=== PATIENT | female | born 1955 | race Caucasian/White ===

== ENCOUNTER 2018-01-07 18:16 | Emergency (ER) | payer MEDICARE, MEDICAID, SELFPAY ==
[2018-01-07 18:34] VITALS: BP 121/79; PULSE 85; RESP 18; TEMP 36.3; O2SAT 96; BMI 34.7
--- NOTE | 2018-01-07 19:21 | DI.CT.S_ITS ---
PROCEDURE: CT ABDOMEN PELVIS W CON INDICATIONS: 62 year-old female with left lower quadrant abdominal pain. TECHNIQUE: After the administration of intravenous contrast, 5 mm thick sections acquired from the diaphragm to the symphysis. 5 mm coronal and sagittal reformats were acquired. For radiation dose reduction, the following was used: automated exposure control, adjustment of mA and/or kV according to patient size. COMPARISON: None. FINDINGS: Image quality: Excellent. ABDOMEN: Lung bases: Lung bases are clear, except for a 5 mm posterior left lung base calcified granuloma on image 19. Heart size is normal. There is small retrocardiac hiatal hernia. Solid organs: Liver is normal in size and enhancement. Gallbladder is surgically absent. Biliary system is non dilated. Pancreas enhances normally. Spleen is normal in size and enhancement. No adrenal nodules. Kidneys demonstrate normal size and enhancement, without hydronephrosis. Peritoneum and bowel: Bowel loops demonstrate normal wall thickness and caliber. There is mild sigmoid colon diverticulosis. No free fluid or air. Nodes and vessels: No retroperitoneal or mesenteric adenopathy by size criteria. Aorta and inferior vena cava are normal in size, with minimal aortic atherosclerosis. Miscellaneous: No ventral hernias. PELVIS: Genitourinary: The bladder is near empty at the time of scan. Uterus is surgically absent. The ovaries are not seen, and may be surgically absent as well. Miscellaneous: No inguinal hernias or adenopathy. Bones: No suspicious bony lesions. No acute vertebral body compression fractures. There is non-acute T11 anterior wedge compression fracture, with 42% height loss. There is lower lumbar spine disc degeneration. IMPRESSION: 1. Mild sigmoid colon diverticulosis, without acute diverticulitis. 2. Small retrocardiac hiatal hernia. 3. Nonacute T11 anterior wedge compression fracture. Dictated by: Catrachito Ireland M.D. on 01/07/2018 at 21:17 Approved by: Catrachito Ireland M.D. on 01/07/2018 at 21:24
--- NOTE | 2018-01-07 19:24 | ED_ITS ---
HPI - Abdominal Pain General Chief Complaint: Abdominal Pain Stated Complaint: ABD PAIN, RECTAL BLEEDING Time Seen by Provider: 01/07/18 18:59 Source: patient Mode of arrival: ambulatory Limitations: no limitations History of Present Illness HPI narrative: Patient is a 62-year-old female who presents with rectal bleeding and abdominal pain. She said yesterday she did notice small amount of bright red blood on the toilet paper and a small amount in the toilet. Today she started having worsening abdominal pain and cramping she felt sweaty and nauseous. She had 2 more episodes much bigger up of bright red blood. He felt a little dizzy and lightheaded when she stood up as well. Related Data Home Medications Medication Instructions Recorded Confirmed sulfadiazine 1,000 mg PO BID #0 09/04/16 12/22/17 celecoxib [Celebrex] 200 mg PO BIDCC #0 01/01/17 12/22/17 Spacer: Inhaler Spacer Device #0 08/22/17 12/22/17 Previous Rx's Medication Instructions Recorded ondansetron [Zofran ODT] 4 mg SUBLINGUAL Q6HP PRN #20 odt 08/24/16 pantoprazole [Protonix] 40 mg PO QDAY #90 tab 04/08/17 ranitidine HCl 300 mg PO HS #90 tab 04/08/17 fluticasone 0 INTRANASAL QDAY #16 gm 05/22/17 propranolol 0 PO SEE INSTRUCTIONS #180 tab 05/22/17 topiramate [Topamax] 50 mg OR BID #90 tab 05/22/17 venlafaxine [Effexor XR] 150 mg PO QDAY #90 cap 05/22/17 naratriptan 2.5 mg PO PRN PRN #30 tab 06/05/17 albuterol sulfate [Ventolin HFA] 2 puff INH Q4HP PRN #1 ea 08/22/17 Allergies Allergy/AdvReac Type Severity Reaction Status Date / Time codeine [CODEINE] Allergy Mild THROAT Verified 12/22/17 09:06 SWELLING naproxen [From ANAPROX] Allergy Mild HIVES Verified 12/22/17 09:06 flurbiprofen [FLURBIPROFEN] AdvReac Mild GI UPSET Verified 01/07/18 19:24 PFSH Medical History GERD (gastroesophageal reflux disease) (Acute) Migraine (Acute) Psoriatic arthritis (Acute) Social History Smoking Status: Current every day smoker Exam Initial Vital Signs Initial Vital Signs: Vital Signs Temperature 97.3 F L 01/07/18 18:34 Pulse Rate 85 01/07/18 18:34 Respiratory Rate 18 01/07/18 18:34 Blood Pressure 121/79 H 01/07/18 18:34 Pulse Oximetry 96 01/07/18 18:34 Const General: cooperative and well developed Nutritional Appearance: well nourished Orientation: alert, awake, oriented x3 and not confused Eyes Eyelids: eyelids normal Pupils: PERRL EOM: EOM intact bilaterally Neck Neck: full ROM Resp Effort & Inspection: normal respiratory effort, able to speak in complete sentences, no respiratory distress and no use of accessory muscles Auscultation: clear to auscultation bilaterally, no rales, no rhonchi and no wheezes Cardio Rate: regular rate Rhythm: regular rhythm Heart Sounds: no click, no gallops, no murmurs and no rubs Pulses: normal peripheral pulses GI Palpation: tender (Mild tenderness to left lower quadrant) Rectal Exam: visual inspection normal, No fecal impaction, heme negative stool ( NO STOOL IN RECTUM), hemorrhoids (INTERNAL) and tenderness Skin General: no rashes or lesions noted, No jaundice and No petechiae Neuro General: alert, oriented x3, gait normal and no focal motor deficits Speech: speech normal Extrem General: normal to inspection, full ROM and capillary refill normal Course Orders Ordered: ED Orders 01/07/18 19:05 Complete Blood Count AUTO DIFF Stat Comprehensive Metabolic Panel Stat Partial Thromboplastin Time Stat Prothrombin Time INR Stat Type and Screen Stat 01/07/18 19:21 CT abdomen pelvis w con Stat Discontinued Medications Ondansetron HCl (Zofran) 4 mg IV NOW ONE Stop: 01/07/18 19:23 Last Admin: 01/07/18 19:30 Dose: 4 mg Pantoprazole Sodium (Protonix) 40 mg IV NOW ONE Stop: 01/07/18 19:20 Last Admin: 01/07/18 19:30 Dose: 40 mg Vital Signs - 8 hr 01/07/18 18:34 01/07/18 19:43 01/07/18 20:30 Temperature 97.3 F L Pulse Rate 85 77 70 Respiratory Rate 18 14 18 Blood Pressure 121/79 H Blood Pressure [Left Arm] 103/60 92/57 L Pulse Oximetry 96 97 95 01/07/18 21:35 01/07/18 21:57 Temperature Pulse Rate 70 80 Respiratory Rate 14 14 Blood Pressure 120/70 Blood Pressure [Left Arm] 120/72 Pulse Oximetry 97 97 MDM - Abdominal Pain Medical Records Attestation: I reviewed the patient's medical records. Lab Data Attestation: I reviewed the patient's lab results. Result diagrams: 01/07/18 19:05 01/07/18 19:05 Lab Results 01/07/18 01/07/18 01/07/18 Range/Units 19:05 19:05 19:05 WBC 12.8 H (4.5-11.0) X10^3/uL RBC 4.63 (4.0-5.2) X10^6/uL Hgb 13.9 (12.0-16.0) g/dL Hct 41.7 (36-46) % MCV 90.1 (80-100) fL MCH 30.0 (26-34) PG MCHC 33.3 (30-36) % RDW 12.9 (11.6-14.8) % Plt Count 438 H (150-400) X10^3/uL Neut % (Auto) 77.8 H (50-75) % Lymph % (Auto) 16.0 L (25-40) % [place] % (Auto) 5.3 (3-14) % Eos % (Auto) 0.3 L (2-4) % Baso % (Auto) 0.6 (0-2) % Neut # (Auto) 9900 H (4794-7471) /uL PT 11.3 (10.1-12.7) SECONDS INR 1.0 (0.9-1.3) APTT 29 (26.4-36.2) SECONDS Sodium 142 (137-145) mmol/L Potassium 4.4 (3.4-5.1) mmol/L Chloride 106 (98-107) mmol/L Carbon Dioxide 21 L (22-32) mmol/L BUN 26 H (7-17) mg/dL Creatinine 0.80 (0.52-1.04) mg/dL Estimated GFR > 60.0 (>60) mL/min BUN/Creatinine Ratio 32.5 H (6-22) Glucose 110 (80-110) mg/dL Calcium 9.7 (8.4-10.2) mg/dL Total Bilirubin 0.3 (0.2-1.3) mg/dL AST 22 (14-36) IU/L ALT 20 (9-52) IU/L Alkaline Phosphatase 104 (38-126) U/L Total Protein 8.7 H (6.3-8.2) g/dL Albumin 4.3 (3.5-5.0) g/dL Globulin 4.4 H (1.7-4.1) g/dL Albumin/Globulin Ratio 1.0 (1.0-2.8) Blood Type Antibody Screen 01/07/18 01/07/18 Range/Units 19:05 19:05 WBC (4.5-11.0) X10^3/uL RBC (4.0-5.2) X10^6/uL Hgb (12.0-16.0) g/dL Hct (36-46) % MCV (80-100) fL MCH (26-34) PG MCHC (30-36) % RDW (11.6-14.8) % Plt Count (150-400) X10^3/uL Neut % (Auto) (50-75) % Lymph % (Auto) (25-40) % [place] % (Auto) (3-14) % Eos % (Auto) (2-4) % Baso % (Auto) (0-2) % Neut # (Auto) (3212-4067) /uL PT Cancelled (10.1-12.7) SECONDS INR Cancelled (0.9-1.3) APTT (26.4-36.2) SECONDS Sodium (137-145) mmol/L Potassium (3.4-5.1) mmol/L Chloride (98-107) mmol/L Carbon Dioxide (22-32) mmol/L BUN (7-17) mg/dL Creatinine (0.52-1.04) mg/dL Estimated GFR (>60) mL/min BUN/Creatinine Ratio (6-22) Glucose (80-110) mg/dL Calcium (8.4-10.2) mg/dL Total Bilirubin (0.2-1.3) mg/dL AST (14-36) IU/L ALT (9-52) IU/L Alkaline Phosphatase (38-126) U/L Total Protein (6.3-8.2) g/dL Albumin (3.5-5.0) g/dL Globulin (1.7-4.1) g/dL Albumin/Globulin Ratio (1.0-2.8) Blood Type O Negative Antibody Screen Negative Imaging Data CT scan - abdomen: Radiologist's impression: PROCEDURE: CT ABDOMEN PELVIS W CON INDICATIONS: 62 year-old female with left lower quadrant abdominal pain. TECHNIQUE: After the administration of intravenous contrast, 5 mm thick sections acquired from the diaphragm to the symphysis. 5 mm coronal and sagittal reformats were acquired. For radiation dose reduction, the following was used: automated exposure control, adjustment of mA and/or kV according to patient size. COMPARISON: None. FINDINGS: Image quality: Excellent. ABDOMEN: Lung bases: Lung bases are clear, except for a 5 mm posterior left lung base calcified granuloma on image 19. Heart size is normal. There is small retrocardiac hiatal hernia. Solid organs: Liver is normal in size and enhancement. Gallbladder is surgically absent. Biliary system is non dilated. Pancreas enhances normally. Spleen is normal in size and enhancement. No adrenal nodules. Kidneys demonstrate normal size and enhancement, without hydronephrosis. Peritoneum and bowel: Bowel loops demonstrate normal wall thickness and caliber. There is mild sigmoid colon diverticulosis. No free fluid or air. Nodes and vessels: No retroperitoneal or mesenteric adenopathy by size criteria. Aorta and inferior vena cava are normal in size, with minimal aortic atherosclerosis. Miscellaneous: No ventral hernias. PELVIS: Genitourinary: The bladder is near empty at the time of scan. Uterus is surgically absent. The ovaries are not seen, and may be surgically absent as well. Miscellaneous: No inguinal hernias or adenopathy. Bones: No suspicious bony lesions. No acute vertebral body compression fractures. There is non-acute T11 anterior wedge compression fracture, with 42% height loss. There is lower lumbar spine disc degeneration. IMPRESSION: 1. Mild sigmoid colon diverticulosis, without acute diverticulitis. 2. Small retrocardiac hiatal hernia. 3. Nonacute T11 anterior wedge compression fracture. Dictated by: Catrachito Ireland M.D. on 01/07/2018 at 21:17 MDM Narrative Medical decision making narrative: PATIENT HAS HAD NO FURTHER EPISODES OF BRIGHT RED BLOOD. HEMOGLOBIN HEMATOCRIT ARE STABLE SHE IS HEMODYNAMICALLY STABLE. NO GROSS BLOOD ON RECTAL. SHE LIKELY HAS AN INTERNAL HEMORRHOID NO EXTERIOR HEMORRHOIDS ARE APPRECIATED. CT DOES NOT SHOW DIVERTICULITIS. NO ANTIBIOTICS NEEDED AT THIS TIME. Discharge Plan Departure Patient Disposition: Home, Self-Care Clinical Impression: Bright red rectal bleeding Discharge Date/Time: 01/07/18 21:58 Interventions: ED Discharge Assessment Last Done: 01/07/18 21:57 Activity Restrictions/Additional Instructions: *You have been diagnosed with Rectal bleeding *What to do: Expect to have some bleeding but should start to slow down, you will need a colonoscopy for further evaluation bleeding is likely from hemorrhoids *Continue to take medications as directed *Follow up with your primary care provider in 2-3 days *Return to ER if you should have persistent bleeding, increasing abdominal any new, worsening or concerning symptoms Prescriptions: No Action ondansetron [Zofran ODT] 4 MG tablet,disintegrating 4 mg Sublingual Q6HP PRNQty: 20 RF: 0 sulfadiazine 500 MG tablet 1,000 mg PO BID Qty: 0 RF: 0 celecoxib [Celebrex] 200 MG capsule 200 mg PO BIDCC Qty: 0 RF: 0 ranitidine HCl 300 MG tablet 300 mg PO HS Qty: 90 RF: 3 pantoprazole [Protonix] 40 MG tablet,delayed release (DR/EC) 40 mg PO QDAY Qty: 90 RF: 3 venlafaxine [Effexor XR] 150 MG capsule,extended release 24hr 150 mg PO QDAY Qty: 90 RF: 3 propranolol 10 MG tablet PO SEE INSTRUCTIONS Qty: 180 RF: 3 fluticasone 16 GM spray,suspension Intranasal QDAY Qty: 16 RF: 12 topiramate [Topamax] 50 MG tablet 50 mg OR BID Qty: 90 RF: 3 naratriptan 2.5 MG tablet 2.5 mg PO PRN PRNQty: 30 RF: 3 Spacer: Inhaler Spacer Device Qty: 0 RF: 0 albuterol sulfate [Ventolin HFA] 90 MCG/PUFF HFA aerosol inhaler 2 puff INH Q4HP PRNQty: 1 RF: 0 Referrals: Dulce Palencia MD [Primary Care Provider] -
[2018-01-07] MEDS: PANTOPRAZOLE 40 MG VIAL IV (19:30)
[2018-01-07] MEDS: ONDANSETRON 4 MG/2 ML INJ IV (19:30)
[2018-01-07 19:43] VITALS: BP 103/60; PULSE 77; RESP 14; O2SAT 97
[2018-01-07 20:30] VITALS: BP 92/57; PULSE 70; RESP 18; O2SAT 95
[2018-01-07 20:30] LABS: Add Manual Diff / Slide Review NO; Basophils Percent Auto 0.6 % (0-2); Eosinophils Percent Auto 0.3 % (2-4); Hematocrit 41.7 % (36-46); Hemoglobin 13.9 g/dL (12.0-16.0); Mean Corpuscular HGB Conc 33.3 % (30-36); Mean Corpuscular Volume 90.1 fL (80-100); Monocytes Percent Auto 5.3 % (3-14); Neutrophils Absolute Auto 9900 /uL (3000-5900); Neutrophils Percent Auto 77.8 % (50-75); Platelet Count 438 X10^3/uL (150-400); Red Blood Cell Count 4.63 X10^6/uL (4.0-5.2); Red Cell Distribution Width 12.9 % (11.6-14.8); White Blood Cell Count 12.8 X10^3/uL (4.5-11.0)
[2018-01-07 20:35] LABS: Prothrombin Time 11.3 SECONDS (10.1-12.7)
[2018-01-07 20:37] LABS: PTT Partial Thromboplastin Tim 29 SECONDS (26.4-36.2)
[2018-01-07 20:39] LABS: Alanine Aminotransferase 20 IU/L (9-52); Albumin 4.3 g/dL (3.5-5.0); Alkaline Phosphatase 104 U/L (38-126); Aspartate Aminotransferase 22 IU/L (14-36); BUN Creatinine Ratio 32.5 (6-22); Bilirubin Total 0.3 mg/dL (0.2-1.3); Blood Urea Nitrogen 26 mg/dL (7-17); Calcium 9.7 mg/dL (8.4-10.2); Carbon Dioxide 21 mmol/L (22-32); Chloride 106 mmol/L (98-107); Estimated Glomerular Filt Rate > 60.0 mL/min (>60); Globulin 4.4 g/dL (1.7-4.1); Glucose 110 mg/dL (80-110); HEMOLYSIS < 15 (0-50); Potassium 4.4 mmol/L (3.4-5.1); Sodium 142 mmol/L (137-145); Total Protein 8.7 g/dL (6.3-8.2)
[2018-01-07 21:35] VITALS: BP 120/72; PULSE 70; RESP 14; O2SAT 97
[2018-01-07 21:57] VITALS: BP 120/70; PULSE 80; RESP 14; O2SAT 97
== END 2018-01-07 21:58 | disposition home or self-care (01) ==
PROVIDERS: Emergency Provider Emergency Medicine; Family Provider Family Medicine; PCP Family Medicine
DX: K62.5 Hemorrhage of anus and rectum (principal)
CPT/HCPCS: 36591; 74177; 80053; 81003; 85025; 85610; 85730; 86850; 86900; 86901; 96374; 96375; 99283; 99285; C9113; J2405; Q9967

== ENCOUNTER 2018-02-13 19:58 | Observation (INO) | payer MEDICARE, MEDICAID, SELFPAY ==
[2018-02-13 20:18] VITALS: BP 129/81; PULSE 81; RESP 17; TEMP 36.5; O2SAT 98; BMI 34.7
--- NOTE | 2018-02-13 20:20 | DI.RAD.S_ITS ---
PROCEDURE: XR CHEST 1V INDICATIONS: Chest pain TECHNIQUE: One view of the chest was acquired. COMPARISON: [facility], CHEST 2 VIEW, 08/22/2017, 11:53. [facility], CHEST 2 VIEW, 10/13/2017, 14:50. FINDINGS: Surgical changes and devices: None. Lungs and pleura: No pleural effusions or pneumothorax. Lungs are clear. Mediastinum: Mediastinal contours appear normal. Heart size is normal. Bones and chest wall: No suspicious bony lesions. Overlying soft tissues appear unremarkable. IMPRESSION: No acute cardiopulmonary disease. Dictated by: Thuan Bowles M.D. on 02/13/2018 at 20:50 Approved by: Thuan Bowles M.D. on 02/13/2018 at 20:50
--- NOTE | 2018-02-13 20:23 | ED.CHESTPAIN ---
HPI - Chest Pain General Chief Complaint: Chest Pain Stated Complaint: SEVERE CHEST PAIN Time Seen by Provider: 02/13/18 20:00 Source: patient and family Mode of arrival: ambulatory Limitations: no limitations History of Present Illness HPI narrative: 62-year-old female presents with a chief complaint of sudden onset central chest pressure with radiation to her back that started while at rest. She denies provocation or palliation. She has associated shortness of breath and diaphoresis with nausea. She denies any history of the same. She denies recent travel, history of blood clots, or recent injury or surgery. At its most intense pain is 4/10, on arrival to out of 10 MD complaint: chest pain Duration: constant Onset: during rest Pain location: substernal Severity: moderate Quality: tightness, aching and heaviness Pain radiation: back Relieving factors: nothing Exacerbating factors: nothing Related Data Home Medications Medication Instructions Recorded Confirmed sulfadiazine 500 mg PO BID #0 09/04/16 02/14/18 celecoxib [Celebrex] 200 mg PO BID #0 01/01/17 02/14/18 Spacer: Inhaler Spacer Device #0 08/22/17 12/22/17 Previous Rx's Medication Instructions Recorded ondansetron [Zofran ODT] 4 mg SUBLINGUAL Q6HP PRN #20 odt 08/24/16 pantoprazole [Protonix] 40 mg PO QDAY #90 tab 04/08/17 ranitidine HCl 300 mg PO HS #90 tab 04/08/17 fluticasone 0 INTRANASAL QDAY #16 gm 05/22/17 propranolol 0 PO SEE INSTRUCTIONS #180 tab 05/22/17 topiramate [Topamax] 50 mg OR BID #90 tab 05/22/17 venlafaxine [Effexor XR] 150 mg PO QDAY #90 cap 05/22/17 naratriptan 2.5 mg PO PRN PRN #30 tab 06/05/17 albuterol sulfate [Ventolin HFA] 2 puff INH Q4HP PRN #1 ea 08/22/17 Allergies Allergy/AdvReac Type Severity Reaction Status Date / Time codeine [CODEINE] Allergy Mild THROAT Verified 02/13/18 20:18 SWELLING naproxen [From ANAPROX] Allergy Mild HIVES Verified 02/13/18 20:18 flurbiprofen [FLURBIPROFEN] AdvReac Mild GI UPSET Verified 02/13/18 20:18 Review of Systems Review of Systems All systems reviewed & are unremarkable except as noted in HPI and below Constitutional Denies chills, Denies fever(s), Denies lethargy and Denies weakness Eyes Denies change in vision, Denies eye discharge, Denies irritation and Denies loss of vision ENT Ears, Nose, Mouth, and Throat: Denies change in voice, Denies neck pain and Denies sore throat Cardiovascular Reports chest pain, Denies irregular heart rhythm, Denies lightheadedness, Denies palpitations, Denies dyspnea, Denies dyspnea on exertion and Denies orthopnea Respiratory Denies cough, Denies dyspnea, Denies dyspnea on exertion and Denies wheezing Gastrointestinal Gastrointestinal: Denies abdominal pain, Denies change in bowel habits, Denies diarrhea, Denies nausea and Denies vomiting Genitourinary Denies hematuria, Denies flank pain, Denies urinary incontinence and Denies urinary urgency Musculoskeletal Denies neck pain Integumentary/Breasts Denies pruritus, Denies erythema, Denies rash and Denies wounds Neurologic Denies confusion, Denies loss of vision and Denies weakness Psychiatric Denies anxiety, Denies confusion, Denies depression, Denies homicidal ideation and Denies suicidal ideation Endocrine Denies palpitations Hematologic/Lymphatic Denies easy bruising Allergic/Immunologic Denies wheezing PFSH Medical History GERD (gastroesophageal reflux disease) (Acute) Migraine (Acute) Psoriatic arthritis (Acute) Social History household members: other Smoking Status: Never smoker Exam Initial Vital Signs Initial Vital Signs: Vital Signs Temperature 97.7 F 02/13/18 20:18 Pulse Rate 81 02/13/18 20:18 Respiratory Rate 17 02/13/18 20:18 Blood Pressure 129/81 H 02/13/18 20:18 Pulse Oximetry 98 02/13/18 20:18 Const General: cooperative and well developed Nutritional Appearance: well nourished Orientation: alert, awake, oriented x3 and not confused HENMD Head: normocephalic and atraumatic Ears: external ears normal and TM's normal bilaterally Nose: external nose normal and No nasal discharge Face and sinus: sinuses nontender, face symmetric, no sinus tenderness and No dry mucous membranes Mouth: oral mucosae normal and moist mucous membranes Teeth and gingiva: dentition normal Throat: tonsils normal and uvula midline Eyes General: appearance normal, both eyes and all related structures Eyelids: eyelids normal Conjunctivae: conjunctivae normal Sclera: sclerae normal Pupils: PERRL EOM: EOM intact bilaterally Neck Neck: normal visual inspection, trachea midline, No lymphadenopathy, No midline deformity and No JVD Lymphatic: No lymphedema Chest Chest: normal inspection of the chest Resp Effort & Inspection: normal respiratory effort, able to speak in complete sentences, no respiratory distress and no use of accessory muscles Auscultation: clear to auscultation bilaterally, no rales, no rhonchi and no wheezes Cardio Rate: regular rate Rhythm: regular rhythm Heart Sounds: no click, no gallops, no murmurs and no rubs Pulses: normal peripheral pulses GI Inspection: non-distended Palpation: soft, no hepatosplenomegaly, No guarding, No pulsatile mass and No tender Auscultation: normal bowel sounds Back/Spine/Pelvis Back: No CVA tenderness Cervical Spine: cervical ROM normal and No pain with cervical ROM Thoracic/Lumbar Spine: thoracic and lumbar spine normal to inspection Skin General: no rashes or lesions noted, No jaundice and No petechiae Neuro General: alert, oriented x3, gait normal and no focal motor deficits Speech: speech normal Extrem General: full ROM, no clubbing, cyanosis or edema, no pedal edema and no calf tenderness Psych Appearance: well kempt Mental Status: mental status grossly normal Attitude: cooperative Thought Content: normal and suicidality Judgment: judgment good Course Orders Ordered: ED Orders 02/13/18 20:15 Complete Blood Count AUTO DIFF Stat Comprehensive Metabolic Panel Stat Lipase Stat Partial Thromboplastin Time Stat Prothrombin Time INR Stat Troponin & CK Cardiac Panel Stat 02/13/18 20:20 XR chest 1V Stat 02/13/18 20:39 EKG-12 Lead Stat 02/13/18 21:14 CT angio chest PE protocol Stat 02/14/18 01:49 Troponin I Stat 02/14/18 08:00 Troponin I Routine Acetaminophen (Tylenol) 650 mg PO Q4HR PRN PRN Reason: As Needed for Fever/Mild Pain Sodium Chloride (Normal Saline 0.9%) 1,000 mls @ 80 mls/hr IV CONT NICO Last Admin: 02/14/18 00:44 Dose: 80 mls/hr Nitroglycerin (Nitrostat) 0.4 mg SL [id number] PRN PRN Reason: Chest Pain Last Admin: 02/14/18 02:45 Dose: 0.4 mg Admin: 02/13/18 20:50 Dose: 0.4 mg Discontinued Medications Aspirin (Aspirin Chew) 324 mg PO NOW ONE Stop: 02/13/18 20:38 Last Admin: 02/13/18 20:50 Dose: 324 mg Metoprolol Tartrate (Lopressor) 50 mg PO NOW ONE Stop: 02/13/18 20:38 Last Admin: 02/13/18 20:50 Dose: 50 mg Reevaluation(s) Reevaluation #1: After nitro pain improves to almost gone Time: 21:28 Consultations Consultation #1: Dr. Aviles happy to accept on her service Vital Signs - 8 hr 02/13/18 20:18 02/13/18 20:50 02/13/18 21:05 Temperature 97.7 F Pulse Rate 81 72 69 Respiratory Rate 17 Blood Pressure 129/81 H 126/75 H 115/69 Blood Pressure [Right Arm] Pulse Oximetry 98 02/13/18 21:20 02/13/18 22:35 02/13/18 23:30 Temperature 97.3 F L 97.9 F Pulse Rate 77 71 62 Respiratory Rate 15 18 16 Blood Pressure 133/78 H 121/67 H Blood Pressure [Right Arm] 109/66 Pulse Oximetry 96 98 97 02/14/18 02:45 Temperature Pulse Rate 80 Respiratory Rate Blood Pressure 121/69 H Blood Pressure [Right Arm] Pulse Oximetry MDM - Chest Pain Differential Diagnosis Likely pneumothorax, stable angina, unstable angina pectoris, atypical chest pain, st elevation myocardial infarction, costochondritis, chest pain and biliary colic Medical Records Data Attestation: I reviewed the patient's medical records. Lab Data Attestation: I reviewed the patient's lab results. Result diagrams: 02/13/18 20:15 02/13/18 20:15 Lab Results 02/13/18 02/13/18 02/13/18 Range/Units 20:15 20:15 20:15 WBC 12.6 H (4.5-11.0) X10^3/uL RBC 4.49 (4.0-5.2) X10^6/uL Hgb 13.4 (12.0-16.0) g/dL Hct 40.2 (36-46) % MCV 89.5 (80-100) fL MCH 29.8 (26-34) PG MCHC 33.4 (30-36) % RDW 13.1 (11.6-14.8) % Plt Count 361 (150-400) X10^3/uL Neut % (Auto) 54.7 (50-75) % Lymph % (Auto) 33.2 (25-40) % [place] % (Auto) 8.3 (3-14) % Eos % (Auto) 2.9 (2-4) % Baso % (Auto) 0.9 (0-2) % Neut # (Auto) 6900 H (4966-8484) /uL PT 11.7 (10.1-12.7) SECONDS INR 1.1 (0.9-1.3) APTT 30 (26.4-36.2) SECONDS Sodium 138 (137-145) mmol/L Potassium 4.3 (3.4-5.1) mmol/L Chloride 102 (98-107) mmol/L Carbon Dioxide 26 (22-32) mmol/L BUN 19 H (7-17) mg/dL Creatinine 0.80 (0.52-1.04) mg/dL Estimated GFR > 60.0 (>60) mL/min BUN/Creatinine Ratio 23.8 H (6-22) Glucose 101 (80-110) mg/dL Calcium 9.5 (8.4-10.2) mg/dL Total Bilirubin 0.4 (0.2-1.3) mg/dL AST 22 (14-36) IU/L ALT 23 (9-52) IU/L Alkaline Phosphatase 108 (38-126) U/L Total Creatine Kinase 44 (30-135) U/L Troponin I < 0.012 (0.01-0.034) ng/mL Total Protein 8.1 (6.3-8.2) g/dL Albumin 4.3 (3.5-5.0) g/dL Globulin 3.8 (1.7-4.1) g/dL Albumin/Globulin Ratio 1.1 (1.0-2.8) Lipase 73 (23-300) U/L 07/14/18 Range/Units 01:49 WBC (4.5-11.0) X10^3/uL RBC (4.0-5.2) X10^6/uL Hgb (12.0-16.0) g/dL Hct (36-46) % MCV (80-100) fL MCH (26-34) PG MCHC (30-36) % RDW (11.6-14.8) % Plt Count (150-400) X10^3/uL Neut % (Auto) (50-75) % Lymph % (Auto) (25-40) % [place] % (Auto) (3-14) % Eos % (Auto) (2-4) % Baso % (Auto) (0-2) % Neut # (Auto) (9286-0122) /uL PT (10.1-12.7) SECONDS INR (0.9-1.3) APTT (26.4-36.2) SECONDS Sodium (137-145) mmol/L Potassium (3.4-5.1) mmol/L Chloride (98-107) mmol/L Carbon Dioxide (22-32) mmol/L BUN (7-17) mg/dL Creatinine (0.52-1.04) mg/dL Estimated GFR (>60) mL/min BUN/Creatinine Ratio (6-22) Glucose (80-110) mg/dL Calcium (8.4-10.2) mg/dL Total Bilirubin (0.2-1.3) mg/dL AST (14-36) IU/L ALT (9-52) IU/L Alkaline Phosphatase (38-126) U/L Total Creatine Kinase (30-135) U/L Troponin I < 0.012 (0.01-0.034) ng/mL Total Protein (6.3-8.2) g/dL Albumin (3.5-5.0) g/dL Globulin (1.7-4.1) g/dL Albumin/Globulin Ratio (1.0-2.8) Lipase (23-300) U/L Imaging Data CT scan - abdomen: Radiologist's impression: PROCEDURE: CT ANGIO CHEST PE PROTOCOL INDICATIONS: Chest Pain, Shortness of breath. TECHNIQUE: After the administration of intravenous contrast, 2 mm thick sections acquired from the pulmonary apices to the posterior costophrenic angles. 3-dimensional maximum intensity projection (MIP) coronal and sagittal reformats were then acquired through the thorax. For radiation dose reduction, the following was used: automated exposure control, adjustment of mA and/or kV according to patient size. COMPARISON: [facility], CT, CT ABDOMEN PELVIS W CON, 01/07/2018, 20:48. [facility], CR, XR CHEST 1V, 02/13/2018, 20:26. FINDINGS: Image quality: Excellent. Pulmonary arteries: Pulmonary arteries are normal in size, and demonstrate no intraluminal filling defects to suggest central pulmonary embolism. Lungs and pleura: There is a 4 mm groundglass nodule in the right middle lobe (series 6 image 29). No pleural effusions or pneumothorax. Central and peripheral airways are patent. Mediastinum: Heart size is normal, without pericardial effusion. Calcified lymph nodes in mediastinum and karen bilaterally are consistent with old granulomas. Thoracic aorta is normal in caliber and enhancement. Esophagus is normal in caliber. There is a small hiatal hernia. Bones and chest wall: No suspicious bony lesions. Mild non-acute compression fracture of T11. Thyroid gland is normal. No axillary or supraclavicular adenopathy. Abdomen: Visualized upper abdominal solid organs appear normal in the early arterial phase of enhancement. Cholecystectomy. IMPRESSION: 1. No evidence for central pulmonary embolism. 2. A 4 mm groundglass nodule in the right middle lobe. Please see enclosed followup recommendation. 3. Old granulomas in the mediastinum and karen bilaterally. 4. Small hiatal hernia. 5. Mild non-acute T11 compressoin fracture. Fleischner Society criteria for SUB-SOLID lung nodule followup. Solitary pure ground-glass nodules5 mm or lessNo followup needed. >5 mm3 mo follow-up CT to confirm persistence. Then annual CT for 3 years. Part-solid nodules3 mo follow-up CT to confirm persistence. If persistent with solid component <5 mm, annual CT for at least 3 years. If solid component is 5 mm or more, biopsy or surgical resection. Consider PET-CT for lesions > 10 mm. Multiple sub-solid nodulesPure ground glass nodules [address] at 2 and 4 years. Pure ground glass nodules >5 mm without dominant lesion. [address] to confirm persistence, then annual followup CT for at least 3 years. Dominant nodule(s) with part-solid or solid component. [address] to confirm persistence. If persistent, consider biopsy or surgical resection, magdalena if lesions have >5 mm solid component. Dictated by: Thuan Bowles M.D. on 02/13/2018 at 21:45 Discharge Plan Departure Patient Disposition: Admitted As Inpatient Discharge Date/Time: 02/13/18 22:36 Interventions: ED Discharge Assessment Last Done: 02/13/18 22:35 Admit Date/Time: 02/13/18 22:33 Admit Provider: Eda Aviles
[2018-02-13 20:27] LABS: Add Manual Diff / Slide Review NO; Basophils Percent Auto 0.9 % (0-2); Eosinophils Percent Auto 2.9 % (2-4); Hematocrit 40.2 % (36-46); Hemoglobin 13.4 g/dL (12.0-16.0); Lymphocytes Percent Auto 33.2 % (25-40); Mean Corpuscular HGB Conc 33.4 % (30-36); Mean Corpuscular Hemoglobin 29.8 PG (26-34); Mean Corpuscular Volume 89.5 fL (80-100); Monocytes Percent Auto 8.3 % (3-14); Neutrophils Absolute Auto 6900 /uL (3000-5900); Neutrophils Percent Auto 54.7 % (50-75); Platelet Count 361 X10^3/uL (150-400); Red Blood Cell Count 4.49 X10^6/uL (4.0-5.2); Red Cell Distribution Width 13.1 % (11.6-14.8); White Blood Cell Count 12.6 X10^3/uL (4.5-11.0)
[2018-02-13 20:34] LABS: Alanine Aminotransferase 23 IU/L (9-52); Albumin 4.3 g/dL (3.5-5.0); Albumin Globulin Ratio 1.1 (1.0-2.8); Alkaline Phosphatase 108 U/L (38-126); Aspartate Aminotransferase 22 IU/L (14-36); BUN Creatinine Ratio 23.8 (6-22); Bilirubin Total 0.4 mg/dL (0.2-1.3); Blood Urea Nitrogen 19 mg/dL (7-17); Calcium 9.5 mg/dL (8.4-10.2); Carbon Dioxide 26 mmol/L (22-32); Chloride 102 mmol/L (98-107); Creatine Kinase 44 U/L (30-135); Estimated Glomerular Filt Rate > 60.0 mL/min (>60); Globulin 3.8 g/dL (1.7-4.1); Glucose 101 mg/dL (80-110); HEMOLYSIS 16 (0-50); INR 1.1 (0.9-1.3); Lipase 73 U/L (23-300); Potassium 4.3 mmol/L (3.4-5.1); Prothrombin Time 11.7 SECONDS (10.1-12.7); Sodium 138 mmol/L (137-145); Total Protein 8.1 g/dL (6.3-8.2)
[2018-02-13 20:36] LABS: PTT Partial Thromboplastin Tim 30 SECONDS (26.4-36.2)
[2018-02-13 20:50] VITALS: BP 126/75; PULSE 72
[2018-02-13] MEDS: METOPROLOL 50 MG TABLET PO (20:50)
[2018-02-13] MEDS: ASPIRIN 81 MG TAB 324 MG PO (20:50)
[2018-02-13] MEDS: NITROGLYCERIN 0.4 MG SL TAB SL (20:50)
[2018-02-13 20:51] LABS: Troponin I < 0.012 ng/mL (0.01-0.034)
[2018-02-13 21:05] VITALS: BP 115/69; PULSE 69
--- NOTE | 2018-02-13 21:14 | DI.CT.S_ITS ---
PROCEDURE: CT ANGIO CHEST PE PROTOCOL INDICATIONS: Chest Pain, Shortness of breath. TECHNIQUE: After the administration of intravenous contrast, 2 mm thick sections acquired from the pulmonary apices to the posterior costophrenic angles. 3-dimensional maximum intensity projection (MIP) coronal and sagittal reformats were then acquired through the thorax. For radiation dose reduction, the following was used: automated exposure control, adjustment of mA and/or kV according to patient size. COMPARISON: [facility], CT, CT ABDOMEN PELVIS W CON, 01/07/2018, 20:48. [facility], CR, XR CHEST 1V, 02/13/2018, 20:26. FINDINGS: Image quality: Excellent. Pulmonary arteries: Pulmonary arteries are normal in size, and demonstrate no intraluminal filling defects to suggest central pulmonary embolism. Lungs and pleura: There is a 4 mm groundglass nodule in the right middle lobe (series 6 image 29). No pleural effusions or pneumothorax. Central and peripheral airways are patent. Mediastinum: Heart size is normal, without pericardial effusion. Calcified lymph nodes in mediastinum and karen bilaterally are consistent with old granulomas. Thoracic aorta is normal in caliber and enhancement. Esophagus is normal in caliber. There is a small hiatal hernia. Bones and chest wall: No suspicious bony lesions. Mild non-acute compression fracture of T11. Thyroid gland is normal. No axillary or supraclavicular adenopathy. Abdomen: Visualized upper abdominal solid organs appear normal in the early arterial phase of enhancement. Cholecystectomy. IMPRESSION: 1. No evidence for central pulmonary embolism. 2. A 4 mm groundglass nodule in the right middle lobe. Please see enclosed followup recommendation. 3. Old granulomas in the mediastinum and karen bilaterally. 4. Small hiatal hernia. 5. Mild non-acute T11 compressoin fracture. Fleischner Society criteria for SUB-SOLID lung nodule followup. Solitary pure ground-glass nodules5 mm or lessNo followup needed. >5 mm3 mo follow-up CT to confirm persistence. Then annual CT for 3 years. Part-solid nodules3 mo follow-up CT to confirm persistence. If persistent with solid component <5 mm, annual CT for at least 3 years. If solid component is 5 mm or more, biopsy or surgical resection. Consider PET-CT for lesions > 10 mm. Multiple sub-solid nodulesPure ground glass nodules [address] at 2 and 4 years. Pure ground glass nodules >5 mm without dominant lesion. [address] to confirm persistence, then annual followup CT for at least 3 years. Dominant nodule(s) with part-solid or solid component. [address] to confirm persistence. If persistent, consider biopsy or surgical resection, magdalena if lesions have >5 mm solid component. Dictated by: Thuan Bowles M.D. on 02/13/2018 at 21:45 Approved by: Thuan Bowles M.D. on 02/13/2018 at 21:55
[2018-02-13 21:20] VITALS: BP 109/66; PULSE 77; RESP 15; O2SAT 96
[2018-02-13 22:35] VITALS: BP 133/78; PULSE 71; RESP 18; TEMP 36.3; O2SAT 98
[2018-02-13 22:40] VITALS: BMI 34.7
[2018-02-13 23:30] VITALS: BP 121/67; PULSE 62; RESP 16; TEMP 36.6; O2SAT 97
[2018-02-14] MEDS: SODIUM CHLORIDE 0.9% 1,000 ML 80 ML IV (00:44)
[2018-02-14 02:30] LABS: Troponin I < 0.012 ng/mL (0.01-0.034)
[2018-02-14 02:45] VITALS: BP 121/69; PULSE 80
[2018-02-14] MEDS: NITROGLYCERIN 0.4 MG SL TAB SL (02:45)
--- NOTE | 2018-02-14 05:03 | PC.NURSE ---
Pt was admitted just prior to start of a shift. Pt has no complaints of chest pain/ discomfort at start of shift. VS stable 121/67. RA 99. IVF running per orders. Pt oriented to room. At 0245 pt complained of chest pressure, like someone is sitting on me. Provided 1 tab nitro, relieved pressure. Notified MD. Pt has been quietly resting in bed since. Call light in reach
[2018-02-14] MEDS: ACETAMINOPHEN 325 MG TABLET 650 MG PO (05:33)
[2018-02-14 06:14] VITALS: BP 110/59; PULSE 62; RESP 16; TEMP 36.6; O2SAT 95
[2018-02-14 07:15] VITALS: BP 100/75; PULSE 68; RESP 14; TEMP 36.2; O2SAT 96
[2018-02-14 08:46] LABS: Troponin I < 0.012 ng/mL (0.01-0.034)
--- NOTE | 2018-02-14 11:18 | P.HP_ITS ---
History of Present Illness Date Patient Seen: 02/14/18 Chief complaint: SEVERE CHEST PAIN Narrative: Patient is a 62-year-old woman with a history of psoriatic arthritis as well as reflux who presents to the emergency room last evening with chest pain of approximately 1 hr duration. She reports that it started in the epigastric region radiated up to her left upper chest. And upon presentation her EKG was negative, and cardiac enzymes were negative however, her pain was improved with nitroglycerin. Overnight, patient also had some chest heaviness with negative cardiac enzymes as well. Patient does have psoriatic arthritis and reports that the newest medication she has been taking is Cosyntex, injectable biological. Patient denies any angina symptoms, and has been walking up and down stairs and moving her apartment over the last few weeks with no chest pain at that point. This a.m., patient continues to have epigastric pain. Patient did have an EGD back in 2015 which did demonstrate gastritis. Since that time she has been on a PPI as well as ranitidine. Patient History Medical History GERD (gastroesophageal reflux disease) (Acute) Migraine (Acute) Psoriatic arthritis (Acute) Family & Social History Family History: Reviewed 02/14/18 by Eda Aviles MD Social History: household members other Prior Living Arrangements Apartment/Condo Safety & Behavioral: Feels Safe in Current Yes Environment Been Physically Hurt or No Threatened By a Person Suicidal Ideation Description None Suicide Plan Description No Plan Tobacco & Substance use: Smoking Status Never smoker alcohol intake frequency holiday/special occasion Substance Use Type does not use Meds Home Medications Medication Instructions Recorded Confirmed Type sulfadiazine 500 mg PO BID #0 09/04/16 02/14/18 History celecoxib [Celebrex] 200 mg PO BID #0 01/01/17 02/14/18 History pantoprazole [Protonix] 40 mg PO QDAY #90 tab 04/08/17 02/14/18 Rx ranitidine HCl 300 mg PO HS #90 tab 04/08/17 02/14/18 Rx topiramate [Topamax] 50 mg OR BID #90 tab 05/22/17 02/14/18 Rx venlafaxine [Effexor XR] 150 mg PO QDAY #90 cap 05/22/17 02/14/18 Rx naratriptan 2.5 mg PO PRN PRN #30 tab 06/05/17 02/14/18 Rx albuterol sulfate [Ventolin HFA] 2 puff INH Q4HP PRN #1 ea 08/22/17 02/14/18 Rx cholecalciferol (vitamin D3) 1,000 unit PO DAILY 02/14/18 02/14/18 History [Vitamin D3] fluticasone 1 spray INTRANASAL BID 02/14/18 02/14/18 History magnesium 500 mg PO DAILY 02/14/18 02/14/18 History propranolol 20 mg PO TID 02/14/18 02/14/18 History secukinumab [Cosentyx Pen] 150 mg SUB-Q QWEEK 02/14/18 02/14/18 History Allergies Allergy/AdvReac Type Severity Reaction Status Date / Time codeine [CODEINE] Allergy Mild THROAT Verified 02/13/18 20:18 SWELLING naproxen [From ANAPROX] Allergy Mild HIVES Verified 02/13/18 20:18 flurbiprofen [FLURBIPROFEN] AdvReac Mild GI UPSET Verified 02/13/18 20:18 Review of Systems Review of Systems All systems reviewed & are unremarkable except as noted in HPI and below Exam Vital Signs (past 8 hours): GENERAL: Well-developed well-nourished woman lying in hospital bed. HEENT: Normocephalic, atraumatic, pupils equal and reactive to light and accommodation. Extraocular movements are intact. Neck supple, no lymphadenopathy. LUNG: Clear to auscultation bilaterally. No wheeze or crackles or rhonchi. No increased work in breathing. CV: Regular rate and rhythm. No murmurs rubs or gallops. No lower extremity edema. ABDOMEN: Tender epigastric region. No pain with palpation of the chest wall. AFFECT: Alert and oriented X3. Conversational and appropriate. - 02/14/18 06:14 02/14/18 07:15 Temperature 97.9 F 97.2 F L Pulse Rate 62 68 Respiratory Rate 16 14 Blood Pressure 110/59 L 100/75 Pulse Oximetry 95 96 Oxygen Delivery Method Room Air Objective Labs Result Diagrams: 02/13/18 20:15 02/13/18 20:15 Labs: Laboratory Results - last 24 hr 02/13/18 02/13/18 02/13/18 20:15 20:15 20:15 WBC 12.6 H RBC 4.49 Hgb 13.4 Hct 40.2 MCV 89.5 MCH 29.8 MCHC 33.4 RDW 13.1 Plt Count 361 Neut % (Auto) 54.7 Lymph % (Auto) 33.2 [place] % (Auto) 8.3 Eos % (Auto) 2.9 Baso % (Auto) 0.9 Neut # (Auto) 6900 H PT 11.7 INR 1.1 APTT 30 Sodium 138 Potassium 4.3 Chloride 102 Carbon Dioxide 26 BUN 19 H Creatinine 0.80 Estimated GFR > 60.0 BUN/Creatinine Ratio 23.8 H Glucose 101 Calcium 9.5 Total Bilirubin 0.4 AST 22 ALT 23 Alkaline Phosphatase 108 Total Creatine Kinase 44 Troponin I < 0.012 Total Protein 8.1 Albumin 4.3 Globulin 3.8 Albumin/Globulin Ratio 1.1 Lipase 73 02/14/18 02/14/18 01:49 08:13 WBC RBC Hgb Hct MCV MCH MCHC RDW Plt Count Neut % (Auto) Lymph % (Auto) [place] % (Auto) Eos % (Auto) Baso % (Auto) Neut # (Auto) PT INR APTT Sodium Potassium Chloride Carbon Dioxide BUN Creatinine Estimated GFR BUN/Creatinine Ratio Glucose Calcium Total Bilirubin AST ALT Alkaline Phosphatase Total Creatine Kinase Troponin I < 0.012 < 0.012 Total Protein Albumin Globulin Albumin/Globulin Ratio Lipase Assessment & Plan (1) Gastroesophageal reflux disease: Current visit: No Status: Chronic (2) Chest pain at rest: Current visit: Yes Status: Acute Plan: Assessment/Plan Narrative: 1. Chest pain at rest. Negative cardiac enzymes x3. Low suspicion of cardiac etiology however, based on patient's age and obesity/risk factors I do think a stress test would be appropriate. As it is a Friday morning here to [facility], it will be difficult if not impossible to obtain a stress test at this time, and will discharge the patient to home. I suspect that her chest pain is related more to gastritis due to stress of moving, and would recommend that she increase her proton pump inhibitor to twice daily. Would advise that she limit her activities as able until this stress test is completed. Please see discharge summary. Quality VTE Deep Vein Thrombosis/Pulmonary Embolism Present on Admission: No
--- NOTE | 2018-02-14 11:21 | P.DS_ITS ---
History of Present Illness Chief complaint: SEVERE CHEST PAIN Narrative: Patient is a 62-year-old woman with a history of psoriatic arthritis as well as reflux who presents to the emergency room last evening with chest pain of approximately 1 hr duration. She reports that it started in the epigastric region radiated up to her left upper chest. And upon presentation her EKG was negative, and cardiac enzymes were negative however, her pain was improved with nitroglycerin. Overnight, patient also had some chest heaviness with negative cardiac enzymes as well. Patient does have psoriatic arthritis and reports that the newest medication she has been taking is Cosyntex, injectable biological. Patient denies any angina symptoms, and has been walking up and down stairs and moving her apartment over the last few weeks with no chest pain at that point. This a.m., patient continues to have epigastric pain. Patient did have an EGD back in 2015 which did demonstrate gastritis. Since that time she has been on a PPI as well as ranitidine. Discharge Providers Date of admission: 02/13/18 22:33 Primary care physician: Dulce Palencia MD Discharge provider: Eda Aviles MD Summary Discharge Diagnosis: Chest pain Psoriatic arthritis Gastritis Migraine headaches Hospital Course: Patient was referred for observation. Check cardiac enzymes negative x3 as well as a normal EKG. Suspicion of cardiac event is quite low given that the pain persisted for nearly 1 hr and her enzymes remain negative. However, I do think it prudent that she obtain a outpatient stress test. The patient is agreeable to this plan. Will discharge to home with double her Protonix dose for suspected gastritis. Status at Discharge Functional status at discharge: independent ambulation Overall status at discharge: patient is back to baseline Time Spent with Patient Less than 30 minutes Exam Vital Signs (past 8 hours): See H&P- 02/14/18 06:14 02/14/18 07:15 Temperature 97.9 F 97.2 F L Pulse Rate 62 68 Respiratory Rate 16 14 Blood Pressure 110/59 L 100/75 Pulse Oximetry 95 96 Oxygen Delivery Method Room Air Objective Labs Result Diagrams: 02/13/18 20:15 02/13/18 20:15 Labs: Laboratory Results - last 24 hr 02/13/18 02/13/18 02/13/18 20:15 20:15 20:15 WBC 12.6 H RBC 4.49 Hgb 13.4 Hct 40.2 MCV 89.5 MCH 29.8 MCHC 33.4 RDW 13.1 Plt Count 361 Neut % (Auto) 54.7 Lymph % (Auto) 33.2 [place] % (Auto) 8.3 Eos % (Auto) 2.9 Baso % (Auto) 0.9 Neut # (Auto) 6900 H PT 11.7 INR 1.1 APTT 30 Sodium 138 Potassium 4.3 Chloride 102 Carbon Dioxide 26 BUN 19 H Creatinine 0.80 Estimated GFR > 60.0 BUN/Creatinine Ratio 23.8 H Glucose 101 Calcium 9.5 Total Bilirubin 0.4 AST 22 ALT 23 Alkaline Phosphatase 108 Total Creatine Kinase 44 Troponin I < 0.012 Total Protein 8.1 Albumin 4.3 Globulin 3.8 Albumin/Globulin Ratio 1.1 Lipase 73 02/14/18 02/14/18 01:49 08:13 WBC RBC Hgb Hct MCV MCH MCHC RDW Plt Count Neut % (Auto) Lymph % (Auto) [place] % (Auto) Eos % (Auto) Baso % (Auto) Neut # (Auto) PT INR APTT Sodium Potassium Chloride Carbon Dioxide BUN Creatinine Estimated GFR BUN/Creatinine Ratio Glucose Calcium Total Bilirubin AST ALT Alkaline Phosphatase Total Creatine Kinase Troponin I < 0.012 < 0.012 Total Protein Albumin Globulin Albumin/Globulin Ratio Lipase Discharge Plan Discharge Plan Patient Disposition: Home, Self-Care Discharge comment: Patient needs to follow up with primary care for an outpatient stress test Provider Discharge Instructions Diet: Diet as Tolerated Activity: as tolerated Wound Care Other wound treatment: Please increase protonix to 40 mg twice daily. Make apt with PCP for stress test with cardiology Discharge Data Primary Care Provider: Dulce Palencia Attending Provider: Eda Aviles Admit Date/Time: 02/13/18 22:33 Discharge Interventions Interventions: Discharge assessment Last Done: 02/14/18 10:32 Quality VTE Deep Vein Thrombosis/Pulmonary Embolism Present on Admission: No
--- NOTE | 2018-02-14 11:43 | PC.NURSE ---
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 She ambulated. All paperwork signed and questions answered. She also has all personal belongings.
--- NOTE | 2018-02-14 12:00 | CM.DANOTE ---
DCP: Case received, EMR reviewed ad met with patient. Introduced self and role. DCP template completed with info currently available. Patient is a 62 year old female who admitted yesterday pm under observation to care of hospitalist team. PCP: Dr. Palencia Payer confirmed: Medicare/Medicaid Patient was admitted for chest pain symptoms, and has been under observation. Patient has been living at home, and is independent. Does have daughter who is local P: Patient is to be discharged today, and family will brick picker. Will return home, but will pursue stress test. Josey Olmstead RN/[employer]
== END 2018-02-14 11:44 | disposition home or self-care (01) ==
LOC: ED 20:17 → AC 22:33
PROVIDERS: Admitting Provider Family Medicine; Emergency Provider Emergency Medicine; Family Provider Family Medicine; PCP Family Medicine; Visit Provider Family Medicine
DX: R07.9 Chest pain, unspecified (principal); L40.50 Arthropathic psoriasis, unspecified; G43.909 Migraine, unspecified, not intractable, without status migrainosus; Z87.19 Personal history of other diseases of the digestive system
CPT/HCPCS: 36415; 36591; 71045; 71275; 80053; 82550; 82553; 83690; 84484; 85025; 85610; 85730; 93005; 93041; 99283; 99285; G0378

== ENCOUNTER → 2018-04-03 17:16 | Outpatient (CLI) | payer MEDICARE, MEDICAID, SELFPAY ==
--- NOTE | 2018-04-03 17:20 | DI.MRI.S_ITS ---
PROCEDURE: MR SHOULDER LT WO CON INDICATIONS: left shoulder pain with decreased range of motion TECHNIQUE: Noncontrast oblique coronal T2 fast spin echo with fat saturation, oblique sagittal T1 spin echo and T2 fast spin echo with fat saturation, axial T1 spin echo and T2 fast spin echo with fat saturation through the shoulder. COMPARISON: None. FINDINGS: Image quality: Excellent. Rotator cuff: There is moderate partial thickness bursal sided hearing of the supraspinatus involving the anterior fibers. This includes tearing distally at its insertion as well as tearing approximately 2.2 cm more proximally. More posteriorly there is also a small mild partial thickness bursal sided tear involving the conjoined supraspinatus and infraspinatus tendon approximately 2 cm from its insertion. No discrete full-thickness tear identified. The subscapularis demonstrates tendinopathy and mild partial tearing distally at its insertion. The teres minor is intact. Sagittal images demonstrate no fatty muscle atrophy. Bones and bursae: No bone marrow contusions or fractures. There is aduf-xb-nygnoudm acromioclavicular joint degeneration. The acromion demonstrates conventional anatomy, without an os acromiale. A small amount of subacromial-subdeltoid or subcoracoid bursal fluid is present. Capsule and soft tissues: In the absence of intra-articular contrast, the glenohumeral ligaments appear grossly intact. There is undersurface degenerative tearing of the superior and posterosuperior labrum. There is also irregular tearing of the anterior and anterosuperior labrum. The long head of the biceps tendon demonstrates normal location and morphology. The rotator interval appears normal, without fibrosis. The coracohumeral ligament is normal in thickness. IMPRESSION: 1. Multifocal tearing of the superior cuff as described including moderate partial thickness bursal sided tearing of the supraspinatus anteriorly. No discrete full-thickness tear or tendon retraction. 2. Cwju-sy-oxaxraid acromioclavicular joint degeneration with a small amount of subacromial/subdeltoid bursal fluid. 3. Tearing of the labrum as described. Dictated by: Elder Rutledge M.D. on 04/07/2018 at 9:01 Approved by: Elder Rutledge M.D. on 04/07/2018 at 9:23
== END ==
PROVIDERS: Family Provider Family Medicine; PCP Family Medicine; Visit Provider Family Medicine
DX: M75.112 Incomplete rotator cuff tear or rupture of left shoulder, not specified as traumatic (principal); M19.012 Primary osteoarthritis, left shoulder; M25.512 Pain in left shoulder; S43.492A Other sprain of left shoulder joint, initial encounter
CPT/HCPCS: 73221

== ENCOUNTER → 2018-04-08 15:19 | Outpatient (CLI) | payer MEDICARE, MEDICAID, SELFPAY ==
--- NOTE | 2018-04-08 | DI.MG.S_ITS ---
BILATERAL DIGITAL SCREENING MAMMOGRAM 3D/2D WITH CAD: 04/08/2018 CLINICAL: Routine screening. Family history of breast cancer. Comparison is made to exams dated: 03/27/2016 mammogram, 10/04/2014 mammogram, and 08/10/2013 mammogram - [facility]. There are scattered fibroglandular elements in both breasts. Current study was also evaluated with a Computer Aided Detection (CAD) system. No significant masses, calcifications, or other findings are seen in either breast. There has been no significant interval change. IMPRESSION: NEGATIVE There is no mammographic evidence of malignancy. A 1 year screening mammogram is recommended. This exam was interpreted at Station ID: [id number]. NOTE: For mammograms, a report in lay terms will be sent to the patient. Approximately 15% of breast malignancies will not be visualized mammographically. In the management of a palpable breast mass, a negative mammogram must not discourage biopsy of a clinically suspicious lesion. Electronically Signed By: Sarabjit huizar/juan c:04/09/2018 00:38:19 letter sent: Normal Exam ACR BI-RADS Category 1: Negative [id number]
== END ==
PROVIDERS: Family Provider Family Medicine; PCP Family Medicine; Visit Provider Family Medicine
DX: Z12.31 Encounter for screening mammogram for malignant neoplasm of breast (principal); Z80.3 Family history of malignant neoplasm of breast
CPT/HCPCS: 77063; 77067

== ENCOUNTER 2018-05-02 13:36 | Emergency (ER) | payer MEDICARE, MEDICAID, SELFPAY ==
[2018-05-02 13:45] VITALS: BP 133/71; PULSE 102; RESP 18; TEMP 36.4; O2SAT 97; BMI 33.9
--- NOTE | 2018-05-02 13:45 | DI.CT.S_ITS ---
PROCEDURE: CT HEAD/BRAIN WO CON INDICATIONS: fall forward headache TECHNIQUE: Noncontrast 4.5 mm thick angled axial sections acquired from the foramen magnum to the vertex, with coronal and sagittal reformats. For radiation dose reduction, the following was used: automated exposure control, adjustment of mA and/or kV according to patient size. COMPARISON: None. FINDINGS: Image quality: Excellent. CSF spaces: Basal cisterns are patent. No extra-axial fluid collections. The ventricles are symmetric in size and shape. Brain: No intracranial bleeds or masses. There is cerebral volume loss for age, with resultant ventricular and sulcal prominence. There are periventricular and deep white matter chronic small vessel ischemic changes. There is intracranial internal carotid artery atherosclerosis. Skull and face: Calvarium and visualized facial bones appear intact, without suspicious lesions. Sinuses: Bilateral maxillary sinus disease, status post surgery IMPRESSION: No acute intracranial process. Dictated by: Marv Torres M.D. on 05/02/2018 at 14:39 Approved by: Marv Torres M.D. on 05/02/2018 at 14:40
--- NOTE | 2018-05-02 13:45 | DI.RAD.S_ITS ---
PROCEDURE: XR RIBS RT MIN 3V W CXR 1V INDICATIONS: fall foraward and onto ribs TECHNIQUE: 2 views of the right ribs were acquired, along with a single view chest. COMPARISON: None. FINDINGS: Surgical changes and devices: Cholecystectomy clips Bones and chest wall: No fractures or dislocations. No suspicious bony lesions. Overlying soft tissues appear unremarkable. Lungs and pleura: No pleural effusions or pneumothorax. Lungs appear clear. Mediastinum: Mediastinal contours appear normal. Heart size is normal. IMPRESSION: No fracture identified. No acute cardiopulmonary process. Dictated by: Marv Torres M.D. on 05/02/2018 at 14:56 Approved by: Marv Torres M.D. on 05/02/2018 at 14:58
--- NOTE | 2018-05-02 13:45 | DI.CT.S_ITS ---
PROCEDURE: CT FACIAL BONES WO CON INDICATIONS: fall forward hit nose TECHNIQUE: Noncontrast 2.5 mm thick axial images acquired from the mandible through the frontal sinuses, with coronal and sagittal reformatting. For radiation dose reduction, the following was used: automated exposure control, adjustment of mA and/or kV according to patient size. COMPARISON: None. FINDINGS: Image quality: Excellent. Bones and teeth: Bilateral nasal bone fractures Sinuses: Status post sinus bilateral paranasal sinus. There is residual bilateral maxillary sinus disease. Soft tissues: No edema, masses, or fluid collections. No enlarged lymph nodes. No soft tissue lacerations or debris. Vascular: Visualized vascular structures appear normal in the absence of contrast. Bony vascular foramina and canals are intact. IMPRESSION: Bilateral nasal bone fractures, technically age-indeterminate. Please correlate clinically for acuity. Bilateral maxillary sinus disease. Dictated by: Marv Torres M.D. on 05/02/2018 at 15:01 Approved by: Marv Torres M.D. on 05/02/2018 at 15:03
--- NOTE | 2018-05-02 13:45 | DI.CT.S_ITS ---
PROCEDURE: CT CERVICAL SPINE WO CON INDICATIONS: fall forward neck pain TECHNIQUE: Noncontrast 3 mm thick sections acquired from the skull base to the T4 level. Sagittal and coronal reformats were then constructed. For radiation dose reduction, the following was used: automated exposure control, adjustment of mA and/or kV according to patient size. COMPARISON: None. FINDINGS: Image quality: Excellent. Bones: No fractures or dislocations. Diffuse osteopenia. Chronic osseous fusion of C5 and C6 vertebral bodies and posterior elements. Visualized superior ribs are intact. Multilevel mid to lower cervical disc degeneration and diffuse facet arthropathy Soft tissues: Prevertebral soft tissues are normal in thickness. No paravertebral hematomas. No apical pneumothoraces. IMPRESSION: No acute fracture. Dictated by: Marv Torres M.D. on 05/02/2018 at 14:59 Approved by: Marv Torres M.D. on 05/02/2018 at 15:00
--- NOTE | 2018-05-02 13:53 | ED_ITS ---
HPI - Fall General Chief Complaint: Fall Stated Complaint: GLF Time Seen by Provider: 05/02/18 13:43 Source: patient and EMS Mode of arrival: EMS Limitations: no limitations History of Present Illness HPI Narrative: Patient is a 63-year-old female who presents with ground level fall. [place] she said the ground was uneven she fell forward striking her nose and losing her 2 front teeth. No loss of consciousness she does have a mild headache in may be some neck pain now but no numbness or tingling. She is not on any anticoagulation. MD complaint: fall Related Data Home Medications Medication Instructions Recorded Confirmed sulfadiazine 500 mg PO BID #0 09/04/16 04/10/18 celecoxib [Celebrex] 200 mg PO BID #0 01/01/17 04/10/18 cholecalciferol (vitamin D3) 1,000 unit PO DAILY 02/14/18 04/10/18 [Vitamin D3] fluticasone 1 spray INTRANASAL BID 02/14/18 04/10/18 magnesium 500 mg PO DAILY 02/14/18 04/10/18 secukinumab 150 mg/mL subcutaneous 150 mg [id number] ml 04/10/18 04/10/18 pen injector Previous Rx's Medication Instructions Recorded ranitidine HCl 300 mg PO HS #90 tab 04/08/17 venlafaxine [Effexor XR] 150 mg PO QDAY #90 cap 05/22/17 naratriptan 2.5 mg PO PRN PRN #30 tab 06/05/17 albuterol sulfate [Ventolin HFA] 2 puff INH Q4HP PRN #1 ea 08/22/17 pantoprazole [Protonix] 40 mg PO QDAY #90 tab 03/18/18 propranolol 20 mg tablet 20 mg PO TID #180 tab 03/18/18 topiramate [Topamax] 50 mg OR BID #90 tab 03/18/18 tizanidine 2 mg tablet 2 mg PO Q6-8H PRN #30 tab 04/24/18 tramadol 50 mg PO Q6H PRN #10 tab 05/02/18 Allergies Allergy/AdvReac Type Severity Reaction Status Date / Time codeine [CODEINE] Allergy Mild THROAT Verified 04/10/18 09:40 SWELLING naproxen [From ANAPROX] Allergy Mild HIVES Verified 04/10/18 09:40 flurbiprofen [FLURBIPROFEN] AdvReac Mild GI UPSET Verified 04/10/18 09:40 Review of Systems Review of Systems All systems reviewed & are unremarkable except as noted in HPI and below Constitutional Denies chills, Denies fever(s), Denies lethargy and Denies weakness Eyes Denies blurry vision, Denies change in vision and Denies diplopia Cardiovascular Denies chest pain, Denies irregular heart rhythm, Denies lightheadedness, Denies palpitations, Denies dyspnea, Denies dyspnea on exertion and Denies orthopnea Respiratory Denies cough, Denies dyspnea, Denies dyspnea on exertion and Denies wheezing Gastrointestinal Gastrointestinal: Denies abdominal pain, Denies change in bowel habits, Denies diarrhea, Denies nausea and Denies vomiting Musculoskeletal Reports as per HPI Neurologic Denies confusion and Denies weakness Psychiatric Denies confusion Endocrine Denies palpitations Allergic/Immunologic Denies wheezing Exam Initial Vital Signs Initial Vital Signs: Vital Signs Temperature 97.5 F L 05/02/18 13:45 Pulse Rate 102 H 05/02/18 13:45 Respiratory Rate 18 05/02/18 13:45 Blood Pressure 133/71 05/02/18 13:45 Pulse Oximetry 97 05/02/18 13:45 Const General: cooperative and healthy appearing Neck Neck: normal visual inspection, supple and tender (Mild midline tenderness no step-off) Chest Chest: normal inspection of the chest, No crepitus and tenderness Resp Effort & Inspection: normal respiratory effort and able to speak in complete sentences Auscultation: clear to auscultation bilaterally Cardio Rate: regular rate Rhythm: regular rhythm Heart Sounds: no click, no gallops, no murmurs and no rubs Pulses: normal peripheral pulses GI Inspection: non-distended Palpation: soft, no hepatosplenomegaly, No guarding, No pulsatile mass and No tender Auscultation: normal bowel sounds Skin Trauma: laceration (1 cm laceration across nose) Neuro General: alert, awake and oriented x3 Cognition: normal cognition Speech: speech normal Extrem General: normal to inspection Right upper extremity: normal to inspection Left upper extremity: normal to inspection Right lower extremity: normal to inspection Left lower extremity: normal to inspection [facility] Medical History Arthritis (Chronic) Compression fracture of thoracic vertebra (Chronic) GERD (gastroesophageal reflux disease) (Chronic) History of ulcer disease (Chronic) Migraine (Chronic) Psoriatic arthritis (Chronic) Anxiety (Resolved) BCC (basal cell carcinoma), shoulder (Resolved) Depression (Resolved) Fracture of rib of right side (Resolved 2014) Hemorrhoids (Resolved) Measles (Resolved) Surgical History History of cholecystectomy (Resolved) History of total hysterectomy (Resolved) History of tubal ligation (Resolved) Social History household members: other Smoking Status: Never smoker Procedures Laceration Repair Laceration 1: Site: face Size (cm): 1 Description: linear Depth: simple, single layer Local Anesthetic: lidocaine 1% Amount of anesthesia used (mL): 1 Pre-repair: wound explored Skin layer closed with: nylon Size (cm): 5-0 Number of sutures: 2 Technique: simple, interrupted Course Orders Ordered: ED Orders 05/02/18 13:45 CT cervical spine wo con Stat CT facial bones wo con Stat CT head/brain wo con Stat XR ribs RT min 3V w CXR1V Stat Discontinued Medications Acetaminophen (Tylenol) 650 mg PO NOW ONE Stop: 05/02/18 13:46 Last Admin: 05/02/18 14:39 Dose: 650 mg Diphtheria/Tetanus/Acell Pertussis (Adacel) 0.5 ml IM .ONCE ONE Stop: 05/02/18 13:46 Last Admin: 05/02/18 14:39 Dose: 0.5 ml Ketorolac Tromethamine (Toradol) 30 mg IM NOW ONE Stop: 05/02/18 15:24 Last Admin: 05/02/18 15:39 Dose: 30 mg Vital Signs - 8 hr 05/02/18 13:45 05/02/18 15:22 05/02/18 15:43 Temperature 97.5 F L Pulse Rate 102 H 94 H 90 Respiratory Rate 18 14 Blood Pressure 133/71 Blood Pressure [Left Arm] 142/74 H 111/75 Pulse Oximetry 97 97 98 MDM - Fall Imaging Data CT scan - head: Radiologist's impression: PROCEDURE: CT HEAD/BRAIN WO CON INDICATIONS: fall forward headache TECHNIQUE: Noncontrast 4.5 mm thick angled axial sections acquired from the foramen magnum to the vertex, with coronal and sagittal reformats. For radiation dose reduction, the following was used: automated exposure control, adjustment of mA and/or kV according to patient size. COMPARISON: None. FINDINGS: Image quality: Excellent. CSF spaces: Basal cisterns are patent. No extra-axial fluid collections. The ventricles are symmetric in size and shape. Brain: No intracranial bleeds or masses. There is cerebral volume loss for age , with resultant ventricular and sulcal prominence. There are periventricular and deep white matter chronic small vessel ischemic changes. There is intracranial internal carotid artery atherosclerosis. Skull and face: Calvarium and visualized facial bones appear intact, without suspicious lesions. Sinuses: Bilateral maxillary sinus disease, status post surgery IMPRESSION: No acute intracranial process. Dictated by: Marv Torres M.D. on 05/02/2018 at 14:39 CT- C spine: Radiologist's impression: PROCEDURE: CT CERVICAL SPINE WO CON INDICATIONS: fall forward neck pain TECHNIQUE: Noncontrast 3 mm thick sections acquired from the skull base to the T4 level. Sagittal and coronal reformats were then constructed. For radiation dose reduction, the following was used: automated exposure control, adjustment of mA and/or kV according to patient size. COMPARISON: None. FINDINGS: Image quality: Excellent. Bones: No fractures or dislocations. Diffuse osteopenia. Chronic osseous fusion of C5 and C6 vertebral bodies and posterior elements. Visualized superior ribs are intact. Multilevel mid to lower cervical disc degeneration and diffuse facet arthropathy Soft tissues: Prevertebral soft tissues are normal in thickness. No paravertebral hematomas. No apical pneumothoraces. IMPRESSION: No acute fracture. Dictated by: Marv Torres M.D. on 05/02/2018 at 14:59 CT Facial: Radiologist's impression: PROCEDURE: CT FACIAL BONES WO CON INDICATIONS: fall forward hit nose TECHNIQUE: Noncontrast 2.5 mm thick axial images acquired from the mandible through the frontal sinuses, with coronal and sagittal reformatting. For radiation dose reduction, the following was used: automated exposure control, adjustment of mA and/or kV according to patient size. COMPARISON: None. FINDINGS: Image quality: Excellent. Bones and teeth: Bilateral nasal bone fractures Sinuses: Status post sinus bilateral paranasal sinus. There is residual bilateral maxillary sinus disease. Soft tissues: No edema, masses, or fluid collections. No enlarged lymph nodes. No soft tissue lacerations or debris. Vascular: Visualized vascular structures appear normal in the absence of contrast. Bony vascular foramina and canals are intact. IMPRESSION: Bilateral nasal bone fractures, technically age-indeterminate. Please correlate clinically for acuity. Bilateral maxillary sinus disease. Dictated by: Marv Torres M.D. on 05/02/2018 at 15:01 Rib XR: Radiologist's impression: PROCEDURE: XR RIBS RT MIN 3V W CXR 1V INDICATIONS: fall foraward and onto ribs TECHNIQUE: 2 views of the right ribs were acquired, along with a single view chest. COMPARISON: None. FINDINGS: Surgical changes and devices: Cholecystectomy clips Bones and chest wall: No fractures or dislocations. No suspicious bony lesions. Overlying soft tissues appear unremarkable. Lungs and pleura: No pleural effusions or pneumothorax. Lungs appear clear. Mediastinum: Mediastinal contours appear normal. Heart size is normal. IMPRESSION: No fracture identified. No acute cardiopulmonary process. Dictated by: Marv Torres M.D. on 05/02/2018 at 14:56 MDM Narrative Medical decision making narrative: Patient's pain has actually improved after Toradol. The son called after patient is discharged wanting something stronger than ibuprofen for pain for the mom. 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 New discharge instructions are given. Discharge Plan Departure Patient Disposition: Home Clinical Impression: Laceration of nose, Closed fracture nasal bone Discharge Date/Time: 05/02/18 16:11 Interventions: ED Discharge Assessment Last Done: 05/02/18 16:12 Instructions: Nose Fracture, DI for Laceration Repair Activity Restrictions/Additional Instructions: *You have been diagnosed with nasal fracture and laceration *What to do: Have sutures removed in 5-7 days keep clean and dry with soap and water no soaking in water but pacing is encouraged. Apply antibiotic ointment twice daily to help with infection DO NOT BLOW NOSE-DAB ONLY *Continue to take medications as directed Tramadol 1 tablet every 6 hr for severe pain you may break this in half if needed Motrin 600 mg every 6-8 hours if needed for [id number] pain this helps with anti inflammation *Follow up with your primary care provider in 2-3 days, follow up with all ENT specialist next week call Friday to schedule appointment *Return to ER if you should have redness, pus, swelling or any new, worsening or concerning symptoms CONTROLLED SUBSTANCE DISCHARGE (Narcotoic/benzodiazepine/Flexeril/Phenergan) 1. You have been prescribed narcotic medications, it does have acetaminophen/ Tylenol/paracetamol in it so do not take extra Tylenol or Tylenol containing products 2. Please understand that we cannot provide further refills of narcotics, benzodiazepines or controlled substances through the ED and her pain management will need to be through your provider. 3. While on these medications you cannot drive or operate heavy machinery. 4. You cannot sign legal documents or perform any duties such as this. 5. As long as you're taking opiate pain medications he should also be taking a stool softener such as Colace, Dulcolax, MiraLAX or prune juice, to help avoid constipation. Prescriptions: New tramadol 50 mg tablet 50 mg PO Q6H PRN (Reason: pain) Qty: 10 RF: 0 No Action sulfadiazine 500 MG tablet 500 mg PO BID Qty: 0 RF: 0 celecoxib [Celebrex] 200 MG capsule 200 mg PO BID Qty: 0 RF: 0 ranitidine HCl 300 MG tablet 300 mg PO HS Qty: 90 RF: 3 venlafaxine [Effexor XR] 150 MG capsule,extended release 24hr 150 mg PO QDAY Qty: 90 RF: 3 naratriptan 2.5 MG tablet 2.5 mg PO PRN PRNQty: 30 RF: 3 albuterol sulfate [Ventolin HFA] 90 MCG/PUFF HFA aerosol inhaler 2 puff INH Q4HP PRNQty: 1 RF: 0 propranolol 20 mg tablet 20 mg PO TID Qty: 180 RF: 1 topiramate [Topamax] 50 mg tablet 50 mg OR BID Qty: 90 RF: 3 pantoprazole [Protonix] 40 mg tablet,delayed release (DR/EC) 40 mg PO QDAY Qty: 90 RF: 3 tizanidine 2 mg tablet 2 mg PO Q6-8H PRN (Reason: muscle spasticity) Qty: 30 RF: 1 cholecalciferol (vitamin D3) [Vitamin D3] 1,000 unit Tablet 1,000 unit PO DAILY RF: 0 magnesium 250 mg Tablet 500 mg PO DAILY RF: 0 fluticasone 50 mcg/actuation [place],Suspension 1 spray INTRANASAL BID RF: 0 secukinumab [Cosentyx Pen] 150 mg/mL pen injector 150 mg [id number] RF: 0 Referrals: Toni Lima MD [Physician] - Dulce Palencia MD [Primary Care Provider] -
[2018-05-02] MEDS: TET,DIPH,PERTUSS(ACELL),VAC/PF 0.5 ML SYRINGE IM (14:39)
[2018-05-02] MEDS: ACETAMINOPHEN 325 MG TABLET 650 MG PO (14:39)
[2018-05-02 15:22] VITALS: BP 142/74; PULSE 94; RESP 14; O2SAT 97
[2018-05-02] MEDS: KETOROLAC 60 MG/2 ML VIAL 30 MG IM (15:39)
[2018-05-02 15:43] VITALS: BP 111/75; PULSE 90; O2SAT 98
--- NOTE | 2018-05-02 18:12 | PC.NURSE ---
Pt's son came back to ED to collect updated discharge instructions and tramadol prescription. Instructions / prescription reviewed. Denies questions. Encouraged to f/u as needed and indicated and return for any difficulty or concerns.
== END 2018-05-02 16:11 | disposition home or self-care (01) ==
PROVIDERS: Emergency Provider Emergency Medicine; Family Provider Family Medicine; PCP Family Medicine
DX: S01.21XA Laceration without foreign body of nose, initial encounter (principal); S02.2XXA Fracture of nasal bones, initial encounter for closed fracture; W19.XXXA Unspecified fall, initial encounter
CPT/HCPCS: 12011; 70450; 70486; 71101; 72125; 90471; 96372; 99284; 90715; J1885

== ENCOUNTER → 2018-05-11 18:35 | Outpatient (REF) | payer MEDICARE, MEDICAID, SELFPAY | LOC: LAB 18:35 | PROVIDERS: Family Provider Family Medicine; PCP Family Medicine; Visit Provider Otolaryngology | DX: R09.82 Postnasal drip (principal) | CPT/HCPCS: 87070; 87077; 87147; 87186 ==

== ENCOUNTER 2018-07-27 04:40 | Emergency (ER) | payer MEDICARE, MEDICAID, SELFPAY ==
[2018-07-27 04:47] VITALS: BP 139/74; PULSE 131; RESP 17; TEMP 36.5; O2SAT 98; BMI 35.5
--- NOTE | 2018-07-27 04:50 | DI.RAD.S_ITS ---
PROCEDURE: XR CHEST 1V INDICATIONS: chest pain TECHNIQUE: One view of the chest was acquired. COMPARISON: [facility], , CHEST 2 VIEW, 08/22/2017, 11:53. [facility], [place], XR CHEST 1V, 02/13/2018, 20:26. FINDINGS: Surgical changes and devices: None. Lungs and pleura: No pleural effusions or pneumothorax. Lungs are clear. Mediastinum: Mediastinal contours appear normal. Heart size is normal. Bones and chest wall: No suspicious bony lesions. Overlying soft tissues appear unremarkable. IMPRESSION: No acute cardiopulmonary disease. Dictated by: Thuan Bowles M.D. on 07/27/2018 at 9:22 Approved by: Thuan Bowles M.D. on 07/27/2018 at 9:22
[2018-07-27] MEDS: SODIUM CHLORIDE 0.9% 1,000 ML 1000 ML IV (04:56)
[2018-07-27] MEDS: ASPIRIN 81 MG TAB 324 MG PO (04:57)
[2018-07-27 04:58] VITALS: BP 117/71; PULSE 114
[2018-07-27] MEDS: NITROGLYCERIN 0.4 MG SL TAB SL ×2 (04:58→05:05)
[2018-07-27 05:05] VITALS: BP 107/61; PULSE 121
[2018-07-27 05:08] LABS: Add Manual Diff / Slide Review NO; Basophils Percent Auto 0.8 % (0-2); Eosinophils Percent Auto 1.6 % (2-4); Hematocrit 43.5 % (36-46); Hemoglobin 14.2 g/dL (12.0-16.0); Mean Corpuscular HGB Conc 32.5 % (30-36); Mean Corpuscular Hemoglobin 29.2 PG (26-34); Mean Corpuscular Volume 89.8 fL (80-100); Monocytes Percent Auto 7.4 % (3-14); Neutrophils Absolute Auto 9500 /uL (1500-7000); Neutrophils Percent Auto 62.2 % (50-75); Platelet Count 470 X10^3/uL (150-400); Red Blood Cell Count 4.85 X10^6/uL (4.0-5.2); Red Cell Distribution Width 12.9 % (11.6-14.8); White Blood Cell Count 15.2 X10^3/uL (4.5-11.0)
--- NOTE | 2018-07-27 05:10 | ED_ITS ---
HPI - Chest Pain General Chief Complaint: Chest Pain Stated Complaint: pain in chest/cant eat/drink water has GERD Time Seen by Provider: 07/27/18 04:45 Source: patient and old records reviewed Mode of arrival: ambulatory Limitations: no limitations History of Present Illness HPI narrative: This is a 63-year-old female comes to the emergency department with complaint of chest pain. Patient states that it started 2 days ago. Patient states that she has a history of GERD, she states that she was just recently started on Carafate. She states this feels different in that it just hurts in her anterior chest. She has goes down the chest around from her throat to her diaphragm. I does not change location, it has been constant. She states that she has not had any syncope. She has felt sort of clammy, she denies any shortness of breath. She denies any nausea, she states that 1 point it did hurt so bad it made her throw up once. Patient denies any diarrhea and/ or constipation. No urinary symptoms. Patient denies any swelling or lower extremity pain. Patient has not had any long distance flights, she is not on estrogen. Patient has a history of GERD she has a history of psoriatic arthritis and states that she got a shot of her co syntax which is usual for her a week ago. She denies any diabetes, hypertension or dyslipidemia. Patient states she has had a history of a complete hysterectomy, appendectomy and cholecystectomy. She denies any tobacco, rare alcohol, no illicit. She denies any family history of cardiac, pulmonary or clotting disorders/PE DVT. Related Data Home Medications Medication Instructions Recorded Confirmed sulfadiazine 500 mg PO BID #0 09/04/16 05/11/18 celecoxib [Celebrex] 200 mg PO BID #0 01/01/17 05/11/18 cholecalciferol (vitamin D3) 1,000 unit PO DAILY 02/14/18 05/11/18 [Vitamin D3] fluticasone 1 spray INTRANASAL BID 02/14/18 05/11/18 magnesium 500 mg PO DAILY 02/14/18 05/11/18 secukinumab 150 mg/mL subcutaneous 150 mg SUB-Q Q4W ml 05/11/18 05/11/18 pen injector Previous Rx's Medication Instructions Recorded naratriptan 2.5 mg PO PRN PRN #30 tab 06/05/17 pantoprazole [Protonix] 40 mg PO QDAY #90 tab 03/18/18 propranolol 20 mg tablet 20 mg PO TID #180 tab 03/18/18 topiramate [Topamax] 50 mg OR BID #90 tab 03/18/18 tizanidine 2 mg tablet 2 mg PO Q6-8H PRN #30 tab 04/24/18 albuterol sulfate HFA 90 2 puff INHALATION Q4HP PRN #1 ea 05/11/18 mcg/actuation aerosol inhaler tramadol 50 mg tablet 50 mg PO Q6H PRN #15 tab 05/11/18 ranitidine 300 mg tablet 300 mg PO HS #90 tab 06/08/18 hydroxyzine HCl 50 mg tablet 50 mg PO QID PRN #60 tab 07/06/18 sucralfate 1 gram tablet 1 gram PO QACHS #120 tab 07/06/18 venlafaxine ER 150 mg 150 mg PO QDAY #90 cap 07/06/18 capsule,extended release 24 hr Allergies Allergy/AdvReac Type Severity Reaction Status Date / Time codeine [CODEINE] Allergy Mild THROAT Verified 05/11/18 12:12 SWELLING naproxen [From ANAPROX] Allergy Mild HIVES Verified 05/11/18 12:12 flurbiprofen [FLURBIPROFEN] AdvReac Mild GI UPSET Verified 05/11/18 12:12 Review of Systems Review of Systems All systems reviewed & are unremarkable except as noted in HPI and below Constitutional Denies chills, Denies fever(s), Denies lethargy, Denies weakness and Reports other ([place] clammy) Cardiovascular Reports chest pain, Denies chest pain at rest, Reports diaphoresis, Denies syncope, Denies pedal edema, Denies irregular heart rhythm, Denies leg edema, Denies lightheadedness, Denies radiating jaw, neck or arm pain, Denies palpitations, Denies dyspnea and Denies orthopnea Respiratory Denies change in phlegm color, Denies chest congestion, Denies cough, Denies excessive phlegm production and Denies dyspnea Gastrointestinal Gastrointestinal: Denies abdominal pain, Denies change in bowel habits, Denies constipation, Reports heartburn, Denies diarrhea, Denies nausea and Reports vomiting (X1) Genitourinary Denies hematuria, Denies dysuria, Denies flank pain and Denies urinary urgency Musculoskeletal Denies muscle cramps and Denies other (Leg pain, leg swelling) Neurologic Denies syncope and Denies weakness Endocrine Denies palpitations [facility] Medical History Arthritis (Chronic) Compression fracture of thoracic vertebra (Chronic) GERD (gastroesophageal reflux disease) (Chronic) History of ulcer disease (Chronic) Migraine (Chronic) Psoriatic arthritis (Chronic) Anxiety (Resolved) BCC (basal cell carcinoma), shoulder (Resolved) Depression (Resolved) Fracture of rib of right side (Resolved 2014) Hemorrhoids (Resolved) Measles (Resolved) Surgical History History of cholecystectomy (Resolved) History of total hysterectomy (Resolved) History of tubal ligation (Resolved) Social History household members: other Smoking Status: Never smoker Exam Narrative Exam Narrative: GENERAL: Alert and oriented x three, well-nourished, well- appearing female in mild distress. HEENT: Head normocephalic, atraumatic, EOMI, pupils reactive, face symmetric, moist mucous membranes NECK: Supple, full range of motion CARDIOVASCULAR: Regular rate and rhythm without murmurs, rubs or gallops. RESPIRATORY: Breath sounds equal bilaterally, no wheezes rales or rhonchi. ABDOMEN: Soft, nontender. Normoactive bowel sounds all 4 quadrants. No guarding or rebound, rigidity, no mass : No CVA tenderness EXTREMITIES: Normal range of motion, no clubbing or edema. Neurovascularly intact NEUROLOGICAL: Cranial nerves II through XII grossly intact. Moving all extremities SKIN: Warm, dry, no petechiae, no rashes or lesions. Initial Vital Signs Initial Vital Signs: Vital Signs Temperature 97.7 F 07/27/18 04:47 Pulse Rate 131 H 07/27/18 04:47 Respiratory Rate 17 07/27/18 04:47 Blood Pressure 139/74 07/27/18 04:47 Pulse Oximetry 98 07/27/18 04:47 Scores HEART Score Heart Score history: Moderately Suspicious Heart Score EKG: Non-Specific repolarization disturbance Heart Score Age: 45-64 years old Heart Score risk factors: No known risk factors Heart Score troponin: < or = to normal limit Heart Score Total: 3 Course Orders Ordered: ED Orders 07/27/18 04:50 XR chest 1V Stat EKG-12 Lead Stat 07/27/18 04:53 Complete Blood Count AUTO DIFF Stat Comprehensive Metabolic Panel Stat Lipase Stat Partial Thromboplastin Time Stat Troponin & CK Cardiac Panel Stat Discontinued Medications Aspirin (Aspirin Chew) 324 mg PO NOW ONE Stop: 07/27/18 04:51 Last Admin: 07/27/18 04:57 Dose: 324 mg Al Hydrox/Mg Hydrox/Simethicone 20 ml/ Lidocaine HCl 15 ml 0 ml PO NOW ONE Stop: 07/27/18 05:04 Last Admin: 07/27/18 05:13 Dose: 20 ml Sodium Chloride (Normal Saline 0.9%) 1,000 mls @ 1,000 mls/hr IV BOLUS ONE Stop: 07/27/18 05:49 Last Infusion: 07/27/18 06:01 Dose: 0 mls/hr Admin: 07/27/18 04:56 Dose: 1,000 mls/hr Nitroglycerin (Nitrostat) 0.4 mg SL [id number] PRN PRN Reason: Chest Pain Last Admin: 07/27/18 05:05 Dose: 0.4 mg Admin: 07/27/18 04:58 Dose: 0.4 mg Vital Signs - 8 hr 07/27/18 04:47 07/27/18 04:58 07/27/18 05:05 Temperature 97.7 F Pulse Rate 131 H 114 H 121 H Respiratory Rate 17 Blood Pressure 139/74 117/71 107/61 Blood Pressure [Left Arm] Pulse Oximetry 98 07/27/18 05:20 07/27/18 05:33 07/27/18 06:00 Temperature Pulse Rate 98 H 94 H 84 Respiratory Rate 14 11 L 12 Blood Pressure Blood Pressure [Left Arm] 99/71 117/66 121/68 Pulse Oximetry 97 97 96 MDM - Chest Pain Lab Data Attestation: I reviewed the patient's lab results. Result diagrams: 07/27/18 04:53 07/27/18 04:53 Lab Results 07/27/18 07/27/18 07/27/18 Range/Units 04:53 04:53 04:53 WBC 15.2 H (4.5-11.0) X10^3/uL RBC 4.85 (4.0-5.2) X10^6/uL Hgb 14.2 (12.0-16.0) g/dL Hct 43.5 (36-46) % MCV 89.8 (80-100) fL MCH 29.2 (26-34) PG MCHC 32.5 (30-36) % RDW 12.9 (11.6-14.8) % Plt Count 470 H (150-400) X10^3/uL Neut % (Auto) 62.2 (50-75) % Lymph % (Auto) 28.0 (25-40) % [place] % (Auto) 7.4 (3-14) % Eos % (Auto) 1.6 L (2-4) % Baso % (Auto) 0.8 (0-2) % Neut # (Auto) 9500 H (2198-5590) /uL APTT 29 (26.4-36.2) SECONDS Sodium 142 (137-145) mmol/L Potassium 3.8 (3.4-5.1) mmol/L Chloride 105 (98-107) mmol/L Carbon Dioxide 22 (22-32) mmol/L BUN 15 (7-17) mg/dL Creatinine 1.00 (0.52-1.04) mg/dL Estimated GFR 56.0 L (>60) mL/min BUN/Creatinine Ratio 15.0 (6-22) Glucose 172 H (80-110) mg/dL Calcium 9.9 (8.4-10.2) mg/dL Total Bilirubin 0.5 (0.2-1.3) mg/dL AST 26 (14-36) IU/L ALT 21 (9-52) IU/L Alkaline Phosphatase 119 (38-126) U/L Total Creatine Kinase 33 (30-135) U/L CK-MB (CK-2) TNP CK-MB (CK-2) Rel Index TNP Troponin I 0.020 (0.01-0.034) ng/mL Total Protein 8.9 H (6.3-8.2) g/dL Albumin 4.4 (3.5-5.0) g/dL Globulin 4.5 H (1.7-4.1) g/dL Albumin/Globulin Ratio 1.0 (1.0-2.8) Lipase 79 (23-300) U/L ECG Data Attestation: I personally reviewed and interpreted this ECG as follows: Prior ECG tracings: available for review Interpretation: EKG shows a sinus rhythm with rate of 107, P are interval of 179 , QRS interval 86 and QTC of 387. Patient appears to have some ST depression in the lateral leads V4 through V5 [address] elevation appreciated. Patient is a prior EKG from 02/13/2018 which appears depressed from V4 through V6. MDM Narrative Medical decision making narrative: Chest pain improved with 1 nitrol SL, minimall with 2nd nitro SL. Given GI coctail and patient chest pain totally resolved. Patient has elevated wbc, normal cmp, troponin is negative. EKG shows nonspecific change. Chest shows no acute process. Patient was observed for chest pain obs with negative trops x 24 hours, patient did not have her stress test but is scheduled for Aug 11 for a chemical stress. Patient and I discussed observation although patient has had symptoms for 2 days so I would suspect cardiac cause is less likely but patient does have some questionable ST depression in the lateral lead. We discussed both of these at length. Patient does not wish to be observed. She does not wish to have any call her primary care to try to move up her stress test date. She states she has actually been stretching out for as far as she can because she has other doctors appointments she wants to go 2. We did discuss that I would recommend placing aspirin 324 mg. She is taking pantoprazole, Carafate and ranitidine for her stomach. I discussed that she can try Tums at home and or mallox. Discharge Plan Departure Patient Disposition: Home Clinical Impression: Atypical chest pain Discharge Date/Time: 07/27/18 06:14 Interventions: ED Discharge Assessment Last Done: 07/27/18 06:09 Instructions: DI for Atypical Chest Pain Activity Restrictions/Additional Instructions: Follow up with your primary care physician in the next 2-3 days for recheck. Follow up at your appointment for stress testing in August. I recommend talking with your physician about moving your stress test to a sooner date. Continue home medications as prescribed. I recommend an asa 324mg daily. Return to ER for new chest pain, shortness of breath, persistent vomiting, back pain, passing out or other new or concerning symptoms. Prescriptions: No Action sulfadiazine 500 MG tablet 500 mg PO BID Qty: 0 RF: 0 celecoxib [Celebrex] 200 MG capsule 200 mg PO BID Qty: 0 RF: 0 naratriptan 2.5 MG tablet 2.5 mg PO PRN PRNQty: 30 RF: 3 propranolol 20 mg tablet 20 mg PO TID Qty: 180 RF: 1 topiramate [Topamax] 50 mg tablet 50 mg OR BID Qty: 90 RF: 3 pantoprazole [Protonix] 40 mg tablet,delayed release (DR/EC) 40 mg PO QDAY Qty: 90 RF: 3 tizanidine 2 mg tablet 2 mg PO Q6-8H PRN (Reason: muscle spasticity) Qty: 30 RF: 1 ranitidine HCl 300 mg tablet 300 mg PO HS Qty: 90 RF: 0 venlafaxine [Effexor XR] 150 mg capsule,extended release 24hr 150 mg PO QDAY Qty: 90 RF: 3 sucralfate 1 gram tablet 1 gram PO QACHS Qty: 120 RF: 3 hydroxyzine HCl 50 mg tablet 50 mg PO QID PRN (Reason: anxiety) Qty: 60 RF: 2 tramadol 50 mg tablet 50 mg PO Q6H PRN (Reason: pain) Qty: 15 RF: 0 albuterol sulfate [Ventolin HFA] 90 mcg/actuation HFA aerosol inhaler 2 puff INHALATION Q4HP PRN (Reason: shortness of breath or wheezing) Qty: 1 RF: 0 cholecalciferol (vitamin D3) [Vitamin D3] 1,000 unit Tablet 1,000 unit PO DAILY RF: 0 magnesium 250 mg Tablet 500 mg PO DAILY RF: 0 fluticasone 50 mcg/actuation [place],Suspension 1 spray INTRANASAL BID RF: 0 secukinumab [Cosentyx Pen] 150 mg/mL pen injector 150 mg SUB-Q Q4W RF: 0 Referrals: Dulce Palencia MD [Primary Care Provider] -
[2018-07-27] MEDS: MAG HYDROX/ALUMINUM/SIMETH SUS 20 ML, LIDOCAINE VISCOUS 2% 15 ML PO (05:13)
[2018-07-27 05:17] LABS: PTT Partial Thromboplastin Tim 29 SECONDS (26.4-36.2)
[2018-07-27 05:18] LABS: Alanine Aminotransferase 21 IU/L (9-52); Albumin 4.4 g/dL (3.5-5.0); Alkaline Phosphatase 119 U/L (38-126); Aspartate Aminotransferase 26 IU/L (14-36); Bilirubin Total 0.5 mg/dL (0.2-1.3); Blood Urea Nitrogen 15 mg/dL (7-17); Calcium 9.9 mg/dL (8.4-10.2); Carbon Dioxide 22 mmol/L (22-32); Chloride 105 mmol/L (98-107); Creatine Kinase 33 U/L (30-135); Globulin 4.5 g/dL (1.7-4.1); Glucose 172 mg/dL (80-110); HEMOLYSIS < 15 (0-50); Lipase 79 U/L (23-300); Potassium 3.8 mmol/L (3.4-5.1); Sodium 142 mmol/L (137-145); Total Protein 8.9 g/dL (6.3-8.2)
--- NOTE | 2018-07-27 05:18 | PC.NURSE ---
After 2nd dose of nitro, pt rated chest pain unchanged at 5/10. GI cocktail given, pain now 1/10
[2018-07-27 05:20] VITALS: BP 99/71; PULSE 98; RESP 14; O2SAT 97
[2018-07-27 05:33] VITALS: BP 117/66; PULSE 94; RESP 11; O2SAT 97
[2018-07-27 06:00] VITALS: BP 121/68; PULSE 84; RESP 12; O2SAT 96
== END 2018-07-27 06:14 | disposition home or self-care (01) ==
PROVIDERS: Emergency Provider Emergency Medicine; Family Provider Family Medicine; PCP Family Medicine
DX: R07.89 Other chest pain (principal)
CPT/HCPCS: 36591; 71045; 80053; 82550; 83690; 84484; 85025; 85730; 93005; 99283; 99285; 99291

== ENCOUNTER → 2018-08-11 13:24 | Outpatient (CLI) | payer MEDICARE, MEDICAID, SELFPAY | PROVIDERS: Family Provider Family Medicine; PCP Family Medicine; Visit Provider Family Medicine | DX: R07.9 Chest pain, unspecified (principal); Z53.9 Procedure and treatment not carried out, unspecified reason ==

== ENCOUNTER → 2018-08-21 11:00 | Outpatient (CLI) | payer MEDICARE, MEDICAID, SELFPAY ==
--- NOTE | 2018-08-21 12:40 | P.PCN_ITS ---
Cardiac Stress Test Report Referral & Results Date Patient Seen: 08/21/18 Requesting provider: Dulce Palencia Indication: Chest pain Rest ECG: Unremarkable Procedure Note: This was performed as a walking Lexiscan as patient was unable to tolerate being off of her beta-roma After both written and verbal informed consent the patient had an IV started by the diagnostic imaging RN and then was hooked up to the treadmill monitoring system. The patient was placed on the treadmill at 1 mile an hour with no elevation and was then injected with the [place]a scan material. The Cardiolite was then immediately administered. The patient spent an additional 2-3 minutes on the treadmill before being returned to the [facility] in the supine position. The patient had a normal response to all infused materials. Impression: Normal response to infuse materials Please see perfusion imaging report for details regarding possible ischemia Please note: Actual ECG tracings can be found in the PACS system.
--- NOTE | 2018-08-24 14:59 | DI.NM.S_ITS ---
DATE OF SERVICE: 08/21/2018 PROCEDURE: Pharmacological perfusion study. RADIOPHARMACEUTICAL: 27.8 mCi technetium-99m Myoview IV was injected at stress and 24.9 mCi technetium-99m Myoview IV was injected at rest. CARDIAC STRESS: Patient underwent Lexiscan perfusion study under the supervision of an attending staff using standard IV Lexiscan as per protocol. Baseline rhythm was sinus. Stress EKG did not reveal any significant inducible ischemic changes. No significant arrhythmias. No significant symptoms reported. Patient remained hemodynamically stable. RAW DATA: There was significant breast shadow seen. Arm was hanging low at the time of image acquisition. GATED STUDY: Resting stress LV ejection fraction 71%. Stress LV ejection fraction 85%. No significant wall motion abnormalities. No transient ischemic dilatation. TID ratio is 0.79, which is within normal limits. Resting LV end- diastolic volume is 78 mL. Lung/heart ratio is 0.29, which is within normal limits. MYOCARDIAL PERFUSION SCAN: Resting supine images revealed moderate sized mild-to- moderately decreased perfusion of anterior wall which got resolved during prone images. Stress supine and stress prone images revealed normal myocardial perfusion. CONCLUSION: I'll call this study a normal myocardial perfusion study with evidence of breast tissue attenuation artifact which got resolved during prone. In fact, stress supine also revealed normal myocardial perfusion. Overall, this is a low-risk myocardial perfusion study. Karyna Katheryn - [employer]/fn/ab doc#: [id number]/job#: [id number] dd: 08/24/2018 12:47:00 dt: 08/24/2018 14:46:00 DICTATING MD/COPIES TO: Colt Whitaker MD COPIES MNE: LATHA
== END ==
PROVIDERS: Family Provider Family Medicine; PCP Family Medicine; Visit Provider Family Medicine
DX: R07.9 Chest pain, unspecified (principal)
CPT/HCPCS: 78452; 93016; 93017; 93018; A9502; J2785

== ENCOUNTER 2018-12-14 14:30 | Outpatient (RCR) | payer MEDICARE, MEDICAID, SELFPAY ==
--- NOTE | 2018-11-09 14:56 | PT.OIE ---
Current Diagnoses Pain in left shoulder (11/09/18) Stiffness of left shoulder, not elsewhere classified (11/09/18) Bursitis of left shoulder (11/09/18) Other specified postprocedural states (11/09/18) Past Medical History (Last Reviewed 07/27/18 @ 05:08 by Farheen De Oliveira DO) Arthritis (Chronic) Compression fracture of thoracic vertebra (Chronic) GERD (gastroesophageal reflux disease) (Chronic) History of ulcer disease (Chronic) Migraine (Chronic) Psoriatic arthritis (Chronic) Anxiety (Resolved) BCC (basal cell carcinoma), shoulder (Resolved) Depression (Resolved) Fracture of rib of right side (Resolved 2014) Hemorrhoids (Resolved) Measles (Resolved) Past Surgical History (Last Reviewed 07/27/18 @ 05:08 by Farheen De Oliveira DO) History of cholecystectomy (Resolved) History of total hysterectomy (Resolved) History of tubal ligation (Resolved) Provider Visit Care Team Role Provider Type Dulce Palencia MD Primary Care Provider Physician Specialty: Family Practice Address: [address] [place] [address], [id number] Email: [email or web address] MD Attending Provider Physician Specialty: Orthopedic Surgery Address: [address] [place] [address], [address] Email: [email or web address] Physical Therapy Initial Evaluation PT-OP-A Visit Information Start: 11/09/18 14:25 Freq: Status: Active Protocol: Document 11/09/18 13:45 DCW (Rec: 11/09/18 14:56 DCW [id number]) Out-Patient Physical Therapy Visit Information Visit Information Visit Type Initial Evaluation Visit Start Time 13:45 Visit Stop Time 14:25 Total Visit Minutes 40 Visit Number 1 Number of FORMULATION SCIENTIST Visits 0 Evaluation Information Evaluation Date 11/09/18 PT-OP-B Current Condition Start: 11/09/18 14:25 Freq: Status: Active Protocol: Document 11/09/18 13:45 DCW (Rec: 11/09/18 14:56 DCW [id number]) Current Condition History of Current Condition Onset Date 09/29/18 Current Complaints Shoulder stiffness, pain following left subacromial decompression History of Current Condition Pt is a 63 year old female presenting six weeks s/p left subacromial decompression, although pt admits that she has been having problems for a year, and over that time has been really babying her shoulder. Pt reports she has noticed improvement over the last six weeks, and her pain is currently olny a 3-4/10, but notes that it can increase with certain movements, and she is unable to reach behind her back, and has difficulty lifting her arm to wash or style her hair, as well as putting her coat on. Prior Treatments and Tests left subacromial decompression 09/29/18 Treatment Goals Patient/Caregiver Goals I want to get normal use of my arm back. Prior Functional Status Baseline Function- ADL's Independent Baseline Function- Mobility Independent Current Functional Impairments (Reported) Functional Limitations- ADL's Unable to use left arm to style or wash hair, unable to reach back to don/doff bra, pain putting coat on. PT-OP-C Subjective Start: 11/09/18 14:25 Freq: Status: Active Protocol: Document 11/09/18 13:45 DCW (Rec: 11/09/18 14:56 [facility] [id number]) Patient Questionnaires Quick Dash- Upper Extremity Quick Dash UE Score 18.18% Quick Dash UE Impairment 1 to 19% Impaired (Score 1-19) OP-PT Pain Assessment Pain Assessment Grid Paper Pain Assessment Grid Completed Yes Location Left Shoulder Intensity 4 Scale Used Numeric (1 - 10) Frequency Occasional PT-OP-E Functional Tests Start: 11/09/18 14:25 Freq: Status: Active Protocol: Document 11/09/18 13:45 DCW (Rec: 11/09/18 14:56 [facility] [id number]) Functional Tests Adelaey's Scratch Test Action 1: The subject is instructed to touch the opposite shoulder with his/her hand. This motion checks Glenohumeral adduction, internal rotation , horizontal adduction and scapular protraction Action 2: The subject is instructed to place his/her arm overhead and reach behind the neck to touch his/her upper back. This motion checks Glenohumeral abduction, external rotation and scapular upward rotation and elevation. Action 3: The subject puts his/her hand on the lower back and reaches upward as far as possible. This motion checks glenohumeral adduction, internal rotation and scapular retraction with downward rotation Action 1- Left Pt reaches lateral aspect of opposite shoulder Action 1- Right Pt reaches posterior aspect of opposite shoulder Action 2- Left Pt reaches to T1 Action 2- Right Pt reaches to T4 Action 3- Left Pt reaches to posterior left buttock Action 3- Right Pt reaches to T10 PT-OP-K Range of Motion Start: 11/09/18 14:25 Freq: Status: Active Protocol: Document 11/09/18 13:45 DCW (Rec: 11/09/18 14:56 DCW [id number]) Shoulder Goniometric Range of Motion Shoulder Measured in Degrees Right Shoulder ROM WFL Yes Left Passive Shoulder ROM WFL No Testing Position Supine Flexion 144 Abduction 113 External Rotation at 0 degrees Abduction 60 Left Active Shoulder ROM WFL No Testing Position Sitting Flexion 105 Abduction 95 External Rotation at 0 degrees Abduction 56 Shoulder ROM Limitations Shoulder ROM Limitations Soft Tissue Tightness Bony Restriction Pain PT-OP-L Special Tests Start: 11/09/18 14:25 Freq: Status: Active Protocol: Document 11/09/18 13:45 DCW (Rec: 11/09/18 14:56 DCW [id number]) Special Tests Shoulder Special Tests Marmolejo John Impingement Test Results Negative Drop Arm Rotator Cuff Test Results Negative Belly Press Test Results Negative PT-OP-M Strength Start: 11/09/18 14:25 Freq: Status: Active Protocol: Document 11/09/18 13:45 DCW (Rec: 11/09/18 14:56 DCW [id number]) Shoulder Strength Shoulder Manual Muscle Testing Left Flexion 3 Fair Extension 4- Good- Abduction (C5) 3- Fair- External Rotation 4- Good- Internal Rotation 4- Good- PT-OP-Q Treatments Start: 11/09/18 14:25 Freq: Status: Active Protocol: Document 11/09/18 13:45 DCW (Rec: 11/09/18 14:56 DCW [id number]) Therapeutic Exercises Sitting Exercises Pulleys Sitting Exercise Name Flexion, Abduction Side bilateral Equipment Used Pulleys Table Stretch Sitting Exercise Name Table Stretch Side left Comments Flexion and Abduction Standing Exercises Shoulder IR Standing Exercise Name Internal Rotation Side left Resistance Lv 1 Equipment Used T-band Shoulder ER Standing Exercise Name External Rotation Side left Resistance Lv 1 Equipment Used T-band Pulleys Standing Exercise Name Internal Rotation Side bilateral Equipment Used Pulleys Pendulums Standing Exercise Name Pendulums Side left Comments Fwd/Bkwd, Lateral, Circles PT-OP-T Assessment and Plan Start: 11/09/18 14:25 Freq: Status: Active Protocol: Document 11/09/18 13:45 DCW (Rec: 11/09/18 14:56 DCW [id number]) Physical Therapy Assessment Rehab Potential Rehabilitation Potential Excellent Evaluation Complexity Number of Personal Factors/Comorbidities 1-2 Number of Body Systems Impaired 1-2 Clinical Presentation at Evaluation Stable Impairments Impairments Activity Tolerance Functional Activities Pain ROM Strength Goals Five Impairment Left shoulder weakness Snf Goal (LTG) L UE MMT to grossly 4/5 LTG Duration 01/09/19 Four Impairment Left limited during Apley Scratch Test Vault Attendant Goal (LTG) Left = Right performing Apley Scratch Test LTG Duration 01/09/19 Three Impairment Limited ROM Short Term Goal (STG) Left PROM flexion to 160? Left PROM abduction to 160? STG Duration 12/09/18 Vault Attendant Goal (LTG) Left AROM flexion to 140? Left AROM abduction to 140? LTG Duration 01/09/19 Two Impairment Pt unable to use left arm for most ADLs Short Term Goal (STG) Pt to wash hair using left hand with no increased pain STG Duration 12/09/18 Snf Goal (LTG) Pt to don/doff bra with left hand with no increased pain LTG Duration 01/09/19 One Impairment Pt does not have an appropriate home exercise program Short Term Goal (STG) Pt to be independent and complaint with an appropriate HEP STG Duration 12/09/18 Assessment Summary Assessment Pt presents as expected six weeks s/p left subacromial decompression. Pt displays weakness, decreased ROM, limitations with ADLs, and pain. Pt should benefit from skilled therapy focusing on increasing movement and ROM to limit risk of adhesive capsulitis, TherEx to improve strength, and manual therapy and modalities to decrease pain and improve motion. Physical Therapy Plan Frequency and Duration Frequency of Treatment 2x/Week Duration of Treatment 2 months Plan of Care Start Date 11/09/18 Plan of Care End Date 01/09/19 Therapeutic Interventions Therapeutic Interventions Aquatic Therapy Home Exercise Program Joint Mobilizations Manual Therapy Patient/Caregiver Education Self-Care/Home Management Soft Tissue Mobilization Therapeutic Activities Therapeutic Exercises Modalities Cold Pack/Ice Massage Electric Stimulation Hot Packs Ultrasound Next Visit Focus/Plan Next Note Type Treatment Note Next Visit Plan ROM, Strengthening, pain- control
--- NOTE | 2018-11-09 14:57 | PT.OPPOC ---
Current Diagnoses Pain in left shoulder (11/09/18) Stiffness of left shoulder, not elsewhere classified (11/09/18) Bursitis of left shoulder (11/09/18) Other specified postprocedural states (11/09/18) Provider Visit Care Team Role Provider Type Dulce Palencia MD Primary Care Provider Physician Specialty: Family Practice Address: [address] [place] [address], [id number] Email: [email or web address] MD Attending Provider Physician Specialty: Orthopedic Surgery Address: [address] [place] [address], [id number] Email: [email or web address] Plan Of Care PT-OP-T Assessment and Plan Start: 11/09/18 14:25 Freq: Status: Active Protocol: Document 11/09/18 13:45 DCW (Rec: 11/09/18 14:56 DCW [id number]) Physical Therapy Assessment Rehab Potential Rehabilitation Potential Excellent Evaluation Complexity Number of Personal Factors/Comorbidities 1-2 Number of Body Systems Impaired 1-2 Clinical Presentation at Evaluation Stable Impairments Impairments Activity Tolerance Functional Activities Pain ROM Strength Goals Five Impairment Left shoulder weakness Desktop Operator Goal (LTG) L UE MMT to grossly 4/5 LTG Duration 01/09/19 Four Impairment Left limited during Apley Scratch Test Desktop Operator Goal (LTG) Left = Right performing Apley Scratch Test LTG Duration 01/09/19 Three Impairment Limited ROM Short Term Goal (STG) Left PROM flexion to 160? Left PROM abduction to 160? STG Duration 12/09/18 Penitentiary Goal (LTG) Left AROM flexion to 140? Left AROM abduction to 140? LTG Duration 01/09/19 Two Impairment Pt unable to use left arm for most ADLs Short Term Goal (STG) Pt to wash hair using left hand with no increased pain STG Duration 12/09/18 Desktop Operator Goal (LTG) Pt to don/doff bra with left hand with no increased pain LTG Duration 01/09/19 One Impairment Pt does not have an appropriate home exercise program Short Term Goal (STG) Pt to be independent and complaint with an appropriate HEP STG Duration 12/09/18 Assessment Summary Assessment Pt presents as expected six weeks s/p left subacromial decompression. Pt displays weakness, decreased ROM, limitations with ADLs, and pain. Pt should benefit from skilled therapy focusing on increasing movement and ROM to limit risk of adhesive capsulitis, TherEx to improve strength, and manual therapy and modalities to decrease pain and improve motion. Physical Therapy Plan Frequency and Duration Frequency of Treatment 2x/Week Duration of Treatment 2 months Plan of Care Start Date 11/09/18 Plan of Care End Date 01/09/19 Therapeutic Interventions Therapeutic Interventions Aquatic Therapy Home Exercise Program Joint Mobilizations Manual Therapy Patient/Caregiver Education Self-Care/Home Management Soft Tissue Mobilization Therapeutic Activities Therapeutic Exercises Modalities Cold Pack/Ice Massage Electric Stimulation Hot Packs Ultrasound Next Visit Focus/Plan Next Note Type Treatment Note Next Visit Plan ROM, Strengthening, pain- control Plan of Care Dates Plan of Care Start Date 11/09/18 Plan of Care End Date 01/09/19 Please Sign and Return: I have reviewed this Plan of Care and certify that the skilled therapy services above are required to meet the patient?s needs. Physician Signature Date Printed Name and Credentials Clinical Instructor Signature Printed Name and Credentials
--- NOTE | 2018-11-16 15:43 | PT.OTN ---
Current Diagnoses Pain in left shoulder (11/16/18) Bursitis of left shoulder (11/16/18) Physical Therapy Treatment Note PT-OP-A Visit Information Start: 11/09/18 14:25 Freq: Status: Active Protocol: Document 11/16/18 15:10 EA (Rec: 11/16/18 15:43 EA [id number]) Out-Patient Physical Therapy Visit Information Visit Information Visit Type Treatment Note Visit Start Time 14:30 Visit Stop Time 15:20 Total Visit Minutes 53 Visit Number 2 PT-OP-B Current Condition Start: 11/09/18 14:25 Freq: Status: Active Protocol: Document 11/09/18 13:45 DCW (Rec: 11/09/18 14:56 DCW [id number]) Current Condition History of Current Condition Onset Date 09/29/18 Current Complaints Shoulder stiffness, pain following left subacromial decompression History of Current Condition Pt is a 63 year old female presenting six weeks s/p left subacromial decompression, although pt admits that she has been having problems for a year, and over that time has been really babying her shoulder. Pt reports she has noticed improvement over the last six weeks, and her pain is currently olny a 3-4/10, but notes that it can increase with certain movements, and she is unable to reach behind her back, and has difficulty lifting her arm to wash or style her hair, as well as putting her coat on. Prior Treatments and Tests left subacromial decompression 09/29/18 Treatment Goals Patient/Caregiver Goals I want to get normal use of my arm back. Prior Functional Status Baseline Function- ADL's Independent Baseline Function- Mobility Independent Current Functional Impairments (Reported) Functional Limitations- ADL's Unable to use left arm to style or wash hair, unable to reach back to don/doff bra, pain putting coat on. 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 PT-OP-E Functional Tests Start: 11/09/18 14:25 Freq: Status: Active Protocol: Document 11/09/18 13:45 DCW (Rec: 11/09/18 14:56 DCW [id number]) Functional Tests Apley's Scratch Test Action 1: The subject is instructed to touch the opposite shoulder with his/her hand. This motion checks Glenohumeral adduction, internal rotation , horizontal adduction and scapular protraction Action 2: The subject is instructed to place his/her arm overhead and reach behind the neck to touch his/her upper back. This motion checks Glenohumeral abduction, external rotation and scapular upward rotation and elevation. Action 3: The subject puts his/her hand on the lower back and reaches upward as far as possible. This motion checks glenohumeral adduction, internal rotation and scapular retraction with downward rotation Action 1- Left Pt reaches lateral aspect of opposite shoulder Action 1- Right Pt reaches posterior aspect of opposite shoulder Action 2- Left Pt reaches to T1 Action 2- Right Pt reaches to T4 Action 3- Left Pt reaches to posterior left buttock Action 3- Right Pt reaches to T10 PT-OP-K Range of Motion Start: 11/09/18 14:25 Freq: Status: Active Protocol: Document 11/09/18 13:45 DCW (Rec: 11/09/18 14:56 DCW [id number]) Shoulder Goniometric Range of Motion Shoulder Measured in Degrees Right Shoulder ROM WFL Yes Left Passive Shoulder ROM WFL No Testing Position Supine Flexion 144 Abduction 113 External Rotation at 0 degrees Abduction 60 Left Active Shoulder ROM WFL No Testing Position Sitting Flexion 105 Abduction 95 External Rotation at 0 degrees Abduction 56 Shoulder ROM Limitations Shoulder ROM Limitations Soft Tissue Tightness Bony Restriction Pain PT-OP-L Special Tests Start: 11/09/18 14:25 Freq: Status: Active Protocol: Document 11/09/18 13:45 DCW (Rec: 11/09/18 14:56 DCW [id number]) Special Tests Shoulder Special Tests Marmolejo John Impingement Test Results Negative Drop Arm Rotator Cuff Test Results Negative Belly Press Test Results Negative PT-OP-M Strength Start: 11/09/18 14:25 Freq: Status: Active Protocol: Document 11/09/18 13:45 DCW (Rec: 11/09/18 14:56 DCW [id number]) Shoulder Strength Shoulder Manual Muscle Testing Left Flexion 3 Fair Extension 4- Good- Abduction (C5) 3- Fair- External Rotation 4- Good- Internal Rotation 4- Good- PT-OP-Q Treatments Start: 11/09/18 14:25 Freq: Status: Active Protocol: Document 11/16/18 15:10 EA (Rec: 11/16/18 15:43 EA [id number]) Therapeutic Exercises Sidelying Exercises 2 Sidelying Exercise Name ABD Reps/Minutes x 15 reps x 2 1 Sidelying Exercise Name Shoulder horix ABD Reps/Minutes x 15 reps Sitting Exercises Pulleys Sitting Exercise Name Flexion, Abduction Side bilateral Equipment Used Pulleys Table Stretch Sitting Exercise Name Table Stretch Side left Comments Flexion and Abduction Standing Exercises 1 Standing Exercise Name Shoulder ext: T: bar Reps/Minutes x 15 reps x 2 Shoulder IR Standing Exercise Name Internal Rotation Side left Resistance Lv 1 Equipment Used T-band Shoulder ER Standing Exercise Name External Rotation Side left Resistance Lv 1 Equipment Used T-band Pulleys Standing Exercise Name Internal Rotation Side bilateral Equipment Used Pulleys Pendulums Standing Exercise Name Pendulums Side left Comments Fwd/Bkwd, Lateral, Circles Manual Therapy Treatment Soft Tissue Mobilization 1 Body Location Left anterio shoulder, traps Mobilization Type Myofascial Release Rolling Intensity/Depth Moderate Joint Mobilizations 1 Joint GH Direction post/inf Grade II PT-OP-R Modalities Start: 11/09/18 14:25 Freq: Status: Active Protocol: Document 11/16/18 15:10 EA (Rec: 11/16/18 15:43 EA [id number]) Electric Stimulation Electric Stimulation Interferential Current (IFC) Body Location Left shoulder Intensity 12 Patient Position Supine Combined With Heat/Cold Cold Pack PT-OP-T Assessment and Plan Start: 11/09/18 14:25 Freq: Status: Active Protocol: Document 11/16/18 15:10 EA (Rec: 11/16/18 15:43 EA [id number]) Physical Therapy Assessment Assessment Summary Assessment Pt tolerated treatment with discomfort noted during active ABD/flexion. Requires cues to inhibit traps during shoulder overhead mobility. New HEP given and explained. Physical Therapy Plan Next Visit Focus/Plan Next Note Type Treatment Note Next Visit Plan ROM, Strengthening, pain- control
--- NOTE | 2018-11-18 16:01 | PT.OTN ---
Current Diagnoses Pain in left shoulder (11/18/18) Bursitis of left shoulder (11/18/18) Physical Therapy Treatment Note PT-OP-A Visit Information Start: 11/09/18 14:25 Freq: Status: Active Protocol: Document 11/18/18 15:15 EA (Rec: 11/18/18 16:01 EA [id number]) Out-Patient Physical Therapy Visit Information Visit Information Visit Type Treatment Note Visit Start Time 14:30 Visit Stop Time 15:20 Total Visit Minutes 53 Visit Number 2 PT-OP-B Current Condition Start: 11/09/18 14:25 Freq: Status: Active Protocol: Document 11/09/18 13:45 DCW (Rec: 11/09/18 14:56 DCW [id number]) Current Condition History of Current Condition Onset Date 09/29/18 Current Complaints Shoulder stiffness, pain following left subacromial decompression History of Current Condition Pt is a 63 year old female presenting six weeks s/p left subacromial decompression, although pt admits that she has been having problems for a year, and over that time has been really babying her shoulder. Pt reports she has noticed improvement over the last six weeks, and her pain is currently olny a 3-4/10, but notes that it can increase with certain movements, and she is unable to reach behind her back, and has difficulty lifting her arm to wash or style her hair, as well as putting her coat on. Prior Treatments and Tests left subacromial decompression 09/29/18 Treatment Goals Patient/Caregiver Goals I want to get normal use of my arm back. Prior Functional Status Baseline Function- ADL's Independent Baseline Function- Mobility Independent Current Functional Impairments (Reported) Functional Limitations- ADL's Unable to use left arm to style or wash hair, unable to reach back to don/doff bra, pain putting coat on. PT-OP-C Subjective Start: 11/09/18 14:25 Freq: Status: Active Protocol: Document 11/18/18 15:15 EA (Rec: 11/18/18 16:01 EA [id number]) OP-PT Subjective Patient Comments Patient Comments Pt reports compliant with HEP. PT-OP-E Functional Tests Start: 11/09/18 14:25 Freq: Status: Active Protocol: Document 11/09/18 13:45 DCW (Rec: 11/09/18 14:56 DCW [id number]) Functional Tests Apley's Scratch Test Action 1: The subject is instructed to touch the opposite shoulder with his/her hand. This motion checks Glenohumeral adduction, internal rotation , horizontal adduction and scapular protraction Action 2: The subject is instructed to place his/her arm overhead and reach behind the neck to touch his/her upper back. This motion checks Glenohumeral abduction, external rotation and scapular upward rotation and elevation. Action 3: The subject puts his/her hand on the lower back and reaches upward as far as possible. This motion checks glenohumeral adduction, internal rotation and scapular retraction with downward rotation Action 1- Left Pt reaches lateral aspect of opposite shoulder Action 1- Right Pt reaches posterior aspect of opposite shoulder Action 2- Left Pt reaches to T1 Action 2- Right Pt reaches to T4 Action 3- Left Pt reaches to posterior left buttock Action 3- Right Pt reaches to T10 PT-OP-K Range of Motion Start: 11/09/18 14:25 Freq: Status: Active Protocol: Document 11/09/18 13:45 DCW (Rec: 11/09/18 14:56 [facility] [id number]) Shoulder Goniometric Range of Motion Shoulder Measured in Degrees Right Shoulder ROM WFL Yes Left Passive Shoulder ROM WFL No Testing Position Supine Flexion 144 Abduction 113 External Rotation at 0 degrees Abduction 60 Left Active Shoulder ROM WFL No Testing Position Sitting Flexion 105 Abduction 95 External Rotation at 0 degrees Abduction 56 Shoulder ROM Limitations Shoulder ROM Limitations Soft Tissue Tightness Bony Restriction Pain PT-OP-L Special Tests Start: 11/09/18 14:25 Freq: Status: Active Protocol: Document 11/09/18 13:45 DCW (Rec: 11/09/18 14:56 [facility] [id number]) Special Tests Shoulder Special Tests Marmolejo John Impingement Test Results Negative Drop Arm Rotator Cuff Test Results Negative Belly Press Test Results Negative PT-OP-M Strength Start: 11/09/18 14:25 Freq: Status: Active Protocol: Document 11/09/18 13:45 DCW (Rec: 11/09/18 14:56 [facility] [id number]) Shoulder Strength Shoulder Manual Muscle Testing Left Flexion 3 Fair Extension 4- Good- Abduction (C5) 3- Fair- External Rotation 4- Good- Internal Rotation 4- Good- PT-OP-Q Treatments Start: 11/09/18 14:25 Freq: Status: Active Protocol: Document 11/18/18 15:15 EA (Rec: 11/18/18 16:01 EA [id number]) Cardio Equipment Upper Body Ergometer (UBE) Duration (Minutes) 5 Height 4 Therapeutic Exercises Supine Exercises 1 Supine Exercise Name T-bar flexion Resistance 2 lbs wrist weights Reps/Minutes x 15 reps Sidelying Exercises 2 Sidelying Exercise Name ABD Resistance 2# Reps/Minutes x 15 reps x 2 1 Sidelying Exercise Name Shoulder horix ABD Reps/Minutes x 15 reps Sitting Exercises Pulleys Sitting Exercise Name Flexion, Abduction Side left Equipment Used Pulleys Table Stretch Sitting Exercise Name Table Stretch Side left Comments Flexion and Abduction Standing Exercises 1 Standing Exercise Name Shoulder ext: T: bar Reps/Minutes x 15 reps x 2 Shoulder IR Standing Exercise Name Internal Rotation Side left Resistance Lv 1 Equipment Used T-band Shoulder ER Standing Exercise Name External Rotation Side left Resistance Lv 1 Equipment Used T-band Pulleys Standing Exercise Name Internal Rotation Side bilateral Equipment Used Pulleys Manual Therapy Treatment Soft Tissue Mobilization 1 Body Location Left anterio shoulder, traps Mobilization Type Myofascial Release Rolling Intensity/Depth Moderate PT-OP-R Modalities Start: 11/09/18 14:25 Freq: Status: Active Protocol: Document 11/18/18 15:15 EA (Rec: 11/18/18 16:01 EA [id number]) Electric Stimulation Electric Stimulation Interferential Current (IFC) Body Location Left shoulder Intensity 12 Patient Position Supine Combined With Heat/Cold Cold Pack PT-OP-T Assessment and Plan Start: 11/09/18 14:25 Freq: Status: Active Protocol: Document 11/18/18 15:15 EA (Rec: 11/18/18 16:01 EA [id number]) Physical Therapy Assessment Assessment Summary Assessment Improved exercises tolerance and ROM a this time. Cont with current plan. Physical Therapy Plan Next Visit Focus/Plan Next Note Type Treatment Note Next Visit Plan ROM, Strengthening, pain- control
--- NOTE | 2018-11-23 16:09 | PT.OTN ---
Current Diagnoses Pain in left shoulder (11/23/18) Bursitis of left shoulder (11/23/18) Physical Therapy Treatment Note PT-OP-A Visit Information Start: 11/09/18 14:25 Freq: Status: Active Protocol: Document 11/23/18 15:59 EA (Rec: 11/23/18 16:08 EA [id number]) Out-Patient Physical Therapy Visit Information Visit Information Visit Type Treatment Note Visit Start Time 14:30 Visit Stop Time 15:20 Total Visit Minutes 48 Visit Number 4 PT-OP-B Current Condition Start: 11/09/18 14:25 Freq: Status: Active Protocol: Document 11/09/18 13:45 DCW (Rec: 11/09/18 14:56 DCW [id number]) Current Condition History of Current Condition Onset Date 09/29/18 Current Complaints Shoulder stiffness, pain following left subacromial decompression History of Current Condition Pt is a 63 year old female presenting six weeks s/p left subacromial decompression, although pt admits that she has been having problems for a year, and over that time has been really babying her shoulder. Pt reports she has noticed improvement over the last six weeks, and her pain is currently olny a 3-4/10, but notes that it can increase with certain movements, and she is unable to reach behind her back, and has difficulty lifting her arm to wash or style her hair, as well as putting her coat on. Prior Treatments and Tests left subacromial decompression 09/29/18 Treatment Goals Patient/Caregiver Goals I want to get normal use of my arm back. Prior Functional Status Baseline Function- ADL's Independent Baseline Function- Mobility Independent Current Functional Impairments (Reported) Functional Limitations- ADL's Unable to use left arm to style or wash hair, unable to reach back to don/doff bra, pain putting coat on. PT-OP-C Subjective Start: 11/09/18 14:25 Freq: Status: Active Protocol: Document 11/23/18 15:59 EA (Rec: 11/23/18 16:08 EA [id number]) OP-PT Subjective Patient Comments Patient Comments Pt reports left shoulder is quite sore next day after last session; states it is much better at this time. She also mentioned that she just bought a new bicycle and would use it once shoulder is stronger. Patient Reported Progress Improving PT-OP-E Functional Tests Start: 11/09/18 14:25 Freq: Status: Active Protocol: Document 11/09/18 13:45 DCW (Rec: 11/09/18 14:56 DCW [id number]) Functional Tests Apley's Scratch Test Action 1: The subject is instructed to touch the opposite shoulder with his/her hand. This motion checks Glenohumeral adduction, internal rotation , horizontal adduction and scapular protraction Action 2: The subject is instructed to place his/her arm overhead and reach behind the neck to touch his/her upper back. This motion checks Glenohumeral abduction, external rotation and scapular upward rotation and elevation. Action 3: The subject puts his/her hand on the lower back and reaches upward as far as possible. This motion checks glenohumeral adduction, internal rotation and scapular retraction with downward rotation Action 1- Left Pt reaches lateral aspect of opposite shoulder Action 1- Right Pt reaches posterior aspect of opposite shoulder Action 2- Left Pt reaches to T1 Action 2- Right Pt reaches to T4 Action 3- Left Pt reaches to posterior left buttock Action 3- Right Pt reaches to T10 PT-OP-K Range of Motion Start: 11/09/18 14:25 Freq: Status: Active Protocol: Document 11/09/18 13:45 DCW (Rec: 11/09/18 14:56 DCW [id number]) Shoulder Goniometric Range of Motion Shoulder Measured in Degrees Right Shoulder ROM WFL Yes Left Passive Shoulder ROM WFL No Testing Position Supine Flexion 144 Abduction 113 External Rotation at 0 degrees Abduction 60 Left Active Shoulder ROM WFL No Testing Position Sitting Flexion 105 Abduction 95 External Rotation at 0 degrees Abduction 56 Shoulder ROM Limitations Shoulder ROM Limitations Soft Tissue Tightness Bony Restriction Pain PT-OP-L Special Tests Start: 11/09/18 14:25 Freq: Status: Active Protocol: Document 11/09/18 13:45 DCW (Rec: 11/09/18 14:56 DCW [id number]) Special Tests Shoulder Special Tests Marmolejo John Impingement Test Results Negative Drop Arm Rotator Cuff Test Results Negative Belly Press Test Results Negative PT-OP-M Strength Start: 11/09/18 14:25 Freq: Status: Active Protocol: Document 11/09/18 13:45 DCW (Rec: 11/09/18 14:56 DCW [id number]) Shoulder Strength Shoulder Manual Muscle Testing Left Flexion 3 Fair Extension 4- Good- Abduction (C5) 3- Fair- External Rotation 4- Good- Internal Rotation 4- Good- PT-OP-Q Treatments Start: 11/09/18 14:25 Freq: Status: Active Protocol: Document 11/23/18 15:59 EA (Rec: 11/23/18 16:08 EA [id number]) Cardio Equipment Upper Body Ergometer (UBE) Duration (Minutes) 6 Height 4 Gym Equipment Cable Column (Body Solid) Rows Resistance 20# Reps/Time x 15 reps x 2 Therapeutic Exercises Standing Exercises 3 Standing Exercise Name Shoulder ABD/Flexion Resistance 1# AW Reps/Minutes x 12 reps x 2 Comments 0-90 deg 2 Standing Exercise Name T-bar shoulder press Resistance 1# Reps/Minutes x 15 reps 1 Standing Exercise Name Shoulder ext: T: bar Resistance #2 Reps/Minutes x 15 reps x 2 Shoulder IR Standing Exercise Name Internal Rotation Side left Resistance Lv 1 Equipment Used T-band Shoulder ER Standing Exercise Name External Rotation Side left Resistance Lv 1 Equipment Used T-band Manual Therapy Treatment Soft Tissue Mobilization 1 Body Location Left anterio shoulder, traps Mobilization Type Myofascial Release Rolling Intensity/Depth Moderate Joint Mobilizations 1 Joint GH Direction post/inf Grade II PT-OP-R Modalities Start: 11/09/18 14:25 Freq: Status: Active Protocol: Document 11/23/18 15:59 EA (Rec: 11/23/18 16:08 EA [id number]) Hot Pack/Cold Pack Treatment Cold Pack Location left shoulder Patient Position Supine Treatment Duration (minutes) 15 Patient Tolerance Good PT-OP-T Assessment and Plan Start: 11/09/18 14:25 Freq: Status: Active Protocol: Document 11/23/18 15:59 EA (Rec: 11/23/18 16:08 EA [id number]) Physical Therapy Assessment Assessment Summary Assessment Tolerated treatment well; mild discomfort with fwd flexion and abduction beyond 90 deg. verbal and tactile cues helps to prevent scap early elev. Physical Therapy Plan Next Visit Focus/Plan Next Note Type Treatment Note Next Visit Plan ROM, Strengthening, pain- control
--- NOTE | 2018-11-25 15:16 | PT.OTN ---
Current Diagnoses Pain in left shoulder (11/25/18) Bursitis of left shoulder (11/25/18) Physical Therapy Treatment Note PT-OP-A Visit Information Start: 11/09/18 14:25 Freq: Status: Active Protocol: Document 11/25/18 15:11 EA (Rec: 11/25/18 15:16 EA [id number]) Out-Patient Physical Therapy Visit Information Visit Information Visit Type Treatment Note Visit Start Time 14:30 Visit Stop Time 15:20 Total Visit Minutes 47 Visit Number 5 PT-OP-B Current Condition Start: 11/09/18 14:25 Freq: Status: Active Protocol: Document 11/09/18 13:45 DCW (Rec: 11/09/18 14:56 DCW [id number]) Current Condition History of Current Condition Onset Date 09/29/18 Current Complaints Shoulder stiffness, pain following left subacromial decompression History of Current Condition Pt is a 63 year old female presenting six weeks s/p left subacromial decompression, although pt admits that she has been having problems for a year, and over that time has been really babying her shoulder. Pt reports she has noticed improvement over the last six weeks, and her pain is currently olny a 3-4/10, but notes that it can increase with certain movements, and she is unable to reach behind her back, and has difficulty lifting her arm to wash or style her hair, as well as putting her coat on. Prior Treatments and Tests left subacromial decompression 09/29/18 Treatment Goals Patient/Caregiver Goals I want to get normal use of my arm back. Prior Functional Status Baseline Function- ADL's Independent Baseline Function- Mobility Independent Current Functional Impairments (Reported) Functional Limitations- ADL's Unable to use left arm to style or wash hair, unable to reach back to don/doff bra, pain putting coat on. PT-OP-C Subjective Start: 11/09/18 14:25 Freq: Status: Active Protocol: Document 11/25/18 15:11 EA (Rec: 11/25/18 15:16 EA [id number]) OP-PT Subjective Patient Comments Patient Comments Pt reports she has been busy volunteering and she is using her left shoulder a lot of time; states pain is minimal PT-OP-E Functional Tests Start: 11/09/18 14:25 Freq: Status: Active Protocol: Document 11/09/18 13:45 DCW (Rec: 11/09/18 14:56 DCW [id number]) Functional Tests Apley's Scratch Test Action 1: The subject is instructed to touch the opposite shoulder with his/her hand. This motion checks Glenohumeral adduction, internal rotation , horizontal adduction and scapular protraction Action 2: The subject is instructed to place his/her arm overhead and reach behind the neck to touch his/her upper back. This motion checks Glenohumeral abduction, external rotation and scapular upward rotation and elevation. Action 3: The subject puts his/her hand on the lower back and reaches upward as far as possible. This motion checks glenohumeral adduction, internal rotation and scapular retraction with downward rotation Action 1- Left Pt reaches lateral aspect of opposite shoulder Action 1- Right Pt reaches posterior aspect of opposite shoulder Action 2- Left Pt reaches to T1 Action 2- Right Pt reaches to T4 Action 3- Left Pt reaches to posterior left buttock Action 3- Right Pt reaches to T10 PT-OP-K Range of Motion Start: 11/09/18 14:25 Freq: Status: Active Protocol: Document 11/09/18 13:45 DCW (Rec: 11/09/18 14:56 DCW [id number]) Shoulder Goniometric Range of Motion Shoulder Measured in Degrees Right Shoulder ROM WFL Yes Left Passive Shoulder ROM WFL No Testing Position Supine Flexion 144 Abduction 113 External Rotation at 0 degrees Abduction 60 Left Active Shoulder ROM WFL No Testing Position Sitting Flexion 105 Abduction 95 External Rotation at 0 degrees Abduction 56 Shoulder ROM Limitations Shoulder ROM Limitations Soft Tissue Tightness Bony Restriction Pain PT-OP-L Special Tests Start: 11/09/18 14:25 Freq: Status: Active Protocol: Document 11/09/18 13:45 DCW (Rec: 11/09/18 14:56 DCW [id number]) Special Tests Shoulder Special Tests Marmolejo John Impingement Test Results Negative Drop Arm Rotator Cuff Test Results Negative Belly Press Test Results Negative PT-OP-M Strength Start: 11/09/18 14:25 Freq: Status: Active Protocol: Document 11/09/18 13:45 DCW (Rec: 11/09/18 14:56 DCW [id number]) Shoulder Strength Shoulder Manual Muscle Testing Left Flexion 3 Fair Extension 4- Good- Abduction (C5) 3- Fair- External Rotation 4- Good- Internal Rotation 4- Good- PT-OP-Q Treatments Start: 11/09/18 14:25 Freq: Status: Active Protocol: Document 11/25/18 15:11 EA (Rec: 11/25/18 15:16 EA [id number]) Cardio Equipment Upper Body Ergometer (UBE) Duration (Minutes) 6 Height 4 Gym Equipment Cable Column (Body Solid) Rows Resistance 20-30# Reps/Time x 15 reps x 2 Therapeutic Exercises Supine Exercises 2 Supine Exercise Name D1 -D2 F/E Resistance 1# Reps/Minutes x 10 reps Sidelying Exercises 2 Sidelying Exercise Name ABD Resistance 2# Reps/Minutes x 15 reps x 2 1 Sidelying Exercise Name Shoulder horix ABD Resistance 1# Reps/Minutes x 15 reps Standing Exercises 3 Standing Exercise Name Shoulder ABD/Flexion Resistance 2# AW Reps/Minutes x 12 reps x 2 Comments 0-90 deg 2 Standing Exercise Name T-bar shoulder press Resistance 1# Reps/Minutes x 15 reps 1 Standing Exercise Name Shoulder ext: T: bar Resistance #2 Reps/Minutes x 15 reps x 2 Shoulder IR Standing Exercise Name Internal Rotation Side left Resistance Lv 1 Equipment Used T-band Shoulder ER Standing Exercise Name External Rotation Side left Resistance Lv 1 Equipment Used T-band Pulleys Standing Exercise Name Internal Rotation Side bilateral Equipment Used Pulleys Manual Therapy Treatment Soft Tissue Mobilization 1 Body Location Left anterio shoulder, traps Mobilization Type Myofascial Release Rolling Intensity/Depth Moderate Joint Mobilizations 1 Joint GH Direction post/inf Grade II PT-OP-R Modalities Start: 11/09/18 14:25 Freq: Status: Active Protocol: Document 11/25/18 15:11 EA (Rec: 11/25/18 15:16 EA [id number]) Hot Pack/Cold Pack Treatment Cold Pack Location left shoulder Patient Position Supine Treatment Duration (minutes) 15 Patient Tolerance Good PT-OP-T Assessment and Plan Start: 11/09/18 14:25 Freq: Status: Active Protocol: Document 11/25/18 15:11 EA (Rec: 11/25/18 15:16 EA [id number]) Physical Therapy Assessment Assessment Summary Assessment Improved strength and ROM. Patient is progressing well. Physical Therapy Plan Next Visit Focus/Plan Next Note Type Treatment Note Next Visit Plan ROM, Strengthening, pain- control
--- NOTE | 2018-11-30 16:45 | PT.OTN ---
Current Diagnoses Pain in left shoulder (11/30/18) Bursitis of left shoulder (11/30/18) Physical Therapy Treatment Note PT-OP-A Visit Information Start: 11/09/18 14:25 Freq: Status: Active Protocol: Document 11/30/18 14:35 EA (Rec: 11/30/18 14:45 EA [id number]) Out-Patient Physical Therapy Visit Information Visit Information Visit Type Treatment Note Visit Start Time 14:30 Visit Stop Time 15:20 Total Visit Minutes 48 Visit Number 6 PT-OP-B Current Condition Start: 11/09/18 14:25 Freq: Status: Active Protocol: Document 11/09/18 13:45 DCW (Rec: 11/09/18 14:56 DCW [id number]) Current Condition History of Current Condition Onset Date 09/29/18 Current Complaints Shoulder stiffness, pain following left subacromial decompression History of Current Condition Pt is a 63 year old female presenting six weeks s/p left subacromial decompression, although pt admits that she has been having problems for a year, and over that time has been really babying her shoulder. Pt reports she has noticed improvement over the last six weeks, and her pain is currently olny a 3-4/10, but notes that it can increase with certain movements, and she is unable to reach behind her back, and has difficulty lifting her arm to wash or style her hair, as well as putting her coat on. Prior Treatments and Tests left subacromial decompression 09/29/18 Treatment Goals Patient/Caregiver Goals I want to get normal use of my arm back. Prior Functional Status Baseline Function- ADL's Independent Baseline Function- Mobility Independent Current Functional Impairments (Reported) Functional Limitations- ADL's Unable to use left arm to style or wash hair, unable to reach back to don/doff bra, pain putting coat on. PT-OP-C Subjective Start: 11/09/18 14:25 Freq: Status: Active Protocol: Document 11/30/18 14:35 EA (Rec: 11/30/18 14:45 EA [id number]) OP-PT Subjective Patient Comments Patient Comments It feels good until I off my jacket which it catches sometimes. Denies pain at night. Patient Reported Progress Improving PT-OP-E Functional Tests Start: 11/09/18 14:25 Freq: Status: Active Protocol: Document 11/09/18 13:45 DCW (Rec: 11/09/18 14:56 DCW [id number]) Functional Tests Apley's Scratch Test Action 1: The subject is instructed to touch the opposite shoulder with his/her hand. This motion checks Glenohumeral adduction, internal rotation , horizontal adduction and scapular protraction Action 2: The subject is instructed to place his/her arm overhead and reach behind the neck to touch his/her upper back. This motion checks Glenohumeral abduction, external rotation and scapular upward rotation and elevation. Action 3: The subject puts his/her hand on the lower back and reaches upward as far as possible. This motion checks glenohumeral adduction, internal rotation and scapular retraction with downward rotation Action 1- Left Pt reaches lateral aspect of opposite shoulder Action 1- Right Pt reaches posterior aspect of opposite shoulder Action 2- Left Pt reaches to T1 Action 2- Right Pt reaches to T4 Action 3- Left Pt reaches to posterior left buttock Action 3- Right Pt reaches to T10 PT-OP-K Range of Motion Start: 11/09/18 14:25 Freq: Status: Active Protocol: Document 11/09/18 13:45 DCW (Rec: 11/09/18 14:56 DCW [id number]) Shoulder Goniometric Range of Motion Shoulder Measured in Degrees Right Shoulder ROM WFL Yes Left Passive Shoulder ROM WFL No Testing Position Supine Flexion 144 Abduction 113 External Rotation at 0 degrees Abduction 60 Left Active Shoulder ROM WFL No Testing Position Sitting Flexion 105 Abduction 95 External Rotation at 0 degrees Abduction 56 Shoulder ROM Limitations Shoulder ROM Limitations Soft Tissue Tightness Bony Restriction Pain PT-OP-L Special Tests Start: 11/09/18 14:25 Freq: Status: Active Protocol: Document 11/09/18 13:45 DCW (Rec: 11/09/18 14:56 DCW [id number]) Special Tests Shoulder Special Tests Marmolejo John Impingement Test Results Negative Drop Arm Rotator Cuff Test Results Negative Belly Press Test Results Negative PT-OP-M Strength Start: 11/09/18 14:25 Freq: Status: Active Protocol: Document 11/09/18 13:45 DCW (Rec: 11/09/18 14:56 DCW [id number]) Shoulder Strength Shoulder Manual Muscle Testing Left Flexion 3 Fair Extension 4- Good- Abduction (C5) 3- Fair- External Rotation 4- Good- Internal Rotation 4- Good- PT-OP-Q Treatments Start: 11/09/18 14:25 Freq: Status: Active Protocol: Document 11/30/18 14:35 EA (Rec: 11/30/18 14:45 EA [id number]) Cardio Equipment Upper Body Ergometer (UBE) Duration (Minutes) 6 Height 4 Gym Equipment Cable Column (Body Solid) Rows Details mid and high row Resistance 20-30# Therapeutic Exercises Supine Exercises 3 Supine Exercise Name Abduction and flexion stretch Side left Reps/Minutes x 5 reps x 10SH each 2 Supine Exercise Name D1 -D2 F/E Resistance 1# Reps/Minutes x 10 reps Comments e 1 Supine Exercise Name T-bar flexion Resistance 2 lbs wrist weights Reps/Minutes x 15 reps Sidelying Exercises 2 Sidelying Exercise Name ABD Resistance 2# Reps/Minutes x 15 reps x 2 1 Sidelying Exercise Name Shoulder horix ABD Resistance 1# Reps/Minutes x 15 reps Standing Exercises 3 Standing Exercise Name Shoulder ABD/Flexion Resistance 2# AW Reps/Minutes x 12 reps x 2 Comments 0-90 deg 2 Standing Exercise Name T-bar shoulder press Resistance 2# Reps/Minutes x 15 reps 1 Standing Exercise Name Shoulder ext: T: bar Resistance #2 Reps/Minutes x 15 reps x 2 Shoulder IR Standing Exercise Name Internal Rotation Side left Resistance Lv 1-2 Equipment Used T-band Reps/Minutes x 10 x 2sets Shoulder ER Standing Exercise Name External Rotation Side left Resistance Lv 1-2 Equipment Used T-band Reps/Minutes x10 reps x 2 Manual Therapy Treatment Soft Tissue Mobilization 1 Body Location Left anterio shoulder, traps Mobilization Type Myofascial Release Rolling Intensity/Depth Moderate Joint Mobilizations 1 Joint GH Direction post/inf Grade II PT-OP-R Modalities Start: 11/09/18 14:25 Freq: Status: Active Protocol: Document 11/30/18 15:14 EA (Rec: 11/30/18 15:16 EA [id number]) Hot Pack/Cold Pack Treatment Cold Pack Location left shoulder Patient Position Supine Treatment Duration (minutes) 12 Patient Tolerance Good PT-OP-T Assessment and Plan Start: 11/09/18 14:25 Freq: Status: Active Protocol: Document 11/30/18 15:14 EA (Rec: 11/30/18 15:16 EA [id number]) Physical Therapy Assessment Assessment Summary Assessment Improved shoulder range and strength noted with slight discomfort. Patient is progressing well. Physical Therapy Plan Next Visit Focus/Plan Next Note Type Treatment Note Next Visit Plan Progress as tolerated.
--- NOTE | 2018-12-07 15:37 | PT.OTN ---
Current Diagnoses Pain in left shoulder (12/07/18) Bursitis of left shoulder (12/07/18) Physical Therapy Treatment Note PT-OP-A Visit Information Start: 11/09/18 14:25 Freq: Status: Active Protocol: Document 12/07/18 15:26 EA (Rec: 12/07/18 15:36 EA [id number]) Out-Patient Physical Therapy Visit Information Visit Information Visit Type Treatment Note Visit Start Time 14:30 Visit Stop Time 15:20 Total Visit Minutes 48 Visit Number 7 PT-OP-B Current Condition Start: 11/09/18 14:25 Freq: Status: Active Protocol: Document 11/09/18 13:45 DCW (Rec: 11/09/18 14:56 DCW [id number]) Current Condition History of Current Condition Onset Date 09/29/18 Current Complaints Shoulder stiffness, pain following left subacromial decompression History of Current Condition Pt is a 63 year old female presenting six weeks s/p left subacromial decompression, although pt admits that she has been having problems for a year, and over that time has been really babying her shoulder. Pt reports she has noticed improvement over the last six weeks, and her pain is currently olny a 3-4/10, but notes that it can increase with certain movements, and she is unable to reach behind her back, and has difficulty lifting her arm to wash or style her hair, as well as putting her coat on. Prior Treatments and Tests left subacromial decompression 09/29/18 Treatment Goals Patient/Caregiver Goals I want to get normal use of my arm back. Prior Functional Status Baseline Function- ADL's Independent Baseline Function- Mobility Independent Current Functional Impairments (Reported) Functional Limitations- ADL's Unable to use left arm to style or wash hair, unable to reach back to don/doff bra, pain putting coat on. PT-OP-C Subjective Start: 11/09/18 14:25 Freq: Status: Active Protocol: Document 12/07/18 15:26 EA (Rec: 12/07/18 15:36 EA [id number]) OP-PT Subjective Patient Comments Patient Comments Pt reports shoulder is sore after trying 15lbs of kettle ramirez yesterday. Patient Reported Progress Improving PT-OP-E Functional Tests Start: 11/09/18 14:25 Freq: Status: Active Protocol: Document 11/09/18 13:45 DCW (Rec: 11/09/18 14:56 DCW [id number]) Functional Tests Apley's Scratch Test Action 1: The subject is instructed to touch the opposite shoulder with his/her hand. This motion checks Glenohumeral adduction, internal rotation , horizontal adduction and scapular protraction Action 2: The subject is instructed to place his/her arm overhead and reach behind the neck to touch his/her upper back. This motion checks Glenohumeral abduction, external rotation and scapular upward rotation and elevation. Action 3: The subject puts his/her hand on the lower back and reaches upward as far as possible. This motion checks glenohumeral adduction, internal rotation and scapular retraction with downward rotation Action 1- Left Pt reaches lateral aspect of opposite shoulder Action 1- Right Pt reaches posterior aspect of opposite shoulder Action 2- Left Pt reaches to T1 Action 2- Right Pt reaches to T4 Action 3- Left Pt reaches to posterior left buttock Action 3- Right Pt reaches to T10 PT-OP-K Range of Motion Start: 11/09/18 14:25 Freq: Status: Active Protocol: Document 11/09/18 13:45 DCW (Rec: 11/09/18 14:56 DCW [id number]) Shoulder Goniometric Range of Motion Shoulder Measured in Degrees Right Shoulder ROM WFL Yes Left Passive Shoulder ROM WFL No Testing Position Supine Flexion 144 Abduction 113 External Rotation at 0 degrees Abduction 60 Left Active Shoulder ROM WFL No Testing Position Sitting Flexion 105 Abduction 95 External Rotation at 0 degrees Abduction 56 Shoulder ROM Limitations Shoulder ROM Limitations Soft Tissue Tightness Bony Restriction Pain PT-OP-L Special Tests Start: 11/09/18 14:25 Freq: Status: Active Protocol: Document 11/09/18 13:45 DCW (Rec: 11/09/18 14:56 DCW [id number]) Special Tests Shoulder Special Tests Marmolejo John Impingement Test Results Negative Drop Arm Rotator Cuff Test Results Negative Belly Press Test Results Negative PT-OP-M Strength Start: 11/09/18 14:25 Freq: Status: Active Protocol: Document 11/09/18 13:45 DCW (Rec: 11/09/18 14:56 DCW [id number]) Shoulder Strength Shoulder Manual Muscle Testing Left Flexion 3 Fair Extension 4- Good- Abduction (C5) 3- Fair- External Rotation 4- Good- Internal Rotation 4- Good- PT-OP-Q Treatments Start: 11/09/18 14:25 Freq: Status: Active Protocol: Document 12/07/18 15:26 EA (Rec: 12/07/18 15:36 EA [id number]) Gym Equipment Cable Column (Body Solid) Lat Pull Down Details close thermodynamicist Resistance 30# Reps/Time 12 x 2 Rows Details mid and high row Resistance 20-30# Therapeutic Exercises Supine Exercises 3 Supine Exercise Name Abduction and flexion stretch Side left Reps/Minutes x 5 reps x 10SH each 2 Supine Exercise Name D1 -D2 F/E Resistance 1-2# Reps/Minutes x 10 reps 1 Supine Exercise Name T-bar flexion Resistance 2 lbs wrist weights Reps/Minutes x 15 reps Sidelying Exercises 2 Sidelying Exercise Name ABD Resistance 2# Reps/Minutes x 15 reps x 2 1 Sidelying Exercise Name Shoulder horix ABD Resistance 1-2# Reps/Minutes x 12-15 reps Standing Exercises 3 Standing Exercise Name Shoulder ABD/Flexion Resistance 2# AW Reps/Minutes x 12 reps x 2 Comments 0-90 deg 2 Standing Exercise Name T-bar shoulder press Resistance 2# Reps/Minutes x 15 reps 1 Standing Exercise Name Shoulder ext: T: bar Resistance #2-4 Reps/Minutes x 15 reps x 2 Shoulder IR Standing Exercise Name Internal Rotation Side left Resistance Lv 1-2 Equipment Used T-band Reps/Minutes x 10 x 2sets Shoulder ER Standing Exercise Name External Rotation Side left Resistance Lv 1-2 Equipment Used T-band Reps/Minutes x10 reps x 2 Manual Therapy Treatment Soft Tissue Mobilization 1 Body Location Left anterior shoulder, traps Mobilization Type Cross-Friction Myofascial Release Rolling Intensity/Depth Moderate Joint Mobilizations 1 Joint GH Direction post/inf Grade II PT-OP-R Modalities Start: 11/09/18 14:25 Freq: Status: Active Protocol: Document 12/07/18 15:26 EA (Rec: 12/07/18 15:36 EA [id number]) Hot Pack/Cold Pack Treatment Cold Pack Location left shoulder Patient Position Supine Treatment Duration (minutes) 12 Patient Tolerance Good PT-OP-T Assessment and Plan Start: 11/09/18 14:25 Freq: Status: Active Protocol: Document 12/07/18 15:26 EA (Rec: 12/07/18 15:36 EA [id number]) Physical Therapy Assessment Assessment Summary Assessment Strength and shoulder mobility shows improvement. Very slight traps substitution noted with pure shoulder abduction pst 90 deg. Physical Therapy Plan Next Visit Focus/Plan Next Note Type Treatment Note Next Visit Plan Progress as tolerated.
--- NOTE | 2018-12-09 16:02 | PT.OTN ---
Current Diagnoses Pain in left shoulder (12/09/18) Bursitis of left shoulder (12/09/18) Physical Therapy Treatment Note PT-OP-A Visit Information Start: 11/09/18 14:25 Freq: Status: Active Protocol: Document 12/09/18 15:04 EA (Rec: 12/09/18 15:10 EA [id number]) Out-Patient Physical Therapy Visit Information Visit Information Visit Type Treatment Note Visit Start Time 14:30 Visit Stop Time 15:20 Total Visit Minutes 48 Visit Number 8 PT-OP-B Current Condition Start: 11/09/18 14:25 Freq: Status: Active Protocol: Document 11/09/18 13:45 DCW (Rec: 11/09/18 14:56 DCW [id number]) Current Condition History of Current Condition Onset Date 09/29/18 Current Complaints Shoulder stiffness, pain following left subacromial decompression History of Current Condition Pt is a 63 year old female presenting six weeks s/p left subacromial decompression, although pt admits that she has been having problems for a year, and over that time has been really babying her shoulder. Pt reports she has noticed improvement over the last six weeks, and her pain is currently olny a 3-4/10, but notes that it can increase with certain movements, and she is unable to reach behind her back, and has difficulty lifting her arm to wash or style her hair, as well as putting her coat on. Prior Treatments and Tests left subacromial decompression 09/29/18 Treatment Goals Patient/Caregiver Goals I want to get normal use of my arm back. Prior Functional Status Baseline Function- ADL's Independent Baseline Function- Mobility Independent Current Functional Impairments (Reported) Functional Limitations- ADL's Unable to use left arm to style or wash hair, unable to reach back to don/doff bra, pain putting coat on. PT-OP-C Subjective Start: 11/09/18 14:25 Freq: Status: Active Protocol: Document 12/09/18 15:04 EA (Rec: 12/09/18 15:10 EA [id number]) OP-PT Subjective Patient Comments Patient Comments Pt reports doing house chores pretty much all and able to sleep at night without bothering from her shoulder; states 80% recovered from surgery at this time. Patient Reported Progress Improving PT-OP-E Functional Tests Start: 11/09/18 14:25 Freq: Status: Active Protocol: Document 11/09/18 13:45 DCW (Rec: 11/09/18 14:56 DCW [id number]) Functional Tests Apley's Scratch Test Action 1: The subject is instructed to touch the opposite shoulder with his/her hand. This motion checks Glenohumeral adduction, internal rotation , horizontal adduction and scapular protraction Action 2: The subject is instructed to place his/her arm overhead and reach behind the neck to touch his/her upper back. This motion checks Glenohumeral abduction, external rotation and scapular upward rotation and elevation. Action 3: The subject puts his/her hand on the lower back and reaches upward as far as possible. This motion checks glenohumeral adduction, internal rotation and scapular retraction with downward rotation Action 1- Left Pt reaches lateral aspect of opposite shoulder Action 1- Right Pt reaches posterior aspect of opposite shoulder Action 2- Left Pt reaches to T1 Action 2- Right Pt reaches to T4 Action 3- Left Pt reaches to posterior left buttock Action 3- Right Pt reaches to T10 PT-OP-K Range of Motion Start: 11/09/18 14:25 Freq: Status: Active Protocol: Document 11/09/18 13:45 DCW (Rec: 11/09/18 14:56 DCW [id number]) Shoulder Goniometric Range of Motion Shoulder Measured in Degrees Right Shoulder ROM WFL Yes Left Passive Shoulder ROM WFL No Testing Position Supine Flexion 144 Abduction 113 External Rotation at 0 degrees Abduction 60 Left Active Shoulder ROM WFL No Testing Position Sitting Flexion 105 Abduction 95 External Rotation at 0 degrees Abduction 56 Shoulder ROM Limitations Shoulder ROM Limitations Soft Tissue Tightness Bony Restriction Pain PT-OP-L Special Tests Start: 11/09/18 14:25 Freq: Status: Active Protocol: Document 11/09/18 13:45 DCW (Rec: 11/09/18 14:56 DCW [id number]) Special Tests Shoulder Special Tests Marmolejo John Impingement Test Results Negative Drop Arm Rotator Cuff Test Results Negative Belly Press Test Results Negative PT-OP-M Strength Start: 11/09/18 14:25 Freq: Status: Active Protocol: Document 11/09/18 13:45 DCW (Rec: 11/09/18 14:56 DCW [id number]) Shoulder Strength Shoulder Manual Muscle Testing Left Flexion 3 Fair Extension 4- Good- Abduction (C5) 3- Fair- External Rotation 4- Good- Internal Rotation 4- Good- PT-OP-Q Treatments Start: 11/09/18 14:25 Freq: Status: Active Protocol: Document 12/09/18 15:04 EA (Rec: 12/09/18 15:10 EA [id number]) Cardio Equipment Upper Body Ergometer (UBE) Duration (Minutes) 6 Height 4 Gym Equipment Cable Column (Body Solid) Lat Pull Down Details close stake setter and wide Resistance 30# Reps/Time 12 x 2 Rows Details mid and high row Resistance 20-30# Therapeutic Exercises Supine Exercises 3 Supine Exercise Name Abduction and flexion stretch Side left Resistance 3# Reps/Minutes x 5 reps x 10SH each 2 Supine Exercise Name D1 -D2 F/E Resistance 3# Reps/Minutes x 10 reps 1 Supine Exercise Name T-bar flexion Resistance 4 lbs wrist weights Reps/Minutes x 15 reps Prone Exercises 1 Prone Exercise Name T-ball T-and Y Resistance 1# Reps/Minutes x 12 reps x 2 Sidelying Exercises 2 Sidelying Exercise Name ABD Resistance 2-3# Reps/Minutes x 15 reps x 2 1 Sidelying Exercise Name Shoulder horix ABD Resistance 2# Reps/Minutes x 12-15 reps Standing Exercises 3 Standing Exercise Name Shoulder ABD/Flexion Resistance 2# AW Reps/Minutes x 12 reps x 2 Comments 0-90 deg 2 Standing Exercise Name T-bar shoulder press Resistance 2-3# Reps/Minutes x 15 reps 1 Standing Exercise Name Shoulder ext: T: bar Resistance #2-4 Reps/Minutes x 15 reps x 2 Shoulder IR Standing Exercise Name Internal Rotation Side left Resistance Lv 1-2 Equipment Used T-band Reps/Minutes x 10 x 2sets Shoulder ER Standing Exercise Name External Rotation Side left Resistance Lv 1-2 Equipment Used T-band Reps/Minutes x10 reps x 2 Manual Therapy Treatment Soft Tissue Mobilization 1 Body Location Left anterior shoulder, traps Mobilization Type Cross-Friction Myofascial Release Rolling Intensity/Depth Moderate Joint Mobilizations 1 Joint GH Direction post/inf Grade II PT-OP-R Modalities Start: 11/09/18 14:25 Freq: Status: Active Protocol: Document 12/07/18 15:26 YESICA (Rec: 12/07/18 15:36 EA [id number]) Hot Pack/Cold Pack Treatment Cold Pack Location left shoulder Patient Position Supine Treatment Duration (minutes) 12 Patient Tolerance Good PT-OP-T Assessment and Plan Start: 11/09/18 14:25 Freq: Status: Active Protocol: Document 12/09/18 15:04 YESICA (Rec: 12/09/18 15:10 EA [id number]) Physical Therapy Assessment Assessment Summary Assessment Pt tolerated treatment well with good form, execution and no signs of discomfort and substitution. Physical Therapy Plan Next Visit Focus/Plan Next Note Type Treatment Note Next Visit Plan Progress as tolerated.
--- NOTE | 2018-12-14 17:11 | PT.OTN ---
Current Diagnoses Pain in left shoulder (12/14/18) Bursitis of left shoulder (12/14/18) Physical Therapy Treatment Note PT-OP-A Visit Information Start: 11/09/18 14:25 Freq: Status: Active Protocol: Document 12/14/18 14:34 EA (Rec: 12/14/18 14:37 EA [id number]) Out-Patient Physical Therapy Visit Information Visit Information Visit Type Treatment Note Visit Start Time 14:30 Visit Stop Time 15:20 Total Visit Minutes 48 Visit Number 9 PT-OP-B Current Condition Start: 11/09/18 14:25 Freq: Status: Active Protocol: Document 11/09/18 13:45 DCW (Rec: 11/09/18 14:56 DCW [id number]) Current Condition History of Current Condition Onset Date 09/29/18 Current Complaints Shoulder stiffness, pain following left subacromial decompression History of Current Condition Pt is a 63 year old female presenting six weeks s/p left subacromial decompression, although pt admits that she has been having problems for a year, and over that time has been really babying her shoulder. Pt reports she has noticed improvement over the last six weeks, and her pain is currently olny a 3-4/10, but notes that it can increase with certain movements, and she is unable to reach behind her back, and has difficulty lifting her arm to wash or style her hair, as well as putting her coat on. Prior Treatments and Tests left subacromial decompression 09/29/18 Treatment Goals Patient/Caregiver Goals I want to get normal use of my arm back. Prior Functional Status Baseline Function- ADL's Independent Baseline Function- Mobility Independent Current Functional Impairments (Reported) Functional Limitations- ADL's Unable to use left arm to style or wash hair, unable to reach back to don/doff bra, pain putting coat on. PT-OP-C Subjective Start: 11/09/18 14:25 Freq: Status: Active Protocol: Document 12/14/18 14:34 EA (Rec: 12/14/18 14:37 EA [id number]) OP-PT Subjective Patient Comments Patient Comments Ican reach my back now and it does not hurt; states wants to make it more stronger . PT-OP-E Functional Tests Start: 11/09/18 14:25 Freq: Status: Active Protocol: Document 11/09/18 13:45 DCW (Rec: 11/09/18 14:56 DCW [id number]) Functional Tests Apley's Scratch Test Action 1: The subject is instructed to touch the opposite shoulder with his/her hand. This motion checks Glenohumeral adduction, internal rotation , horizontal adduction and scapular protraction Action 2: The subject is instructed to place his/her arm overhead and reach behind the neck to touch his/her upper back. This motion checks Glenohumeral abduction, external rotation and scapular upward rotation and elevation. Action 3: The subject puts his/her hand on the lower back and reaches upward as far as possible. This motion checks glenohumeral adduction, internal rotation and scapular retraction with downward rotation Action 1- Left Pt reaches lateral aspect of opposite shoulder Action 1- Right Pt reaches posterior aspect of opposite shoulder Action 2- Left Pt reaches to T1 Action 2- Right Pt reaches to T4 Action 3- Left Pt reaches to posterior left buttock Action 3- Right Pt reaches to T10 PT-OP-K Range of Motion Start: 11/09/18 14:25 Freq: Status: Active Protocol: Document 11/09/18 13:45 DCW (Rec: 11/09/18 14:56 DCW [id number]) Shoulder Goniometric Range of Motion Shoulder Measured in Degrees Right Shoulder ROM WFL Yes Left Passive Shoulder ROM WFL No Testing Position Supine Flexion 144 Abduction 113 External Rotation at 0 degrees Abduction 60 Left Active Shoulder ROM WFL No Testing Position Sitting Flexion 105 Abduction 95 External Rotation at 0 degrees Abduction 56 Shoulder ROM Limitations Shoulder ROM Limitations Soft Tissue Tightness Bony Restriction Pain PT-OP-L Special Tests Start: 11/09/18 14:25 Freq: Status: Active Protocol: Document 11/09/18 13:45 DCW (Rec: 11/09/18 14:56 DCW [id number]) Special Tests Shoulder Special Tests Marmolejo John Impingement Test Results Negative Drop Arm Rotator Cuff Test Results Negative Belly Press Test Results Negative PT-OP-M Strength Start: 11/09/18 14:25 Freq: Status: Active Protocol: Document 11/09/18 13:45 DCW (Rec: 11/09/18 14:56 DCW [id number]) Shoulder Strength Shoulder Manual Muscle Testing Left Flexion 3 Fair Extension 4- Good- Abduction (C5) 3- Fair- External Rotation 4- Good- Internal Rotation 4- Good- PT-OP-Q Treatments Start: 11/09/18 14:25 Freq: Status: Active Protocol: Document 12/14/18 14:34 EA (Rec: 12/14/18 14:37 EA [id number]) Cardio Equipment Upper Body Ergometer (UBE) Duration (Minutes) 6 Height 6 Gym Equipment Cable Column (Body Solid) Lat Pull Down Details close clinical business analyst and wide Resistance 30# Reps/Time 12 x 2 Rows Details mid and high row Resistance 20-30# Therapeutic Exercises Supine Exercises 2 Supine Exercise Name D1 -D2 F/E Resistance 3# Reps/Minutes x 10 reps Prone Exercises 1 Prone Exercise Name T-ball T-and Y Resistance 1# Reps/Minutes x 12 reps x 2 Sidelying Exercises 2 Sidelying Exercise Name ABD Resistance 2-3# Reps/Minutes x 15 reps x 2 1 Sidelying Exercise Name Shoulder horix ABD Resistance 2# Reps/Minutes x 12-15 reps Standing Exercises 3 Standing Exercise Name Shoulder ABD/Flexion Resistance 2# AW Reps/Minutes x 12 reps x 2 Comments 0-90 deg 2 Standing Exercise Name T-bar shoulder press Resistance 2-3# Reps/Minutes x 15 reps 1 Standing Exercise Name Shoulder ext: T: bar Resistance #2-4 Reps/Minutes x 15 reps x 2 Shoulder IR Standing Exercise Name Internal Rotation Side left Resistance Lv 1-2 Equipment Used T-band Reps/Minutes x 12 x 2sets Shoulder ER Standing Exercise Name External Rotation Side left Resistance Lv 1-2 Equipment Used T-band Reps/Minutes x12 reps x 2 Other Exercises 2 Other Exercise Name sitted balloon toss: backhand and césar Side right Resistance 1# wrist weight. Reps/Minutes x 30 secs x 3 sets 1 Other Exercise Name Body blade: multiple angle Side left PT-OP-R Modalities Start: 11/09/18 14:25 Freq: Status: Active Protocol: Document 12/14/18 14:34 EA (Rec: 12/14/18 14:37 EA [id number]) Hot Pack/Cold Pack Treatment Cold Pack Location left shoulder Patient Position Supine Treatment Duration (minutes) 10 Patient Tolerance Good PT-OP-T Assessment and Plan Start: 11/09/18 14:25 Freq: Status: Active Protocol: Document 12/14/18 15:09 YESICA (Rec: 12/14/18 15:10 EA [id number]) Physical Therapy Assessment Assessment Summary Assessment Pt tolerated treatment with no discomfort noted during therex; patient continued to progress . advance as tolerated. Physical Therapy Plan Next Visit Focus/Plan Next Note Type Treatment Note Next Visit Plan advance as tolerated
--- NOTE | 2018-12-16 14:36 | PT.OPDS ---
Current Diagnoses Pain in left shoulder (12/14/18) Bursitis of left shoulder (12/14/18) Provider Visit Care Team Role Provider Type Dulce Palencia MD Primary Care Provider Physician Specialty: Family Practice Address: [address] [place] [address], [id number] Email: [email or web address] Bella MD Attending Provider Physician Specialty: Orthopedic Surgery Address: [address] [place] [address], [id number] Email: [email or web address] Visit Number Visit Number 9 Discharge Summary PT-OP-B Current Condition Start: 11/09/18 14:25 Freq: Status: Active Protocol: Document 11/09/18 13:45 DCW (Rec: 11/09/18 14:56 DCW [id number]) Current Condition History of Current Condition Onset Date 09/29/18 Current Complaints Shoulder stiffness, pain following left subacromial decompression History of Current Condition Pt is a 63 year old female presenting six weeks s/p left subacromial decompression, although pt admits that she has been having problems for a year, and over that time has been really babying her shoulder. Pt reports she has noticed improvement over the last six weeks, and her pain is currently olny a 3-4/10, but notes that it can increase with certain movements, and she is unable to reach behind her back, and has difficulty lifting her arm to wash or style her hair, as well as putting her coat on. Prior Treatments and Tests left subacromial decompression 09/29/18 Treatment Goals Patient/Caregiver Goals I want to get normal use of my arm back. Prior Functional Status Baseline Function- ADL's Independent Baseline Function- Mobility Independent Current Functional Impairments (Reported) Functional Limitations- ADL's Unable to use left arm to style or wash hair, unable to reach back to don/doff bra, pain putting coat on. PT-OP-C Subjective Start: 11/09/18 14:25 Freq: Status: Active Protocol: Document 12/16/18 14:34 EA (Rec: 12/16/18 14:36 EA [id number]) OP-PT Subjective Patient Comments Patient Comments as per PT front desk attendant, patient requested to discharge from PT due to almost full recovery. PT-OP-E Functional Tests Start: 11/09/18 14:25 Freq: Status: Active Protocol: Document 11/09/18 13:45 DCW (Rec: 11/09/18 14:56 DCW [id number]) Functional Tests Apley's Scratch Test Action 1: The subject is instructed to touch the opposite shoulder with his/her hand. This motion checks Glenohumeral adduction, internal rotation , horizontal adduction and scapular protraction Action 2: The subject is instructed to place his/her arm overhead and reach behind the neck to touch his/her upper back. This motion checks Glenohumeral abduction, external rotation and scapular upward rotation and elevation. Action 3: The subject puts his/her hand on the lower back and reaches upward as far as possible. This motion checks glenohumeral adduction, internal rotation and scapular retraction with downward rotation Action 1- Left Pt reaches lateral aspect of opposite shoulder Action 1- Right Pt reaches posterior aspect of opposite shoulder Action 2- Left Pt reaches to T1 Action 2- Right Pt reaches to T4 Action 3- Left Pt reaches to posterior left buttock Action 3- Right Pt reaches to T10 PT-OP-K Range of Motion Start: 11/09/18 14:25 Freq: Status: Active Protocol: Document 11/09/18 13:45 DCW (Rec: 11/09/18 14:56 DCW [id number]) Shoulder Goniometric Range of Motion Shoulder Measured in Degrees Right Shoulder ROM WFL Yes Left Passive Shoulder ROM WFL No Testing Position Supine Flexion 144 Abduction 113 External Rotation at 0 degrees Abduction 60 Left Active Shoulder ROM WFL No Testing Position Sitting Flexion 105 Abduction 95 External Rotation at 0 degrees Abduction 56 Shoulder ROM Limitations Shoulder ROM Limitations Soft Tissue Tightness Bony Restriction Pain PT-OP-L Special Tests Start: 11/09/18 14:25 Freq: Status: Active Protocol: Document 11/09/18 13:45 DCW (Rec: 11/09/18 14:56 DCW [id number]) Special Tests Shoulder Special Tests Marmolejo John Impingement Test Results Negative Drop Arm Rotator Cuff Test Results Negative Belly Press Test Results Negative PT-OP-M Strength Start: 11/09/18 14:25 Freq: Status: Active Protocol: Document 11/09/18 13:45 DCW (Rec: 11/09/18 14:56 DCW [id number]) Shoulder Strength Shoulder Manual Muscle Testing Left Flexion 3 Fair Extension 4- Good- Abduction (C5) 3- Fair- External Rotation 4- Good- Internal Rotation 4- Good- PT-OP-T Assessment and Plan Start: 11/09/18 14:25 Freq: Status: Active Protocol: Document 12/16/18 14:34 EA (Rec: 12/16/18 14:36 EA [id number]) Physical Therapy Assessment Assessment Summary Assessment Discharge to PT upon patient request; near full recovery noted after last session. Physical Therapy Plan Discharge Physical Therapy Discharge Reasons Patient Request
== END 2018-12-14 16:53 | disposition home or self-care (01) ==
LOC: PHYS 14:30
PROVIDERS: PCP Family Medicine; Visit Provider Orthopaedic Surgery
DX: M75.52 Bursitis of left shoulder (principal); M25.512 Pain in left shoulder
CPT/HCPCS: 97014; 97110; 97140; 97161; G0283

== ENCOUNTER → 2019-02-08 12:37 | Outpatient (CLI) | payer MEDICARE, MEDICAID, SELFPAY ==
[2019-02-08 13:16] LABS: BUN Creatinine Ratio 21.1 (6-22); Blood Urea Nitrogen 19 mg/dL (7-17); Calcium 9.7 mg/dL (8.4-10.2); Carbon Dioxide 24 mmol/L (22-32); Chloride 107 mmol/L (98-107); Estimated Glomerular Filt Rate > 60.0 mL/min (>60); Glucose 108 mg/dL (80-110); HEMOLYSIS < 15 (0-50); Potassium 4.9 mmol/L (3.4-5.1); Sodium 141 mmol/L (137-145)
== END ==
PROVIDERS: PCP Family Medicine; Visit Provider Podiatrist
DX: Z01.818 Encounter for other preprocedural examination (principal)
CPT/HCPCS: 36415; 80048

== ENCOUNTER → 2019-02-17 13:39 | Outpatient (CLI) | payer MEDICARE, MEDICAID, SELFPAY ==
[2019-02-17 14:24] LABS: Add Manual Diff / Slide Review NO; Basophils Absolute Auto 100 /uL (0-100); Basophils Percent Auto 1.1 % (0-2); Eosinophils Absolute Auto 500 /uL (0-450); Eosinophils Percent Auto 4.3 % (2-4); Hematocrit 39.8 % (36-46); Hemoglobin 13.2 g/dL (12.0-16.0); Lymphocytes Absolute Auto 3600 /uL (1100-4500); Lymphocytes Percent Auto 33.8 % (25-40); Mean Corpuscular HGB Conc 33.2 % (30-36); Mean Corpuscular Hemoglobin 29.8 PG (26-34); Mean Corpuscular Volume 89.6 fL (80-100); Monocytes Absolute Auto 800 /uL (0-900); Monocytes Percent Auto 7.4 % (3-14); Neutrophils Absolute Auto 5800 /uL (1500-7000); Neutrophils Percent Auto 53.4 % (50-75); Platelet Count 379 X10^3/uL (150-400); Red Blood Cell Count 4.44 X10^6/uL (4.0-5.2); Red Cell Distribution Width 12.9 % (11.6-14.8); White Blood Cell Count 10.8 X10^3/uL (4.5-11.0)
== END ==
PROVIDERS: Family Provider Family Medicine; PCP Family Medicine; Visit Provider Podiatrist
DX: Z01.812 Encounter for preprocedural laboratory examination (principal)
CPT/HCPCS: 36415; 85025

== ENCOUNTER 2019-03-06 15:38 | Emergency (ER) | payer MEDICARE, MEDICAID, SELFPAY ==
[2019-03-06 16:15] VITALS: BP 144/84; PULSE 101; RESP 20; TEMP 36.4; O2SAT 97; BMI 34.9
--- NOTE | 2019-03-06 16:57 | PC.NURSE ---
pink, well approximated surgical incisions with sutures present on dorsal aspect of left 4th and 5th toes, no redness, no swelling, no warmth, no drainage noted, cap refill brisk, +CSM
--- NOTE | 2019-03-06 17:12 | ED.EXTPRO ---
HPI - Extremity Problem General Chief complaint: Extremity Problem,Nontraumatic Stated complaint: left foot is swelling Time Seen by Provider: 03/06/19 16:55 Source: patient Mode of arrival: ambulatory Limitations: no limitations History of Present Illness HPI Narrative: Patient is 64-year-old female who presents with left foot pain. She had surgery on her 3rd and 4th toe 2 weeks ago with Podiatry. It has been in addressing ever since. She has been trying to keep it elevated but she has not been moving as much as she used to. Today she started having some numbness and tingling from her toes into her calf. She had quite some bad calf pain as well. She has not had any fever. MD Complaint: extremity pain Related Data Home Medications Medication Instructions Recorded Confirmed sulfadiazine 500 mg PO BID #0 09/04/16 12/09/18 celecoxib [Celebrex] 200 mg PO BID #0 01/01/17 12/09/18 cholecalciferol (vitamin D3) 1,000 unit PO DAILY 02/14/18 12/09/18 [Vitamin D3] magnesium 500 mg PO DAILY 02/14/18 12/09/18 secukinumab 150 mg/mL subcutaneous 150 mg SUB-Q Q4W ml 05/11/18 12/09/18 pen injector propranolol 20 mg tablet 20 mg PO BID tab 12/09/18 12/09/18 Previous Rx's Medication Instructions Recorded pantoprazole [Protonix] 40 mg PO QDAY #90 tab 03/18/18 albuterol sulfate HFA 90 2 puff INHALATION Q4HP PRN #1 ea 05/11/18 mcg/actuation aerosol inhaler sucralfate 1 gram tablet 1 gram PO QACHS #120 tab 07/06/18 venlafaxine ER 150 mg 150 mg PO QDAY #90 cap 07/06/18 capsule,extended release 24 hr topiramate 50 mg tablet 50 mg PO BID #90 tab 08/31/18 fluticasone propionate 50 1 spray INTRANASAL BID #9.9 gram 10/12/18 mcg/actuation nasal spray,suspension ranitidine 300 mg tablet 300 mg PO HS #90 tab 10/12/18 naratriptan 2.5 mg tablet 2.5 mg PO Q4H PRN #30 tab MDD 5 mg 10/13/18 Allergies Allergy/AdvReac Type Severity Reaction Status Date / Time codeine [CODEINE] Allergy Mild THROAT Verified 03/06/19 16:15 SWELLING naproxen [From ANAPROX] Allergy Mild HIVES Verified 03/06/19 16:15 flurbiprofen [FLURBIPROFEN] AdvReac Mild GI UPSET Verified 03/06/19 16:15 Review of Systems Review of Systems GENERAL: Denies chills,fever HEENT: Denies throat pain RESPIRATORY: Denies dyspnea, cough, wheezing CARDIOVASCULAR: Denies chest pain, palpitations GASTROINTESTINAL: Denies nausea, vomiting MUSCULOSKELETAL: Denies extremity pain, injury SKIN: No rash, no laceration, no pruritus NEUROLOGIC: Numbness tingling in left foot 8 point review of systems is negative except for those stated above and HPI [facility] Medical History Arthritis (Chronic) Compression fracture of thoracic vertebra (Chronic) GERD (gastroesophageal reflux disease) (Chronic) History of ulcer disease (Chronic) Migraine (Chronic) Psoriatic arthritis (Chronic) Anxiety (Resolved) BCC (basal cell carcinoma), shoulder (Resolved) Depression (Resolved) Fracture of rib of right side (Resolved 2014) Hemorrhoids (Resolved) Measles (Resolved) Surgical History History of cholecystectomy (Resolved) History of total hysterectomy (Resolved) History of tubal ligation (Resolved) Family History Father Alcoholism Mother Arthritis Cancer Brother Suicide Sister Alcoholism Arthritis Hepatitis C Son Seasonal allergies Daughter Hyperlipidemia Ulcer Daughter Genetic disease Social History household members: other Smoking Status: Never smoker Family History Father Alcoholism Mother Arthritis Cancer Brother Suicide Sister Alcoholism Arthritis Hepatitis C Son Seasonal allergies Daughter Hyperlipidemia Ulcer Daughter Genetic disease Social History household members: other Smoking Status: Never smoker Exam Initial Vital Signs Initial Vital Signs: Vital Signs Temperature 97.6 F 03/06/19 16:15 Pulse Rate 101 H 03/06/19 16:15 Respiratory Rate 20 03/06/19 16:15 Blood Pressure 144/84 H 03/06/19 16:15 Pulse Oximetry 97 03/06/19 16:15 GENERAL: Well-appearing, well-nourished and in no acute distress. CARDIOVASCULAR: peripheral pulses in tact, cap refill <2 sec RESPIRATORY: No respiratory distress, speaks in full sentences without difficulty EXTREMITIES: Normal range of motion, no clubbing or edema. Neurovascularly intact Pain in left calf no significant swelling no redness NEUROLOGICAL: Cranial nerves II through XII grossly intact. Normal gait and speech. SKIN: Left foot incisions actually appear well clean and dry no erythema. No swelling of the toes. Course Orders Ordered: ED Orders 03/06/19 17:18 US venous insufficiency ltd Stat Vital Signs - 8 hr 03/06/19 16:15 Temperature 97.6 F Pulse Rate 101 H Respiratory Rate 20 Blood Pressure 144/84 H Pulse Oximetry 97 MDM - Extremity (Nontraumatic) Imaging Data Venous US: Radiologist's impression: PROCEDURE: US PERIPH VENOUS LOW EXTREM LT INDICATIONS: PAIN; RECENT SURGERY TECHNIQUE: Real-time imaging, as well as color and pulse Doppler interrogation, were performed of the lower extremity deep veins from the inguinal ligament to the popliteal fossa. COMPARISON: None. FINDINGS: The common femoral, femoral and popliteal veins are normally compressible, and free of intraluminal thrombus. Color and pulse Doppler demonstrate normal phasic intraluminal flow. There is normal augmentation response to distal compression maneuver. IMPRESSION: No deep vein thrombosis of the left lower extremity. Dictated by: Cinthya Tolentino M.D. on 03/06/2019 at 19:26 Discharge Plan Departure Patient Disposition: Home Clinical Impression: Post-operative pain Discharge Date/Time: 03/06/19 18:33 Interventions: ED Discharge Assessment Last Done: 03/06/19 18:33 Instructions: DI for Postoperative Pain Activity Restrictions/Additional Instructions: *You have been diagnosed with postoperative pain *What to do: At this time no evidence of DVT. Recommend keeping foot elevated ambulating as tolerated ice 20-30 minutes at a time *Continue to take medications as directed *Follow up with your primary care provider in 2-3 days *Return to ER if you should have increasing pain swelling redness fevers or any new, worsening or concerning symptoms Prescriptions: No Action propranolol 20 mg tablet 20 mg PO BID RF: 0 sulfadiazine 500 MG tablet 500 mg PO BID Qty: 0 RF: 0 celecoxib [Celebrex] 200 MG capsule 200 mg PO BID Qty: 0 RF: 0 pantoprazole [Protonix] 40 mg tablet,delayed release (DR/EC) 40 mg PO QDAY Qty: 90 RF: 3 venlafaxine [Effexor XR] 150 mg capsule,extended release 24hr 150 mg PO QDAY Qty: 90 RF: 3 sucralfate 1 gram tablet 1 gram PO QACHS Qty: 120 RF: 3 topiramate [Topamax] 50 mg tablet 50 mg PO BID Qty: 90 RF: 3 ranitidine HCl 300 mg tablet 300 mg PO HS Qty: 90 RF: 3 fluticasone propionate 50 mcg/actuation spray,suspension 1 spray INTRANASAL BID Qty: 9.9 RF: 5 naratriptan 2.5 mg tablet 2.5 mg PO Q4H MDD 5 mg PRN (Reason: migraine headache) Qty: 30 RF: 3 albuterol sulfate [Ventolin HFA] 90 mcg/actuation HFA aerosol inhaler 2 puff INHALATION Q4HP PRN (Reason: shortness of breath or wheezing) Qty: 1 RF: 0 cholecalciferol (vitamin D3) [Vitamin D3] 1,000 unit Tablet 1,000 unit PO DAILY RF: 0 magnesium 250 mg Tablet 500 mg PO DAILY RF: 0 secukinumab [Cosentyx Pen] 150 mg/mL pen injector 150 mg SUB-Q Q4W RF: 0 Referrals: Pete King DPM [Physician] - Dulce Palencia MD [Primary Care Provider] -
--- NOTE | 2019-03-06 17:18 | DI.US.S_ITS ---
PROCEDURE: US PERIPH VENOUS LOW EXTREM LT INDICATIONS: PAIN; RECENT SURGERY TECHNIQUE: Real-time imaging, as well as color and pulse Doppler interrogation, were performed of the lower extremity deep veins from the inguinal ligament to the popliteal fossa. COMPARISON: None. FINDINGS: The common femoral, femoral and popliteal veins are normally compressible, and free of intraluminal thrombus. Color and pulse Doppler demonstrate normal phasic intraluminal flow. There is normal augmentation response to distal compression maneuver. IMPRESSION: No deep vein thrombosis of the left lower extremity. Dictated by: Cinthya Tolentino M.D. on 03/06/2019 at 19:26 Approved by: Cinthya Tolentino M.D. on 03/06/2019 at 19:27
[2019-03-06 18:24] VITALS: BP 140/70; PULSE 82; RESP 17; O2SAT 100
== END 2019-03-06 18:33 | disposition home or self-care (01) ==
PROVIDERS: Emergency Provider Emergency Medicine; Family Provider Family Medicine; PCP Family Medicine
DX: G89.18 Other acute postprocedural pain (principal); M79.672 Pain in left foot
CPT/HCPCS: 93971; 99282; 99283

== ENCOUNTER → 2020-03-03 12:28 | Outpatient (CLI) | payer MEDICARE, MEDICAID, SELFPAY | PROVIDERS: Family Provider Family Medicine; PCP Family Medicine; Visit Provider Physician Assistant | DX: N39.0 Urinary tract infection, site not specified (principal) | CPT/HCPCS: 87077; 87086; 87186 ==

== ENCOUNTER → 2020-04-12 16:10 | Outpatient (CLI) | payer MEDICARE, MEDICAID, SELFPAY ==
--- NOTE | 2020-04-12 16:13 | DI.RAD.S_ITS ---
PROCEDURE: XR CHEST 2V INDICATIONS: Cough, chest pain TECHNIQUE: 2 views of the chest were acquired. COMPARISON: [facility], CR, XR CHEST 1V, 07/27/2018, 5:24. FINDINGS: Surgical changes and devices: None. Lungs and pleura: Lungs are clear. No pleural effusions or pneumothorax. Mediastinum: Mediastinal contours are normal. Heart size is normal. Bones and chest wall: No suspicious bony abnormalities. Soft tissues appear unremarkable. IMPRESSION: No acute cardiopulmonary pathology. Dictated by: Jose Martin Mejia M.D. on 04/12/2020 at 16:46 Approved by: Jose Martin Mejia M.D. on 04/12/2020 at 16:50
[2020-04-12 17:40] LABS: Add Manual Diff / Slide Review NO; Basophils Absolute Auto 100 /uL (0-100); Basophils Percent Auto 0.7 % (0-2); Eosinophils Absolute Auto 200 /uL (0-450); Hematocrit 39.9 % (36-46); Hemoglobin 13.4 g/dL (12.0-16.0); Lymphocytes Absolute Auto 3100 /uL (1100-4500); Lymphocytes Percent Auto 25.2 % (25-40); Mean Corpuscular HGB Conc 33.5 % (30-36); Mean Corpuscular Hemoglobin 29.3 PG (26-34); Mean Corpuscular Volume 87.5 fL (80-100); Monocytes Absolute Auto 900 /uL (0-900); Monocytes Percent Auto 7.7 % (3-14); Neutrophils Absolute Auto 7800 /uL (1500-7000); Neutrophils Percent Auto 64.4 % (50-75); Platelet Count 362 X10^3/uL (150-400); Red Blood Cell Count 4.56 X10^6/uL (4.0-5.2); Red Cell Distribution Width 13.2 % (11.6-14.8); White Blood Cell Count 12.2 X10^3/uL (4.5-11.0)
[2020-04-12 17:54] LABS: Alanine Aminotransferase 18 IU/L (<35); Alkaline Phosphatase 119 U/L (38-126); Aspartate Aminotransferase 28 IU/L (14-36); BUN Creatinine Ratio 21.1 (6-22); Bilirubin Total 0.5 mg/dL (0.2-1.3); Blood Urea Nitrogen 15 mg/dL (7-17); Calcium 9.5 mg/dL (8.4-10.2); Carbon Dioxide 25 mmol/L (22-32); Chloride 109 mmol/L (98-107); Creatine Kinase 39 U/L (30-135); Estimated Glomerular Filt Rate > 60.0 mL/min (>60); Globulin 4.1 g/dL (1.7-4.1); Glucose 111 mg/dL (80-110); HEMOLYSIS < 15 (0-50); Potassium 3.8 mmol/L (3.4-5.1); Sodium 140 mmol/L (137-145); Total Protein 8.1 g/dL (6.3-8.2)
[2020-04-12 18:04] LABS: NT-proBNP (BNP-Adult 18+) 106 pg/mL (<125); Troponin I < 0.012 ng/mL (0.01-0.034)
== END ==
PROVIDERS: Family Provider Family Medicine; PCP Family Medicine; Referring Provider Physician Assistant; Visit Provider Physician Assistant
DX: J18.9 Pneumonia, unspecified organism (principal); R07.9 Chest pain, unspecified; R05 Cough
CPT/HCPCS: 36415; 71046; 80053; 82550; 83880; 84484; 85025

== ENCOUNTER → 2020-05-22 11:06 | Outpatient (CLI) | payer MEDICARE, MEDICAID, SELFPAY ==
--- NOTE | 2020-05-22 11:08 | DI.US.S_ITS ---
PROCEDURE: US ABDOMEN LIMITED INDICATIONS: PAIN TECHNIQUE: Real-time focused scanning was performed of the abdomen, with image documentation. COMPARISON: [facility], CT, CT ABDOMEN PELVIS W CON, 01/07/2018, 20:48. FINDINGS: The liver is normal in size and demonstrates no focal lesions. Increased liver echogenicity is seen. The main portal vein is patent and demonstrates normal size. Normal appearing hepatopetal flow can be seen. Status post cholecystectomy. There is no biliary dilatation, the common bile duct measures 11 mm. The visualized pancreas is unremarkable. IMPRESSION: Status post cholecystectomy, without biliary dilatation. The liver demonstrates increased echogenicity. This finding is nonspecific, yet it is most commonly attributed to fatty infiltration. Dictated by: Donald Knutson M.D. on 05/23/2020 at 14:42 Approved by: Donald Knutson M.D. on 05/23/2020 at 14:44
== END ==
PROVIDERS: Family Provider Family Medicine; PCP Family Medicine; Referring Provider Family Medicine; Visit Provider Family Medicine
DX: R10.11 Right upper quadrant pain (principal); Z90.49 Acquired absence of other specified parts of digestive tract
CPT/HCPCS: 76705

== ENCOUNTER → 2020-08-23 11:28 | Outpatient (CLI) | payer MEDICARE, MEDICAID, SELFPAY ==
[2020-08-23 12:09] LABS: COVID19 -Nasal RAPID Negative (Negative)
== END ==
PROVIDERS: Family Provider Family Medicine; PCP Family Medicine; Visit Provider Surgery
DX: R13.10 Dysphagia, unspecified (principal); Z20.822 Contact with and (suspected) exposure to COVID-19
CPT/HCPCS: 87635; 99213

== ENCOUNTER 2020-08-24 13:15 | Day surgery (SDC) | payer MEDICARE, MEDICAID, SELFPAY ==
--- NOTE | 2020-08-24 | PATH_ITS ---
[facility] Accession Number: [id number] . 01 Material submitted: . esophagus, E-G Junction - GE JUNCTION . 01 Clinical history: . EGD . 02 Diagnosis: Gastroesophageal Junction, Biopsy: Squamocolumnar junctional mucosa with no diagnostic abnormality. Negative for intestinal metaplasia. Negative for dysplasia and malignancy. . MRV 08/28/2020 1041 Local . 02 Electronically signed: . Jose Maria Kemp MD, PhD, Pathologist NPI- [id number] . 01 Gross description: . The specimen is received in formalin, labeled GE junction and consists of three gonzalez-white fragments of soft tissue, measuring 0.8 x 0.6 x 0.2 cm in aggregate. The specimen is entirely submitted in cassette A1. ([id number]) /[facility] 08/25/2020 1716 Local . 02 Pathologist provided ICD-10: R13.10, R10.9 . 02 CPT . 641034 Performed at: 01 [facility] [address] [facility], [place], [place] [id number] MD Elder Vaz MD Phone: [phone] Performed at: 02 [facility] [address] [place], [place] [id number] MD Mehreen Haynes MD Phone: [phone]
[2020-08-24] MEDS: LACTATED RINGERS 1,000 ML 200 ML IV (13:40)
[2020-08-24 13:43] VITALS: BP 138/79; PULSE 93; RESP 16; TEMP 36.4; O2SAT 98; BMI 32.5
[2020-08-24 13:58] VITALS: BMI 32.5
--- NOTE | 2020-08-24 14:23 | PM.PREOP ---
Pre-operative Note COVID-19 COVID-19 status: Negative Interval Note History & Physical reviewed/Exam performed by Physician: Yes Changes to H&P: No
--- NOTE | 2020-08-24 14:35 | PM.OP.ENDO ---
Operative Date/Time/Diagnoses Date of procedure: 08/24/20 Time of procedure: 14:35 Pre-op diagnosis: epigastric pain Post-op diagnosis: other (esophagititis) Procedure & Clinicians Study performed: Esophagoduodenoscopy Same procedure as scheduled: Yes Indications: 65-year-old woman with dysphagia and epigastric pain here for EGD Surgeon: Ricky Calhoun Procedure Notes Procedure in detail: Patient placed in left lateral decubitus position. Time out was performed. Procedural sedation was administered with Versed and Fentanyl. A bite block was placed. the scope was inserted into the mouth and advanced through the esophagus and into the stomach. The pylorus was intubated and the duodenum was normal to the 2nd portion. The scope was retroflexed within the stomach and there was a small hiatal hernia. No ulcers, or gastritis. The scope was withdrawn into the esophagus the Z line was seen at 35 cm from the incisions. There was mild esophagitis, biopsies were obtained with the forceps at the GE junction. No tabatha Car's or masses no esophageal strictures.. Stomach was desufflated and scope removed. Patient tolerated procedure well. Sedation minutes: 10 Specimen(s): other (GE junction) Complications: none Impression: Esophagitis Post-procedure Plan for aftercare: Increase omeprazole to 40 mg b.i.d. Follow up: as needed Disposition: same day surgery
[2020-08-24] MEDS: LIDOCAINE 4% SOLN 50 ML 20 ML TOP (14:36)
[2020-08-24 14:37] VITALS: BP 108/64; PULSE 76; RESP 12; TEMP 36.3; O2SAT 94
[2020-08-24] MEDS: MIDAZOLAM 5 MG/5 ML VIAL IV (14:37)
[2020-08-24] MEDS: fentaNYL 250 MCG/5 ML INJ IV (14:37)
[2020-08-24 14:41] VITALS: BP 104/60; PULSE 74; RESP 12; O2SAT 94
[2020-08-24 14:46] VITALS: BP 111/63; PULSE 74; RESP 12; O2SAT 94
[2020-08-24 14:53] VITALS: BP 130/58; PULSE 92; RESP 14; TEMP 36.6; O2SAT 97
[2020-08-24 15:04] VITALS: BP 123/78; PULSE 85; RESP 16; TEMP 36.3; O2SAT 99
--- NOTE | 2020-08-24 15:12 | SUR.PHASEII ---
pt given discharge instructions. Pt states she understands discharge instructions. Pt up and taking PO fluids well.
== END 2020-08-24 15:28 | disposition home or self-care (01) ==
PROVIDERS: Family Provider Family Medicine; PCP Family Medicine; Referring Provider Surgery; Visit Provider Surgery
PROC: 0DJ08ZZ Inspection of Upper Intestinal Tract, Via Natural or Artificial Opening Endoscopic (ICD-10-PCS; CPT 43235; principal; 2020-08-24 14:30)
DX: K20.90 Esophagitis, unspecified without bleeding (principal); K21.9 Gastro-esophageal reflux disease without esophagitis; K44.9 Diaphragmatic hernia without obstruction or gangrene
CPT/HCPCS: 43239; 99152; J2250; J3010

== ENCOUNTER → 2020-11-29 16:16 | Outpatient (CLI) | payer MEDICARE, MEDICAID, SELFPAY ==
[2020-11-29] MEDS: COVID-19 VACC #1, MRNA(MOD) 100 MCG/0.5 ML VIAL IM (16:27)
== END ==
PROVIDERS: Family Provider Family Medicine; PCP Family Medicine; Visit Provider Internal Medicine
DX: Z23 Encounter for immunization (principal)
CPT/HCPCS: 0011A; 91301

== ENCOUNTER → 2020-12-08 11:01 | Outpatient (CLI) | payer MEDICARE, MEDICAID, SELFPAY ==
[2020-12-08 11:47] LABS: COVID19 -Nasal RAPID Negative (Negative)
== END ==
PROVIDERS: Family Provider Family Medicine; PCP Family Medicine; Visit Provider Physician Assistant
DX: R05 Cough (principal); Z20.822 Contact with and (suspected) exposure to COVID-19
CPT/HCPCS: 87635

== ENCOUNTER 2020-12-24 10:12 | Emergency (ER) | payer MEDICARE, MEDICAID, SELFPAY ==
[2020-12-24 10:28] VITALS: BP 138/79; PULSE 78; RESP 15; TEMP 37.1; O2SAT 99; BMI 33.9
--- NOTE | 2020-12-24 11:00 | ED_ITS ---
HPI - Extremity Injury (Upper) General Chief Complaint: Extremity Injury, Upper Stated Complaint: right shoulder pain down neck Time Seen by Provider: 12/24/20 11:00 Source: patient Mode of arrival: Ambulatory Limitations: no limitations History of Present Illness HPI narrative: Female comes emergency department with acute on chronic right shoulder pain. Patient states she has had issues for the past year. She just started physical therapy and had 2 or 3 sessions recently. She had a steroid injection about a year ago which she states was not really helpful. Patient states she has never been imaged. She did see Dr. Bella in the past and was referred to PT. patient states she reached backwards and had an acute onset of pain at the right posterior shoulder in the soft tissue lateral to the scapula. Movement is significantly uncomfortable for her. She states she cannot lift her arm above her head because it is too painful. She has had chronically pain radiating down her arm but this new pain seems to be localized to that area and the shoulder joint itself. She states that also radiates somewhat towards her neck. She is unsure if there was any spasm like sensation but movement does make it worse. She denies any fevers. She denies any chest pain or pressure. She had some mild nausea this morning and when it was most acutely painful but was able to eat. She denies any numbness or tingling in her extremities. She states she has had a massage to that area which is quite uncomfortable but ultimately very helpful. She states that she has some allergies to NSAIDs. She has not take anything orally for pain today. She has not appreciated any redness, warmth or other skin changes. She does take 3 medications for reflux and GERD, to a for tremor. Patient also has an allergy to codeine which causes throat swelling. Related Data Home Medications Medication Instructions Recorded Confirmed magnesium 500 mg PO DAILY 02/14/18 10/06/20 Previous Rx's Medication Instructions Recorded fluticasone propionate 50 1 spray INTRANASAL BID #9.9 gram 05/05/19 mcg/actuation nasal spray,suspension albuterol sulfate 90 mcg/actuation 2 puff INHALATION Q4HP PRN #1 ea 04/12/20 aerosol inhaler sucralfate 1 gram tablet See Rx Instructions .ROUTE 08/29/20 .COMPLEX #360 tab topiramate 50 mg tablet See Rx Instructions .ROUTE 10/02/20 .COMPLEX #180 tab omeprazole 40 mg capsule,delayed 40 mg PO BID #60 cap 11/24/20 release diazepam [Valium] 10 mg PO TID PRN 1 Days #10 tab 12/24/20 lidocaine 1 patch TOPICAL DAILY PRN #15 ea 12/24/20 Allergies Allergy/AdvReac Type Severity Reaction Status Date / Time codeine [CODEINE] Allergy Mild THROAT Verified 12/08/20 10:46 SWELLING naproxen [From ANAPROX] Allergy Mild HIVES Verified 12/08/20 10:46 flurbiprofen [FLURBIPROFEN] AdvReac Mild GI UPSET Verified 12/08/20 10:46 Review of Systems Review of Systems ROS Unobtainable: All systems reviewed & are unremarkable except as noted in HPI and below Patient History Medical History Anxiety Arthritis BCC (basal cell carcinoma), shoulder Compression fracture of thoracic vertebra Depression Fracture of rib of right side (2014) GERD (gastroesophageal reflux disease) Hemorrhoids History of ulcer disease Measles Migraine Psoriatic arthritis Surgical History History of cholecystectomy History of total hysterectomy History of tubal ligation Hx of sinus surgery Family History Father Alcoholism Mother Arthritis Cancer Brother Suicide Sister Alcoholism Arthritis Hepatitis C Son Seasonal allergies Daughter Hyperlipidemia Ulcer Daughter Genetic disease Social History marital status: unknown household members: none Smoking Status: Never smoker alcohol intake: current substance use type: does not use Smoking Status: Never smoker alcohol intake frequency: a few times a month Substance Use Type: does not use Exam Narrative Exam Narrative: GENERAL: Alert and oriented x three, well-nourished female in mild distress. Patient was ambulating back from the restroom when she was met to be evaluated. HEENT: Head normocephalic, atraumatic, EOMI, pupils reactive, face symmetric, moist mucous membranes NECK: Supple, full range of motion, patient is not have any cervical tenderness on exam. CARDIOVASCULAR: Regular rate and rhythm without murmurs, rubs or gallops. RESPIRATORY: Breath sounds equal bilaterally, no wheezes rales or rhonchi. ABDOMEN: Soft, nontender. Normoactive bowel sounds all 4 quadrants. No guarding or rebound, rigidity, no mass EXTREMITIES: Patient has some decreased range of motion of the right shoulder but does not have any issue with we back forth, internal or external rotation. Patient has soft tissue tenderness lateral to the scapula but without any obvious not or tissue tightness in that area. She does not have any other discrete bony tenderness of the scapula, clavicle, shoulder or AC joint. Patient's right lower extremity does not have any bony tenderness. She has full range of motion of her fingers, wrist and elbow. There is no warmth, erythema, ecchymosis or other changes appreciated. Patient has equal muscle strength bilaterally. No clubbing or edema in her upper extremities with 2+ radial pulse. NEUROLOGICAL: Cranial nerves II through XII grossly intact. Moving all extremities SKIN: Warm, dry, no petechiae, no rashes or lesions. Initial Vital Signs Initial Vital Signs: Vital Signs Temperature 98.8 F 12/24/20 10:28 Pulse Rate 78 12/24/20 10:28 Respiratory Rate 15 12/24/20 10:28 Blood Pressure 138/79 12/24/20 10:28 Pulse Oximetry 99 12/24/20 10:28 Course Orders Ordered: ED Orders 12/24/20 11:12 XR shoulder RT min 2V Stat Discontinued Medications Lidocaine (Lidocaine Patch 1 Each Adh..Patch) 1 each TOP NOW ONE Stop: 12/24/20 11:13 Last Admin: 12/24/20 11:30 Dose: 1 each Documented by: JODI Reevaluation(s) Reevaluation #1: recheck, and reviewed images with patient. Patient is having some improved after the lidocaine patch. Discussed she can use the patches, muscle relaxer as needed as well as Tylenol as needed. Time: 11:58 Vital Signs Vital signs: Vital Signs - 8 hr 12/24/20 10:28 12/24/20 12:07 Temperature 98.8 F Pulse Rate 78 68 Respiratory Rate 15 16 Blood Pressure 138/79 131/70 Pulse Oximetry 99 97 MDM - Extremity Injury (Upper) Imaging Data Extremity x-ray #1: Radiologist's Impression: [address] [id number] ReportSigned Patient: KarynaKatheryn JMR#: [id number]: 5Acct:[id number]/Sex: 65 / FDate of Service: 12/24/20Loc: EDAccession Number: [id number] Procedure: XR shoulder RT min 2V Ordering Provider: Farheen De Oliveira D.O. PROCEDURE: XR SHOULDER RT MIN 2V INDICATIONS: R post shoulder pain after reaching TECHNIQUE: 3 views of the shoulder were acquired. COMPARISON: [facility], , SHOULDER MIN 2VW (RT), 07/20/2013, 14:54. FINDINGS: Bones: No fractures or dislocations. No suspicious bony lesions. Visualized ribs appear intact. Soft tissues: No suspicious soft tissue calcifications. IMPRESSION: No evidence acute bony abnormality of the right shoulder. If clinical suspicion and/or symptoms persist, further assessment with repeat plain films, or advanced imaging (e.g., CT, MRI, or bone scan) may be helpful for further assessment. Dictated by: Bhavesh Valera M.D. on 12/24/2020 at 11:49 Approved by: Bhavesh Valera M.D. on 12/24/2020 at 11:49 [facility] Narrative Medical decision making narrative: This is a 65-year-old female who had sudden worsening of her right shoulder pain particularly in the soft tissue after our reaching and externally rotating with her right upper extremity. Patient has reproducible musculoskeletal pain on exam. She does not have any acute changes on x-ray. Plan for lidocaine patch, muscle relaxer Tylenol as needed for pain. Patient has seen Orthopedic surgery and is currently involved in PT was encouraged to follow up if she is not having any improvement. Discharge Plan Departure Patient Disposition: Home Clinical Impression: Right shoulder pain Qualifiers: Chronicity: unspecified Qualified Code(s): M25.511 - Pain in right shoulder Instructions: DI for Shoulder Pain Activity Restrictions/Additional Instructions: Follow up with your physician or Dr. Bella if your symptoms are not improving in 1-2 weeks. You may use lidocaine patches to affected area. Remove patch prior to placing a new patch. You may take muscle relaxer every 8 hours as needed. This medication can make you sleepy do not drive, perform hazardous activities or make any major decisions taking it. You may also take Tylenol up to a 1000 mg every 8 hours as needed for pain. Prescription sent to [facility] in [place]. Please return for rapidly worsening symptoms, new numbness, tingling or weakness, inability sure arm, loss of sensation, new warmth, redness or signs of infection, fevers or other new or concerning symptoms. Prescriptions: New diazepam [Valium] 10 mg tablet 10 mg PO TID PRN (Reason: anxiety) 1 Days Qty: 10 RF: 0 lidocaine 5 % adhesive patch,medicated 1 patch topical DAILY PRN (Reason: pain) Qty: 15 RF: 0 No Action albuterol sulfate [Ventolin HFA] 90 mcg/actuation HFA aerosol inhaler 2 puff INHALATION Q4HP PRN (Reason: shortness of breath or wheezing) Qty: 1 RF: 0 fluticasone propionate 50 mcg/actuation spray,suspension 1 spray INTRANASAL BID Qty: 9.9 RF: 5 sucralfate 1 gram tablet See Rx Instructions .ROUTE .COMPLEX Qty: 360 RF: 1 topiramate 50 mg tablet See Rx Instructions .ROUTE .COMPLEX Qty: 180 RF: 2 omeprazole 40 mg capsule,delayed release(DR/EC) 40 mg PO BID Qty: 60 RF: 5 magnesium 250 mg Tablet 500 mg PO DAILY RF: 0 Referrals: Dulce Palencia MD [Primary Care Provider] -
--- NOTE | 2020-12-24 11:12 | DI.RAD.S_ITS ---
PROCEDURE: XR SHOULDER RT MIN 2V INDICATIONS: R post shoulder pain after reaching TECHNIQUE: 3 views of the shoulder were acquired. COMPARISON: [facility], , SHOULDER MIN 2VW (RT), 07/20/2013, 14:54. FINDINGS: Bones: No fractures or dislocations. No suspicious bony lesions. Visualized ribs appear intact. Soft tissues: No suspicious soft tissue calcifications. IMPRESSION: No evidence acute bony abnormality of the right shoulder. If clinical suspicion and/or symptoms persist, further assessment with repeat plain films, or advanced imaging (e.g., CT, MRI, or bone scan) may be helpful for further assessment. Dictated by: Bhavesh Valera M.D. on 12/24/2020 at 11:49 Approved by: Bhavesh Valera M.D. on 12/24/2020 at 11:49
[2020-12-24] MEDS: LIDOCAINE PATCH 1 EACH ADH..PATCH TOP (11:30)
[2020-12-24 12:07] VITALS: BP 131/70; PULSE 68; RESP 16; O2SAT 97
== END 2020-12-24 12:09 | disposition home or self-care (01) ==
PROVIDERS: Emergency Provider Emergency Medicine; Family Provider Family Medicine; PCP Family Medicine
DX: M25.511 Pain in right shoulder (principal)
CPT/HCPCS: 73030; 99283

== ENCOUNTER → 2020-12-27 13:05 | Outpatient (CLI) | payer MEDICARE, MEDICAID, SELFPAY ==
[2020-12-27] MEDS: COVID-19 VACC #2, MRNA(MOD) 100 MCG/0.5 ML VIAL IM (13:11)
== END ==
PROVIDERS: Family Provider Family Medicine; PCP Family Medicine; Visit Provider Internal Medicine
DX: Z23 Encounter for immunization (principal)
CPT/HCPCS: 0012A; 91301

== ENCOUNTER 2021-01-04 13:45 | Outpatient (RCR) | payer MEDICARE, MEDICAID, SELFPAY ==
--- NOTE | 2020-12-15 14:25 | PT.OIE ---
Current Diagnoses Bursitis of right shoulder (12/14/20) Past Medical History (Last Reviewed 08/24/20 @ 14:19 by Ricky Calhoun MD) Anxiety Arthritis BCC (basal cell carcinoma), shoulder Compression fracture of thoracic vertebra Depression Fracture of rib of right side (2014) GERD (gastroesophageal reflux disease) Hemorrhoids History of ulcer disease Measles Migraine Psoriatic arthritis Past Surgical History (Last Reviewed 08/24/20 @ 14:19 by Ricky Calhoun MD) History of cholecystectomy History of total hysterectomy History of tubal ligation Hx of sinus surgery Visit Care Team Role Provider Type Dulce Palencia MD Family Provider Physician Primary Care Provider Specialty: Family Practice Address: [address] [place] [address], [place], [address] Email: [email or web address] Bella MD Attending Provider Physician Referring Provider Specialty: Orthopedic Surgery Address: [address] [place] [address], [id number] Email: [email or web address] Physical Therapy Initial Evaluation PT-OP-A Visit Information Start: 12/15/20 09:53 Freq: Status: Active Protocol: Document 12/14/20 13:45 HH (Rec: 12/15/20 14:25 HH [email or web address]) Out-Patient Physical Therapy Visit Information Visit Information Visit Type Initial Evaluation Visit Start Time 13:45 Visit Stop Time 14:30 Total Visit Minutes 45 Visit Number 08/22 Number of POULTRY HELPER Visits 0 Precautions Precautions fibromyalgia PT-OP-B Current Condition Start: 12/15/20 09:53 Freq: Status: Active Protocol: Document 12/14/20 13:45 HH (Rec: 12/15/20 14:25 HH [email or web address]) Current Condition History of Current Condition Onset Date 1-2 years ago Current Complaints chronic R shoulder pain, difficulty reach overhead History of Current Condition Katheryn is a 65yo female here for her chronic R shoulder pain started 1-2 years ago with no known injury . Her pain locates at anterior and superior aspect of R shoulder, along with readiating pain to her biceps. She has significant difficulty reaching overhead, abduct and reaching behind her back which affects her ability to dress, daniela/doff bra etc. She also has significant pain during sleep everyday. Pt has had cortisone injection last year and it did not help. Pt had L RTC repair before and she is successfully recovered. Pt consulted with Ortho surgeon Dr. Bella and thinks she has bursitis and no surgery needed. Current Functional Impairments (Reported) Functional Limitations- ADL's difficulty with reaching overhead, daniela/doff her bra and overall dressing unable to open a tight jar or carry weighted object d/t pain Personal Factors Other Personal Factors That May Effect fibromyalgia Therapy/Recovery PT-OP-C Subjective Start: 12/15/20 09:53 Freq: Status: Active Protocol: Document 12/14/20 13:45 HH (Rec: 12/15/20 14:25 [email or web address]) Patient Questionnaires Quick Dash- Upper Extremity Quick Dash UE Score 47.7 Quick Dash UE Impairment 40 to 59% Impaired (Score 40- 59) PT-OP-E Functional Tests Start: 12/15/20 09:53 Freq: Status: Active Protocol: Document 12/14/20 13:45 HH (Rec: 12/15/20 14:25 [email or web address]) Functional Tests Apley's Scratch Test Action 1- Left WFL Action 1- Right up 75%, pain at R shoulder Action 2- Left T2 Action 2- Right C7 Action 3- Left T8 Action 3- Right R SIJ PT-OP-F Manual Assessment Start: 12/15/20 09:53 Freq: Status: Active Protocol: Document 12/14/20 13:45 HH (Rec: 12/15/20 14:25 [email or web address]) Manual Assessments Soft Tissue Assessment Soft Tissue Mobility Assessment significant hypertonicity at long head tendon of bicep, pecs, infraspinatus and teresminor PT-OP-K Range of Motion Start: 12/15/20 09:53 Freq: Status: Active Protocol: Document 12/14/20 13:45 HH (Rec: 12/15/20 14:25 [email or web address]) Cervical Spine Range of Motion Cervical Spine Active Degrees Testing Position Sitting Flexion 55 Extension 25 Rotation Left 56 Rotation Right 46 Lateral Flexion Left 23 Lateral Flexion Right 20 ROM Limitations Soft Tissue Tightness,Pain Comments radiating pain R shoulder with extension, rotation to R and lateral flexion to R Shoulder Goniometric Range of Motion Shoulder Right Passive Shoulder ROM WFL No Testing Position Supine Flexion 160 Abduction 110 Right Shoulder ROM WFL No Testing Position Standing Flexion 115 Extension 28 Abduction 110 External Rotation at 90 degrees 50 Abduction Internal Rotation 30 Comments anterior shoulder pain with end range in all planes Left Active Shoulder ROM WFL Yes Testing Position Standing Flexion 160 Extension 40 Abduction 145 External Rotation at 90 degrees 80 Abduction Internal Rotation 90 PT-OP-L Special Tests Start: 12/15/20 09:53 Freq: Status: Active Protocol: Document 12/14/20 13:45 HH (Rec: 12/15/20 14:25 [email or web address]) Special Tests Cervical Spine Special Tests Foraminal Compression Test Results +VE Comments radiating pain to R necka nd shoulder Spurling's Test Test Results +VE Comments radiating pain to R necka nd shoulder Passive Neck Flexion Test Results -ve Traction Test Results +VE Comments pain relief Shoulder Special Tests Empty Can Test Results +ve R Apprehension Test Test Results +VE R Comments pain reduced with icnreased ER Grind Labrum Test Results -ve Speed's Biceps Test Results +VE Comments pain with resisted elbow flexion Marmolejo John Impingement Test Results +VE Drop Arm Rotator Cuff Test Results -ve Comments able to lift and hold but with pain PT-OP-M Strength Start: 12/15/20 09:53 Freq: Status: Active Protocol: Document 12/14/20 13:45 HH (Rec: 12/15/20 14:25 [email or web address]) Shoulder Strength Shoulder Manual Muscle Testing Right Flexion 4- Good- Extension 4- Good- Abduction (C5) 3+ Fair+ Adduction 4- Good- External Rotation 3+ Fair+ Internal Rotation 3+ Fair+ Left Flexion 5 Normal Extension 5 Normal Abduction (C5) 5 Normal Adduction 5 Normal External Rotation 5 Normal Internal Rotation 5 Normal PT-OP-Q Treatments Start: 12/15/20 09:53 Freq: Status: Active Protocol: Document 12/14/20 13:45 HH (Rec: 12/15/20 14:25 [email or web address]) Manual Therapy Treatment Soft Tissue Mobilization biceps Body Location muscle belly and long head tendon Mobilization Type Myofascial Release,Sustained Pressure,Trigger Point Release Intensity/Depth Moderate Body Position Supine RTCs Body Location infraspinatus, teres minor Mobilization Type Myofascial Release,Sustained Pressure,Trigger Point Release Intensity/Depth Moderate Body Position Supine pecs Body Location major, minor Mobilization Type Myofascial Release,Sustained Pressure,Trigger Point Release Intensity/Depth Moderate Body Position Supine PT-OP-T Assessment and Plan Start: 12/15/20 09:53 Freq: Status: Active Protocol: Document 12/14/20 13:45 HH (Rec: 12/15/20 14:25 HH [email or web address]) Physical Therapy Assessment Rehab Potential Rehabilitation Potential Good Evaluation Complexity Number of Personal Factors/Comorbidities 1-2 Number of Body Systems Impaired 1-2 Clinical Presentation at Evaluation Stable Impairments Impairments Activity Tolerance,Functional Activities,Functional Mobility ,Pain,Posture,ROM,Soft Tissue Mobility,Strength Goals radiating pain Impairment pt has radiating pain to her R neck and shoulder Short Term Goal (STG) pt will have no more than 4/10 radiating pain to her R neck and shoulder. STG Duration 5 weeks Retirement Goal (LTG) pt will have no more than 2/10 radiating pain to her R neck and shoulder. LTG Duration 10 weeks ROM Impairment limited R shoulder ROM and cervical ROM Short Term Goal (STG) pt will show increased in cervical and R shoulder ROM by 15 degrees in all planes STG Duration 5 weeks [employer] Goal (LTG) pt will show increased in cervical and R shoulder ROM by 25 degrees in all planes which allows her to dress and reach overhead without increase in discomfort. LTG Duration 10 weeks pain Impairment pt has night pain during sleep Short Term Goal (STG) pt will have less pain and able to maintain good sleep 3 nights per week STG Duration 4 weeks Retirement Goal (LTG) pt will have no pain and able to maintain good sleep for the entire week LTG Duration 8 weeks quickdash Impairment pt scores 47.7 on quickdash Short Term Goal (STG) pt will show improved quality of life and able to score <30 on quickdahs STG Duration 5 weeks Retirement Goal (LTG) pt will show improved quality of life and able to score <20 on quickdahs LTG Duration 10 weeks Assessment Summary Assessment katheryn is a 65 yo female here for chronic R shoulder pain started 1-2 years ago with no known injury. Upon assessment, pt presents with R long head bicep tendinopathy, RTC tendinopathy and cervical radiculopathy. She has very limited AROM but better with PROM, along with anterior translated humeral head. Her AROM did improved immediately after manual therapy. She will benefit from skilled therapy to improve both cervical and shoulder ROM, postural awareness, and overall strength so she can dress herself and reach for weighted objects without difficulty. Physical Therapy Plan Frequency and Duration Frequency of Treatment 2x/Week Duration of Treatment 10 weeks Plan of Care Start Date 12/14/20 Plan of Care End Date 02/28/21 Therapeutic Interventions Therapeutic Interventions Home Exercise Program,Joint Mobilizations,Manual Therapy, Neuromuscular Re-education, Patient/Caregiver Education, Self-Care/Home Management,Soft Tissue Mobilization,Taping, Therapeutic Activities, Therapeutic Exercises Modalities Biofeedback,Cold Pack/Ice Massage,Electric Stimulation, Hot Packs,Infrared Therapy, Iontophoresis,Paraffin Bath, Traction- Mechanical, Ultrasound Next Visit Focus/Plan Next Note Type Treatment Note Next Visit Plan HEP STM on RTC., bicep open book scpa retraction, SAMSON navarro
--- NOTE | 2020-12-15 14:26 | PT.OPPOC ---
Physical, Occupational & Speech Therapy At [facility] Current Diagnoses Bursitis of right shoulder (12/14/20) Visit Care Team Role Provider Type Dulce Palencia MD Family Provider Physician Primary Care Provider Specialty: Family Practice Address: [address] [place] [address], [facility] [place], [address] Email: [email or web address] Elder Bella MD Attending Provider Physician Referring Provider Specialty: Orthopedic Surgery Address: [address] [place] [address], [id number] Email: [email or web address] Plan Of Care PT-OP-T Assessment and Plan Start: 12/15/20 09:53 Freq: Status: Active Protocol: Document 12/14/20 13:45 HH (Rec: 12/15/20 14:25 HH [email or web address]) Physical Therapy Assessment Rehab Potential Rehabilitation Potential Good Evaluation Complexity Number of Personal Factors/Comorbidities 1-2 Number of Body Systems Impaired 1-2 Clinical Presentation at Evaluation Stable Impairments Impairments Activity Tolerance,Functional Activities,Functional Mobility ,Pain,Posture,ROM,Soft Tissue Mobility,Strength Goals radiating pain Impairment pt has radiating pain to her R neck and shoulder Short Term Goal (STG) pt will have no more than 4/10 radiating pain to her R neck and shoulder. STG Duration 5 weeks Privacy Compliance Manager Goal (LTG) pt will have no more than 2/10 radiating pain to her R neck and shoulder. LTG Duration 10 weeks ROM Impairment limited R shoulder ROM and cervical ROM Short Term Goal (STG) pt will show increased in cervical and R shoulder ROM by 15 degrees in all planes STG Duration 5 weeks Fci Goal (LTG) pt will show increased in cervical and R shoulder ROM by 25 degrees in all planes which allows her to dress and reach overhead without increase in discomfort. LTG Duration 10 weeks pain Impairment pt has night pain during sleep Short Term Goal (STG) pt will have less pain and able to maintain good sleep 3 nights per week STG Duration 4 weeks Fci Goal (LTG) pt will have no pain and able to maintain good sleep for the entire week LTG Duration 8 weeks quickdash Impairment pt scores 47.7 on quickdash Short Term Goal (STG) pt will show improved quality of life and able to score <30 on quickdahs STG Duration 5 weeks Fci Goal (LTG) pt will show improved quality of life and able to score <20 on quickdahs LTG Duration 10 weeks Assessment Summary Assessment andres is a 65 yo female here for chronic R shoulder pain started 1-2 years ago with no known injury. Upon assessment, pt presents with R long head bicep tendinopathy, RTC tendinopathy and cervical radiculopathy. She has very limited AROM but better with PROM, along with anterior translated humeral head. Her AROM did improved immediately after manual therapy. She will benefit from skilled therapy to improve both cervical and shoulder ROM, postural awareness, and overall strength so she can dress herself and reach for weighted objects without difficulty. Physical Therapy Plan Frequency and Duration Frequency of Treatment 2x/Week Duration of Treatment 10 weeks Plan of Care Start Date 12/14/20 Plan of Care End Date 02/28/21 Therapeutic Interventions Therapeutic Interventions Home Exercise Program,Joint Mobilizations,Manual Therapy, Neuromuscular Re-education, Patient/Caregiver Education, Self-Care/Home Management,Soft Tissue Mobilization,Taping, Therapeutic Activities, Therapeutic Exercises Modalities Biofeedback,Cold Pack/Ice Massage,Electric Stimulation, Hot Packs,Infrared Therapy, Iontophoresis,Paraffin Bath, Traction- Mechanical, Ultrasound Next Visit Focus/Plan Next Note Type Treatment Note Next Visit Plan HEP STM on RTC., bicep open book scpa retraction, [place] melanie Plan of Care Dates Plan of Care Start Date 12/14/20 Plan of Care End Date 02/28/21 Electronically Signed by: Jonathon Sesay PT 12/15/20 5045 Please Sign and Return: I have reviewed this Plan of Care and certify that the skilled therapy services above are required to meet the patient?s needs. Physician Signature Date Printed Name and Credentials Clinical Instructor Signature Printed Name and Credentials
--- NOTE | 2020-12-19 14:33 | PT.OTN ---
Current Diagnoses Bursitis of right shoulder (12/19/20) Physical Therapy Treatment Note PT-OP-A Visit Information Start: 12/15/20 09:53 Freq: Status: Active Protocol: Document 12/19/20 13:46 HH (Rec: 12/19/20 14:33 [id number]) Out-Patient Physical Therapy Visit Information Visit Information Visit Type Treatment Note Visit Start Time 13:45 Visit Stop Time 14:30 Total Visit Minutes 45 Visit Number 2/ Number of VALVE GRINDER Visits 0 PT-OP-B Current Condition Start: 12/15/20 09:53 Freq: Status: Active Protocol: Document 12/14/20 13:45 HH (Rec: 12/15/20 14:25 HH [email or web address]) Current Condition History of Current Condition Onset Date 1-2 years ago Current Complaints chronic R shoulder pain, difficulty reach overhead History of Current Condition Katheryn is a 65yo female here for her chronic R shoulder pain started 1-2 years ago with no known injury . Her pain locates at anterior and superior aspect of R shoulder, along with readiating pain to her biceps. She has significant difficulty reaching overhead, abduct and reaching behind her back which affects her ability to dress, daniela/doff bra etc. She also has significant pain during sleep everyday. Pt has had cortisone injection last year and it did not help. Pt had L RTC repair before and she is successfully recovered. Pt consulted with Ortho surgeon Dr. Bella and thinks she has bursitis and no surgery needed. Current Functional Impairments (Reported) Functional Limitations- ADL's difficulty with reaching overhead, daniela/doff her bra and overall dressing unable to open a tight jar or carry weighted object d/t pain Personal Factors Other Personal Factors That May Effect fibromyalgia Therapy/Recovery PT-OP-C Subjective Start: 12/15/20 09:53 Freq: Status: Active Protocol: Document 12/19/20 13:46 HH (Rec: 12/19/20 14:33 HH [id number]) OP-PT Subjective Patient Comments Patient Comments My shoulder feels not bad after last time but my neck is killing me. I also just got the melanie . Patient Reported Progress Same PT-OP-E Functional Tests Start: 12/15/20 09:53 Freq: Status: Active Protocol: Document 12/14/20 13:45 HH (Rec: 12/15/20 14:25 [email or web address]) Functional Tests Apley's Scratch Test Action 1- Left WFL Action 1- Right up 75%, pain at R shoulder Action 2- Left T2 Action 2- Right C7 Action 3- Left T8 Action 3- Right R SIJ PT-OP-F Manual Assessment Start: 12/15/20 09:53 Freq: Status: Active Protocol: Document 12/14/20 13:45 HH (Rec: 12/15/20 14:25 [email or web address]) Manual Assessments Soft Tissue Assessment Soft Tissue Mobility Assessment significant hypertonicity at long head tendon of bicep, pecs, infraspinatus and teresminor PT-OP-K Range of Motion Start: 12/15/20 09:53 Freq: Status: Active Protocol: Document 12/14/20 13:45 (Rec: 12/15/20 14:25 [email or web address]) Cervical Spine Range of Motion Cervical Spine Active Degrees Testing Position Sitting Flexion 55 Extension 25 Rotation Left 56 Rotation Right 46 Lateral Flexion Left 23 Lateral Flexion Right 20 ROM Limitations Soft Tissue Tightness,Pain Comments radiating pain R shoulder with extension, rotation to R and lateral flexion to R Shoulder Goniometric Range of Motion Shoulder Right Passive Shoulder ROM WFL No Testing Position Supine Flexion 160 Abduction 110 Right Shoulder ROM WFL No Testing Position Standing Flexion 115 Extension 28 Abduction 110 External Rotation at 90 degrees 50 Abduction Internal Rotation 30 Comments anterior shoulder pain with end range in all planes Left Active Shoulder ROM WFL Yes Testing Position Standing Flexion 160 Extension 40 Abduction 145 External Rotation at 90 degrees 80 Abduction Internal Rotation 90 PT-OP-L Special Tests Start: 12/15/20 09:53 Freq: Status: Active Protocol: Document 12/14/20 13:45 (Rec: 12/15/20 14:25 [email or web address]) Special Tests Cervical Spine Special Tests Foraminal Compression Test Results +VE Comments radiating pain to R necka nd shoulder Spurling's Test Test Results +VE Comments radiating pain to R necka nd shoulder Passive Neck Flexion Test Results -ve Traction Test Results +VE Comments pain relief Shoulder Special Tests Empty Can Test Results +ve R Apprehension Test Test Results +VE R Comments pain reduced with icnreased ER Grind Labrum Test Results -ve Speed's Biceps Test Results +VE Comments pain with resisted elbow flexion Marmolejo John Impingement Test Results +VE Drop Arm Rotator Cuff Test Results -ve Comments able to lift and hold but with pain PT-OP-M Strength Start: 12/15/20 09:53 Freq: Status: Active Protocol: Document 12/14/20 13:45 (Rec: 12/15/20 14:25 [email or web address]) Shoulder Strength Shoulder Manual Muscle Testing Right Flexion 4- Good- Extension 4- Good- Abduction (C5) 3+ Fair+ Adduction 4- Good- External Rotation 3+ Fair+ Internal Rotation 3+ Fair+ Left Flexion 5 Normal Extension 5 Normal Abduction (C5) 5 Normal Adduction 5 Normal External Rotation 5 Normal Internal Rotation 5 Normal PT-OP-Q Treatments Start: 12/15/20 09:53 Freq: Status: Active Protocol: Document 12/19/20 13:46 (Rec: 12/19/20 14:33 [id number]) Therapeutic Exercises Sidelying Exercises open book Side bilateral Reps/Minutes 8 x2 Comments for HEP Sitting Exercises upper trap stretch Side right Reps/Minutes 15sec hold x 5 Comments for HEP levator stretch Side right Reps/Minutes 15 sec hold x5 Comments for HEP Standing Exercises Pulleys Standing Exercise Name flexion, abduction Side bilateral Equipment Used Pulleys Reps/Minutes 5 mins Comments for HEP Manual Therapy Treatment Soft Tissue Mobilization levator scap/ upper trap Mobilization Type Myofascial Release,Sustained Pressure,Trigger Point Release Intensity/Depth Moderate Body Position Supine biceps Body Location muscle belly and long head tendon Mobilization Type Myofascial Release,Sustained Pressure,Trigger Point Release Intensity/Depth Moderate Body Position Supine RTCs Body Location infraspinatus, teres minor Mobilization Type Myofascial Release,Sustained Pressure,Trigger Point Release Intensity/Depth Moderate Body Position Supine pecs Body Location major, minor Mobilization Type Myofascial Release,Sustained Pressure,Trigger Point Release Intensity/Depth Moderate Body Position Supine Joint Mobilizations cervical distraction Grade II Body Position Supine Reps/Duration 2 mins PT-OP-T Assessment and Plan Start: 12/15/20 09:53 Freq: Status: Active Protocol: Document 12/19/20 13:46 (Rec: 12/19/20 14:33 [id number]) Physical Therapy Assessment Goals radiating pain Impairment pt has radiating pain to her R neck and shoulder Short Term Goal (STG) pt will have no more than 4/10 radiating pain to her R neck and shoulder. STG Duration 5 weeks Alf Goal (LTG) pt will have no more than 2/10 radiating pain to her R neck and shoulder. LTG Duration 10 weeks ROM Impairment limited R shoulder ROM and cervical ROM Short Term Goal (STG) pt will show increased in cervical and R shoulder ROM by 15 degrees in all planes STG Duration 5 weeks Alf Goal (LTG) pt will show increased in cervical and R shoulder ROM by 25 degrees in all planes which allows her to dress and reach overhead without increase in discomfort. LTG Duration 10 weeks pain Impairment pt has night pain during sleep Short Term Goal (STG) pt will have less pain and able to maintain good sleep 3 nights per week STG Duration 4 weeks Recruiting Specialist Goal (LTG) pt will have no pain and able to maintain good sleep for the entire week LTG Duration 8 weeks quickdash Impairment pt scores 47.7 on quickdash Short Term Goal (STG) pt will show improved quality of life and able to score <30 on quickdahs STG Duration 5 weeks Recruiting Specialist Goal (LTG) pt will show improved quality of life and able to score <20 on quickdahs LTG Duration 10 weeks Assessment Summary Assessment Began manual therapy on C/S and R shoulder and followed by stretches today and pt cherry session well. Pt continues to show PROM>AROM. Will review HEP with her next visit. Physical Therapy Plan Frequency and Duration Frequency of Treatment 2x/Week Duration of Treatment 10 weeks Plan of Care Start Date 12/14/20 Plan of Care End Date 02/28/21 Therapeutic Interventions Therapeutic Interventions Home Exercise Program,Joint Mobilizations,Manual Therapy, Neuromuscular Re-education, Patient/Caregiver Education, Self-Care/Home Management,Soft Tissue Mobilization,Taping, Therapeutic Activities, Therapeutic Exercises Modalities Biofeedback,Cold Pack/Ice Massage,Electric Stimulation, Hot Packs,Infrared Therapy, Iontophoresis,Paraffin Bath, Traction- Mechanical, Ultrasound Next Visit Focus/Plan Next Note Type Treatment Note Next Visit Plan HEP STM on RTC., bicep open book scpa retraction, [place] melanie
--- NOTE | 2020-12-21 14:27 | PT.OTN ---
Current Diagnoses Bursitis of right shoulder (12/21/20) Physical Therapy Treatment Note PT-OP-A Visit Information Start: 12/15/20 09:53 Freq: Status: Active Protocol: Document 12/21/20 13:45 HH (Rec: 12/21/20 14:27 [id number]) Out-Patient Physical Therapy Visit Information Visit Information Visit Type Treatment Note Visit Start Time 13:48 Visit Stop Time 14:30 Total Visit Minutes 42 Visit Number 3/ Number of PHYSICAL MEDICINE TEACHER Visits 0 PT-OP-B Current Condition Start: 12/15/20 09:53 Freq: Status: Active Protocol: Document 12/14/20 13:45 HH (Rec: 12/15/20 14:25 [email or web address]) Current Condition History of Current Condition Onset Date 1-2 years ago Current Complaints chronic R shoulder pain, difficulty reach overhead History of Current Condition Katheryn is a 65yo female here for her chronic R shoulder pain started 1-2 years ago with no known injury . Her pain locates at anterior and superior aspect of R shoulder, along with readiating pain to her biceps. She has significant difficulty reaching overhead, abduct and reaching behind her back which affects her ability to dress, daniela/doff bra etc. She also has significant pain during sleep everyday. Pt has had cortisone injection last year and it did not help. Pt had L RTC repair before and she is successfully recovered. Pt consulted with Ortho surgeon Dr. Bella and thinks she has bursitis and no surgery needed. Current Functional Impairments (Reported) Functional Limitations- ADL's difficulty with reaching overhead, daniela/doff her bra and overall dressing unable to open a tight jar or carry weighted object d/t pain Personal Factors Other Personal Factors That May Effect fibromyalgia Therapy/Recovery PT-OP-C Subjective Start: 12/15/20 09:53 Freq: Status: Active Protocol: Document 12/21/20 13:45 HH (Rec: 12/21/20 14:27 [id number]) OP-PT Subjective Patient Comments Patient Comments My shoulder feels pretty good . PT-OP-E Functional Tests Start: 12/15/20 09:53 Freq: Status: Active Protocol: Document 12/14/20 13:45 HH (Rec: 12/15/20 14:25 HH [email or web address]) Functional Tests Apley's Scratch Test Action 1- Left WFL Action 1- Right up 75%, pain at R shoulder Action 2- Left T2 Action 2- Right C7 Action 3- Left T8 Action 3- Right R SIJ PT-OP-F Manual Assessment Start: 12/15/20 09:53 Freq: Status: Active Protocol: Document 12/14/20 13:45 HH (Rec: 12/15/20 14:25 [email or web address]) Manual Assessments Soft Tissue Assessment Soft Tissue Mobility Assessment significant hypertonicity at long head tendon of bicep, pecs, infraspinatus and teresminor PT-OP-K Range of Motion Start: 12/15/20 09:53 Freq: Status: Active Protocol: Document 12/14/20 13:45 HH (Rec: 12/15/20 14:25 [email or web address]) Cervical Spine Range of Motion Cervical Spine Active Degrees Testing Position Sitting Flexion 55 Extension 25 Rotation Left 56 Rotation Right 46 Lateral Flexion Left 23 Lateral Flexion Right 20 ROM Limitations Soft Tissue Tightness,Pain Comments radiating pain R shoulder with extension, rotation to R and lateral flexion to R Shoulder Goniometric Range of Motion Shoulder Right Passive Shoulder ROM WFL No Testing Position Supine Flexion 160 Abduction 110 Right Shoulder ROM WFL No Testing Position Standing Flexion 115 Extension 28 Abduction 110 External Rotation at 90 degrees 50 Abduction Internal Rotation 30 Comments anterior shoulder pain with end range in all planes Left Active Shoulder ROM WFL Yes Testing Position Standing Flexion 160 Extension 40 Abduction 145 External Rotation at 90 degrees 80 Abduction Internal Rotation 90 PT-OP-L Special Tests Start: 12/15/20 09:53 Freq: Status: Active Protocol: Document 12/14/20 13:45 (Rec: 12/15/20 14:25 [email or web address]) Special Tests Cervical Spine Special Tests Foraminal Compression Test Results +VE Comments radiating pain to R necka nd shoulder Spurling's Test Test Results +VE Comments radiating pain to R necka nd shoulder Passive Neck Flexion Test Results -ve Traction Test Results +VE Comments pain relief Shoulder Special Tests Empty Can Test Results +ve R Apprehension Test Test Results +VE R Comments pain reduced with icnreased ER Grind Labrum Test Results -ve Speed's Biceps Test Results +VE Comments pain with resisted elbow flexion Marmolejo John Impingement Test Results +VE Drop Arm Rotator Cuff Test Results -ve Comments able to lift and hold but with pain PT-OP-M Strength Start: 12/15/20 09:53 Freq: Status: Active Protocol: Document 12/14/20 13:45 HH (Rec: 12/15/20 14:25 HH [email or web address]) Shoulder Strength Shoulder Manual Muscle Testing Right Flexion 4- Good- Extension 4- Good- Abduction (C5) 3+ Fair+ Adduction 4- Good- External Rotation 3+ Fair+ Internal Rotation 3+ Fair+ Left Flexion 5 Normal Extension 5 Normal Abduction (C5) 5 Normal Adduction 5 Normal External Rotation 5 Normal Internal Rotation 5 Normal PT-OP-Q Treatments Start: 12/15/20 09:53 Freq: Status: Active Protocol: Document 12/21/20 13:45 HH (Rec: 12/21/20 14:27 [id number]) Therapeutic Exercises Sidelying Exercises open book Side bilateral Reps/Minutes 8 x2 Comments cues on thoracic rotatoin Sitting Exercises upper trap stretch Side right Reps/Minutes 15sec hold x 5 levator stretch Side right Reps/Minutes 15 sec hold x5 Pulleys Sitting Exercise Name Flexion, Abduction Side left Equipment Used Pulleys Manual Therapy Treatment Soft Tissue Mobilization levator scap/ upper trap Mobilization Type Myofascial Release,Sustained Pressure,Trigger Point Release Intensity/Depth Moderate Body Position Supine biceps Body Location muscle belly and long head tendon Mobilization Type Myofascial Release,Sustained Pressure,Trigger Point Release Intensity/Depth Moderate Body Position Supine Comments reduced tonicity noted today. PT-OP-T Assessment and Plan Start: 12/15/20 09:53 Freq: Status: Active Protocol: Document 12/21/20 13:45 (Rec: 12/21/20 14:27 [id number]) Physical Therapy Assessment Goals radiating pain Impairment pt has radiating pain to her R neck and shoulder Short Term Goal (STG) pt will have no more than 4/10 radiating pain to her R neck and shoulder. STG Duration 5 weeks Data Review Specialist Goal (LTG) pt will have no more than 2/10 radiating pain to her R neck and shoulder. LTG Duration 10 weeks ROM Impairment limited R shoulder ROM and cervical ROM Short Term Goal (STG) pt will show increased in cervical and R shoulder ROM by 15 degrees in all planes STG Duration 5 weeks Retirement Goal (LTG) pt will show increased in cervical and R shoulder ROM by 25 degrees in all planes which allows her to dress and reach overhead without increase in discomfort. LTG Duration 10 weeks pain Impairment pt has night pain during sleep Short Term Goal (STG) pt will have less pain and able to maintain good sleep 3 nights per week STG Duration 4 weeks Retirement Goal (LTG) pt will have no pain and able to maintain good sleep for the entire week LTG Duration 8 weeks quickdash Impairment pt scores 47.7 on quickdash Short Term Goal (STG) pt will show improved quality of life and able to score <30 on quickdahs STG Duration 5 weeks Data Review Specialist Goal (LTG) pt will show improved quality of life and able to score <20 on quickdahs LTG Duration 10 weeks Assessment Summary Assessment pt reports reduced radiating R bicep pain, R neck pain and improved sleep quality since last session. I also noticed pt has difficulty understanding her R scapula position and often hike her R shoulder with all shoulder movements. Used mirror for guidance today. Physical Therapy Plan Frequency and Duration Frequency of Treatment 2x/Week Duration of Treatment 10 weeks Plan of Care Start Date 12/14/20 Plan of Care End Date 02/28/21 Therapeutic Interventions Therapeutic Interventions Home Exercise Program,Joint Mobilizations,Manual Therapy, Neuromuscular Re-education, Patient/Caregiver Education, Self-Care/Home Management,Soft Tissue Mobilization,Taping, Therapeutic Activities, Therapeutic Exercises Modalities Biofeedback,Cold Pack/Ice Massage,Electric Stimulation, Hot Packs,Infrared Therapy, Iontophoresis,Paraffin Bath, Traction- Mechanical, Ultrasound Next Visit Focus/Plan Next Note Type Treatment Note Next Visit Plan HEP STM on RTC., bicep open book scpa retraction, [place] melanie
--- NOTE | 2020-12-26 16:44 | PT.OTN ---
Current Diagnoses Bursitis of right shoulder (12/26/20) Physical Therapy Treatment Note PT-OP-A Visit Information Start: 12/15/20 09:53 Freq: Status: Active Protocol: Document 12/26/20 16:31 HH (Rec: 12/26/20 16:44 HH [email or web address]) Out-Patient Physical Therapy Visit Information Visit Information Visit Type Treatment Note Visit Start Time 13:00 Visit Stop Time 13:55 Total Visit Minutes 55 Visit Number 11/20 Number of [employer] Visits 0 PT-OP-B Current Condition Start: 12/15/20 09:53 Freq: Status: Active Protocol: Document 12/14/20 13:45 HH (Rec: 12/15/20 14:25 HH [email or web address]) Current Condition History of Current Condition Onset Date 1-2 years ago Current Complaints chronic R shoulder pain, difficulty reach overhead History of Current Condition Katheryn is a 65yo female here for her chronic R shoulder pain started 1-2 years ago with no known injury . Her pain locates at anterior and superior aspect of R shoulder, along with readiating pain to her biceps. She has significant difficulty reaching overhead, abduct and reaching behind her back which affects her ability to dress, daniela/doff bra etc. She also has significant pain during sleep everyday. Pt has had cortisone injection last year and it did not help. Pt had L RTC repair before and she is successfully recovered. Pt consulted with Ortho surgeon Dr. Bella and thinks she has bursitis and no surgery needed. Current Functional Impairments (Reported) Functional Limitations- ADL's difficulty with reaching overhead, daniela/doff her bra and overall dressing unable to open a tight jar or carry weighted object d/t pain Personal Factors Other Personal Factors That May Effect fibromyalgia Therapy/Recovery PT-OP-C Subjective Start: 12/15/20 09:53 Freq: Status: Active Protocol: Document 12/26/20 16:31 HH (Rec: 12/26/20 16:44 HH [email or web address]) OP-PT Subjective Patient Comments Patient Comments I went to ER on Friday after i reached backward with my R arm and it gave me severe pain. I was miserable since then and i have not done anything so far. X-ray shows nothing and I was doing really good before this happens. Patient Reported Progress Worse PT-OP-E Functional Tests Start: 12/15/20 09:53 Freq: Status: Active Protocol: Document 12/14/20 13:45 HH (Rec: 12/15/20 14:25 [email or web address]) Functional Tests Apley's Scratch Test Action 1- Left WFL Action 1- Right up 75%, pain at R shoulder Action 2- Left T2 Action 2- Right C7 Action 3- Left T8 Action 3- Right R SIJ PT-OP-F Manual Assessment Start: 12/15/20 09:53 Freq: Status: Active Protocol: Document 12/14/20 13:45 HH (Rec: 12/15/20 14:25 [email or web address]) Manual Assessments Soft Tissue Assessment Soft Tissue Mobility Assessment significant hypertonicity at long head tendon of bicep, pecs, infraspinatus and teresminor PT-OP-K Range of Motion Start: 12/15/20 09:53 Freq: Status: Active Protocol: Document 12/14/20 13:45 HH (Rec: 12/15/20 14:25 [email or web address]) Cervical Spine Range of Motion Cervical Spine Active Degrees Testing Position Sitting Flexion 55 Extension 25 Rotation Left 56 Rotation Right 46 Lateral Flexion Left 23 Lateral Flexion Right 20 ROM Limitations Soft Tissue Tightness,Pain Comments radiating pain R shoulder with extension, rotation to R and lateral flexion to R Shoulder Goniometric Range of Motion Shoulder Right Passive Shoulder ROM WFL No Testing Position Supine Flexion 160 Abduction 110 Right Shoulder ROM WFL No Testing Position Standing Flexion 115 Extension 28 Abduction 110 External Rotation at 90 degrees 50 Abduction Internal Rotation 30 Comments anterior shoulder pain with end range in all planes Left Active Shoulder ROM WFL Yes Testing Position Standing Flexion 160 Extension 40 Abduction 145 External Rotation at 90 degrees 80 Abduction Internal Rotation 90 PT-OP-L Special Tests Start: 12/15/20 09:53 Freq: Status: Active Protocol: Document 12/14/20 13:45 HH (Rec: 12/15/20 14:25 [email or web address]) Special Tests Cervical Spine Special Tests Foraminal Compression Test Results +VE Comments radiating pain to R necka nd shoulder Spurling's Test Test Results +VE Comments radiating pain to R necka nd shoulder Passive Neck Flexion Test Results -ve Traction Test Results +VE Comments pain relief Shoulder Special Tests Empty Can Test Results +ve R Apprehension Test Test Results +VE R Comments pain reduced with icnreased ER Grind Labrum Test Results -ve Speed's Biceps Test Results +VE Comments pain with resisted elbow flexion Marmolejo John Impingement Test Results +VE Drop Arm Rotator Cuff Test Results -ve Comments able to lift and hold but with pain PT-OP-M Strength Start: 12/15/20 09:53 Freq: Status: Active Protocol: Document 12/14/20 13:45 HH (Rec: 12/15/20 14:25 HH [email or web address]) Shoulder Strength Shoulder Manual Muscle Testing Right Flexion 4- Good- Extension 4- Good- Abduction (C5) 3+ Fair+ Adduction 4- Good- External Rotation 3+ Fair+ Internal Rotation 3+ Fair+ Left Flexion 5 Normal Extension 5 Normal Abduction (C5) 5 Normal Adduction 5 Normal External Rotation 5 Normal Internal Rotation 5 Normal PT-OP-Q Treatments Start: 12/15/20 09:53 Freq: Status: Active Protocol: Document 12/26/20 16:31 HH (Rec: 12/26/20 16:44 HH [email or web address]) Therapeutic Exercises Sitting Exercises upper trap stretch Side right Reps/Minutes 15sec hold x 5 Comments cues to keep her C/S neutral and depressed shoulder levator stretch Side right Reps/Minutes 15 sec hold x5 Comments cues to keep her R shoulder depressed Pulleys Sitting Exercise Name Flexion, Abduction Side bilateral Equipment Used Pulleys Manual Therapy Treatment Soft Tissue Mobilization levator scap/ upper trap Mobilization Type Myofascial Release,Sustained Pressure,Trigger Point Release Intensity/Depth Moderate Body Position Supine Comments increased tonicity noted today . biceps Body Location muscle belly and long head tendon Mobilization Type Myofascial Release,Sustained Pressure,Trigger Point Release Intensity/Depth Moderate Body Position Supine Comments increased tonicity noted today . RTCs Body Location infraspinatus, teres minor Mobilization Type Myofascial Release,Sustained Pressure,Trigger Point Release Intensity/Depth Moderate Body Position Supine Comments increased tonicity noted today . pecs Body Location major, minor Mobilization Type Myofascial Release,Sustained Pressure,Trigger Point Release Intensity/Depth Moderate Body Position Supine 1 Body Location Left anterior shoulder, traps Mobilization Type Cross-Friction,Myofascial Release,Rolling Intensity/Depth Moderate Joint Mobilizations cervical distraction Grade II Body Position Supine Reps/Duration 2 mins Comments with passive lateral flexion 1 Joint GH Direction post/inf Grade II PT-OP-R Modalities Start: 12/15/20 09:53 Freq: Status: Active Protocol: Document 12/26/20 16:31 (Rec: 12/26/20 16:44 [email or web address]) Hot Pack/Cold Pack Treatment Hot Pack Location cervical Patient Position Supine Treatment Duration (minutes) 10 Patient Tolerance Good Cold Pack Location R shoulder Patient Position Supine Treatment Duration (minutes) 10 Patient Tolerance Good PT-OP-T Assessment and Plan Start: 12/15/20 09:53 Freq: Status: Active Protocol: Document 12/26/20 16:31 (Rec: 12/26/20 16:44 [email or web address]) Physical Therapy Assessment Goals radiating pain Impairment pt has radiating pain to her R neck and shoulder Short Term Goal (STG) pt will have no more than 4/10 radiating pain to her R neck and shoulder. STG Duration 5 weeks Nursing Home Goal (LTG) pt will have no more than 2/10 radiating pain to her R neck and shoulder. LTG Duration 10 weeks ROM Impairment limited R shoulder ROM and cervical ROM Short Term Goal (STG) pt will show increased in cervical and R shoulder ROM by 15 degrees in all planes STG Duration 5 weeks Nursing Home Goal (LTG) pt will show increased in cervical and R shoulder ROM by 25 degrees in all planes which allows her to dress and reach overhead without increase in discomfort. LTG Duration 10 weeks pain Impairment pt has night pain during sleep Short Term Goal (STG) pt will have less pain and able to maintain good sleep 3 nights per week STG Duration 4 weeks Nursing Home Goal (LTG) pt will have no pain and able to maintain good sleep for the entire week LTG Duration 8 weeks quickdash Impairment pt scores 47.7 on quickdash Short Term Goal (STG) pt will show improved quality of life and able to score <30 on quickdahs STG Duration 5 weeks [employer] Goal (LTG) pt will show improved quality of life and able to score <20 on quickdahs LTG Duration 10 weeks Assessment Summary Assessment Pt was progressing well until she had a flare up after reaching backward in her car on Friday. Pt most likely re -strained her R shoulder again and there;s additional/ worsening symptoms compared to her initial evaluation. pt felt better at the end of session and recommended her to only light stretching ex as tolerated. Will reassess next visit. Physical Therapy Plan Frequency and Duration Frequency of Treatment 2x/Week Duration of Treatment 10 weeks Plan of Care Start Date 12/14/20 Plan of Care End Date 02/28/21 Therapeutic Interventions Therapeutic Interventions Home Exercise Program,Joint Mobilizations,Manual Therapy, Neuromuscular Re-education, Patient/Caregiver Education, Self-Care/Home Management,Soft Tissue Mobilization,Taping, Therapeutic Activities, Therapeutic Exercises Modalities Biofeedback,Cold Pack/Ice Massage,Electric Stimulation, Hot Packs,Infrared Therapy, Iontophoresis,Paraffin Bath, Traction- Mechanical, Ultrasound Next Visit Focus/Plan Next Note Type Treatment Note Next Visit Plan HEP STM on RTC., bicep open book scpa aron, SAMSON navarro
--- NOTE | 2021-01-04 14:29 | PT.OTN ---
Current Diagnoses Bursitis of right shoulder (01/04/21) Physical Therapy Treatment Note PT-OP-A Visit Information Start: 12/15/20 09:53 Freq: Status: Active Protocol: Document 01/04/21 13:47 HH (Rec: 01/04/21 14:29 [id number]) Out-Patient Physical Therapy Visit Information Visit Information Visit Type Treatment Note Visit Note Pt received her 2nd COVID vaccine and she stated she has been feeling fatigued. Visit Start Time 13:47 Visit Stop Time 14:43 Total Visit Minutes 53 Visit Number 12/20 Number of DIRECTOR OF ACCOUNTING Visits 0 PT-OP-B Current Condition Start: 12/15/20 09:53 Freq: Status: Active Protocol: Document 12/14/20 13:45 HH (Rec: 12/15/20 14:25 HH [email or web address]) Current Condition History of Current Condition Onset Date 1-2 years ago Current Complaints chronic R shoulder pain, difficulty reach overhead History of Current Condition Katheryn is a 65yo female here for her chronic R shoulder pain started 1-2 years ago with no known injury . Her pain locates at anterior and superior aspect of R shoulder, along with readiating pain to her biceps. She has significant difficulty reaching overhead, abduct and reaching behind her back which affects her ability to dress, daniela/doff bra etc. She also has significant pain during sleep everyday. Pt has had cortisone injection last year and it did not help. Pt had L RTC repair before and she is successfully recovered. Pt consulted with Ortho surgeon Dr. Bella and thinks she has bursitis and no surgery needed. Current Functional Impairments (Reported) Functional Limitations- ADL's difficulty with reaching overhead, daniela/doff her bra and overall dressing unable to open a tight jar or carry weighted object d/t pain Personal Factors Other Personal Factors That May Effect fibromyalgia Therapy/Recovery PT-OP-C Subjective Start: 12/15/20 09:53 Freq: Status: Active Protocol: Document 01/04/21 13:47 HH (Rec: 01/04/21 14:29 [id number]) OP-PT Subjective Patient Comments Patient Comments My shoulder has been doing pretty good especially during my sleep. I havent done any exercises because of my busy work schedule. Patient Reported Progress Improving PT-OP-E Functional Tests Start: 12/15/20 09:53 Freq: Status: Active Protocol: Document 12/14/20 13:45 HH (Rec: 12/15/20 14:25 [email or web address]) Functional Tests Apley's Scratch Test Action 1- Left WFL Action 1- Right up 75%, pain at R shoulder Action 2- Left T2 Action 2- Right C7 Action 3- Left T8 Action 3- Right R SIJ PT-OP-F Manual Assessment Start: 12/15/20 09:53 Freq: Status: Active Protocol: Document 12/14/20 13:45 HH (Rec: 12/15/20 14:25 [email or web address]) Manual Assessments Soft Tissue Assessment Soft Tissue Mobility Assessment significant hypertonicity at long head tendon of bicep, pecs, infraspinatus and teresminor PT-OP-K Range of Motion Start: 12/15/20 09:53 Freq: Status: Active Protocol: Document 12/14/20 13:45 HH (Rec: 12/15/20 14:25 [email or web address]) Cervical Spine Range of Motion Cervical Spine Active Degrees Testing Position Sitting Flexion 55 Extension 25 Rotation Left 56 Rotation Right 46 Lateral Flexion Left 23 Lateral Flexion Right 20 ROM Limitations Soft Tissue Tightness,Pain Comments radiating pain R shoulder with extension, rotation to R and lateral flexion to R Shoulder Goniometric Range of Motion Shoulder Right Passive Shoulder ROM WFL No Testing Position Supine Flexion 160 Abduction 110 Right Shoulder ROM WFL No Testing Position Standing Flexion 115 Extension 28 Abduction 110 External Rotation at 90 degrees 50 Abduction Internal Rotation 30 Comments anterior shoulder pain with end range in all planes Left Active Shoulder ROM WFL Yes Testing Position Standing Flexion 160 Extension 40 Abduction 145 External Rotation at 90 degrees 80 Abduction Internal Rotation 90 PT-OP-L Special Tests Start: 12/15/20 09:53 Freq: Status: Active Protocol: Document 12/14/20 13:45 HH (Rec: 12/15/20 14:25 [email or web address]) Special Tests Cervical Spine Special Tests Foraminal Compression Test Results +VE Comments radiating pain to R necka nd shoulder Spurling's Test Test Results +VE Comments radiating pain to R necka nd shoulder Passive Neck Flexion Test Results -ve Traction Test Results +VE Comments pain relief Shoulder Special Tests Empty Can Test Results +ve R Apprehension Test Test Results +VE R Comments pain reduced with icnreased ER Grind Labrum Test Results -ve Speed's Biceps Test Results +VE Comments pain with resisted elbow flexion Marmolejo John Impingement Test Results +VE Drop Arm Rotator Cuff Test Results -ve Comments able to lift and hold but with pain PT-OP-M Strength Start: 12/15/20 09:53 Freq: Status: Active Protocol: Document 12/14/20 13:45 HH (Rec: 12/15/20 14:25 HH [email or web address]) Shoulder Strength Shoulder Manual Muscle Testing Right Flexion 4- Good- Extension 4- Good- Abduction (C5) 3+ Fair+ Adduction 4- Good- External Rotation 3+ Fair+ Internal Rotation 3+ Fair+ Left Flexion 5 Normal Extension 5 Normal Abduction (C5) 5 Normal Adduction 5 Normal External Rotation 5 Normal Internal Rotation 5 Normal PT-OP-Q Treatments Start: 12/15/20 09:53 Freq: Status: Active Protocol: Document 01/04/21 13:47 HH (Rec: 01/04/21 14:29 HH [id number]) Cardio Equipment Upper Body Ergometer (UBE) Duration (Minutes) 3 Other portable UBE, lightest resistance Therapeutic Exercises Supine Exercises shoulder ER Side bilateral Equipment Used PVC Reps/Minutes 10 x 2 Comments for HEP Sitting Exercises upper trap stretch Sitting Exercise Name review HEP Side right Reps/Minutes 15sec hold x 5 Comments cues to keep her C/S neutral and depressed shoulder levator stretch Sitting Exercise Name review HEP Side right Reps/Minutes 15 sec hold x5 Comments cues to keep her R shoulder depressed Pulleys Sitting Exercise Name Flexion, Abduction Side bilateral Equipment Used Pulleys Comments 6 mins Standing Exercises scap pinch Side bilateral Reps/Minutes 10 x2 Comments review HEP Manual Therapy Treatment Soft Tissue Mobilization levator scap/ upper trap Mobilization Type Myofascial Release,Sustained Pressure,Trigger Point Release Intensity/Depth Moderate Body Position Supine Comments increased tonicity noted today . biceps Body Location muscle belly and long head tendon Mobilization Type Myofascial Release,Sustained Pressure,Trigger Point Release Intensity/Depth Moderate Body Position Supine Comments increased tonicity noted today . RTCs Body Location infraspinatus, teres minor Mobilization Type Myofascial Release,Sustained Pressure,Trigger Point Release Intensity/Depth Moderate Body Position Supine Comments increased tonicity noted today . pecs Body Location major, minor Mobilization Type Myofascial Release,Sustained Pressure,Trigger Point Release Intensity/Depth Moderate Body Position Supine PT-OP-R Modalities Start: 12/15/20 09:53 Freq: Status: Active Protocol: Document 01/04/21 13:47 HH (Rec: 01/04/21 14:29 HH [id number]) Hot Pack/Cold Pack Treatment Hot Pack Location cervical Patient Position Supine Treatment Duration (minutes) 10 Patient Tolerance Good PT-OP-T Assessment and Plan Start: 12/15/20 09:53 Freq: Status: Active Protocol: Document 01/04/21 13:47 HH (Rec: 01/04/21 14:29 HH [id number]) Physical Therapy Assessment Goals radiating pain Impairment pt has radiating pain to her R neck and shoulder Short Term Goal (STG) pt will have no more than 4/10 radiating pain to her R neck and shoulder. STG Duration 5 weeks Bander And Cellophaner Machine Helper Goal (LTG) pt will have no more than 2/10 radiating pain to her R neck and shoulder. LTG Duration 10 weeks ROM Impairment limited R shoulder ROM and cervical ROM Short Term Goal (STG) pt will show increased in cervical and R shoulder ROM by 15 degrees in all planes STG Duration 5 weeks Bander And Cellophaner Machine Helper Goal (LTG) pt will show increased in cervical and R shoulder ROM by 25 degrees in all planes which allows her to dress and reach overhead without increase in discomfort. LTG Duration 10 weeks pain Impairment pt has night pain during sleep Short Term Goal (STG) pt will have less pain and able to maintain good sleep 3 nights per week STG Duration 4 weeks Halfway Goal (LTG) pt will have no pain and able to maintain good sleep for the entire week LTG Duration 8 weeks quickdash Impairment pt scores 47.7 on quickdash Short Term Goal (STG) pt will show improved quality of life and able to score <30 on quickdahs STG Duration 5 weeks Bander And Cellophaner Machine Helper Goal (LTG) pt will show improved quality of life and able to score <20 on quickdahs LTG Duration 10 weeks Assessment Summary Assessment Althought pt hasnt been doing her HEP, her R shoulder pain and mobility have improved since last visit. Spent time reviewing HEP with her and added shoulder ER in supine . Physical Therapy Plan Frequency and Duration Frequency of Treatment 2x/Week Duration of Treatment 10 weeks Plan of Care Start Date 12/14/20 Plan of Care End Date 02/28/21 Therapeutic Interventions Therapeutic Interventions Home Exercise Program,Joint Mobilizations,Manual Therapy, Neuromuscular Re-education, Patient/Caregiver Education, Self-Care/Home Management,Soft Tissue Mobilization,Taping, Therapeutic Activities, Therapeutic Exercises Modalities Biofeedback,Cold Pack/Ice Massage,Electric Stimulation, Hot Packs,Infrared Therapy, Iontophoresis,Paraffin Bath, Traction- Mechanical, Ultrasound Next Visit Focus/Plan Next Note Type Treatment Note Next Visit Plan review HEP
--- NOTE | 2021-01-09 13:15 | PT.OPDS ---
Current Diagnoses Bursitis of right shoulder (01/04/21) Visit Care Team Role Provider Type Dulce Palencia MD Family Provider Physician Primary Care Provider Specialty: Family Practice Address: [address] [place] [address], [place], [address] Email: [email or web address] Elder Bella MD Attending Provider Physician Referring Provider Specialty: Orthopedic Surgery Address: [address] [place] [address], [id number] Email: [email or web address] Visit Number Visit Number 12/20 Discharge Summary PT-OP-T Assessment and Plan Start: 12/15/20 09:53 Freq: Status: Active Protocol: Document 01/09/21 13:13 (Rec: 01/09/21 13:14 [id number]) Physical Therapy Plan Discharge Physical Therapy Discharge Reasons Patient Request Discharge Comments pt called in earlier today and cancelled all her remaining appts due to new health issues . She requested to be DC from PT
== END 2021-01-09 13:17 | disposition home or self-care (01) ==
LOC: PHYS 13:45
PROVIDERS: Family Provider Family Medicine; PCP Family Medicine; Referring Provider Orthopaedic Surgery; Visit Provider Orthopaedic Surgery
DX: M75.51 Bursitis of right shoulder (principal)
CPT/HCPCS: 97110; 97140; 97161

== ENCOUNTER 2021-03-05 12:35 | Emergency (ER) | payer MEDICARE, MEDICAID, SELFPAY ==
[2021-03-05] VITALS (8 sets, daily range): BP systolic 112–137; BP diastolic 55–79; PULSE 71–92; RESP 12–18; TEMP 36.7; O2SAT 95–97; BMI 33.9
[2021-03-05 13:10] LABS: Add Manual Diff / Slide Review NO; Basophils Absolute Auto 100 /uL (0-100); Basophils Percent Auto 1.2 % (0-2); Eosinophils Absolute Auto 400 /uL (0-450); Eosinophils Percent Auto 3.4 % (2-4); Hemoglobin 13.8 g/dL (12.0-16.0); Lymphocytes Absolute Auto 3500 /uL (1100-4500); Lymphocytes Percent Auto 30.8 % (25-40); Mean Corpuscular HGB Conc 33.6 % (30-36); Mean Corpuscular Hemoglobin 28.1 PG (26-34); Mean Corpuscular Volume 83.5 fL (80-100); Monocytes Absolute Auto 800 /uL (0-900); Neutrophils Absolute Auto 6600 /uL (1500-7000); Neutrophils Percent Auto 57.6 % (50-75); Platelet Count 381 X10^3/uL (150-400); Red Blood Cell Count 4.92 X10^6/uL (4.0-5.2); Red Cell Distribution Width 13.7 % (11.6-14.8); White Blood Cell Count 11.5 X10^3/uL (4.5-11.0)
[2021-03-05 13:16] LABS: INR 1.1 (0.9-1.3); Prothrombin Time 12.3 SECONDS (10.1-12.7)
[2021-03-05 13:19] LABS: PTT Partial Thromboplastin Tim 30 SECONDS (26.4-36.2)
[2021-03-05 13:21] LABS: Alanine Aminotransferase 21 IU/L (<35); Albumin 4.2 g/dL (3.5-5.0); Alkaline Phosphatase 131 U/L (38-126); Aspartate Aminotransferase 30 IU/L (14-36); BUN Creatinine Ratio 20.8 (6-22); Bilirubin Total 0.3 mg/dL (0.2-1.3); Blood Urea Nitrogen 15 mg/dL (7-17); Calcium 9.6 mg/dL (8.4-10.2); Carbon Dioxide 21 mmol/L (22-32); Chloride 108 mmol/L (98-107); Estimated Glomerular Filt Rate > 60.0 mL/min (>60); Globulin 4.2 g/dL (1.7-4.1); Glucose 106 mg/dL (80-110); HEMOLYSIS < 15 (0-50); Sodium 139 mmol/L (137-145); Total Protein 8.4 g/dL (6.3-8.2)
[2021-03-05 14:37] LABS: Bacteria Urine None Seen; RBC Urine None Seen (0-5/HPF); WBC Urine None Seen (0-5/HPF)
[2021-03-05 14:38] LABS: Appearance Urine UA CLEAR; Bilirubin Urine UA NEGATIVE (NEGATIVE); Color Urine UA YELLOW; Glucose Urine UA NEGATIVE (Negative); Ketones Urine UA NEGATIVE (NEGATIVE); Leukocyte Esterase Urine UA NEGATIVE (NEGATIVE); Nitrite Urine UA NEGATIVE (Negative); Occult Blood Urine UA NEGATIVE (Negative); Protein Urine UA NEGATIVE (Negative); Specific Gravity Urine UA <=1.005 (1.000-1.035); Urobilinogen Urine UA 0.2 E.U./dL (0.2)
[2021-03-05 14:40] LABS: Culture Indicated Urine Cult Not Indicated; Urine Comments Microscopic Normal
--- NOTE | 2021-03-05 18:13 | ED.GIBLEED ---
HPI - GI Bleed General Chief complaint: GI Bleed Stated complaint: black stool for 7days, nauseas. low bp sent by [facility] Time Seen by Provider: 03/05/21 18:04 Source: patient Mode of arrival: Wheelchair History of Present Illness HPI Narrative: 66-year-old female nonsmoker with history of dysphagia, migraines, GERD presents from the walk-in clinic with a chief complaint of black stools for the past week. She denies any blood thinners, history of alcohol abuse or use of NSAIDs. She felt a little crummy this morning and was feeling lightheaded but that has resolved. She has no pain is currently asymptomatic. She has taken Pepto-Bismol but thinks her stools were black prior to that. She is not taking iron supplements. Her vitals have been very reassuring here Related Data Home Medications Medication Instructions Recorded Confirmed magnesium 250 mg tablet 500 mg PO DAILY 02/14/18 02/02/21 Previous Rx's Medication Instructions Recorded fluticasone propionate 50 1 spray INTRANASAL BID #9.9 gram 05/05/19 mcg/actuation nasal spray,suspension albuterol sulfate 90 mcg/actuation 2 puff INHALATION Q4HP PRN #1 ea 04/12/20 aerosol inhaler (Ventolin HFA) topiramate 50 mg tablet See Rx Instructions .ROUTE 10/02/20 .COMPLEX #180 tab omeprazole 40 mg capsule,delayed 40 mg PO BID #60 cap 11/24/20 release lidocaine 5 % topical patch 1 patch TOPICAL DAILY PRN #15 ea 12/24/20 methocarbamol 500 mg tablet 500 mg PO QID PRN #60 tab 01/26/21 sucralfate 1 gram tablet See Rx Instructions .ROUTE 02/06/21 .COMPLEX #360 tab Allergies Allergy/AdvReac Type Severity Reaction Status Date / Time codeine [CODEINE] Allergy Mild THROAT Verified 03/05/21 12:44 SWELLING naproxen [From ANAPROX] Allergy Mild HIVES Verified 03/05/21 12:44 flurbiprofen [FLURBIPROFEN] AdvReac Mild GI UPSET Verified 03/05/21 12:44 Review of Systems Review of Systems Narrative: GENERAL: Denies chills, fatigue, malaise, fever, sweats. HEENT: Denies sinus pain, ear pain, sore throat, difficulty swallowing, dizziness. RESPIRATORY: Denies dyspnea, cough, wheezing, hemoptysis, sputum. CARDIOVASCULAR: Denies chest pain, palpitations, orthopnea, edema, GASTROINTESTINAL: See HPI. : Denies dysuria, frequency, incontinence, hematuria, urinary retention. MUSCULOSKELETAL: denies weakness, joint pain, or bony pain SKIN: Denies rash, skin lesions, or other NEUROLOGIC: Denies weakness, headache, numbness, change in speech, confusion, seizures, incoordination. PSYCHIATRIC: No concerning psychosocial issues. 12 point review of systems is negative except for those stated above Patient History Medical History Anxiety Arthritis BCC (basal cell carcinoma), shoulder Compression fracture of thoracic vertebra Depression Fracture of rib of right side (2014) GERD (gastroesophageal reflux disease) Hemorrhoids History of ulcer disease Measles Migraine Psoriatic arthritis Surgical History History of cholecystectomy History of total hysterectomy History of tubal ligation Hx of sinus surgery Family History Father Alcoholism Mother Arthritis Cancer Brother Suicide Sister Alcoholism Arthritis Hepatitis C Son Seasonal allergies Daughter Hyperlipidemia Ulcer Daughter Genetic disease Social History marital status: unknown household members: none Smoking Status: Never smoker alcohol intake: current substance use type: does not use Smoking Status: Never smoker alcohol intake frequency: a few times a month Substance Use Type: does not use Exam Narrative Exam Narrative: GENERAL: [66] year old patient appears stated age. Well-developed patient, in mild distress. HEAD: Atraumatic. Normocephalic. EYES: Pupils equal round and reactive. Extraocular motions intact. No scleral icterus. No injection or drainage. ENT: Nose without bleeding, purulent drainage. Throat without erythema, tonsillar hypertrophy or exudate. Airway patent. NECK: Trachea midline. Non tender CARDIOVASCULAR: Regular rate and rhythm without murmurs, gallops, or rubs. RESPIRATORY: Clear to auscultation. Breath sounds equal bilaterally. No wheezes, rales, or rhonchi. GASTROINTESTINAL: Abdomen soft, non-tender, nondistended. RECTAL: No fissure or hemorrhoid. Hemoccult negative. Exam performed with patient permission and female nursing oracle pl sql developer at the bedside EXTREMITIES: No edema or joint tenderness. BACK: Nontender without deformity or crepitance. No flank tenderness. NEURO: AOx3. SKIN: No rash or erythema of visible areas Initial Vital Signs Initial Vital Signs: Vital Signs Temperature 98.1 F 03/05/21 12:41 Pulse Rate 92 H 03/05/21 12:41 Respiratory Rate 12 03/05/21 12:41 Blood Pressure 137/68 03/05/21 12:41 Pulse Oximetry 95 03/05/21 12:41 Course Course Course Narrative: [place] Bleeding Score (GBS) from [employer] on 03/05/2021 All calculations should be rechecked by clinician prior to use RESULT SUMMARY: 0 points A GBS of 0 is a ?Low Risk? GI bleed, and is highly sensitive (99.6% in a 2007 retrospective study) for predicting which patients did not require any ?medical intervention?: blood transfusion, endoscopy, or surgery. This was confirmed in a [address] [facility] study where patients with a score of 0 were actually discharged and had no GI bleeding mortality at 6 month followup INPUTS: Hemoglobin ?> 13.8 g/dL BUN ?> 15 mg/dL Initial systolic BP ?> 123 mm Hg Sex ?> 1 = Female Heart rate ?100 ?> 0 = No Melena present ?> 0 = No Recent syncope ?> 0 = No Hepatic disease history ?> 0 = No Cardiac failure present ?> 0 = No Orders Ordered: ED Orders 03/05/21 12:57 Complete Blood Count AUTO DIFF Stat Comprehensive Metabolic Panel Stat Partial Thromboplastin Time Stat Prothrombin Time INR Stat Type and Screen Stat 03/05/21 13:03 EKG-12 Lead Stat 03/05/21 14:30 Urinalysis and Microscopic Stat Vital Signs Vital signs: Vital Signs - 8 hr 03/05/21 19:30 Pulse Rate 81 Respiratory Rate 18 Pulse Oximetry 95 MDM - GI Bleed Lab Data Result diagrams: 03/05/21 12:57 03/05/21 12:57 Labs: Lab Results 03/05/21 03/05/21 03/05/21 Range/Units 12:57 12:57 12:57 WBC 11.5 H (4.5-11.0) X10^3/uL RBC 4.92 (4.0-5.2) X10^6/uL Hgb 13.8 (12.0-16.0) g/dL Hct 41.0 (36-46) % MCV 83.5 (80-100) fL MCH 28.1 (26-34) PG MCHC 33.6 (30-36) % RDW 13.7 (11.6-14.8) % Plt Count 381 (150-400) X10^3/uL Neut % (Auto) 57.6 (50-75) % Lymph % (Auto) 30.8 (25-40) % [place] % (Auto) 7.0 (3-14) % Eos % (Auto) 3.4 (2-4) % Baso % (Auto) 1.2 (0-2) % Neut # (Auto) 6600 (8607-4972) /uL Lymph # (Auto) 3500 (9595-5175) /uL [place] # (Auto) 800 (0-900) /uL Eos # (Auto) 400 (0-450) /uL Baso # (Auto) 100 (0-100) /uL PT 12.3 (10.1-12.7) SECONDS INR 1.1 (0.9-1.3) APTT 30 (26.4-36.2) SECONDS Sodium 139 (137-145) mmol/L Potassium 4.0 (3.4-5.1) mmol/L Chloride 108 H (98-107) mmol/L Carbon Dioxide 21 L (22-32) mmol/L BUN 15 (7-17) mg/dL Creatinine 0.72 (0.52-1.04) mg/dL Estimated GFR > 60.0 (>60) mL/min BUN/Creatinine Ratio 20.8 (6-22) Glucose 106 (80-110) mg/dL Calcium 9.6 (8.4-10.2) mg/dL Total Bilirubin 0.3 (0.2-1.3) mg/dL AST 30 (14-36) IU/L ALT 21 (<35) IU/L Alkaline Phosphatase 131 H (38-126) U/L Total Protein 8.4 H (6.3-8.2) g/dL Albumin 4.2 (3.5-5.0) g/dL Globulin 4.2 H (1.7-4.1) g/dL Albumin/Globulin Ratio 1.0 (1.0-2.8) Urine Color Urine Appearance Urine pH (4.5-8.0) Ur Specific [place] (1.000-1.035) Urine Protein (Negative) Urine Glucose (UA) (Negative) g/dL Urine Ketones (NEGATIVE) Urine Occult Blood (Negative) Urine Nitrate (Negative) Urine Bilirubin (NEGATIVE) Urine Urobilinogen (0.2) E.U./dL Ur Leukocyte Esterase (NEGATIVE) Urine RBC (0-5/HPF) Urine WBC (0-5/HPF) Urine Bacteria (None) Ur Culture Indicated? Micro UA Comment Blood Type Antibody Screen 03/05/21 03/05/21 03/05/21 Range/Units 12:57 12:57 12:57 WBC Cancelled (4.5-11.0) X10^3/uL RBC Cancelled (4.0-5.2) X10^6/uL Hgb Cancelled (12.0-16.0) g/dL Hct Cancelled (36-46) % MCV Cancelled (80-100) fL MCH Cancelled (26-34) PG MCHC Cancelled (30-36) % RDW Cancelled (11.6-14.8) % Plt Count Cancelled (150-400) X10^3/uL Neut % (Auto) Cancelled (50-75) % Lymph % (Auto) Cancelled (25-40) % [place] % (Auto) Cancelled (3-14) % Eos % (Auto) Cancelled (2-4) % Baso % (Auto) Cancelled (0-2) % Neut # (Auto) Cancelled (2458-7074) /uL Lymph # (Auto) Cancelled (6539-3201) /uL [place] # (Auto) Cancelled (0-900) /uL Eos # (Auto) Cancelled (0-450) /uL Baso # (Auto) Cancelled (0-100) /uL PT (10.1-12.7) SECONDS INR (0.9-1.3) APTT (26.4-36.2) SECONDS Sodium Cancelled (137-145) mmol/L Potassium Cancelled (3.4-5.1) mmol/L Chloride Cancelled (98-107) mmol/L Carbon Dioxide Cancelled (22-32) mmol/L BUN Cancelled (7-17) mg/dL Creatinine Cancelled (0.52-1.04) mg/dL Estimated GFR Cancelled (>60) mL/min BUN/Creatinine Ratio Cancelled (6-22) Glucose Cancelled (80-110) mg/dL Calcium Cancelled (8.4-10.2) mg/dL Total Bilirubin Cancelled (0.2-1.3) mg/dL AST Cancelled (14-36) IU/L ALT Cancelled (<35) IU/L Alkaline Phosphatase Cancelled (38-126) U/L Total Protein Cancelled (6.3-8.2) g/dL Albumin Cancelled (3.5-5.0) g/dL Globulin Cancelled (1.7-4.1) g/dL Albumin/Globulin Ratio Cancelled (1.0-2.8) Urine Color Urine Appearance Urine pH (4.5-8.0) Ur Specific [place] (1.000-1.035) Urine Protein (Negative) Urine Glucose (UA) (Negative) g/dL Urine Ketones (NEGATIVE) Urine Occult Blood (Negative) Urine Nitrate (Negative) Urine Bilirubin (NEGATIVE) Urine Urobilinogen (0.2) E.U./dL Ur Leukocyte Esterase (NEGATIVE) Urine RBC (0-5/HPF) Urine WBC (0-5/HPF) Urine Bacteria (None) Ur Culture Indicated? Micro UA Comment Blood Type O Negative Antibody Screen Negative 03/05/21 03/05/21 Range/Units 12:57 14:30 WBC (4.5-11.0) X10^3/uL RBC (4.0-5.2) X10^6/uL Hgb (12.0-16.0) g/dL Hct (36-46) % MCV (80-100) fL MCH (26-34) PG MCHC (30-36) % RDW (11.6-14.8) % Plt Count (150-400) X10^3/uL Neut % (Auto) (50-75) % Lymph % (Auto) (25-40) % [place] % (Auto) (3-14) % Eos % (Auto) (2-4) % Baso % (Auto) (0-2) % Neut # (Auto) (2341-6531) /uL Lymph # (Auto) (6129-2994) /uL [place] # (Auto) (0-900) /uL Eos # (Auto) (0-450) /uL Baso # (Auto) (0-100) /uL PT Cancelled (10.1-12.7) SECONDS INR Cancelled (0.9-1.3) APTT (26.4-36.2) SECONDS Sodium (137-145) mmol/L Potassium (3.4-5.1) mmol/L Chloride (98-107) mmol/L Carbon Dioxide (22-32) mmol/L BUN (7-17) mg/dL Creatinine (0.52-1.04) mg/dL Estimated GFR (>60) mL/min BUN/Creatinine Ratio (6-22) Glucose (80-110) mg/dL Calcium (8.4-10.2) mg/dL Total Bilirubin (0.2-1.3) mg/dL AST (14-36) IU/L ALT (<35) IU/L Alkaline Phosphatase (38-126) U/L Total Protein (6.3-8.2) g/dL Albumin (3.5-5.0) g/dL Globulin (1.7-4.1) g/dL Albumin/Globulin Ratio (1.0-2.8) Urine Color Yellow Urine Appearance Clear Urine pH 6.0 (4.5-8.0) Ur Specific [place] <=1.005 (1.000-1.035) Urine Protein Negative (Negative) Urine Glucose (UA) Negative (Negative) g/dL Urine Ketones Negative (NEGATIVE) Urine Occult Blood Negative (Negative) Urine Nitrate Negative (Negative) Urine Bilirubin Negative (NEGATIVE) Urine Urobilinogen 0.2 (0.2) E.U./dL Ur Leukocyte Esterase Negative (NEGATIVE) Urine RBC None seen (0-5/HPF) Urine WBC None seen (0-5/HPF) Urine Bacteria None seen (None) Ur Culture Indicated? Cult not indicated Micro UA Comment Microscopic normal Blood Type Antibody Screen MDM Narrative Medical decision making narrative: Patient reports dark stool over the course of the week and is largely otherwise asymptomatic. She did have some lightheadedness earlier today but that has since resolved. Her vital signs are stable, H&H is stable. Her Evelyn bladder for bleeding score is 0. She is currently heme-negative. Patient artery takes a PPI. I have discussed with her primary care provider who will closely follow-up and arrange for appropriate follow-up. Return precautions given and questions answered to her apparent satisfaction Discharge Plan Departure Patient Disposition: Home Clinical Impression: Dark stools Instructions: Gastrointestinal Bleeding Activity Restrictions/Additional Instructions: *You have been diagnosed with [possible GI bleed] *What to do: *Please continue to take your regular medications as directed. [ ] New medication prescriptions sent to your pharmacy: [ ] [ ] New medication written as a paper prescription [x ] No new medications given *Please follow up with your primary care provider in 2-3 days, call for an appointment. Let them know you were seen in the Emergency Department and that we ask that you be seen in follow up. We will electronically transmit a record of today's note if your PCP is in our system *If you do not have a primary care provider please contact the [facility] Resource line at [phone]. They will ask some questions about your medical history and help get you set up with a doctor in the community. *Return to Emergency Department if you should have any new, worsening or concerning symptoms, such as [fever greater than 101 F, shaking chills, worsening pain, persistent vomiting or other bothersome symptoms] Prescriptions: No Action albuterol sulfate [Ventolin HFA] 90 mcg/actuation HFA aerosol inhaler 2 puff INHALATION Q4HP PRN (Reason: shortness of breath or wheezing) Qty: 1 RF: 0 fluticasone propionate 50 mcg/actuation spray,suspension 1 spray INTRANASAL BID Qty: 9.9 RF: 5 topiramate 50 mg tablet See Rx Instructions .ROUTE .COMPLEX Qty: 180 RF: 2 omeprazole 40 mg capsule,delayed release(DR/EC) 40 mg PO BID Qty: 60 RF: 5 methocarbamol 500 mg tablet 500 mg PO QID PRN (Reason: shoulder and neck pain and spasms) Qty: 60 RF: 0 sucralfate 1 gram tablet See Rx Instructions .ROUTE .COMPLEX Qty: 360 RF: 3 magnesium 250 mg Tablet 500 mg PO DAILY RF: 0 lidocaine 5 % adhesive patch,medicated 1 patch topical DAILY PRN (Reason: pain) Qty: 15 RF: 0 Referrals: Dulce Palencia MD [Primary Care Provider] -
== END 2021-03-05 19:55 | disposition home or self-care (01) ==
PROVIDERS: Emergency Medicine; Emergency Provider Emergency Medicine; Family Provider Family Medicine; PCP Family Medicine
DX: R19.5 Other fecal abnormalities (principal); R42 Dizziness and giddiness
CPT/HCPCS: 36415; 80053; 81001; 85025; 85610; 85730; 86850; 86900; 86901; 93005; 99283; 99284

== ENCOUNTER → 2021-03-09 15:13 | Outpatient (CLI) | payer MEDICARE, MEDICAID, SELFPAY ==
--- NOTE | 2021-03-09 | DI.MG.S_ITS ---
BILATERAL DIGITAL SCREENING MAMMOGRAM 3D/2D WITH CAD: 03/09/2021 CLINICAL: Routine screening. Family history of breast cancer. Comparison is made to exams dated: 04/08/2018 mammogram, 03/27/2016 mammogram, and 10/04/2014 mammogram - [facility]. The tissue of both breasts is predominantly fatty. Current study was also evaluated with a Computer Aided Detection (CAD) system. No significant masses, calcifications, or other findings are seen in either breast. There has been no significant interval change. IMPRESSION: NEGATIVE There is no mammographic evidence of malignancy. A 1 year screening mammogram is recommended. This exam was interpreted at Station ID: [id number]. NOTE: For mammograms, a report in lay terms will be sent to the patient. Approximately 15% of breast malignancies will not be visualized mammographically. In the management of a palpable breast mass, a negative mammogram must not discourage biopsy of a clinically suspicious lesion. Electronically Signed By: Avtar camilo/juan c:03/09/2021 16:55:16 letter sent: Normal Exam ACR BI-RADS Category 1: Negative [id number]
== END ==
PROVIDERS: Family Provider Family Medicine; PCP Family Medicine; Referring Provider Family Medicine; Visit Provider Family Medicine
DX: Z12.31 Encounter for screening mammogram for malignant neoplasm of breast (principal); Z80.3 Family history of malignant neoplasm of breast
CPT/HCPCS: 77063; 77067

== ENCOUNTER → 2021-03-24 09:51 | Outpatient (CLI) | payer MEDICARE, MEDICAID, SELFPAY ==
--- NOTE | 2021-03-24 09:53 | DI.MRI.S_ITS ---
PROCEDURE: MR SHOULDER RT WO CON INDICATIONS: Adhesive capsulitis of right shoulder TECHNIQUE: Noncontrast oblique coronal T2 fast spin echo with fat saturation, oblique sagittal T1 spin echo and T2 fast spin echo with fat saturation, axial T1 spin echo and T2 fast spin echo with fat saturation through the shoulder. COMPARISON: [facility], MR, MR SHOULDER LT WO CON, 04/03/2018, 17:43. FINDINGS: Image quality: Excellent. Rotator cuff: Tendinosis and moderate grade articular and bursal surface partial thickness tear involving distal supraspinatus at its insertion on the humeral head is seen extending to musculotendinous junction. There is suggestion of focal full-thickness perforation involving most anterior fibers of distal supraspinatus approximately 1.3 cm from its insertion on humeral head. Distal infraspinatus tendinosis is seen. Tendinosis and low-grade partial-thickness tear involving superior fibers of distal subscapularis is noted. Sagittal images demonstrate moderate supraspinatus muscle atrophy. Bones and bursae: No bone marrow contusions or fractures. Moderate acromioclavicular joint and glenohumeral joint osteoarthritic changes are seen. There is moderate amount of subacromial subdeltoid bursal fluid. Capsule and soft tissues: Signal abnormality and fraying of superior anterior labrum at 12 to 1 o'clock position is seen suggestive of superior anterior labral tear. The long head of the biceps tendinosis and low-grade intrasubstance partial-thickness tear is seen. Thickened inferior glenohumeral ligament and inferior joint capsule is seen . Thickened coracohumeral ligament is also noted. IMPRESSION: 1. Tendinosis and moderate grade articular and bursal surface partial thickness tear involving distal supraspinatus extending to musculotendinous junction with focal full-thickness perforation involving anterior fibers of distal supraspinatus approximately 1.3 cm from its insertion on the humeral head. Distal infraspinatus and subscapularis tendinosis. Low-grade partial-thickness tear involving superior fibers of distal subscapularis is also present. Moderate supraspinatus muscle atrophy. 2. Moderate acromioclavicular joint and glenohumeral joint osteoarthritis. 3. Suggestion of superior anterior labral tear at 12 to 1 o'clock position. 4. Proximal intra-articular portion of long head of biceps tendinosis and low-grade intrasubstance partial-thickness tear. 5. Thickened joint capsule and thickened coracohumeral ligament, likely related to clinical diagnosis of adhesive capsulitis. Dictated by: Jose Martin Mejia M.D. on 03/26/2021 at 8:17 Approved by: Jose Martin Mejia M.D. on 03/26/2021 at 8:21
== END ==
PROVIDERS: Family Provider Family Medicine; PCP Family Medicine; Referring Provider Orthopaedic Surgery; Visit Provider Orthopaedic Surgery
DX: M75.01 Adhesive capsulitis of right shoulder (principal); M75.111 Incomplete rotator cuff tear or rupture of right shoulder, not specified as traumatic; M19.011 Primary osteoarthritis, right shoulder; S46.111A Strain of muscle, fascia and tendon of long head of biceps, right arm, initial encounter
CPT/HCPCS: 73221

== ENCOUNTER → 2021-04-08 12:24 | Outpatient (CLI) | payer MEDICARE, MEDICAID, SELFPAY | PROVIDERS: Family Provider Family Medicine; PCP Family Medicine; Visit Provider Nurse Practitioner Family | DX: R10.9 Unspecified abdominal pain (principal) | CPT/HCPCS: 87086 ==

== ENCOUNTER 2021-06-18 12:15 | Outpatient (RCR) | payer MEDICARE, MEDICAID, SELFPAY ==
--- NOTE | 2021-05-04 13:39 | PT.OPPOC ---
Physical, Occupational & Speech Therapy At [facility] Current Diagnoses Adhesive capsulitis of right shoulder (05/04/21) Visit Care Team Role Provider Type Dulce Palencia MD Family Provider Physician Primary Care Provider Specialty: Family Practice Address: [address] [place] [address], [facility] [place], [address] Email: [email or web address] Indra Rizo MD Attending Provider Physician Referring Provider Specialty: Orthopedic Surgery Address: [address] [place] [address], [address] Email: [email or web address] Plan Of Care PT-OP-T Assessment and Plan Start: 04/30/21 13:50 Freq: Status: Active Protocol: Document 05/04/21 09:47 MB (Rec: 05/04/21 13:36 MB [id number]) Physical Therapy Assessment Rehab Potential Rehabilitation Potential Fair Evaluation Complexity Number of Personal Factors/Comorbidities 1-2 Number of Body Systems Impaired 1-2 Clinical Presentation at Evaluation Evolving Impairments Impairments Activity Tolerance,Balance, Edema,Functional Activities, Functional Mobility,Integument ,Pain,Posture,ROM,Soft Tissue Mobility,Strength Other Impairments Personal factors include pt lives at home alone and is unclear about the surgical procedure she underwent. Body systems affected include musculoskeletal and neuromuscular. Her clinical presentation is evolving: she had capsule surgery and MRI from 03/24 states there are several muscle tears/labral tear, so these are not fixed Other Concerns Fall Risk Yes Goals 4 Long-Term Goal (LTG) Pt will present with improved strength in right arm to at least 4/5 flexion, abduction, IR and ER to improve function by 07/04/21. LTG Duration 8 weeks 3 Long-Term Goal (LTG) Pt will perform progressive HEP with I including range, flexibility, postural and strengthening exercises to improve pain and function by 07/04/21. LTG Duration 8 weeks 2 Weed Cutter Goal (LTG) Pt will present with active right shoulder ROM flexion, abduction, ER and IR equal to the left shoulder to improve functional use of her right arm by 07/04/21. LTG Duration 8 weeks 1 Long-Term Goal (LTG) Pt will present with an improved QuickDASH score to reflect no more than 20% impairment to improve functional use of right arm by 07/04/21. LTG Duration 8 weeks Assessment Summary Assessment Pt is a 66 y/o female presenting with increased pain , edema and decreased ROM post -op arthroscopic capsulotomy three days ago. PT called pt earlier in the week to check in with her about the eval and she told PT that she was having a closed manipulation. She arrives to eval with bandages on her anterior and posterior shoulder. PT does receive a note from Dr. Valerio's office after evaluation describing the procedure. Underlying findings of tears found on right shoulder MRI were not fixed during the procedure. His note states standard adhesive capsulitis protocol with ROM all planes and rotations. This therapist requested an exact protocol given this is not a common procedure and the patient still has underlying rotator cuff damage after it. Pt will benefit from PT to improve range, pain, strength and function. Barriers include pain and edema and ongoing underlying pathology/ anatomical degeneration in the shoulder. Physical Therapy Plan Frequency and Duration Frequency of Treatment 2x/Week Duration of Treatment 8 weeks Plan of Care Start Date 05/04/21 Plan of Care End Date 07/04/21 Therapeutic Interventions Therapeutic Interventions Aquatic Therapy,Balance Training,Canalithic Repositioning,Coordination Training,Gait Training,Home Exercise Program,Joint Mobilizations,Manual Therapy, Neuromuscular Re-education, Patient/Caregiver Education, Self-Care/Home Management,Soft Tissue Mobilization,Taping, Therapeutic Activities, Therapeutic Exercises Modalities Cold Pack/Ice Massage,Infrared Therapy,Ultrasound Next Visit Focus/Plan Next Note Type Treatment Note Next Visit Plan Progress ROM exercises Plan of Care Dates Plan of Care Start Date 05/04/21 Plan of Care End Date 07/04/21 Electronically Signed by: Sarah Beth Pedraza, PT 05/04/21 [id number] Please Sign and Return: I have reviewed this Plan of Care and certify that the skilled therapy services above are required to meet the patient?s needs. Physician Signature Date Printed Name and Credentials Clinical Instructor Signature Printed Name and Credentials
--- NOTE | 2021-05-04 13:39 | PT.OIE ---
Current Diagnoses Adhesive capsulitis of right shoulder (05/04/21) Past Medical History (Last Updated 04/08/21 @ 12:57 by FRANCHESKA Medel) Anxiety Arthritis BCC (basal cell carcinoma), shoulder Compression fracture of thoracic vertebra Depression Fracture of rib of right side (2014) GERD (gastroesophageal reflux disease) Hemorrhoids History of cholecystectomy History of total hysterectomy History of tubal ligation History of ulcer disease Hx of sinus surgery Measles Migraine Psoriatic arthritis UTI (urinary tract infection) Past Surgical History (Last Reviewed 03/05/21 @ 19:35 by Ziggy Oliver DO) History of cholecystectomy History of total hysterectomy History of tubal ligation Hx of sinus surgery Visit Care Team Role Provider Type Dulce Palencia MD Family Provider Physician Primary Care Provider Specialty: Family Practice Address: [address] [place] [address], [id number] Email: [email or web address] Indra Rizo MD Attending Provider Physician Referring Provider Specialty: Orthopedic Surgery Address: [address] [place] [address], [id number] Email: [email or web address] [facility] Initial Evaluation PT-OP-A Visit Information Start: 04/30/21 13:50 Freq: Status: Active Protocol: Document 05/04/21 09:47 MB (Rec: 05/04/21 10:10 MB [id number]) Out-Patient Physical Therapy Visit Information Visit Information Visit Type Initial Evaluation Visit Note 12/20 visits used already this year before KX Pt to have closed manipulation on 05/01/21 and order to start PT 2 days after manipulation and to perform 2-3x/wk Pt goes by [facility]a Visit Start Time 09:47 Visit Stop Time 10:30 Total Visit Minutes 43 Visit Number 1 Evaluation Information Evaluation Date 05/04/21 Precautions Precautions Pt underwent arthroscopic capsulotomy on 05/01/21. After the eval, PT reviews Dr. Valerio' s notes that state standard adhesive capsulitis protocol, ROM all planes and rotations PT-OP-B Current Condition Start: 04/30/21 13:50 Freq: Status: Active Protocol: Document 05/04/21 09:47 MB (Rec: 05/04/21 10:10 MB [id number]) Current Condition History of Current Condition Onset Date One year and a half Current Complaints Pain and decreased right arm use History of Current Condition Pt underwent arthroscopic capsulotomy on right shoulder on 05/01/[address] Rizo. She was put in a sling and there was a large bandage over her right shoulder. She took them off after clearing with the doctor's office. She was not given any information about the procedure or precaution instructions. PT has not received a note from Dr. Rizo office and Dr. Smith wrote her PT order. She has had a hard time sleeping since the procedure. She lives alone and drove herself to therapy. She takes care of two little dogs. Pt is right handed. Pt states that she was told she could take the sling off when she was ready and she was. Post-op paper work said for her to try to reach behind her back and reach overhead. She could reach behind to put her bra on this morning. PMH includes left rotator cuff surgery and she had PT after that and it went well. PMH also includes fibromyalgia, HAs and neck pain. 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 Pt has a follow-up with Dr. Rizo on 05/14/21. MRI right shoulder 03/24/21 had many changes including partial thickness tear distal supraspinatus and subscapularis, mod AC and GH OA, suggestion of superior anterior labral tear, partial thickness tear biceps tendon. Prior Treatments and Tests A few treatments of PT before MRI and procedure and pt states that she got frustrated and it was not helpful. Treatment Goals Patient/Caregiver Goals To relieve right shoulder pain and be able to lift her arm. PT-OP-C Subjective Start: 04/30/21 13:50 Freq: Status: Active Protocol: Document 05/04/21 09:47 MB (Rec: 05/04/21 10:10 MB [id number]) OP-PT Subjective Patient Comments Patient Comments See history of current condition. PT-OP-J Posture/Palpation/Skin Start: 04/30/21 13:50 Freq: Status: Active Protocol: Document 05/04/21 09:47 MB (Rec: 05/04/21 13:36 MB [id number]) Posture Evaluation Comments Posture Comments Dowager's hump, rounded shoulders, increased soft tissue body mass, increased thoracic kyphosis, 2 small incisions with band-aids over them anterior right shoulder and one posterior shoulder, mild edema right UE. PT-OP-K Range of Motion Start: 04/30/21 13:50 Freq: Status: Active Protocol: Document 05/04/21 09:47 MB (Rec: 05/04/21 13:36 MB [id number]) Shoulder Goniometric Range of Motion Shoulder Left Shoulder ROM WFL Yes Testing Position Standing Comments IR to T12 in standing Right Shoulder ROM WFL No Testing Position Standing Flexion 44 Abduction 30 Comments IR to right buttocks in standing Elbow/Forearm Range of Motion Elbow/Forearm Bilateral Elbow/Forearm ROM WFL Yes ROM Testing Position Standing PT-OP-M Strength Start: 04/30/21 13:50 Freq: Status: Active Protocol: Document 05/04/21 09:47 MB (Rec: 05/04/21 13:36 MB [id number]) Shoulder Strength Shoulder Manual Muscle Testing Left Flexion 5 Normal Abduction (C5) 5 Normal External Rotation 5 Normal Internal Rotation 5 Normal Right Comments Right shoulder not MMT d/t pain and decreased active right shoulder ROM post-op three days ago Elbow/Forearm Strength Elbow and Forearm Manual Muscle Testing Left Flexion (C6) 5 Normal Extension (C7) 5 Normal Pronation 5 Normal Supination 5 Normal Right Pronation 5 Normal Supination 5 Normal Comments MMT flexion and extension not tested post-op three days and MRI reports biceps tear PT-OP-Q Treatments Start: 04/30/21 13:50 Freq: Status: Active Protocol: Document 05/04/21 09:47 MB (Rec: 05/04/21 13:36 MB [id number]) Therapeutic Exercises Standing Exercises Pendulums Comments PT demos pendulums right arm and pt performs well Self-Care/Home Management Treatment Education Other Education Ed in proper sleeping position in recliner or bed with pillow support at head and UEs , use of frozen vegetables for icing PT-OP-T Assessment and Plan Start: 04/30/21 13:50 Freq: Status: Active Protocol: Document 05/04/21 09:47 MB (Rec: 05/04/21 13:36 MB [id number]) Physical Therapy Assessment Rehab Potential Rehabilitation Potential Fair Evaluation Complexity Number of Personal Factors/Comorbidities 1-2 Number of Body Systems Impaired 1-2 Clinical Presentation at Evaluation Evolving Impairments Impairments Activity Tolerance,Balance, Edema,Functional Activities, Functional Mobility,Integument ,Pain,Posture,ROM,Soft Tissue Mobility,Strength Other Impairments Personal factors include pt lives at home alone and is unclear about the surgical procedure she underwent. Body systems affected include musculoskeletal and neuromuscular. Her clinical presentation is evolving: she had capsule surgery and MRI from 03/24 states there are several muscle tears/labral tear, so these are not fixed Other Concerns Fall Risk Yes Goals 4 Prison Goal (LTG) Pt will present with improved strength in right arm to at least 4/5 flexion, abduction, IR and ER to improve function by 07/04/21. LTG Duration 8 weeks 3 Champagne Maker Goal (LTG) Pt will perform progressive HEP with I including range, flexibility, postural and strengthening exercises to improve pain and function by 07/04/21. LTG Duration 8 weeks 2 Champagne Maker Goal (LTG) Pt will present with active right shoulder ROM flexion, abduction, ER and IR equal to the left shoulder to improve functional use of her right arm by 07/04/21. LTG Duration 8 weeks 1 Champagne Maker Goal (LTG) Pt will present with an improved QuickDASH score to reflect no more than 20% impairment to improve functional use of right arm by 07/04/21. LTG Duration 8 weeks Assessment Summary Assessment Pt is a 66 y/o female presenting with increased pain , edema and decreased ROM post -op arthroscopic capsulotomy three days ago. PT called pt earlier in the week to check in with her about the eval and she told PT that she was having a closed manipulation. She arrives to [facility] with bandages on her anterior and posterior shoulder. PT does receive a note from Dr. Valerio's office after evaluation describing the procedure. Underlying findings of tears found on right shoulder MRI were not fixed during the procedure. His note states standard adhesive capsulitis protocol with ROM all planes and rotations. This therapist requested an exact protocol given this is not a common procedure and the patient still has underlying rotator cuff damage after it. Pt will benefit from PT to improve range, pain, strength and function. Barriers include pain and edema and ongoing underlying pathology/ anatomical degeneration in the shoulder. Physical Therapy Plan Frequency and Duration Frequency of Treatment 2x/Week Duration of Treatment 8 weeks Plan of Care Start Date 05/04/21 Plan of Care End Date 07/04/21 Therapeutic Interventions Therapeutic Interventions Aquatic Therapy,Balance Training,Canalithic Repositioning,Coordination Training,Gait Training,Home Exercise Program,Joint Mobilizations,Manual Therapy, Neuromuscular Re-education, Patient/Caregiver Education, Self-Care/Home Management,Soft Tissue Mobilization,Taping, Therapeutic Activities, Therapeutic Exercises Modalities Cold Pack/Ice Massage,Infrared Therapy,Ultrasound Next Visit Focus/Plan Next Note Type Treatment Note Next Visit Plan Progress ROM exercises
--- NOTE | 2021-05-09 12:59 | PT.OTN ---
Current Diagnoses Adhesive capsulitis of right shoulder (05/09/21) Physical Therapy Treatment Note PT-OP-A Visit Information Start: 04/30/21 13:50 Freq: Status: Active Protocol: Document 05/09/21 12:15 MB (Rec: 05/09/21 12:53 MB [id number]) Out-Patient Physical Therapy Visit Information Visit Information Visit Type Treatment Note Visit Note 01/20 before KX Pt goes by Alda Visit Start Time 12:15 Visit Stop Time 12:55 Total Visit Minutes 40 Visit Number 2 Evaluation Information Evaluation Date 05/04/21 Precautions Precautions Pt underwent arthroscopic capsulotomy on 05/01/21. After the eval, PT reviews Dr. Valerio' s notes that state standard adhesive capsulitis protocol, ROM all planes and rotations PT-OP-B Current Condition Start: 04/30/21 13:50 Freq: Status: Active Protocol: Document 05/04/21 09:47 MB (Rec: 05/04/21 10:10 MB [id number]) Current Condition History of Current Condition Onset Date One year and a half Current Complaints Pain and decreased right arm use History of Current Condition Pt underwent arthroscopic capsulotomy on right shoulder on 05/01/[address] Rizo. She was put in a sling and there was a large bandage over her right shoulder. She took them off after clearing with the doctor's office. She was not given any information about the procedure or precaution instructions. PT has not received a note from Dr. Rizo office and Dr. Smith wrote her PT order. She has had a hard time sleeping since the procedure. She lives alone and drove herself to therapy. She takes care of two little dogs. Pt is right handed. Pt states that she was told she could take the sling off when she was ready and she was. Post-op paper work said for her to try to reach behind her back and reach overhead. She could reach behind to put her bra on this morning. PMH includes left rotator cuff surgery and she had PT after that and it went well. PMH also includes fibromyalgia, HAs and neck pain. 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 Pt has a follow-up with Dr. Rizo on 05/14/21. MRI right shoulder 03/24/21 had many changes including partial thickness tear distal supraspinatus and subscapularis, mod AC and GH OA, suggestion of superior anterior labral tear, partial thickness tear biceps tendon. Prior Treatments and Tests A few treatments of PT before MRI and procedure and pt states that she got frustrated and it was not helpful. Treatment Goals Patient/Caregiver Goals To relieve right shoulder pain and be able to lift her arm. PT-OP-C Subjective Start: 04/30/21 13:50 Freq: Status: Active Protocol: Document 05/09/21 12:15 MB (Rec: 05/09/21 12:53 MB [id number]) OP-PT Subjective Patient Comments Patient Comments Pt does not bring in papers from surgeon office as she said that she would. She does not know anymore about her shoulder precautions/range. She follows up with Dr. Rizo on 05/17/21. PT-OP-J Posture/Palpation/Skin Start: 04/30/21 13:50 Freq: Status: Active Protocol: Document 05/04/21 09:47 MB (Rec: 05/04/21 13:36 MB [id number]) Posture Evaluation Comments Posture Comments Dowager's hump, rounded shoulders, increased soft tissue body mass, increased thoracic kyphosis, 2 small incisions with band-aids over them anterior right shoulder and one posterior shoulder, mild edema right UE. PT-OP-K Range of Motion Start: 04/30/21 13:50 Freq: Status: Active Protocol: Document 05/04/21 09:47 MB (Rec: 05/04/21 13:36 MB [id number]) Shoulder Goniometric Range of Motion Shoulder Left Shoulder ROM WFL Yes Testing Position Standing Comments IR to T12 in standing Right Shoulder ROM WFL No Testing Position Standing Flexion 44 Abduction 30 Comments IR to right buttocks in standing Elbow/Forearm Range of Motion Elbow/Forearm Bilateral Elbow/Forearm ROM WFL Yes ROM Testing Position Standing PT-OP-M Strength Start: 04/30/21 13:50 Freq: Status: Active Protocol: Document 05/04/21 09:47 MB (Rec: 05/04/21 13:36 MB [id number]) Shoulder Strength Shoulder Manual Muscle Testing Left Flexion 5 Normal Abduction (C5) 5 Normal External Rotation 5 Normal Internal Rotation 5 Normal Right Comments Right shoulder not MMT d/t pain and decreased active right shoulder ROM post-op three days ago Elbow/Forearm Strength Elbow and Forearm Manual Muscle Testing Left Flexion (C6) 5 Normal Extension (C7) 5 Normal Pronation 5 Normal Supination 5 Normal Right Pronation 5 Normal Supination 5 Normal Comments MMT flexion and extension not tested post-op three days and MRI reports biceps tear PT-OP-Q Treatments Start: 04/30/21 13:50 Freq: Status: Active Protocol: Document 05/09/21 12:15 MB (Rec: 05/09/21 12:53 MB [id number]) Cardio Equipment Upper Body Ergometer (UBE) Duration (Minutes) 10 Other 1' forward and 1' backward Therapeutic Exercises Supine Exercises Shoulder flexion and abduction with cane Side right Comments Using left hand support on cane. Pt only tolerates flexion to 80; abd 40 de Standing Exercises Towel roll IR Side right Comments Towel over left shoulder and working right arm into IR Racquet ball self-massage Standing Exercise Name Intrascapular massage, MWM infraspinatus Side right Thoracic mobility Comments Kids ball behind back to improve thoracic mobility PT-OP-T Assessment and Plan Start: 04/30/21 13:50 Freq: Status: Active Protocol: Document 05/09/21 12:15 MB (Rec: 05/09/21 12:53 MB [id number]) Physical Therapy Assessment Rehab Potential Rehabilitation Potential Fair Evaluation Complexity Number of Personal Factors/Comorbidities 1-2 Number of Body Systems Impaired 1-2 Clinical Presentation at Evaluation Evolving Impairments Impairments Activity Tolerance,Balance, Edema,Functional Activities, Functional Mobility,Integument ,Pain,Posture,ROM,Soft Tissue Mobility,Strength Other Impairments Personal factors include pt lives at home alone and is unclear about the surgical procedure she underwent. Body systems affected include musculoskeletal and neuromuscular. Her clinical presentation is evolving: she had capsule surgery and MRI from 03/24 states there are several muscle tears/labral tear, so these are not fixed Other Concerns Fall Risk Yes Goals 4 Residential Goal (LTG) Pt will present with improved strength in right arm to at least 4/5 flexion, abduction, IR and ER to improve function by 07/04/21. LTG Duration 8 weeks 3 Residential Goal (LTG) Pt will perform progressive HEP with I including range, flexibility, postural and strengthening exercises to improve pain and function by 07/04/21. LTG Duration 8 weeks 2 Wet Press Tender Goal (LTG) Pt will present with active right shoulder ROM flexion, abduction, ER and IR equal to the left shoulder to improve functional use of her right arm by 07/04/21. LTG Duration 8 weeks 1 Residential Goal (LTG) Pt will present with an improved QuickDASH score to reflect no more than 20% impairment to improve functional use of right arm by 07/04/21. LTG Duration 8 weeks Assessment Summary Assessment Initiated home exercises today for right shoulder ROM, rib and soft tissue mobilization. Con't progression per below. Still do not have a clear protocol from doctor so will treat as adhesive capsulitis as note stated. Pt to bring in post-op papers. Overall, pt does not have a lot of self buy-in/responsibility to what is happening to her shoulder-- she did not look at post-op orders again as instructed by PT and she did not bring them in and this lack of self-care and awareness is a barrier to PT. Pt also self-limits range today in standing and supine. Physical Therapy Plan Frequency and Duration Frequency of Treatment 2x/Week Duration of Treatment 8 weeks Plan of Care Start Date 05/04/21 Plan of Care End Date 07/04/21 Therapeutic Interventions Therapeutic Interventions Aquatic Therapy,Balance Training,Canalithic Repositioning,Coordination Training,Gait Training,Home Exercise Program,Joint Mobilizations,Manual Therapy, Neuromuscular Re-education, Patient/Caregiver Education, Self-Care/Home Management,Soft Tissue Mobilization,Taping, Therapeutic Activities, Therapeutic Exercises Modalities Cold Pack/Ice Massage,Infrared Therapy,Ultrasound Next Visit Focus/Plan Next Note Type Treatment Note Next Visit Plan Con't UBE, progress exercises, thoracic rotation and breathing in sitting, pect stretch
--- NOTE | 2021-05-11 10:27 | PT.OTN ---
Current Diagnoses Adhesive capsulitis of right shoulder (05/11/21) Physical Therapy Treatment Note PT-OP-A Visit Information Start: 04/30/21 13:50 Freq: Status: Active Protocol: Document 05/11/21 09:47 MB (Rec: 05/11/21 10:27 MB [id number]) Out-Patient Physical Therapy Visit Information Visit Information Visit Type Treatment Note Visit Note 02/19 before KX Pt goes by Alda Visit Start Time 09:47 Visit Stop Time 10:27 Total Visit Minutes 40 Visit Number 3 Evaluation Information Evaluation Date 05/04/21 Precautions Precautions Pt underwent arthroscopic capsulotomy on 05/01/21. After the eval, PT reviews Dr. Valerio' s notes that state standard adhesive capsulitis protocol, ROM all planes and rotations. Pt brings in post-op papers that include education for pt to performing early ROM and strengthening exercises. It lists forward flexion, ER, IR 2-3x/day for 5' PT-OP-B Current Condition Start: 04/30/21 13:50 Freq: Status: Active Protocol: Document 05/04/21 09:47 MB (Rec: 05/04/21 10:10 MB [id number]) Current Condition History of Current Condition Onset Date One year and a half Current Complaints Pain and decreased right arm use History of Current Condition Pt underwent arthroscopic capsulotomy on right shoulder on 05/01/[address] Rizo. She was put in a sling and there was a large bandage over her right shoulder. She took them off after clearing with the doctor's office. She was not given any information about the procedure or precaution instructions. PT has not received a note from Dr. Rizo office and Dr. Smith wrote her PT order. She has had a hard time sleeping since the procedure. She lives alone and drove herself to therapy. She takes care of two little dogs. Pt is right handed. Pt states that she was told she could take the sling off when she was ready and she was. Post-op paper work said for her to try to reach behind her back and reach overhead. She could reach behind to put her bra on this morning. PMH includes left rotator cuff surgery and she had PT after that and it went well. PMH also includes fibromyalgia, HAs and neck pain. 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 Pt has a follow-up with Dr. Rizo on 05/14/21. MRI right shoulder 03/24/21 had many changes including partial thickness tear distal supraspinatus and subscapularis, mod AC and GH OA, suggestion of superior anterior labral tear, partial thickness tear biceps tendon. Prior Treatments and Tests A few treatments of PT before MRI and procedure and pt states that she got frustrated and it was not helpful. Treatment Goals Patient/Caregiver Goals To relieve right shoulder pain and be able to lift her arm. PT-OP-C Subjective Start: 04/30/21 13:50 Freq: Status: Active Protocol: Document 05/11/21 09:47 MB (Rec: 05/11/21 10:27 MB [id number]) OP-PT Subjective Patient Comments Patient Comments Follow-up with surgeon is next week. She has been trying to do her arm bike at home. Her ROM does not feel better. She has not been doing shoulder ROM exercises. PT-OP-J Posture/Palpation/Skin Start: 04/30/21 13:50 Freq: Status: Active Protocol: Document 05/04/21 09:47 MB (Rec: 05/04/21 13:36 MB [id number]) Posture Evaluation Comments Posture Comments Dowager's hump, rounded shoulders, increased soft tissue body mass, increased thoracic kyphosis, 2 small incisions with band-aids over them anterior right shoulder and one posterior shoulder, mild edema right UE. PT-OP-K Range of Motion Start: 04/30/21 13:50 Freq: Status: Active Protocol: Document 05/04/21 09:47 MB (Rec: 05/04/21 13:36 MB [id number]) Shoulder Goniometric Range of Motion Shoulder Left Shoulder ROM WFL Yes Testing Position Standing Comments IR to T12 in standing Right Shoulder ROM WFL No Testing Position Standing Flexion 44 Abduction 30 Comments IR to right buttocks in standing Elbow/Forearm Range of Motion Elbow/Forearm Bilateral Elbow/Forearm ROM WFL Yes ROM Testing Position Standing PT-OP-M Strength Start: 04/30/21 13:50 Freq: Status: Active Protocol: Document 05/04/21 09:47 MB (Rec: 05/04/21 13:36 MB [id number]) Shoulder Strength Shoulder Manual Muscle Testing Left Flexion 5 Normal Abduction (C5) 5 Normal External Rotation 5 Normal Internal Rotation 5 Normal Right Comments Right shoulder not MMT d/t pain and decreased active right shoulder ROM post-op three days ago Elbow/Forearm Strength Elbow and Forearm Manual Muscle Testing Left Flexion (C6) 5 Normal Extension (C7) 5 Normal Pronation 5 Normal Supination 5 Normal Right Pronation 5 Normal Supination 5 Normal Comments MMT flexion and extension not tested post-op three days and MRI reports biceps tear PT-OP-Q Treatments Start: 04/30/21 13:50 Freq: Status: Active Protocol: Document 05/11/21 09:47 MB (Rec: 05/11/21 10:27 MB [id number]) Cardio Equipment Upper Body Ergometer (UBE) Duration (Minutes) 10 Other 2' forward and 2' backward Therapeutic Exercises Supine Exercises Shoulder flexion and abduction with cane Supine Exercise Name Pt does not recall these from last treatment Side right Reps/Minutes 20 reps, cues to increase range and go slowly Comments Using left hand to actively assist with range on cane, only 35 deg abd toda Sitting Exercises Melanie Sitting Exercise Name Trouble following commands for keeping thumb up Side right Comments Flexion and abduction using left hand to help right Standing Exercises Towel roll IR Standing Exercise Name Pt has trouble getting any range with this one today Side right Comments Towel over left shoulder and working right arm into IR Racquet ball self-massage Standing Exercise Name Intrascapular massage, MWM infraspinatus Side right Thoracic mobility Comments Kids ball behind back to improve thoracic mobility Pendulums Comments To do during downtime PT-OP-T Assessment and Plan Start: 04/30/21 13:50 Freq: Status: Active Protocol: Document 05/11/21 09:47 MB (Rec: 05/11/21 10:27 MB [id number]) Physical Therapy Assessment Rehab Potential Rehabilitation Potential Fair Evaluation Complexity Number of Personal Factors/Comorbidities 1-2 Number of Body Systems Impaired 1-2 Clinical Presentation at Evaluation Evolving Impairments Impairments Activity Tolerance,Balance, Edema,Functional Activities, Functional Mobility,Integument ,Pain,Posture,ROM,Soft Tissue Mobility,Strength Other Impairments Personal factors include pt lives at home alone and is unclear about the surgical procedure she underwent. Body systems affected include musculoskeletal and neuromuscular. Her clinical presentation is evolving: she had capsule surgery and MRI from 03/24 states there are several muscle tears/labral tear, so these are not fixed Other Concerns Fall Risk Yes Goals 4 Assembler Movement Goal (LTG) Pt will present with improved strength in right arm to at least 4/5 flexion, abduction, IR and ER to improve function by 07/04/21. LTG Duration 8 weeks 3 Chcf Goal (LTG) Pt will perform progressive HEP with I including range, flexibility, postural and strengthening exercises to improve pain and function by 07/04/21. LTG Duration 8 weeks 2 Chcf Goal (LTG) Pt will present with active right shoulder ROM flexion, abduction, ER and IR equal to the left shoulder to improve functional use of her right arm by 07/04/21. LTG Duration 8 weeks 1 Assembler Movement Goal (LTG) Pt will present with an improved QuickDASH score to reflect no more than 20% impairment to improve functional use of right arm by 07/04/21. LTG Duration 8 weeks Assessment Summary Assessment Today, PT is able to see post- op paperwork that pt brings in that included ROM and strengthening as instructions and so PT feels better about progressing to pt tolerance. Her tolerance is low and forward flexion with melanie is only to 90 deg today. Once again, pt reports not being very compliant with exercises at home. She has tried her arm bike but not the ROM exercises. PT re-ed pt about how important it is for her to do these at home to regain ROM and reviewed exercises again today. Pt non-compliance will likely be a barrier to improving range and function. PT ed pt that PT would like to mobilize the shoulder next treatment date and so ed her about the benefits, purpose and likelihood of initial increased pain with that. Physical Therapy Plan Frequency and Duration Frequency of Treatment 2x/Week Duration of Treatment 8 weeks Plan of Care Start Date 05/04/21 Plan of Care End Date 07/04/21 Therapeutic Interventions Therapeutic Interventions Aquatic Therapy,Balance Training,Canalithic Repositioning,Coordination Training,Gait Training,Home Exercise Program,Joint Mobilizations,Manual Therapy, Neuromuscular Re-education, Patient/Caregiver Education, Self-Care/Home Management,Soft Tissue Mobilization,Taping, Therapeutic Activities, Therapeutic Exercises Modalities Cold Pack/Ice Massage,Infrared Therapy,Ultrasound Next Visit Focus/Plan Next Note Type Treatment Note Next Visit Plan Con't UBE, progress exercises, thoracic rotation and breathing in sitting, pect stretch
--- NOTE | 2021-05-16 11:09 | PT.OTN ---
Current Diagnoses Adhesive capsulitis of right shoulder (05/16/21) Physical Therapy Treatment Note PT-OP-A Visit Information Start: 04/30/21 13:50 Freq: Status: Active Protocol: Document 05/16/21 10:30 MB (Rec: 05/16/21 11:09 MB [id number]) Out-Patient Physical Therapy Visit Information Visit Information Visit Type Treatment Note Visit Note 03/22 before KX Pt goes by Alda Visit Start Time 10:30 Visit Stop Time 11:08 Total Visit Minutes 38 Visit Number 4 Evaluation Information Evaluation Date 05/04/21 Precautions Precautions Pt underwent arthroscopic capsulotomy on 05/01/21. After the eval, PT reviews Dr. Valerio' s notes that state standard adhesive capsulitis protocol, ROM all planes and rotations. Pt brings in post-op papers that include education for pt to performing early ROM and strengthening exercises. It lists forward flexion, ER, IR 2-3x/day for 5' PT-OP-B Current Condition Start: 04/30/21 13:50 Freq: Status: Active Protocol: Document 05/04/21 09:47 MB (Rec: 05/04/21 10:10 MB [id number]) Current Condition History of Current Condition Onset Date One year and a half Current Complaints Pain and decreased right arm use History of Current Condition Pt underwent arthroscopic capsulotomy on right shoulder on 05/01/[address] Rizo. She was put in a sling and there was a large bandage over her right shoulder. She took them off after clearing with the doctor's office. She was not given any information about the procedure or precaution instructions. PT has not received a note from Dr. Rizo office and Dr. Smith wrote her PT order. She has had a hard time sleeping since the procedure. She lives alone and drove herself to therapy. She takes care of two little dogs. Pt is right handed. Pt states that she was told she could take the sling off when she was ready and she was. Post-op paper work said for her to try to reach behind her back and reach overhead. She could reach behind to put her bra on this morning. PMH includes left rotator cuff surgery and she had PT after that and it went well. PMH also includes fibromyalgia, HAs and neck pain. 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 Pt has a follow-up with Dr. Rizo on 05/14/21. MRI right shoulder 03/24/21 had many changes including partial thickness tear distal supraspinatus and subscapularis, mod AC and GH OA, suggestion of superior anterior labral tear, partial thickness tear biceps tendon. Prior Treatments and Tests A few treatments of PT before MRI and procedure and pt states that she got frustrated and it was not helpful. Treatment Goals Patient/Caregiver Goals To relieve right shoulder pain and be able to lift her arm. PT-OP-C Subjective Start: 04/30/21 13:50 Freq: Status: Active Protocol: Document 05/16/21 10:30 MB (Rec: 05/16/21 11:09 MB [id number]) OP-PT Subjective Patient Comments Patient Comments Pt states that she is sleeping better and the pain is almost gone. 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 PT-OP-J Posture/Palpation/Skin Start: 04/30/21 13:50 Freq: Status: Active Protocol: Document 05/04/21 09:47 MB (Rec: 05/04/21 13:36 MB [id number]) Posture Evaluation Comments Posture Comments Dowager's hump, rounded shoulders, increased soft tissue body mass, increased thoracic kyphosis, 2 small incisions with band-aids over them anterior right shoulder and one posterior shoulder, mild edema right UE. PT-OP-K Range of Motion Start: 04/30/21 13:50 Freq: Status: Active Protocol: Document 05/04/21 09:47 MB (Rec: 05/04/21 13:36 MB [id number]) Shoulder Goniometric Range of Motion Shoulder Left Shoulder ROM WFL Yes Testing Position Standing Comments IR to T12 in standing Right Shoulder ROM WFL No Testing Position Standing Flexion 44 Abduction 30 Comments IR to right buttocks in standing Elbow/Forearm Range of Motion Elbow/Forearm Bilateral Elbow/Forearm ROM WFL Yes ROM Testing Position Standing PT-OP-M Strength Start: 04/30/21 13:50 Freq: Status: Active Protocol: Document 05/04/21 09:47 MB (Rec: 05/04/21 13:36 MB [id number]) Shoulder Strength Shoulder Manual Muscle Testing Left Flexion 5 Normal Abduction (C5) 5 Normal External Rotation 5 Normal Internal Rotation 5 Normal Right Comments Right shoulder not MMT d/t pain and decreased active right shoulder ROM post-op three days ago Elbow/Forearm Strength Elbow and Forearm Manual Muscle Testing Left Flexion (C6) 5 Normal Extension (C7) 5 Normal Pronation 5 Normal Supination 5 Normal Right Pronation 5 Normal Supination 5 Normal Comments MMT flexion and extension not tested post-op three days and MRI reports biceps tear PT-OP-Q Treatments Start: 04/30/21 13:50 Freq: Status: Active Protocol: Document 05/16/21 10:30 MB (Rec: 05/16/21 11:09 MB [id number]) Cardio Equipment Upper Body Ergometer (UBE) Duration (Minutes) 10 Other 2' forward and 2' backward Therapeutic Exercises Supine Exercises Pect stretch Side bilateral Comments Pt really cannot do any pect stretch on the right Shoulder flexion and abduction with cane Side right Reps/Minutes 10 reps Comments Cues to slow down and try to gain more range Sitting Exercises AAROM flexion and abduction over table Side right Comments 10 reps each, pt sitting on stool and moving over therapy mat Thoracic rotation in sitting Side bilateral Comments Several reps both directions and cues for big breath Zarina Sitting Exercise Name Improvement today with following commands Side right Comments Flexion and abduction using left hand to help right Standing Exercises Towel roll IR Side right Comments Not a lot of movement today PT-OP-T Assessment and Plan Start: 04/30/21 13:50 Freq: Status: Active Protocol: Document 05/16/21 10:30 MB (Rec: 05/16/21 11:09 MB [id number]) Physical Therapy Assessment Rehab Potential Rehabilitation Potential Fair Evaluation Complexity Number of Personal Factors/Comorbidities 1-2 Number of Body Systems Impaired 1-2 Clinical Presentation at Evaluation Evolving Impairments Impairments Activity Tolerance,Balance, Edema,Functional Activities, Functional Mobility,Integument ,Pain,Posture,ROM,Soft Tissue Mobility,Strength Other Impairments Personal factors include pt lives at home alone and is unclear about the surgical procedure she underwent. Body systems affected include musculoskeletal and neuromuscular. Her clinical presentation is evolving: she had capsule surgery and MRI from 03/24 states there are several muscle tears/labral tear, so these are not fixed Other Concerns Fall Risk Yes Goals 4 Airline Customer Service Agent Goal (LTG) Pt will present with improved strength in right arm to at least 4/5 flexion, abduction, IR and ER to improve function by 07/04/21. LTG Duration 8 weeks 3 Airline Customer Service Agent Goal (LTG) Pt will perform progressive HEP with I including range, flexibility, postural and strengthening exercises to improve pain and function by 07/04/21. LTG Duration 8 weeks 2 Airline Customer Service Agent Goal (LTG) Pt will present with active right shoulder ROM flexion, abduction, ER and IR equal to the left shoulder to improve functional use of her right arm by 07/04/21. LTG Duration 8 weeks 1 Airline Customer Service Agent Goal (LTG) Pt will present with an improved QuickDASH score to reflect no more than 20% impairment to improve functional use of right arm by 07/04/21. LTG Duration 8 weeks Assessment Summary Assessment PT spends a lot of time educating pt that manual work is needed to improve shoulder mobility and she declines today and is agreeable to considering for next treatment . PT re-ed pt that she has to move the right shoulder for the pain to improve. Questionable compliance. Physical Therapy Plan Frequency and Duration Frequency of Treatment 2x/Week Duration of Treatment 8 weeks Plan of Care Start Date 05/04/21 Plan of Care End Date 07/04/21 Therapeutic Interventions Therapeutic Interventions Aquatic Therapy,Balance Training,Canalithic Repositioning,Coordination Training,Gait Training,Home Exercise Program,Joint Mobilizations,Manual Therapy, Neuromuscular Re-education, Patient/Caregiver Education, Self-Care/Home Management,Soft Tissue Mobilization,Taping, Therapeutic Activities, Therapeutic Exercises Modalities Cold Pack/Ice Massage,Infrared Therapy,Ultrasound Next Visit Focus/Plan Next Note Type Treatment Note Next Visit Plan Con't UBE, progress exercises, consider [place] protocol, AAROM flexion wall or table
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
--- NOTE | 2021-05-25 14:13 | PT.OTN ---
Current Diagnoses Adhesive capsulitis of right shoulder (05/25/21) Physical Therapy Treatment Note PT-OP-A Visit Information Start: 04/30/21 13:50 Freq: Status: Active Protocol: Document 05/25/21 13:06 MB (Rec: 05/25/21 13:50 MB [id number]) Out-Patient Physical Therapy Visit Information Visit Information Visit Type Treatment Note Visit Note 04/22 before KX Pt goes by Alda Visit Start Time 13:06 Visit Stop Time 13:45 Total Visit Minutes 39 Visit Number 6 Evaluation Information Evaluation Date 05/04/21 Precautions Precautions Pt underwent arthroscopic capsulotomy on 05/01/21. After the eval, PT reviews Dr. Valerio' s notes that state standard adhesive capsulitis protocol, ROM all planes and rotations. Pt brings in post-op papers that include education for pt to performing early ROM and strengthening exercises. It lists forward flexion, ER, IR 2-3x/day for 5' PT-OP-B Current Condition Start: 04/30/21 13:50 Freq: Status: Active Protocol: Document 05/04/21 09:47 MB (Rec: 05/04/21 10:10 MB [id number]) Current Condition History of Current Condition Onset Date One year and a half Current Complaints Pain and decreased right arm use History of Current Condition Pt underwent arthroscopic capsulotomy on right shoulder on 05/01/[address] Rizo. She was put in a sling and there was a large bandage over her right shoulder. She took them off after clearing with the doctor's office. She was not given any information about the procedure or precaution instructions. PT has not received a note from Dr. Rizo office and Dr. Smith wrote her PT order. She has had a hard time sleeping since the procedure. She lives alone and drove herself to therapy. She takes care of two little dogs. Pt is right handed. Pt states that she was told she could take the sling off when she was ready and she was. Post-op paper work said for her to try to reach behind her back and reach overhead. She could reach behind to put her bra on this morning. PMH includes left rotator cuff surgery and she had PT after that and it went well. PMH also includes fibromyalgia, HAs and neck pain. 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 Pt has a follow-up with Dr. Rizo on 05/14/21. MRI right shoulder 03/24/21 had many changes including partial thickness tear distal supraspinatus and subscapularis, mod AC and GH OA, suggestion of superior anterior labral tear, partial thickness tear biceps tendon. Prior Treatments and Tests A few treatments of PT before MRI and procedure and pt states that she got frustrated and it was not helpful. Treatment Goals Patient/Caregiver Goals To relieve right shoulder pain and be able to lift her arm. PT-OP-C Subjective Start: 04/30/21 13:50 Freq: Status: Active Protocol: Document 05/25/21 13:06 MB (Rec: 05/25/21 13:50 MB [id number]) OP-PT Subjective Patient Comments Patient Comments Pt states that her left rib under her breast is sore after last treatment. She has broken it twice. Her right shoulder is sore after manual work. PT-OP-J Posture/Palpation/Skin Start: 04/30/21 13:50 Freq: Status: Active Protocol: Document 05/04/21 09:47 MB (Rec: 05/04/21 13:36 MB [id number]) Posture Evaluation Comments Posture Comments Dowager's hump, rounded shoulders, increased soft tissue body mass, increased thoracic kyphosis, 2 small incisions with band-aids over them anterior right shoulder and one posterior shoulder, mild edema right UE. PT-OP-K Range of Motion Start: 04/30/21 13:50 Freq: Status: Active Protocol: Document 05/04/21 09:47 MB (Rec: 05/04/21 13:36 MB [id number]) Shoulder Goniometric Range of Motion Shoulder Left Shoulder ROM WFL Yes Testing Position Standing Comments IR to T12 in standing Right Shoulder ROM WFL No Testing Position Standing Flexion 44 Abduction 30 Comments IR to right buttocks in standing Elbow/Forearm Range of Motion Elbow/Forearm Bilateral Elbow/Forearm ROM WFL Yes ROM Testing Position Standing PT-OP-M Strength Start: 04/30/21 13:50 Freq: Status: Active Protocol: Document 05/04/21 09:47 MB (Rec: 05/04/21 13:36 MB [id number]) Shoulder Strength Shoulder Manual Muscle Testing Left Flexion 5 Normal Abduction (C5) 5 Normal External Rotation 5 Normal Internal Rotation 5 Normal Right Comments Right shoulder not MMT d/t pain and decreased active right shoulder ROM post-op three days ago Elbow/Forearm Strength Elbow and Forearm Manual Muscle Testing Left Flexion (C6) 5 Normal Extension (C7) 5 Normal Pronation 5 Normal Supination 5 Normal Right Pronation 5 Normal Supination 5 Normal Comments MMT flexion and extension not tested post-op three days and MRI reports biceps tear PT-OP-Q Treatments Start: 04/30/21 13:50 Freq: Status: Active Protocol: Document 05/25/21 13:06 MB (Rec: 05/25/21 13:50 MB [id number]) Cardio Equipment Upper Body Ergometer (UBE) Duration (Minutes) 10 Other 1' forward and 1' backward Manual Therapy Treatment Other Other Manual Treatments Pt agrees to Counterstrain to assess and treat fascial tension and pt presents with tension in the following fascial systems: LV many areas including spinal medullary, trigeminal and facial nerve, standard LV, ligamentum flavum , dura. PT treats stacks in ligamentum flavum and spinal vein extension. PT-OP-T Assessment and Plan Start: 04/30/21 13:50 Freq: Status: Active Protocol: Document 05/25/21 13:06 MB (Rec: 05/25/21 13:50 MB [id number]) Physical Therapy Assessment Rehab Potential Rehabilitation Potential Fair Evaluation Complexity Number of Personal Factors/Comorbidities 1-2 Number of Body Systems Impaired 1-2 Clinical Presentation at Evaluation Evolving Impairments Impairments Activity Tolerance,Balance, Edema,Functional Activities, Functional Mobility,Integument ,Pain,Posture,ROM,Soft Tissue Mobility,Strength Other Impairments Personal factors include pt lives at home alone and is unclear about the surgical procedure she underwent. Body systems affected include musculoskeletal and neuromuscular. Her clinical presentation is evolving: she had capsule surgery and MRI from 03/24 states there are several muscle tears/labral tear, so these are not fixed Other Concerns Fall Risk Yes Goals 4 Airconditioning Plant Operator Goal (LTG) Pt will present with improved strength in right arm to at least 4/5 flexion, abduction, IR and ER to improve function by 07/04/21. LTG Duration 8 weeks 3 Airconditioning Plant Operator Goal (LTG) Pt will perform progressive HEP with I including range, flexibility, postural and strengthening exercises to improve pain and function by 07/04/21. LTG Duration 8 weeks 2 Airconditioning Plant Operator Goal (LTG) Pt will present with active right shoulder ROM flexion, abduction, ER and IR equal to the left shoulder to improve functional use of her right arm by 07/04/21. LTG Duration 8 weeks 1 Airconditioning Plant Operator Goal (LTG) Pt will present with an improved QuickDASH score to reflect no more than 20% impairment to improve functional use of right arm by 07/04/21. LTG Duration 8 weeks Assessment Summary Assessment Counterstrain today d/t pain and discomfort after manual work last treatment date. Pt responds well initially and will monitor response next week. Physical Therapy Plan Frequency and Duration Frequency of Treatment 2x/Week Duration of Treatment 8 weeks Plan of Care Start Date 05/04/21 Plan of Care End Date 07/04/21 Therapeutic Interventions Therapeutic Interventions Aquatic Therapy,Balance Training,Canalithic Repositioning,Coordination Training,Gait Training,Home Exercise Program,Joint Mobilizations,Manual Therapy, Neuromuscular Re-education, Patient/Caregiver Education, Self-Care/Home Management,Soft Tissue Mobilization,Taping, Therapeutic Activities, Therapeutic Exercises Modalities Cold Pack/Ice Massage,Infrared Therapy,Ultrasound Next Visit Focus/Plan Next Note Type Treatment Note Next Visit Plan Con't UBE, Counterstrain and exercises
--- NOTE | 2021-05-28 13:42 | PT.OTN ---
Current Diagnoses Adhesive capsulitis of right shoulder (05/28/21) Physical Therapy Treatment Note PT-OP-A Visit Information Start: 04/30/21 13:50 Freq: Status: Active Protocol: Document 05/28/21 13:02 MB (Rec: 05/28/21 13:42 MB [id number]) Out-Patient Physical Therapy Visit Information Visit Information Visit Type Treatment Note Visit Note 05/22 before KX Pt goes by Alda Visit Start Time 13:00 Visit Stop Time 13:38 Total Visit Minutes 38 Visit Number 7 Evaluation Information Evaluation Date 05/04/21 Precautions Precautions Pt underwent arthroscopic capsulotomy on 05/01/21. After the eval, PT reviews Dr. Valerio' s notes that state standard adhesive capsulitis protocol, ROM all planes and rotations. Pt brings in post-op papers that include education for pt to performing early ROM and strengthening exercises. It lists forward flexion, ER, IR 2-3x/day for 5' PT-OP-B Current Condition Start: 04/30/21 13:50 Freq: Status: Active Protocol: Document 05/04/21 09:47 MB (Rec: 05/04/21 10:10 MB [id number]) Current Condition History of Current Condition Onset Date One year and a half Current Complaints Pain and decreased right arm use History of Current Condition Pt underwent arthroscopic capsulotomy on right shoulder on 05/01/[address] Rizo. She was put in a sling and there was a large bandage over her right shoulder. She took them off after clearing with the doctor's office. She was not given any information about the procedure or precaution instructions. PT has not received a note from Dr. Rizo office and Dr. Smith wrote her PT order. She has had a hard time sleeping since the procedure. She lives alone and drove herself to therapy. She takes care of two little dogs. Pt is right handed. Pt states that she was told she could take the sling off when she was ready and she was. Post-op paper work said for her to try to reach behind her back and reach overhead. She could reach behind to put her bra on this morning. PMH includes left rotator cuff surgery and she had PT after that and it went well. PMH also includes fibromyalgia, HAs and neck pain. 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 Pt has a follow-up with Dr. Rizo on 05/14/21. MRI right shoulder 03/24/21 had many changes including partial thickness tear distal supraspinatus and subscapularis, mod AC and GH OA, suggestion of superior anterior labral tear, partial thickness tear biceps tendon. Prior Treatments and Tests A few treatments of PT before MRI and procedure and pt states that she got frustrated and it was not helpful. Treatment Goals Patient/Caregiver Goals To relieve right shoulder pain and be able to lift her arm. PT-OP-C Subjective Start: 04/30/21 13:50 Freq: Status: Active Protocol: Document 05/28/21 13:02 MB (Rec: 05/28/21 13:42 MB [id number]) OP-PT Subjective Patient Comments Patient Comments Pt states that she is okay during the day but everything seems to hurt more at night. Every now and then, the left rib area catches. It's better. She put a stack of books on a bench to work her right arm forward when watching TV as the orthopedist surgeon suggested this. PT-OP-J Posture/Palpation/Skin Start: 04/30/21 13:50 Freq: Status: Active Protocol: Document 05/04/21 09:47 MB (Rec: 05/04/21 13:36 MB [id number]) Posture Evaluation Comments Posture Comments Dowager's hump, rounded shoulders, increased soft tissue body mass, increased thoracic kyphosis, 2 small incisions with band-aids over them anterior right shoulder and one posterior shoulder, mild edema right UE. PT-OP-K Range of Motion Start: 04/30/21 13:50 Freq: Status: Active Protocol: Document 05/04/21 09:47 MB (Rec: 05/04/21 13:36 MB [id number]) Shoulder Goniometric Range of Motion Shoulder Left Shoulder ROM WFL Yes Testing Position Standing Comments IR to T12 in standing Right Shoulder ROM WFL No Testing Position Standing Flexion 44 Abduction 30 Comments IR to right buttocks in standing Elbow/Forearm Range of Motion Elbow/Forearm Bilateral Elbow/Forearm ROM WFL Yes ROM Testing Position Standing PT-OP-M Strength Start: 04/30/21 13:50 Freq: Status: Active Protocol: Document 05/04/21 09:47 MB (Rec: 05/04/21 13:36 MB [id number]) Shoulder Strength Shoulder Manual Muscle Testing Left Flexion 5 Normal Abduction (C5) 5 Normal External Rotation 5 Normal Internal Rotation 5 Normal Right Comments Right shoulder not MMT d/t pain and decreased active right shoulder ROM post-op three days ago Elbow/Forearm Strength Elbow and Forearm Manual Muscle Testing Left Flexion (C6) 5 Normal Extension (C7) 5 Normal Pronation 5 Normal Supination 5 Normal Right Pronation 5 Normal Supination 5 Normal Comments MMT flexion and extension not tested post-op three days and MRI reports biceps tear PT-OP-Q Treatments Start: 04/30/21 13:50 Freq: Status: Active Protocol: Document 05/28/21 13:02 MB (Rec: 05/28/21 13:42 MB [id number]) Cardio Equipment Upper Body Ergometer (UBE) Duration (Minutes) 10 Other 1' forward and 1' backward Therapeutic Exercises Standing Exercises Racquet ball self-massage Comments Performed after mobs today Manual Therapy Treatment Other Other Manual Treatments Garrison protocol right shoulder and PT checks in with pt often and ed pt that pt is in control and PT will stop if needed. In prone, right shoulder barely gets to neutral ER dangling off the side of the bed (to zero) and it is very restricted and limited. Guarding limits all mob positions today PT-OP-T Assessment and Plan Start: 04/30/21 13:50 Freq: Status: Active Protocol: Document 05/28/21 13:02 MB (Rec: 05/28/21 13:42 MB [id number]) Physical Therapy Assessment Rehab Potential Rehabilitation Potential Fair Evaluation Complexity Number of Personal Factors/Comorbidities 1-2 Number of Body Systems Impaired 1-2 Clinical Presentation at Evaluation Evolving Impairments Impairments Activity Tolerance,Balance, Edema,Functional Activities, Functional Mobility,Integument ,Pain,Posture,ROM,Soft Tissue Mobility,Strength Other Impairments Personal factors include pt lives at home alone and is unclear about the surgical procedure she underwent. Body systems affected include musculoskeletal and neuromuscular. Her clinical presentation is evolving: she had capsule surgery and MRI from 03/24 states there are several muscle tears/labral tear, so these are not fixed Other Concerns Fall Risk Yes Goals 4 Laboratory Animal Care Veterinarian Goal (LTG) Pt will present with improved strength in right arm to at least 4/5 flexion, abduction, IR and ER to improve function by 07/04/21. LTG Duration 8 weeks 3 Retirement Goal (LTG) Pt will perform progressive HEP with I including range, flexibility, postural and strengthening exercises to improve pain and function by 07/04/21. LTG Duration 8 weeks 2 Retirement Goal (LTG) Pt will present with active right shoulder ROM flexion, abduction, ER and IR equal to the left shoulder to improve functional use of her right arm by 07/04/21. LTG Duration 8 weeks 1 Laboratory Animal Care Veterinarian Goal (LTG) Pt will present with an improved QuickDASH score to reflect no more than 20% impairment to improve functional use of right arm by 07/04/21. LTG Duration 8 weeks Assessment Summary Assessment Pt presents with a lot of globalized right shoulder capsular tightness and she is very guarded with all manual work and this limits mobilizations. Her right shoulder flexion is less than 90 deg actively in standing, abduction is about 45 deg and she cannot get close to LB for IR. Con't efforts. Clinical presentation is guarded. Physical Therapy Plan Frequency and Duration Frequency of Treatment 2x/Week Duration of Treatment 8 weeks Plan of Care Start Date 05/04/21 Plan of Care End Date 07/04/21 Therapeutic Interventions Therapeutic Interventions Aquatic Therapy,Balance Training,Canalithic Repositioning,Coordination Training,Gait Training,Home Exercise Program,Joint Mobilizations,Manual Therapy, Neuromuscular Re-education, Patient/Caregiver Education, Self-Care/Home Management,Soft Tissue Mobilization,Taping, Therapeutic Activities, Therapeutic Exercises Modalities Cold Pack/Ice Massage,Infrared Therapy,Ultrasound Next Visit Focus/Plan Next Note Type Treatment Note Next Visit Plan Con't UBE, progress exercises and perform Garrison mobs if pt can tolerate.
--- NOTE | 2021-05-31 13:45 | PT.OTN ---
Current Diagnoses Adhesive capsulitis of right shoulder (05/31/21) Physical Therapy Treatment Note PT-OP-A Visit Information Start: 04/30/21 13:50 Freq: Status: Active Protocol: Document 05/31/21 13:00 MB (Rec: 05/31/21 13:45 MB [id number]) Out-Patient Physical Therapy Visit Information Visit Information Visit Type Treatment Note Visit Note 06/22 before KX Pt goes by Alda Visit Start Time 13:00 Visit Stop Time 13:45 Total Visit Minutes 45 Visit Number 8 Evaluation Information Evaluation Date 05/04/21 Precautions Precautions Pt underwent arthroscopic capsulotomy on 05/01/21. After the eval, PT reviews Dr. Valerio' s notes that state standard adhesive capsulitis protocol, ROM all planes and rotations. Pt brings in post-op papers that include education for pt to performing early ROM and strengthening exercises. It lists forward flexion, ER, IR 2-3x/day for 5' PT-OP-B Current Condition Start: 04/30/21 13:50 Freq: Status: Active Protocol: Document 05/04/21 09:47 MB (Rec: 05/04/21 10:10 MB [id number]) Current Condition History of Current Condition Onset Date One year and a half Current Complaints Pain and decreased right arm use History of Current Condition Pt underwent arthroscopic capsulotomy on right shoulder on 05/01/[address] Rizo. She was put in a sling and there was a large bandage over her right shoulder. She took them off after clearing with the doctor's office. She was not given any information about the procedure or precaution instructions. PT has not received a note from Dr. Rizo office and Dr. Smith wrote her PT order. She has had a hard time sleeping since the procedure. She lives alone and drove herself to therapy. She takes care of two little dogs. Pt is right handed. Pt states that she was told she could take the sling off when she was ready and she was. Post-op paper work said for her to try to reach behind her back and reach overhead. She could reach behind to put her bra on this morning. PMH includes left rotator cuff surgery and she had PT after that and it went well. PMH also includes fibromyalgia, HAs and neck pain. 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 Pt has a follow-up with Dr. Rizo on 05/14/21. MRI right shoulder 03/24/21 had many changes including partial thickness tear distal supraspinatus and subscapularis, mod AC and GH OA, suggestion of superior anterior labral tear, partial thickness tear biceps tendon. Prior Treatments and Tests A few treatments of PT before MRI and procedure and pt states that she got frustrated and it was not helpful. Treatment Goals Patient/Caregiver Goals To relieve right shoulder pain and be able to lift her arm. PT-OP-C Subjective Start: 04/30/21 13:50 Freq: Status: Active Protocol: Document 05/31/21 13:00 MB (Rec: 05/31/21 13:45 MB [id number]) OP-PT Subjective Patient Comments Patient Comments Pt had trouble sleeping last night. She has a place on her left shoulder blade that is a muscle knot. She is looking into getting a good ball for massage. PT-OP-J Posture/Palpation/Skin Start: 04/30/21 13:50 Freq: Status: Active Protocol: Document 05/04/21 09:47 MB (Rec: 05/04/21 13:36 MB [id number]) Posture Evaluation Comments Posture Comments Dowager's hump, rounded shoulders, increased soft tissue body mass, increased thoracic kyphosis, 2 small incisions with band-aids over them anterior right shoulder and one posterior shoulder, mild edema right UE. PT-OP-K Range of Motion Start: 04/30/21 13:50 Freq: Status: Active Protocol: Document 05/04/21 09:47 MB (Rec: 05/04/21 13:36 MB [id number]) Shoulder Goniometric Range of Motion Shoulder Left Shoulder ROM WFL Yes Testing Position Standing Comments IR to T12 in standing Right Shoulder ROM WFL No Testing Position Standing Flexion 44 Abduction 30 Comments IR to right buttocks in standing Elbow/Forearm Range of Motion Elbow/Forearm Bilateral Elbow/Forearm ROM WFL Yes ROM Testing Position Standing PT-OP-M Strength Start: 04/30/21 13:50 Freq: Status: Active Protocol: Document 05/04/21 09:47 MB (Rec: 05/04/21 13:36 MB [id number]) Shoulder Strength Shoulder Manual Muscle Testing Left Flexion 5 Normal Abduction (C5) 5 Normal External Rotation 5 Normal Internal Rotation 5 Normal Right Comments Right shoulder not MMT d/t pain and decreased active right shoulder ROM post-op three days ago Elbow/Forearm Strength Elbow and Forearm Manual Muscle Testing Left Flexion (C6) 5 Normal Extension (C7) 5 Normal Pronation 5 Normal Supination 5 Normal Right Pronation 5 Normal Supination 5 Normal Comments MMT flexion and extension not tested post-op three days and MRI reports biceps tear PT-OP-Q Treatments Start: 04/30/21 13:50 Freq: Status: Active Protocol: Document 05/31/21 13:00 MB (Rec: 05/31/21 13:45 MB [id number]) Cardio Equipment Upper Body Ergometer (UBE) Duration (Minutes) 10 Other 1' forward and 1' backward Therapeutic Exercises Standing Exercises Racquet ball self-massage Comments Intrascapular STM and MWM infraspinatus Manual Therapy Treatment Other Other Manual Treatments Pt agrees to Counterstrain to assess and treat fascial tenson and she presents with tension in the following fascial systems: dura and LF and ALL. PT treats stacks in both and pt responds well to treatment initially. PT-OP-T Assessment and Plan Start: 04/30/21 13:50 Freq: Status: Active Protocol: Document 05/31/21 13:00 MB (Rec: 05/31/21 13:45 MB [id number]) Physical Therapy Assessment Rehab Potential Rehabilitation Potential Fair Evaluation Complexity Number of Personal Factors/Comorbidities 1-2 Number of Body Systems Impaired 1-2 Clinical Presentation at Evaluation Evolving Impairments Impairments Activity Tolerance,Balance, Edema,Functional Activities, Functional Mobility,Integument ,Pain,Posture,ROM,Soft Tissue Mobility,Strength Other Impairments Personal factors include pt lives at home alone and is unclear about the surgical procedure she underwent. Body systems affected include musculoskeletal and neuromuscular. Her clinical presentation is evolving: she had capsule surgery and MRI from 03/24 states there are several muscle tears/labral tear, so these are not fixed Other Concerns Fall Risk Yes Goals 4 Nursing Home Goal (LTG) Pt will present with improved strength in right arm to at least 4/5 flexion, abduction, IR and ER to improve function by 07/04/21. LTG Duration 8 weeks 3 Account Support Associate Goal (LTG) Pt will perform progressive HEP with I including range, flexibility, postural and strengthening exercises to improve pain and function by 07/04/21. LTG Duration 8 weeks 2 Account Support Associate Goal (LTG) Pt will present with active right shoulder ROM flexion, abduction, ER and IR equal to the left shoulder to improve functional use of her right arm by 07/04/21. LTG Duration 8 weeks 1 Nursing Home Goal (LTG) Pt will present with an improved QuickDASH score to reflect no more than 20% impairment to improve functional use of right arm by 07/04/21. LTG Duration 8 weeks Assessment Summary Assessment UBE, use of racquet ball for self-massage today and then initiated Counterstrain and pt responds well initially. Physical Therapy Plan Frequency and Duration Frequency of Treatment 2x/Week Duration of Treatment 8 weeks Plan of Care Start Date 05/04/21 Plan of Care End Date 07/04/21 Therapeutic Interventions Therapeutic Interventions Aquatic Therapy,Balance Training,Canalithic Repositioning,Coordination Training,Gait Training,Home Exercise Program,Joint Mobilizations,Manual Therapy, Neuromuscular Re-education, Patient/Caregiver Education, Self-Care/Home Management,Soft Tissue Mobilization,Taping, Therapeutic Activities, Therapeutic Exercises Modalities Cold Pack/Ice Massage,Infrared Therapy,Ultrasound Next Visit Focus/Plan Next Note Type Treatment Note Next Visit Plan Con't UBE, progress exercises and perform Counterstrain or Mobile mobs if pt can tolerate.
--- NOTE | 2021-06-04 13:45 | PT.OTN ---
Current Diagnoses Adhesive capsulitis of right shoulder (06/04/21) Physical Therapy Treatment Note PT-OP-A Visit Information Start: 04/30/21 13:50 Freq: Status: Active Protocol: Document 06/04/21 13:01 MB (Rec: 06/04/21 13:45 MB [id number]) Out-Patient Physical Therapy Visit Information Visit Information Visit Type Treatment Note Visit Note 07/22 before KX Pt goes by Alda Visit Start Time 13:01 Visit Stop Time 13:42 Total Visit Minutes 41 Visit Number 9 Evaluation Information Evaluation Date 05/04/21 Precautions Precautions Pt underwent arthroscopic capsulotomy on 05/01/21. After the eval, PT reviews Dr. Valerio' s notes that state standard adhesive capsulitis protocol, ROM all planes and rotations. Pt brings in post-op papers that include education for pt to performing early ROM and strengthening exercises. It lists forward flexion, ER, IR 2-3x/day for 5' PT-OP-B Current Condition Start: 04/30/21 13:50 Freq: Status: Active Protocol: Document 05/04/21 09:47 MB (Rec: 05/04/21 10:10 MB [id number]) Current Condition History of Current Condition Onset Date One year and a half Current Complaints Pain and decreased right arm use History of Current Condition Pt underwent arthroscopic capsulotomy on right shoulder on 05/01/[address] Rizo. She was put in a sling and there was a large bandage over her right shoulder. She took them off after clearing with the doctor's office. She was not given any information about the procedure or precaution instructions. PT has not received a note from Dr. Rizo office and Dr. Smith wrote her PT order. She has had a hard time sleeping since the procedure. She lives alone and drove herself to therapy. She takes care of two little dogs. Pt is right handed. Pt states that she was told she could take the sling off when she was ready and she was. Post-op paper work said for her to try to reach behind her back and reach overhead. She could reach behind to put her bra on this morning. PMH includes left rotator cuff surgery and she had PT after that and it went well. PMH also includes fibromyalgia, HAs and neck pain. 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 Pt has a follow-up with Dr. Rizo on 05/14/21. MRI right shoulder 03/24/21 had many changes including partial thickness tear distal supraspinatus and subscapularis, mod AC and GH OA, suggestion of superior anterior labral tear, partial thickness tear biceps tendon. Prior Treatments and Tests A few treatments of PT before MRI and procedure and pt states that she got frustrated and it was not helpful. Treatment Goals Patient/Caregiver Goals To relieve right shoulder pain and be able to lift her arm. PT-OP-C Subjective Start: 04/30/21 13:50 Freq: Status: Active Protocol: Document 06/04/21 13:01 MB (Rec: 06/04/21 13:45 MB [id number]) OP-PT Subjective Patient Comments Patient Comments Pt states that her shoulder is okay. PT-OP-J Posture/Palpation/Skin Start: 04/30/21 13:50 Freq: Status: Active Protocol: Document 05/04/21 09:47 MB (Rec: 05/04/21 13:36 MB [id number]) Posture Evaluation Comments Posture Comments Dowager's hump, rounded shoulders, increased soft tissue body mass, increased thoracic kyphosis, 2 small incisions with band-aids over them anterior right shoulder and one posterior shoulder, mild edema right UE. PT-OP-K Range of Motion Start: 04/30/21 13:50 Freq: Status: Active Protocol: Document 05/04/21 09:47 MB (Rec: 05/04/21 13:36 MB [id number]) Shoulder Goniometric Range of Motion Shoulder Left Shoulder ROM WFL Yes Testing Position Standing Comments IR to T12 in standing Right Shoulder ROM WFL No Testing Position Standing Flexion 44 Abduction 30 Comments IR to right buttocks in standing Elbow/Forearm Range of Motion Elbow/Forearm Bilateral Elbow/Forearm ROM WFL Yes ROM Testing Position Standing PT-OP-M Strength Start: 04/30/21 13:50 Freq: Status: Active Protocol: Document 05/04/21 09:47 MB (Rec: 05/04/21 13:36 MB [id number]) Shoulder Strength Shoulder Manual Muscle Testing Left Flexion 5 Normal Abduction (C5) 5 Normal External Rotation 5 Normal Internal Rotation 5 Normal Right Comments Right shoulder not MMT d/t pain and decreased active right shoulder ROM post-op three days ago Elbow/Forearm Strength Elbow and Forearm Manual Muscle Testing Left Flexion (C6) 5 Normal Extension (C7) 5 Normal Pronation 5 Normal Supination 5 Normal Right Pronation 5 Normal Supination 5 Normal Comments MMT flexion and extension not tested post-op three days and MRI reports biceps tear PT-OP-Q Treatments Start: 04/30/21 13:50 Freq: Status: Active Protocol: Document 06/04/21 13:01 MB (Rec: 06/04/21 13:45 MB [id number]) Cardio Equipment Upper Body Ergometer (UBE) Duration (Minutes) 10 Other 1' forward and 1' backward Therapeutic Exercises Supine Exercises Posterior capsule stretch Side right Comments 2 reps and pt only holds 15 sec Pect stretch Comments Tried today and right arm does not rest into ER much at all Shoulder flexion and abduction with cane Comments 10 reps x2 flexion and 10 reps x1 abduction, limits d/t pain Sitting Exercises AAROM flexion and abduction over table Sitting Exercise Name Ed pt to perform thumbs up and use left hand to help right hand for flexion Comments Pt is doing over an object at home Thoracic rotation in sitting Side bilateral Comments Ed pt to perform on both sides and to breathe Melanie Comments Pt states that she is using her melanie at home Standing Exercises Shoulder IR in front and behind back Side right Comments 5 reps behind and then 5 reps in front x3, gave level 1 band for home Towel roll IR Side right Comments Pt does not get far at all with this one Racquet ball self-massage Comments Pt is performing at home Thoracic mobility Comments Pt is performing at home PT-OP-T Assessment and Plan Start: 04/30/21 13:50 Freq: Status: Active Protocol: Document 06/04/21 13:01 MB (Rec: 06/04/21 13:45 MB [id number]) Physical Therapy Assessment Rehab Potential Rehabilitation Potential Fair Evaluation Complexity Number of Personal Factors/Comorbidities 1-2 Number of Body Systems Impaired 1-2 Clinical Presentation at Evaluation Evolving Impairments Impairments Activity Tolerance,Balance, Edema,Functional Activities, Functional Mobility,Integument ,Pain,Posture,ROM,Soft Tissue Mobility,Strength Other Impairments Personal factors include pt lives at home alone and is unclear about the surgical procedure she underwent. Body systems affected include musculoskeletal and neuromuscular. Her clinical presentation is evolving: she had capsule surgery and MRI from 03/24 states there are several muscle tears/labral tear, so these are not fixed Other Concerns Fall Risk Yes Goals 4 Care Home Goal (LTG) Pt will present with improved strength in right arm to at least 4/5 flexion, abduction, IR and ER to improve function by 07/04/21. LTG Duration 8 weeks 3 Sky Diver Goal (LTG) Pt will perform progressive HEP with I including range, flexibility, postural and strengthening exercises to improve pain and function by 07/04/21. LTG Duration 8 weeks 2 Care Home Goal (LTG) Pt will present with active right shoulder ROM flexion, abduction, ER and IR equal to the left shoulder to improve functional use of her right arm by 07/04/21. LTG Duration 8 weeks 1 Care Home Goal (LTG) Pt will present with an improved QuickDASH score to reflect no more than 20% impairment to improve functional use of right arm by 07/04/21. LTG Duration 8 weeks Assessment Summary Assessment Pt has not been doing many of the ROM exercises that PT gave her. She hasn't looked in her exercise folder in a while. Her right shoulder AROM and PROM is very limited. Abduction with cane in supine does not reach 90 deg. She self-limts range d/t pain. Decreased compliance is a barrier to PT. Physical Therapy Plan Frequency and Duration Frequency of Treatment 2x/Week Duration of Treatment 8 weeks Plan of Care Start Date 05/04/21 Plan of Care End Date 07/04/21 Therapeutic Interventions Therapeutic Interventions Aquatic Therapy,Balance Training,Canalithic Repositioning,Coordination Training,Gait Training,Home Exercise Program,Joint Mobilizations,Manual Therapy, Neuromuscular Re-education, Patient/Caregiver Education, Self-Care/Home Management,Soft Tissue Mobilization,Taping, Therapeutic Activities, Therapeutic Exercises Modalities Cold Pack/Ice Massage,Infrared Therapy,Ultrasound Next Visit Focus/Plan Next Note Type Progress Note Next Visit Plan Progress exercises as appropriate
--- NOTE | 2021-06-11 14:09 | PT.OTN ---
Current Diagnoses Adhesive capsulitis of right shoulder (06/11/21) Physical Therapy Treatment Note PT-OP-A Visit Information Start: 04/30/21 13:50 Freq: Status: Active Protocol: Document 06/11/21 12:19 MB (Rec: 06/11/21 12:57 MB [id number]) Out-Patient Physical Therapy Visit Information Visit Information Visit Type Treatment Note Visit Note before KX Visit Start Time 12:19 Visit Stop Time 13:00 Total Visit Minutes 41 Visit Number 10 Evaluation Information Evaluation Date 05/04/21 Precautions Precautions Pt underwent arthroscopic capsulotomy on 05/01/21. After the eval, PT reviews Dr. Valerio' s notes that state standard adhesive capsulitis protocol, ROM all planes and rotations. Pt brings in post-op papers that include education for pt to performing early ROM and strengthening exercises. It lists forward flexion, ER, IR 2-3x/day for 5' PT-OP-B Current Condition Start: 04/30/21 13:50 Freq: Status: Active Protocol: Document 05/04/21 09:47 MB (Rec: 05/04/21 10:10 MB [id number]) Current Condition History of Current Condition Onset Date One year and a half Current Complaints Pain and decreased right arm use History of Current Condition Pt underwent arthroscopic capsulotomy on right shoulder on 05/01/[address] Rizo. She was put in a sling and there was a large bandage over her right shoulder. She took them off after clearing with the doctor's office. She was not given any information about the procedure or precaution instructions. PT has not received a note from Dr. Rizo office and Dr. Smith wrote her PT order. She has had a hard time sleeping since the procedure. She lives alone and drove herself to therapy. She takes care of two little dogs. Pt is right handed. Pt states that she was told she could take the sling off when she was ready and she was. Post-op paper work said for her to try to reach behind her back and reach overhead. She could reach behind to put her bra on this morning. PMH includes left rotator cuff surgery and she had PT after that and it went well. PMH also includes fibromyalgia, HAs and neck pain. 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 Pt has a follow-up with Dr. Rizo on 05/14/21. MRI right shoulder 03/24/21 had many changes including partial thickness tear distal supraspinatus and subscapularis, mod AC and GH OA, suggestion of superior anterior labral tear, partial thickness tear biceps tendon. Prior Treatments and Tests A few treatments of PT before MRI and procedure and pt states that she got frustrated and it was not helpful. Treatment Goals Patient/Caregiver Goals To relieve right shoulder pain and be able to lift her arm. PT-OP-C Subjective Start: 04/30/21 13:50 Freq: Status: Active Protocol: Document 06/11/21 12:19 MB (Rec: 06/11/21 12:57 MB [id number]) OP-PT Subjective Patient Comments Patient Comments Pt had a couple of bad days last week related to the weather and low mood. Her neighbor gave her some vitamin D. 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 Pt states that she can use her right hand to wash her hair. She does not bring in exercise handouts today. She did not think that Counterstrain wasn' t helpful. PT-OP-J Posture/Palpation/Skin Start: 04/30/21 13:50 Freq: Status: Active Protocol: Document 05/04/21 09:47 MB (Rec: 05/04/21 13:36 MB [id number]) Posture Evaluation Comments Posture Comments Dowager's hump, rounded shoulders, increased soft tissue body mass, increased thoracic kyphosis, 2 small incisions with band-aids over them anterior right shoulder and one posterior shoulder, mild edema right UE. PT-OP-K Range of Motion Start: 04/30/21 13:50 Freq: Status: Active Protocol: Document 05/04/21 09:47 MB (Rec: 05/04/21 13:36 MB [id number]) Shoulder Goniometric Range of Motion Shoulder Left Shoulder ROM WFL Yes Testing Position Standing Comments IR to T12 in standing Right Shoulder ROM WFL No Testing Position Standing Flexion 44 Abduction 30 Comments IR to right buttocks in standing Elbow/Forearm Range of Motion Elbow/Forearm Bilateral Elbow/Forearm ROM WFL Yes ROM Testing Position Standing PT-OP-M Strength Start: 04/30/21 13:50 Freq: Status: Active Protocol: Document 05/04/21 09:47 MB (Rec: 05/04/21 13:36 MB [id number]) Shoulder Strength Shoulder Manual Muscle Testing Left Flexion 5 Normal Abduction (C5) 5 Normal External Rotation 5 Normal Internal Rotation 5 Normal Right Comments Right shoulder not MMT d/t pain and decreased active right shoulder ROM post-op three days ago Elbow/Forearm Strength Elbow and Forearm Manual Muscle Testing Left Flexion (C6) 5 Normal Extension (C7) 5 Normal Pronation 5 Normal Supination 5 Normal Right Pronation 5 Normal Supination 5 Normal Comments MMT flexion and extension not tested post-op three days and MRI reports biceps tear PT-OP-Q Treatments Start: 04/30/21 13:50 Freq: Status: Active Protocol: Document 06/11/21 12:19 MB (Rec: 06/11/21 12:57 MB [id number]) Cardio Equipment Upper Body Ergometer (UBE) Duration (Minutes) 11 Other 1' forward and 1' backward Therapeutic Exercises Other Exercises HEP review Comments PT verbally reviews and demos all exercises for pt today Self-Care/Home Management Treatment Education Other Education Extensive education on importance of doing the exercises that PT has prescribed her for home. Pt reports that she has not been performing them and she con't to complain about not having increased IR but she has not been doing her new IR exercise at home. PT re-iterates importance of doing exercises as prescribed and PT demos all exercises. Ed pt in benefits of aquatic therapy to help with AAROM and pain management issues with shoulder rehab and she states she has to think about it. Pt is tearful during treatment and PT does provide encouragement to pt. PT-OP-T Assessment and Plan Start: 04/30/21 13:50 Freq: Status: Active Protocol: Document 06/11/21 12:19 MB (Rec: 06/11/21 12:57 MB [id number]) Physical Therapy Assessment Rehab Potential Rehabilitation Potential Poor Evaluation Complexity Number of Personal Factors/Comorbidities 1-2 Number of Body Systems Impaired 3 Clinical Presentation at Evaluation Evolving Impairments Impairments Activity Tolerance,Balance, Edema,Functional Activities, Functional Mobility,Integument ,Pain,Posture,ROM,Soft Tissue Mobility,Strength Other Impairments Personal factors include pt has not been compliant with HEP. Body systems affected include musculoskeletal, psychosocial and neuromuscular . Her clinical presentation is evolving: she had capsule surgery and MRI from 03/24 states there are several muscle tears/labral tear, so these are not fixed Other Concerns Fall Risk Yes Goals 4 Usp Goal (LTG) Pt will present with improved strength in right arm to at least 4/5 flexion, abduction, IR and ER to improve function by 07/11/21. 06/11/21: Pt declines MMT d/t pain is way down and does not wish to increase it LTG Duration 4 weeks 3 Usp Goal (LTG) Pt will perform progressive HEP with I including range, flexibility, postural and strengthening exercises to improve pain and function by 07/11/21. 06/11/21: Pt states that she has been stretching her right arm down her leg. This is not one that PT has given her. She does the exercise with the ball against the wall. She occ does the towel exercise. LTG Duration 4 weeks 2 Assembler Crimper Goal (LTG) Pt will present with active right shoulder ROM flexion, abduction, ER and IR equal to the left shoulder to improve functional use of her right arm by 07/11/21. 06/11/21: AROM shoulders in standing: right shoulder 90 deg and left shoulder 140 deg; abduction: right shoulder 89 deg and left shoulder 140 deg; right shoulder IR to side of buttocks and left shoulder IR to L1. LTG Duration 4 weeks 1 Usp Goal (LTG) Pt will present with an improved QuickDASH score to reflect no more than 20% impairment to improve functional use of right arm by 07/11/21. 06/11/21: QuickDASH score reflects 34.09% impairment, which is an improvement since evaluation LTG Duration 4 weeks Assessment Summary Assessment Progress note today. Pt missed treatment last week and states that she has 1-2 bad days a week. When PT asks for clarification, she states that these are days with decreased affect. She is tearful during progress note today. She has not performed new IR exercises given by PT despite complaining that IR is her biggest problem and that PT had given her a new exercise because she could not perform the towel one well. She has also not been performing other exercises as prescribed by PT . Her right shoulder AROM flexion, abduction and IR have not improved. She states that she cannot tolerate MMT today as her pain is manageable and she does not wish for it to flare up. Her QuickDASH score is much improved since the evaluation. Because she has had about 30% improvement in QuickDASH score and she wishes to con't with PT, will con't PT efforts through her current scheduled appointments. PT does discuss benefits of aquatic PT to improve range while managing pain and she states she will think about this and talk with the doctor. She expresses today that she did not like Counterstrain from several treatments back as it did not seem helpful and she would have liked her shoulder worked on. PT reminds pt that pt could not tolerate her right shoulder being worked on d/t pain, tearfulness and guarding. Overall, pt's progress with PT has been very limited d/t reports of pain, guarding, decreased compliance with HEP and decreased affect. Her functional prognosis is guarded to poor. Physical Therapy Plan Frequency and Duration Frequency of Treatment 2x/Week Duration of Treatment 4 weeks Plan of Care Start Date 06/11/21 Plan of Care End Date 07/11/21 Therapeutic Interventions Therapeutic Interventions Aquatic Therapy,Balance Training,Canalithic Repositioning,Coordination Training,Gait Training,Home Exercise Program,Joint Mobilizations,Manual Therapy, Neuromuscular Re-education, Patient/Caregiver Education, Self-Care/Home Management,Soft Tissue Mobilization,Taping, Therapeutic Activities, Therapeutic Exercises Modalities Cold Pack/Ice Massage,Infrared Therapy,Ultrasound Next Visit Focus/Plan Next Note Type Treatment Note Next Visit Plan Progress exercises as appropriate, have pt perform her current exercises
--- NOTE | 2021-06-11 14:09 | PT.OPPOC ---
Physical, Occupational & Speech Therapy At [facility] Current Diagnoses Adhesive capsulitis of right shoulder (06/11/21) Visit Care Team Role Provider Type Dulce Palencia MD Family Provider Physician Primary Care Provider Specialty: Family Practice Address: [address] [place] [address], [facility] [place], [address] Email: [email or web address] Indra Rioz MD Attending Provider Physician Referring Provider Specialty: Orthopedic Surgery Address: [address] [place] [address], [place], [address] Email: [email or web address] Plan Of Care PT-OP-T Assessment and Plan Start: 04/30/21 13:50 Freq: Status: Active Protocol: Document 06/11/21 12:19 MB (Rec: 06/11/21 12:57 MB [id number]) Physical Therapy Assessment Rehab Potential Rehabilitation Potential Poor Evaluation Complexity Number of Personal Factors/Comorbidities 1-2 Number of Body Systems Impaired 3 Clinical Presentation at Evaluation Evolving Impairments Impairments Activity Tolerance,Balance, Edema,Functional Activities, Functional Mobility,Integument ,Pain,Posture,ROM,Soft Tissue Mobility,Strength Other Impairments Personal factors include pt has not been compliant with HEP. Body systems affected include musculoskeletal, psychosocial and neuromuscular . Her clinical presentation is evolving: she had capsule surgery and MRI from 03/24 states there are several muscle tears/labral tear, so these are not fixed Other Concerns Fall Risk Yes Goals 4 Hand Icer Goal (LTG) Pt will present with improved strength in right arm to at least 4/5 flexion, abduction, IR and ER to improve function by 07/11/21. 06/11/21: Pt declines MMT d/t pain is way down and does not wish to increase it LTG Duration 4 weeks 3 Long-Term Goal (LTG) Pt will perform progressive HEP with I including range, flexibility, postural and strengthening exercises to improve pain and function by 07/11/21. 06/11/21: Pt states that she has been stretching her right arm down her leg. This is not one that PT has given her. She does the exercise with the ball against the wall. She occ does the towel exercise. LTG Duration 4 weeks 2 Long-Term Goal (LTG) Pt will present with active right shoulder ROM flexion, abduction, ER and IR equal to the left shoulder to improve functional use of her right arm by 07/11/21. 06/11/21: AROM shoulders in standing: right shoulder 90 deg and left shoulder 140 deg; abduction: right shoulder 89 deg and left shoulder 140 deg; right shoulder IR to side of buttocks and left shoulder IR to L1. LTG Duration 4 weeks 1 Long-Term Goal (LTG) Pt will present with an improved QuickDASH score to reflect no more than 20% impairment to improve functional use of right arm by 07/11/21. 06/11/21: QuickDASH score reflects 34.09% impairment, which is an improvement since evaluation LTG Duration 4 weeks Assessment Summary Assessment Progress note today. Pt missed treatment last week and states that she has 1-2 bad days a week. When PT asks for clarification, she states that these are days with decreased affect. She is tearful during progress note today. She has not performed new IR exercises given by PT despite complaining that IR is her biggest problem and that PT had given her a new exercise because she could not perform the towel one well. She has also not been performing other exercises as prescribed by PT . Her right shoulder AROM flexion, abduction and IR have not improved. She states that she cannot tolerate MMT today as her pain is manageable and she does not wish for it to flare up. Her QuickDASH score is much improved since the evaluation. Because she has had about 30% improvement in QuickDASH score and she wishes to con't with PT, will con't PT efforts through her current scheduled appointments. PT does discuss benefits of aquatic PT to improve range while managing pain and she states she will think about this and talk with the doctor. She expresses today that she did not like Counterstrain from several treatments back as it did not seem helpful and she would have liked her shoulder worked on. PT reminds pt that pt could not tolerate her right shoulder being worked on d/t pain, tearfulness and guarding. Overall, pt's progress with PT has been very limited d/t reports of pain, guarding, decreased compliance with HEP and decreased affect. Her functional prognosis is guarded to poor. Physical Therapy Plan Frequency and Duration Frequency of Treatment 2x/Week Duration of Treatment 4 weeks Plan of Care Start Date 06/11/21 Plan of Care End Date 07/11/21 Therapeutic Interventions Therapeutic Interventions Aquatic Therapy,Balance Training,Canalithic Repositioning,Coordination Training,Gait Training,Home Exercise Program,Joint Mobilizations,Manual Therapy, Neuromuscular Re-education, Patient/Caregiver Education, Self-Care/Home Management,Soft Tissue Mobilization,Taping, Therapeutic Activities, Therapeutic Exercises Modalities Cold Pack/Ice Massage,Infrared Therapy,Ultrasound Next Visit Focus/Plan Next Note Type Treatment Note Next Visit Plan Progress exercises as appropriate, have pt perform her current exercises Plan of Care Dates Plan of Care Start Date 06/11/21 Plan of Care End Date 07/11/21 Electronically Signed by: Sarah Beth Pedraza, PT 06/11/21 0409 Please Sign and Return: I have reviewed this Plan of Care and certify that the skilled therapy services above are required to meet the patient?s needs. Physician Signature Date Printed Name and Credentials Clinical Instructor Signature Printed Name and Credentials
--- NOTE | 2021-06-15 13:43 | PT.OTN ---
Current Diagnoses Adhesive capsulitis of right shoulder (06/15/21) Physical Therapy Treatment Note PT-OP-A Visit Information Start: 04/30/21 13:50 Freq: Status: Active Protocol: Document 06/15/21 13:02 MB (Rec: 06/15/21 13:37 MB [id number]) Out-Patient Physical Therapy Visit Information Visit Information Visit Type Treatment Note Visit Note before KX Visit Start Time 13:02 Visit Stop Time 13:45 Total Visit Minutes 43 Visit Number 11 Evaluation Information Evaluation Date 05/04/21 Precautions Precautions Pt underwent arthroscopic capsulotomy on 05/01/21. After the eval, PT reviews Dr. Valerio' s notes that state standard adhesive capsulitis protocol, ROM all planes and rotations. Pt brings in post-op papers that include education for pt to performing early ROM and strengthening exercises. It lists forward flexion, ER, IR 2-3x/day for 5' PT-OP-B Current Condition Start: 04/30/21 13:50 Freq: Status: Active Protocol: Document 05/04/21 09:47 MB (Rec: 05/04/21 10:10 MB [id number]) Current Condition History of Current Condition Onset Date One year and a half Current Complaints Pain and decreased right arm use History of Current Condition Pt underwent arthroscopic capsulotomy on right shoulder on 05/01/[address] Rizo. She was put in a sling and there was a large bandage over her right shoulder. She took them off after clearing with the doctor's office. She was not given any information about the procedure or precaution instructions. PT has not received a note from Dr. Rizo office and Dr. Smith wrote her PT order. She has had a hard time sleeping since the procedure. She lives alone and drove herself to therapy. She takes care of two little dogs. Pt is right handed. Pt states that she was told she could take the sling off when she was ready and she was. Post-op paper work said for her to try to reach behind her back and reach overhead. She could reach behind to put her bra on this morning. PMH includes left rotator cuff surgery and she had PT after that and it went well. PMH also includes fibromyalgia, HAs and neck pain. 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 Pt has a follow-up with Dr. Rizo on 05/14/21. MRI right shoulder 03/24/21 had many changes including partial thickness tear distal supraspinatus and subscapularis, mod AC and GH OA, suggestion of superior anterior labral tear, partial thickness tear biceps tendon. Prior Treatments and Tests A few treatments of PT before MRI and procedure and pt states that she got frustrated and it was not helpful. Treatment Goals Patient/Caregiver Goals To relieve right shoulder pain and be able to lift her arm. PT-OP-C Subjective Start: 04/30/21 13:50 Freq: Status: Active Protocol: Document 06/15/21 13:02 MB (Rec: 06/15/21 13:37 MB [id number]) OP-PT Subjective Patient Comments Patient Comments Pt states that she returned to the doctor and he said for her to con't with PT and to start with more exercises behind her back and she demonstrates shoulder extension. She states that she did a lot of those yesterday and then she was up all night d/t pain. She states that surgeon mentioned about another surgery. PT-OP-J Posture/Palpation/Skin Start: 04/30/21 13:50 Freq: Status: Active Protocol: Document 05/04/21 09:47 MB (Rec: 05/04/21 13:36 MB [id number]) Posture Evaluation Comments Posture Comments Dowager's hump, rounded shoulders, increased soft tissue body mass, increased thoracic kyphosis, 2 small incisions with band-aids over them anterior right shoulder and one posterior shoulder, mild edema right UE. PT-OP-K Range of Motion Start: 04/30/21 13:50 Freq: Status: Active Protocol: Document 05/04/21 09:47 MB (Rec: 05/04/21 13:36 MB [id number]) Shoulder Goniometric Range of Motion Shoulder Left Shoulder ROM WFL Yes Testing Position Standing Comments IR to T12 in standing Right Shoulder ROM WFL No Testing Position Standing Flexion 44 Abduction 30 Comments IR to right buttocks in standing Elbow/Forearm Range of Motion Elbow/Forearm Bilateral Elbow/Forearm ROM WFL Yes ROM Testing Position Standing PT-OP-M Strength Start: 04/30/21 13:50 Freq: Status: Active Protocol: Document 05/04/21 09:47 MB (Rec: 05/04/21 13:36 MB [id number]) Shoulder Strength Shoulder Manual Muscle Testing Left Flexion 5 Normal Abduction (C5) 5 Normal External Rotation 5 Normal Internal Rotation 5 Normal Right Comments Right shoulder not MMT d/t pain and decreased active right shoulder ROM post-op three days ago Elbow/Forearm Strength Elbow and Forearm Manual Muscle Testing Left Flexion (C6) 5 Normal Extension (C7) 5 Normal Pronation 5 Normal Supination 5 Normal Right Pronation 5 Normal Supination 5 Normal Comments MMT flexion and extension not tested post-op three days and MRI reports biceps tear PT-OP-Q Treatments Start: 04/30/21 13:50 Freq: Status: Active Protocol: Document 06/15/21 13:02 MB (Rec: 06/15/21 13:37 MB [id number]) Cardio Equipment Upper Body Ergometer (UBE) Duration (Minutes) 10 Other 1' forward and 1' backward Therapeutic Exercises Supine Exercises Posterior capsule stretch Side bilateral Comments Cues to hold for a stretch and pt performs several reps Shoulder flexion and abduction with cane Equipment Used Cane Comments Left hand helps the right; 10 reps flexion x2, 10 reps abduction x1 Sitting Exercises AAROM flexion and abduction over table Sitting Exercise Name Cues for thumbs up Side right Equipment Used Black therapy mat, pt sitting on stool Comments 10 reps x2 flexion, 10 reps x1 abduction Thoracic rotation in sitting Side bilateral Comments Ed to slow down today Zarina Side bilateral Reps/Minutes 10 reps each direction Comments Flexion and abduction, left hand helping right, cues Standing Exercises Row with arms straight Side bilateral Equipment Used Level 1 band Comments Arms straight by side, scapular retraction, 10 reps Shoulder IR in front and behind back Side right Comments 5 reps behind and then 5 reps in front x3 Other Exercises HEP review Comments Pt does not seem familiar with many exercises when reviewed today PT-OP-T Assessment and Plan Start: 04/30/21 13:50 Freq: Status: Active Protocol: Document 06/15/21 13:02 MB (Rec: 06/15/21 13:37 MB [id number]) Physical Therapy Assessment Rehab Potential Rehabilitation Potential Poor Evaluation Complexity Number of Personal Factors/Comorbidities 1-2 Number of Body Systems Impaired 3 Clinical Presentation at Evaluation Evolving Impairments Impairments Activity Tolerance,Balance, Edema,Functional Activities, Functional Mobility,Integument ,Pain,Posture,ROM,Soft Tissue Mobility,Strength Other Impairments Personal factors include pt has not been compliant with HEP. Body systems affected include musculoskeletal, psychosocial and neuromuscular . Her clinical presentation is evolving: she had capsule surgery and MRI from 03/24 states there are several muscle tears/labral tear, so these are not fixed Other Concerns Fall Risk Yes Goals 4 Halfway Goal (LTG) Pt will present with improved strength in right arm to at least 4/5 flexion, abduction, IR and ER to improve function by 07/11/21. 06/11/21: Pt declines MMT d/t pain is way down and does not wish to increase it LTG Duration 4 weeks 3 Halfway Goal (LTG) Pt will perform progressive HEP with I including range, flexibility, postural and strengthening exercises to improve pain and function by 07/11/21. 06/11/21: Pt states that she has been stretching her right arm down her leg. This is not one that PT has given her. She does the exercise with the ball against the wall. She occ does the towel exercise. LTG Duration 4 weeks 2 Ampoule Examiner Goal (LTG) Pt will present with active right shoulder ROM flexion, abduction, ER and IR equal to the left shoulder to improve functional use of her right arm by 07/11/21. 06/11/21: AROM shoulders in standing: right shoulder 90 deg and left shoulder 140 deg; abduction: right shoulder 89 deg and left shoulder 140 deg; right shoulder IR to side of buttocks and left shoulder IR to L1. LTG Duration 4 weeks 1 Halfway Goal (LTG) Pt will present with an improved QuickDASH score to reflect no more than 20% impairment to improve functional use of right arm by 07/11/21. 06/11/21: QuickDASH score reflects 34.09% impairment, which is an improvement since evaluation LTG Duration 4 weeks Assessment Summary Assessment Pt did not bring in her exercise handouts as asked. When performing exercises with PT, she is not familiar with many of them despite having been given as HEP exercises and provided handouts. Once again, non-compliance is a barrier to PT. Asked pt to bring in her handouts next treatment date. Added scapular retraction with shoulder extension for HEP since pt states that Dr. Rizo recommended exercises behind that back. Also re-ed pt that she has the theraband exercise behind her back from two treatments ago. Heat to right shoulder after treatment. Physical Therapy Plan Frequency and Duration Frequency of Treatment 2x/Week Duration of Treatment 4 weeks Plan of Care Start Date 06/11/21 Plan of Care End Date 07/11/21 Therapeutic Interventions Therapeutic Interventions Aquatic Therapy,Balance Training,Canalithic Repositioning,Coordination Training,Gait Training,Home Exercise Program,Joint Mobilizations,Manual Therapy, Neuromuscular Re-education, Patient/Caregiver Education, Self-Care/Home Management,Soft Tissue Mobilization,Taping, Therapeutic Activities, Therapeutic Exercises Modalities Cold Pack/Ice Massage,Infrared Therapy,Ultrasound Next Visit Focus/Plan Next Note Type Treatment Note Next Visit Plan Progress exercises as appropriate, have pt perform her current exercises
--- NOTE | 2021-06-18 12:56 | PT.OTN ---
Current Diagnoses Adhesive capsulitis of right shoulder (06/18/21) Physical Therapy Treatment Note PT-OP-A Visit Information Start: 04/30/21 13:50 Freq: Status: Active Protocol: Document 06/18/21 12:15 MB (Rec: 06/18/21 12:52 MB [id number]) Out-Patient Physical Therapy Visit Information Visit Information Visit Type Treatment Note Visit Note before KX for 2020 Visit Start Time 12:15 Visit Stop Time 12:55 Total Visit Minutes 40 Visit Number 12 Evaluation Information Evaluation Date 05/04/21 Precautions Precautions Pt underwent arthroscopic capsulotomy on 05/01/21. After the eval, PT reviews Dr. Valerio' s notes that state standard adhesive capsulitis protocol, ROM all planes and rotations. Pt brings in post-op papers that include education for pt to performing early ROM and strengthening exercises. It lists forward flexion, ER, IR 2-3x/day for 5' PT-OP-B Current Condition Start: 04/30/21 13:50 Freq: Status: Active Protocol: Document 05/04/21 09:47 MB (Rec: 05/04/21 10:10 MB [id number]) Current Condition History of Current Condition Onset Date One year and a half Current Complaints Pain and decreased right arm use History of Current Condition Pt underwent arthroscopic capsulotomy on right shoulder on 05/01/[address] Rizo. She was put in a sling and there was a large bandage over her right shoulder. She took them off after clearing with the doctor's office. She was not given any information about the procedure or precaution instructions. PT has not received a note from Dr. Rizo office and Dr. Smith wrote her PT order. She has had a hard time sleeping since the procedure. She lives alone and drove herself to therapy. She takes care of two little dogs. Pt is right handed. Pt states that she was told she could take the sling off when she was ready and she was. Post-op paper work said for her to try to reach behind her back and reach overhead. She could reach behind to put her bra on this morning. PMH includes left rotator cuff surgery and she had PT after that and it went well. PMH also includes fibromyalgia, HAs and neck pain. 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 Pt has a follow-up with Dr. Rizo on 05/14/21. MRI right shoulder 03/24/21 had many changes including partial thickness tear distal supraspinatus and subscapularis, mod AC and GH OA, suggestion of superior anterior labral tear, partial thickness tear biceps tendon. Prior Treatments and Tests A few treatments of PT before MRI and procedure and pt states that she got frustrated and it was not helpful. Treatment Goals Patient/Caregiver Goals To relieve right shoulder pain and be able to lift her arm. PT-OP-C Subjective Start: 04/30/21 13:50 Freq: Status: Active Protocol: Document 06/18/21 12:15 MB (Rec: 06/18/21 12:52 MB [id number]) OP-PT Subjective Patient Comments Patient Comments Pt had a stressful weekend. She hadn't gotten out of the house since Friday. Pt states that Dr. Rizo told her that if she is feeling well enough, she can cancel her appointment with him on Jul 26. PT-OP-J Posture/Palpation/Skin Start: 04/30/21 13:50 Freq: Status: Active Protocol: Document 05/04/21 09:47 MB (Rec: 05/04/21 13:36 MB [id number]) Posture Evaluation Comments Posture Comments Dowager's hump, rounded shoulders, increased soft tissue body mass, increased thoracic kyphosis, 2 small incisions with band-aids over them anterior right shoulder and one posterior shoulder, mild edema right UE. PT-OP-K Range of Motion Start: 04/30/21 13:50 Freq: Status: Active Protocol: Document 05/04/21 09:47 MB (Rec: 05/04/21 13:36 MB [id number]) Shoulder Goniometric Range of Motion Shoulder Left Shoulder ROM WFL Yes Testing Position Standing Comments IR to T12 in standing Right Shoulder ROM WFL No Testing Position Standing Flexion 44 Abduction 30 Comments IR to right buttocks in standing Elbow/Forearm Range of Motion Elbow/Forearm Bilateral Elbow/Forearm ROM WFL Yes ROM Testing Position Standing PT-OP-M Strength Start: 04/30/21 13:50 Freq: Status: Active Protocol: Document 05/04/21 09:47 MB (Rec: 05/04/21 13:36 MB [id number]) Shoulder Strength Shoulder Manual Muscle Testing Left Flexion 5 Normal Abduction (C5) 5 Normal External Rotation 5 Normal Internal Rotation 5 Normal Right Comments Right shoulder not MMT d/t pain and decreased active right shoulder ROM post-op three days ago Elbow/Forearm Strength Elbow and Forearm Manual Muscle Testing Left Flexion (C6) 5 Normal Extension (C7) 5 Normal Pronation 5 Normal Supination 5 Normal Right Pronation 5 Normal Supination 5 Normal Comments MMT flexion and extension not tested post-op three days and MRI reports biceps tear PT-OP-Q Treatments Start: 04/30/21 13:50 Freq: Status: Active Protocol: Document 06/18/21 12:15 MB (Rec: 06/18/21 12:52 MB [id number]) Cardio Equipment Upper Body Ergometer (UBE) Duration (Minutes) 10 Other 1' forward and 1' backward Therapeutic Exercises Supine Exercises Posterior capsule stretch Side right Comments Cues to hold behind right elbow with left hand Shoulder flexion and abduction with cane Equipment Used Cane Comments 15 reps flexion and abduction, left hand actively assists the right Sitting Exercises AAROM flexion and abduction over table Sitting Exercise Name Cues for thumbs up Side right Equipment Used Black therapy mat, pt sitting on mesh chair Comments 10 reps x1 each direction Thoracic rotation in sitting Side bilateral Comments Pt slows down today with this Zarina Sitting Exercise Name Mild improvement today Side bilateral Reps/Minutes 15 reps each direction Comments Flexion and abduction, left hand helping right, cues Standing Exercises Row with arms straight Standing Exercise Name Cues to slow down and increase the range of movement Side bilateral Equipment Used Level 1 band Comments Arms straight by side, scapular retraction, 20 reps Shoulder IR in front and behind back Side right Comments 5 reps behind and then 5 reps in front x3 Racquet ball self-massage Comments Intrascapular STM and missy cat for infra Other Exercises HEP review Comments PT reviews pt's folder today and all HEP exercises are in her folder PT-OP-T Assessment and Plan Start: 04/30/21 13:50 Freq: Status: Active Protocol: Document 06/18/21 12:15 MB (Rec: 06/18/21 12:52 MB [id number]) Physical Therapy Assessment Rehab Potential Rehabilitation Potential Poor Evaluation Complexity Number of Personal Factors/Comorbidities 1-2 Number of Body Systems Impaired 3 Clinical Presentation at Evaluation Evolving Impairments Impairments Activity Tolerance,Balance, Edema,Functional Activities, Functional Mobility,Integument ,Pain,Posture,ROM,Soft Tissue Mobility,Strength Other Impairments Personal factors include pt has not been compliant with HEP. Body systems affected include musculoskeletal, psychosocial and neuromuscular . Her clinical presentation is evolving: she had capsule surgery and MRI from 03/24 states there are several muscle tears/labral tear, so these are not fixed Other Concerns Fall Risk Yes Goals 4 Procurement Professional Goal (LTG) Pt will present with improved strength in right arm to at least 4/5 flexion, abduction, IR and ER to improve function by 07/11/21. 06/11/21: Pt declines MMT d/t pain is way down and does not wish to increase it LTG Duration 4 weeks 3 Procurement Professional Goal (LTG) Pt will perform progressive HEP with I including range, flexibility, postural and strengthening exercises to improve pain and function by 07/11/21. 06/11/21: Pt states that she has been stretching her right arm down her leg. This is not one that PT has given her. She does the exercise with the ball against the wall. She occ does the towel exercise. LTG Duration 4 weeks 2 Retirement Goal (LTG) Pt will present with active right shoulder ROM flexion, abduction, ER and IR equal to the left shoulder to improve functional use of her right arm by 07/11/21. 06/11/21: AROM shoulders in standing: right shoulder 90 deg and left shoulder 140 deg; abduction: right shoulder 89 deg and left shoulder 140 deg; right shoulder IR to side of buttocks and left shoulder IR to L1. LTG Duration 4 weeks 1 Retirement Goal (LTG) Pt will present with an improved QuickDASH score to reflect no more than 20% impairment to improve functional use of right arm by 07/11/21. 06/11/21: QuickDASH score reflects 34.09% impairment, which is an improvement since evaluation LTG Duration 4 weeks Progress Towards Goals Progress Comments AROM in standing after exercises: right 101 deg flexion and left 146 deg right 96 deg abduction and left 167 deg Right IR to lateral right buttock and left to T10 Assessment Summary Assessment Pt does bring in exercise handouts today. Once again, reviewed PT exercises today to ensure understanding using her handouts in her folder. She states she got a couple of exercises done this weekend. Overall, decreased compliance is a barrier to progress. Heat to right shoulder and neck after treatment Physical Therapy Plan Frequency and Duration Frequency of Treatment 2x/Week Duration of Treatment 4 weeks Plan of Care Start Date 06/11/21 Plan of Care End Date 07/11/21 Therapeutic Interventions Therapeutic Interventions Aquatic Therapy,Balance Training,Canalithic Repositioning,Coordination Training,Gait Training,Home Exercise Program,Joint Mobilizations,Manual Therapy, Neuromuscular Re-education, Patient/Caregiver Education, Self-Care/Home Management,Soft Tissue Mobilization,Taping, Therapeutic Activities, Therapeutic Exercises Modalities Cold Pack/Ice Massage,Infrared Therapy,Ultrasound Next Visit Focus/Plan Next Note Type Treatment Note Next Visit Plan Progress exercises as appropriate
--- NOTE | 2021-06-27 13:06 | PT.OPDS ---
Current Diagnoses Adhesive capsulitis of right shoulder (06/18/21) Visit Care Team Role Provider Type Dulce Palencia MD Family Provider Physician Primary Care Provider Specialty: Family Practice Address: [address] [place] [address], [facility], [place], [address] Email: [email or web address] Indra Rizo MD Attending Provider Physician Referring Provider Specialty: Orthopedic Surgery Address: [address] [place] [address], [id number] Email: [email or web address] Visit Number Visit Number 12 Discharge Summary PT-OP-B Current Condition Start: 04/30/21 13:50 Freq: Status: Active Protocol: Document 05/04/21 09:47 MB (Rec: 05/04/21 10:10 MB [id number]) Current Condition History of Current Condition Onset Date One year and a half Current Complaints Pain and decreased right arm use History of Current Condition Pt underwent arthroscopic capsulotomy on right shoulder on 05/01/[address] Rizo. She was put in a sling and there was a large bandage over her right shoulder. She took them off after clearing with the doctor's office. She was not given any information about the procedure or precaution instructions. PT has not received a note from Dr. Rizo office and Dr. Smith wrote her PT order. She has had a hard time sleeping since the procedure. She lives alone and drove herself to therapy. She takes care of two little dogs. Pt is right handed. Pt states that she was told she could take the sling off when she was ready and she was. Post-op paper work said for her to try to reach behind her back and reach overhead. She could reach behind to put her bra on this morning. PMH includes left rotator cuff surgery and she had PT after that and it went well. PMH also includes fibromyalgia, HAs and neck pain. 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 Pt has a follow-up with Dr. Rizo on 05/14/21. MRI right shoulder 03/24/21 had many changes including partial thickness tear distal supraspinatus and subscapularis, mod AC and GH OA, suggestion of superior anterior labral tear, partial thickness tear biceps tendon. Prior Treatments and Tests A few treatments of PT before MRI and procedure and pt states that she got frustrated and it was not helpful. Treatment Goals Patient/Caregiver Goals To relieve right shoulder pain and be able to lift her arm. PT-OP-C Subjective Start: 04/30/21 13:50 Freq: Status: Active Protocol: Document 06/18/21 12:15 MB (Rec: 06/18/21 12:52 MB [id number]) OP-PT Subjective Patient Comments Patient Comments Pt had a stressful weekend. She hadn't gotten out of the house since Friday. Pt states that Dr. Rizo told her that if she is feeling well enough, she can cancel her appointment with him on Jul 26. PT-OP-J Posture/Palpation/Skin Start: 04/30/21 13:50 Freq: Status: Active Protocol: Document 05/04/21 09:47 MB (Rec: 05/04/21 13:36 MB [id number]) Posture Evaluation Comments Posture Comments Dowager's hump, rounded shoulders, increased soft tissue body mass, increased thoracic kyphosis, 2 small incisions with band-aids over them anterior right shoulder and one posterior shoulder, mild edema right UE. PT-OP-K Range of Motion Start: 04/30/21 13:50 Freq: Status: Active Protocol: Document 05/04/21 09:47 MB (Rec: 05/04/21 13:36 MB [id number]) Shoulder Goniometric Range of Motion Shoulder Left Shoulder ROM WFL Yes Testing Position Standing Comments IR to T12 in standing Right Shoulder ROM WFL No Testing Position Standing Flexion 44 Abduction 30 Comments IR to right buttocks in standing Elbow/Forearm Range of Motion Elbow/Forearm Bilateral Elbow/Forearm ROM WFL Yes ROM Testing Position Standing PT-OP-M Strength Start: 04/30/21 13:50 Freq: Status: Active Protocol: Document 05/04/21 09:47 MB (Rec: 05/04/21 13:36 MB [id number]) Shoulder Strength Shoulder Manual Muscle Testing Left Flexion 5 Normal Abduction (C5) 5 Normal External Rotation 5 Normal Internal Rotation 5 Normal Right Comments Right shoulder not MMT d/t pain and decreased active right shoulder ROM post-op three days ago Elbow/Forearm Strength Elbow and Forearm Manual Muscle Testing Left Flexion (C6) 5 Normal Extension (C7) 5 Normal Pronation 5 Normal Supination 5 Normal Right Pronation 5 Normal Supination 5 Normal Comments MMT flexion and extension not tested post-op three days and MRI reports biceps tear PT-OP-T Assessment and Plan Start: 04/30/21 13:50 Freq: Status: Active Protocol: Document 06/27/21 13:05 MB (Rec: 06/27/21 13:06 MB [id number]) Physical Therapy Plan Discharge Physical Therapy Discharge Reasons No Longer Attending PT Discharge Comments Pt has cancelled her last three appointments via [facility] , several same day cancels. PT calls her and she does not answer. She had not been compliant with HEP during the course. Left a message that PT will cancel her last two appointments and d/c PT. Recommend follow-up with Dr. Rizo if she has any further complaints.
== END 2021-09-04 09:37 ==
LOC: PHYS 12:15
PROVIDERS: Family Provider Family Medicine; PCP Family Medicine; Referring Provider Orthopaedic Surgery; Visit Provider Orthopaedic Surgery
DX: M75.01 Adhesive capsulitis of right shoulder (principal)
CPT/HCPCS: 97110; 97140; 97162; 97535

== ENCOUNTER → 2021-12-04 12:21 | Outpatient (CLI) | payer MEDICARE, MEDICAID, SELFPAY ==
--- NOTE | 2021-12-04 12:24 | DI.RAD.S_ITS ---
PROCEDURE: XR LUMBAR SPINE 2-3V INDICATIONS: chronic intermitt low back pain; curvature of spine? TECHNIQUE: 3 views of the lumbar spine were acquired. COMPARISON: None. FINDINGS: Bones: 5 [id number] vertebrae are present. There is normal bony alignment. Mild convex right curvature of the lumbar spine. No vertebral body compression fractures. No suspicious bony lesions. Moderate L4-L5 and L5-S1 degenerative disc disease. Mild L1-L2, L2-L3 and L3-L4 degenerative disc disease. Moderate L5-S1 facet arthropathy. Mild L3-L4 and L4-L5 facet arthropathy. Soft tissues: Overlying bowel gas pattern is normal. No suspicious soft tissue calcifications. IMPRESSION: 1. Multilevel degenerative disc disease. 2. Multilevel facet arthropathy. 3. No fracture. No acute osseous lesion. If symptoms and/or clinical suspicion for pathology persists, evaluation with MRI should be considered for further assessment. Dictated by: Raina Gray MD, PhD on 12/04/2021 at 13:40 Approved by: Raina Gray MD, PhD on 12/04/2021 at 13:41
--- NOTE | 2021-12-04 12:24 | DI.RAD.S_ITS ---
PROCEDURE: XR HIP W PEL IF DONE JOAO MIN 4V INDICATIONS: Left hip pain TECHNIQUE: AP pelvis with lateral view(s) of the right and left hip(s). COMPARISON: None. FINDINGS: Bones: No fractures or dislocations. Pelvic ring appears intact. No suspicious bony lesions. Mild osseous hypertrophy noted in the hips bilaterally compatible with mild osteoarthritis.. Soft tissues: The visualized bowel gas pattern is normal. No suspicious soft tissue calcifications. IMPRESSION: Mild bilateral hip osteoarthritis. Dictated by: Raina Gray MD, PhD on 12/04/2021 at 13:45 Approved by: Raina Gray MD, PhD on 12/04/2021 at 13:45
[2021-12-04 13:01] LABS: Add Manual Diff / Slide Review NO; Basophils Absolute Auto 100 /uL (0-100); Eosinophils Absolute Auto 200 /uL (0-450); Eosinophils Percent Auto 1.7 % (2-4); Hemoglobin 14.3 g/dL (12.0-16.0); Lymphocytes Absolute Auto 3000 /uL (1100-4500); Lymphocytes Percent Auto 24.8 % (25-40); Mean Corpuscular HGB Conc 34.2 % (30-36); Mean Corpuscular Hemoglobin 28.8 PG (26-34); Mean Corpuscular Volume 84.4 fL (80-100); Monocytes Absolute Auto 800 /uL (0-900); Monocytes Percent Auto 6.9 % (3-14); Neutrophils Absolute Auto 7900 /uL (1500-7000); Neutrophils Percent Auto 65.6 % (50-75); Platelet Count 362 X10^3/uL (150-400); Red Blood Cell Count 4.97 X10^6/uL (4.0-5.2); Red Cell Distribution Width 13.4 % (11.6-14.8); White Blood Cell Count 12.1 X10^3/uL (4.5-11.0)
[2021-12-04 13:21] LABS: Alanine Aminotransferase 18 IU/L (<35); Albumin 4.4 g/dL (3.5-5.0); Alkaline Phosphatase 127 U/L (38-126); Aspartate Aminotransferase 28 IU/L (14-36); BUN Creatinine Ratio 18.9 (6-22); Bilirubin Total 0.4 mg/dL (0.2-1.3); Blood Urea Nitrogen 18 mg/dL (7-17); C-Reactive Protein Quant 1.7 mg/dL (<1.0); Calcium 9.4 mg/dL (8.4-10.2); Carbon Dioxide 29 mmol/L (22-32); Chloride 106 mmol/L (98-107); Cholesterol 221 mg/dL (140-199); Estimated Glomerular Filt Rate > 60 mL/min (>60); Globulin 4.3 g/dL (1.7-4.1); Glucose 103 mg/dL (80-110); HDL Cholesterol 39 mg/dL (40-60); HEMOLYSIS < 15 (0-50); LDL Cholesterol Calculated 150 mg/dL (<100); Potassium 4.6 mmol/L (3.4-5.1); Sodium 141 mmol/L (137-145); Total Protein 8.7 g/dL (6.3-8.2); Triglycerides 160 mg/dL (35-150)
[2021-12-04 13:29] LABS: Erythrocyte Sedimentation Rate 6 MM/HR (0-20)
[2021-12-04 14:06] LABS: Vitamin B12 344 pg/mL (239-931)
== END ==
PROVIDERS: Family Provider Family Medicine; PCP Family Medicine; Referring Provider Physician Assistant; Visit Provider Physician Assistant
DX: L40.50 Arthropathic psoriasis, unspecified (principal); M25.552 Pain in left hip; G62.9 Polyneuropathy, unspecified; M25.50 Pain in unspecified joint; M62.838 Other muscle spasm; Z13.220 Encounter for screening for lipoid disorders; Z13.6 Encounter for screening for cardiovascular disorders
CPT/HCPCS: 36415; 72100; 73522; 80053; 80061; 82607; 85025; 85651; 86140

== ENCOUNTER → 2021-12-06 10:39 | Outpatient (CLI) | payer MEDICARE, MEDICAID, SELFPAY ==
[2021-12-10 16:12] LABS: Albumin 3.6 g/dL (2.9-4.4); Alpha-1-Globulin 0.2 g/dL (0.0-0.4); Alpha-2-Globulin 0.8 g/dL (0.4-1.0); Gamma Globulin 1.9 g/dL (0.4-1.8); Globulin Total 4.3 g/dL (2.2-3.9); Protein, Total 7.9 g/dL (6.0-8.5)
== END ==
PROVIDERS: Physician Assistant; Family Provider Family Medicine; PCP Family Medicine; Referring Provider Family Medicine; Visit Provider Family Medicine
DX: R77.8 Other specified abnormalities of plasma proteins (principal); R77.1 Abnormality of globulin; Z80.7 Family history of other malignant neoplasms of lymphoid, hematopoietic and related tissues
CPT/HCPCS: 36415; 84155; 84165

== ENCOUNTER → 2021-12-10 11:50 | Outpatient (CLI) | payer MEDICARE, MEDICAID, SELFPAY ==
[2021-12-12 14:11] LABS: Albumin 15.4 % (.); M-Spike % Not Observed % (Not Observed); Protein, Total, 24 hr urine 91 mg/24 hr (30-150); Total Urine Protein 6.3 mg/dL (Not Estab.)
== END ==
PROVIDERS: Family Provider Family Medicine; PCP Family Medicine; Referring Provider Physician Assistant; Visit Provider Physician Assistant
DX: R77.8 Other specified abnormalities of plasma proteins (principal); R77.1 Abnormality of globulin; Z80.7 Family history of other malignant neoplasms of lymphoid, hematopoietic and related tissues
CPT/HCPCS: 84156; 84166

== ENCOUNTER → 2022-01-03 08:56 | Outpatient (CLI) | payer MEDICARE, MEDICAID, SELFPAY ==
--- NOTE | 2022-01-03 08:57 | DI.NM.S_ITS ---
PROCEDURE: NM BONE SCAN WHOLE BODY RADIOPHARMACEUTICAL: 20.6 mCi Tc-99m MDP IV. INDICATIONS: Elevated Alk Phos, Elevated TP, Glob FH of multiple myeloma TECHNIQUE: Delayed whole-body scintigrams were obtained approximately 3-4 hours after intravenous injection of radiotracer. Anterior and posterior views were acquired from vertex to feet. COMPARISON: None. FINDINGS: Increased radiotracer uptake noted in the shoulders and knees bilaterally and the lower lumbar spine compatible with osteoarthritis. Increased radiotracer uptake noted in the ankles and feet bilaterally which may represent osteoarthritis. No areas of photopenia identified in the osseous skeleton. No abnormal soft tissue uptake. Activity in the kidneys is normal and symmetric. IMPRESSION: 1. No scintigraphic evidence of osseous metastatic disease. Please note whole-body bone scan can be and sensitive to multiple myeloma. If there is continued clinical concern for multiple myeloma consider either plain film radiograph skeletal survey series or MRI skeletal survey for additional evaluation. 2. Increased radiotracer uptake involving the ankles and feet which may be related to osteoarthritis, however given the degree of uptake in the degree of symmetry systemic process is not excluded. Recommend correlation with plain film radiographs. Dictated by: Raina Gray MD, PhD on 01/03/2022 at 14:18 Approved by: Raina Gray MD, PhD on 01/03/2022 at 14:26
== END ==
PROVIDERS: Family Provider Family Medicine; PCP Family Medicine; Referring Provider Physician Assistant; Visit Provider Physician Assistant
DX: R74.8 Abnormal levels of other serum enzymes (principal); R77.8 Other specified abnormalities of plasma proteins; R77.1 Abnormality of globulin; Z80.7 Family history of other malignant neoplasms of lymphoid, hematopoietic and related tissues
CPT/HCPCS: 78306; A9503

== ENCOUNTER → 2022-01-21 11:43 | Outpatient (CLI) | payer MEDICARE, MEDICAID, SELFPAY ==
[2022-01-21 13:38] LABS: Add Manual Diff / Slide Review NO; Basophils Absolute Auto 100 /uL (0-100); Basophils Percent Auto 0.8 % (0-2); Eosinophils Absolute Auto 200 /uL (0-450); Eosinophils Percent Auto 1.1 % (2-4); Hematocrit 42.9 % (36-46); Hemoglobin 14.1 g/dL (12.0-16.0); Lymphocytes Absolute Auto 4000 /uL (1100-4500); Lymphocytes Percent Auto 24.8 % (25-40); Mean Corpuscular HGB Conc 32.9 % (30-36); Mean Corpuscular Hemoglobin 28.1 PG (26-34); Mean Corpuscular Volume 85.6 fL (80-100); Monocytes Absolute Auto 1100 /uL (0-900); Monocytes Percent Auto 7.1 % (3-14); Neutrophils Absolute Auto 10600 /uL (1500-7000); Neutrophils Percent Auto 66.2 % (50-75); Platelet Count 412 X10^3/uL (150-400); Red Blood Cell Count 5.02 X10^6/uL (4.0-5.2); Red Cell Distribution Width 13.3 % (11.6-14.8)
[2022-01-21 14:16] LABS: Erythrocyte Sedimentation Rate 11 MM/HR (0-20)
[2022-01-21 14:27] LABS: Alanine Aminotransferase 18 IU/L (<35); Albumin 4.5 g/dL (3.5-5.0); Albumin Globulin Ratio 1.2 (1.0-2.8); Alkaline Phosphatase 126 U/L (38-126); Aspartate Aminotransferase 28 IU/L (14-36); BUN Creatinine Ratio 26.9 (6-22); Bilirubin Total 0.4 mg/dL (0.2-1.3); Blood Urea Nitrogen 21 mg/dL (7-17); Calcium 9.1 mg/dL (8.4-10.2); Carbon Dioxide 22 mmol/L (22-32); Chloride 103 mmol/L (98-107); Estimated Glomerular Filt Rate > 60 mL/min (>60); Globulin 3.9 g/dL (1.7-4.1); Glucose 92 mg/dL (80-110); HEMOLYSIS < 15 (0-50); Potassium 4.7 mmol/L (3.4-5.1); Sodium 137 mmol/L (137-145); Total Protein 8.4 g/dL (6.3-8.2)
== END ==
PROVIDERS: Family Provider Family Medicine; PCP Family Medicine; Referring Provider Physician Assistant Medical; Visit Provider Physician Assistant Medical
DX: L40.50 Arthropathic psoriasis, unspecified (principal)
CPT/HCPCS: 36415; 80053; 85025; 85651; 86140

== ENCOUNTER → 2022-03-08 11:11 | Outpatient (CLI) | payer MEDICARE, MEDICAID, SELFPAY ==
[2022-03-08 13:05] LABS: Cholesterol 217 mg/dL (140-199); HDL Cholesterol 49 mg/dL (40-60); LDL Cholesterol Calculated 138 mg/dL (<100); Triglycerides 149 mg/dL (35-150)
== END ==
PROVIDERS: Family Provider Family Medicine; PCP Family Medicine; Referring Provider Family Medicine; Visit Provider Family Medicine
DX: E78.5 Hyperlipidemia, unspecified (principal)
CPT/HCPCS: 36415; 80061

== ENCOUNTER 2022-06-28 07:15 | Emergency (ER) | payer MEDICARE, MEDICAID, SELFPAY ==
[2022-06-28 07:19] VITALS: BP 180/78; PULSE 86; RESP 20; TEMP 36; O2SAT 98; BMI 32.8
--- NOTE | 2022-06-28 07:29 | DI.RAD.S_ITS ---
PROCEDURE: XR RIBS RT MIN 3V W CXR 1V INDICATIONS: Rib pain TECHNIQUE: 2 views of the right ribs were acquired, along with a single view chest. COMPARISON: [facility], CR, XR RIBS RT MIN 3V W CXR 1V, 05/02/2018, 14:04. FINDINGS: Surgical changes and devices: Right upper quadrant cholecystectomy clips. Bones and chest wall: Possible subtle nondisplaced fracture of the anterolateral right 9th rib. No suspicious bony lesions. Overlying soft tissues appear unremarkable. Lungs and pleura: No pleural effusions or pneumothorax. Lungs appear clear. Mediastinum: Mediastinal contours appear normal. Heart size is normal. IMPRESSION: Possible subtle nondisplaced fracture of the anterolateral right 9th rib. Recommend correlation for point tenderness. No pneumothorax. Approved by: Eddie Young M.D. on 06/28/2022 at 7:55
--- NOTE | 2022-06-28 08:09 | ED.FALL ---
HPI - Fall General Chief Complaint: Fall Stated Complaint: fell yesterday now ribs are hurting Time Seen by Provider: 06/28/22 08:00 Source: patient Mode of arrival: Ambulatory Limitations: no limitations History of Present Illness HPI Narrative: 67-year-old female who yesterday caught the toe of her left shoe on a raised portion of the sidewalk and fell landing on her right side. She got up immediately afterwards. No injuries from the event immediately. She then started to develop right-sided chest discomfort. She states that it hurts to touch and to move and debris than 2 cough. She has broken a rib in the past and she was concerned about that. There is no bruising. Related Data Home Medications Medication Instructions Recorded Confirmed magnesium 250 mg tablet 500 mg PO DAILY 02/14/18 04/08/21 biotin 2,500 mcg capsule 5,000 mcg PO DAILY 10/29/21 omeprazole magnesium 20 mg 20 mg PO BID 12/04/21 12/04/21 tablet,delayed release (Prilosec OTC) Previous Rx's Medication Instructions Recorded albuterol sulfate 90 mcg/actuation 2 puff inhalation Q4HP PRN 04/12/20 aerosol inhaler (Ventolin HFA) shortness of breath or wheezing #1 ea lidocaine 5 % topical patch 1 patch topical DAILY PRN pain #15 12/24/20 ea fluticasone propionate 50 See Rx Instructions .Route 03/26/21 mcg/actuation nasal .COMPLEX #48 grams spray,suspension methocarbamol 500 mg tablet 500 mg PO QID PRN shoulder and 12/04/21 neck pain and spasms #60 tabs doxycycline monohydrate 100 mg 100 mg PO BID #20 caps 12/06/21 capsule hydrocodone 5 mg-acetaminophen 325 1 tab PO Q4-6H PRN pain #10 tabs 06/28/22 mg tablet ondansetron 4 mg disintegrating 4 mg PO Q6H PRN nausea and 06/28/22 tablet vomiting #14 tabs Allergies Allergy/AdvReac Type Severity Reaction Status Date / Time codeine [CODEINE] Allergy Mild THROAT Verified 06/28/22 07:25 SWELLING naproxen [From ANAPROX] Allergy Mild HIVES Verified 06/28/22 07:25 amoxicillin [From Augmentin] AdvReac Mild Heartburn Verified 06/28/22 07:25 clavulanic acid AdvReac Mild Heartburn Verified 06/28/22 07:25 [From Augmentin] flurbiprofen [FLURBIPROFEN] AdvReac Mild GI UPSET Verified 06/28/22 07:25 Review of Systems Constitutional Constitutional: Reports system reviewed and no additional complaints, except as documented Respiratory Respiratory: Reports system reviewed and no additional complaints, except as documented Musculoskeletal Musculoskeletal: Reports system reviewed and no additional complaints, except as documented Integumentary/Breasts Skin/Breast: Reports system reviewed and no additional complaints, except as documented Patient History Medical History Anxiety Arthritis BCC (basal cell carcinoma), shoulder Compression fracture of thoracic vertebra Depression Fracture of rib of right side (2014) GERD (gastroesophageal reflux disease) Hemorrhoids History of ulcer disease Measles Migraine Psoriatic arthritis UTI (urinary tract infection) Surgical History History of cholecystectomy History of total hysterectomy History of tubal ligation Hx of sinus surgery Family History Father Alcoholism Mother Arthritis Cancer Brother Suicide Sister Alcoholism Arthritis Hepatitis C Son Seasonal allergies Daughter Hyperlipidemia Ulcer Daughter Genetic disease Social History marital status: unknown household members: none Smoking Status: Never smoker alcohol intake: current substance use type: does not use Smoking Status: Never smoker alcohol intake frequency: a few times a month Substance Use Type: does not use Exam Initial Vital Signs Initial Vital Signs: Vital Signs Temperature 96.8 F L 06/28/22 07:19 Pulse Rate 86 06/28/22 07:19 Respiratory Rate 20 06/28/22 07:19 Blood Pressure 180/78 H 06/28/22 07:19 Pulse Oximetry 98 06/28/22 07:19 Oxygen Delivery Method 06/28/22 07:19 Const General: cooperative, comfortable and No ill appearing HENMT Head: normal to inspection and normocephalic Resp Effort & Inspection: normal respiratory effort Auscultation: clear to auscultation bilaterally Cardio Rate: regular rate Skin General: no rashes or lesions noted Extrem General: normal to inspection and capillary refill normal Course Orders Ordered: ED Orders 06/28/22 07:29 XR ribs RT min 3V w CXR1V Stat Vital Signs Vital signs: Vital Signs - 8 hr 06/28/22 07:19 Temperature 96.8 F L Pulse Rate 86 Respiratory Rate 20 Blood Pressure 180/78 H Pulse Oximetry 98 Oxygen Delivery Method Room Air MDM - Fall Imaging Data rib x-ray: Radiologist's Impression: [address] [address] XRay Report Signed Patient: Katheryn Troncoso MR#: [id number] : 1955 Acct:[id number] Age/Sex: 67 / F Date of Service: 06/28/22 Loc: ED Accession Number: [id number] ?? Procedure: XR ribs RT min 3V w CXR1V Ordering Provider: Zach Turpin D.O. PROCEDURE:? XR RIBS RT MIN 3V W CXR 1V ? INDICATIONS:? Rib pain ? TECHNIQUE:? 2 views of the right ribs were acquired, along with a single view chest.? ? COMPARISON:? [facility], CR, XR RIBS RT MIN 3V W CXR 1V, 05/02/2018, 14:04. ? FINDINGS:? ? Surgical changes and devices:? Right upper quadrant cholecystectomy clips. ? Bones and chest wall:? Possible subtle nondisplaced fracture of the anterolateral right 9th rib.? No suspicious bony lesions.? Overlying soft tissues appear unremarkable.? ? Lungs and pleura:? No pleural effusions or pneumothorax.? Lungs appear clear.? ? Mediastinum:? Mediastinal contours appear normal.? Heart size is normal.? ? IMPRESSION:? Possible subtle nondisplaced fracture of the anterolateral right 9th rib.? Recommend correlation for point tenderness.? No pneumothorax. ? ? ? Approved by: Eddie Young M.D. on 06/28/2022 at 7:55? [facility] Narrative Medical decision making narrative: X-ray shows right-sided 9th rib fracture. Underlying lung is unremarkable. No respiratory distress. Discussed the findings of the x-ray with the patient. Was sent home with symptom control. She was given return precautions. She expressed understanding and agreement. Discharge Plan Departure Patient Disposition: Home Clinical Impression: Fracture of rib Instructions: DI for Rib Fracture Activity Restrictions/Additional Instructions: Use the medications as needed as directed. Recommend that occasionally you take deep breaths to avoid pneumonia. Return to the emergency department if you start having fevers or shortness of breath. Prescriptions: New hydrocodone-acetaminophen 5-325 mg tablet 1 tab PO Q4-6H PRN (Reason: pain) Qty: 10 0RF ondansetron 4 mg tablet,disintegrating 4 mg PO Q6H PRN (Reason: nausea and vomiting) Qty: 14 0RF No Action omeprazole magnesium [Prilosec OTC] 20 mg tablet,delayed release (DR/EC) 20 mg PO BID methocarbamol 500 mg tablet 500 mg PO QID PRN (Reason: shoulder and neck pain and spasms) Qty: 60 1RF albuterol sulfate [Ventolin HFA] 90 mcg/actuation HFA aerosol inhaler 2 puff INHALATION Q4HP PRN (Reason: shortness of breath or wheezing) Qty: 1 0RF Label Comments: Use spacer fluticasone propionate 50 mcg/actuation spray,suspension See Rx Instructions .ROUTE .COMPLEX Qty: 48 0RF Dose Instruction: USE 1 SPRAY NASALLY TWO TIMES DAILY Rx Instructions: USE 1 SPRAY NASALLY TWO TIMES DAILY biotin 2,500 mcg capsule 5,000 mcg PO DAILY doxycycline monohydrate 100 mg capsule 100 mg PO BID Qty: 20 0RF magnesium 250 mg Tablet 500 mg PO DAILY lidocaine 5 % adhesive patch,medicated 1 patch topical DAILY PRN (Reason: pain) Qty: 15 0RF Rx Instructions: leave on most painful area for up to 12 hrs Referrals: Dulce Palencia MD [Primary Care Provider] -
[2022-06-28 08:21] VITALS: BP 139/65; PULSE 81; O2SAT 96
== END 2022-06-28 08:21 | disposition home or self-care (01) ==
PROVIDERS: Emergency Provider Emergency Medicine; Family Provider Family Medicine; PCP Family Medicine
DX: S22.31XA Fracture of one rib, right side, initial encounter for closed fracture (principal); R07.9 Chest pain, unspecified; W18.30XA Fall on same level, unspecified, initial encounter
CPT/HCPCS: 71101; 99283; 99284

== ENCOUNTER 2022-11-21 10:50 | Emergency (ER) | payer MEDICARE, MEDICAID, SELFPAY ==
[2022-11-21] VITALS (14 sets, daily range): BP systolic 129–148; BP diastolic 56–89; PULSE 79–115; RESP 12–22; TEMP 36.7; O2SAT 95–98; BMI 32.8
--- NOTE | 2022-11-21 10:57 | DI.RAD.S_ITS ---
PROCEDURE: XR CHEST 1V INDICATIONS: suspected sepsis TECHNIQUE: One view of the chest was acquired. COMPARISON: [facility], CR, XR CHEST 2V, 04/12/2020, 16:13. FINDINGS: Surgical changes and devices: None. Lungs and pleura: Lungs are clear. No pleural effusions or pneumothorax. Mediastinum: Mediastinal contours appear normal. Heart size is normal. Bones and chest wall: No suspicious bony lesions. Overlying soft tissues appear unremarkable. IMPRESSION: No acute cardiopulmonary abnormality. Dictated by: Mark Ferguson M.D. on 11/21/2022 at 11:14 Approved by: Mark Ferguson M.D. on 11/21/2022 at 11:14
[2022-11-21 11:28] LABS: Add Manual Diff / Slide Review NO; Basophils Absolute Auto 100 /uL (0-100); Basophils Percent Auto 0.7 % (0-2); Eosinophils Absolute Auto 200 /uL (0-450); Eosinophils Percent Auto 1.1 % (2-4); Hematocrit 43.1 % (36-46); Hemoglobin 14.7 g/dL (12.0-16.0); Lymphocytes Absolute Auto 2800 /uL (1100-4500); Lymphocytes Percent Auto 14.1 % (25-40); Mean Corpuscular Hemoglobin 28.4 PG (26-34); Mean Corpuscular Volume 83.5 fL (80-100); Monocytes Absolute Auto 1300 /uL (0-900); Monocytes Percent Auto 6.5 % (3-14); Neutrophils Absolute Auto 15200 /uL (1500-7000); Neutrophils Percent Auto 77.6 % (50-75); Platelet Count 383 X10^3/uL (150-400); Red Blood Cell Count 5.17 X10^6/uL (4.0-5.2); Red Cell Distribution Width 13.7 % (11.6-14.8); White Blood Cell Count 19.6 X10^3/uL (4.5-11.0)
[2022-11-21 11:32] LABS: Bacteria Urine Many (>30); Culture Indicated Urine Specimen Cultured; RBC Urine 1-5/HPF (0-5/HPF); Squamous Epithelial Cell Urine 10-30 /HPF (0-5/HPF); WBC Urine 5-10/HPF (0-5/HPF)
[2022-11-21 11:36] LABS: INR 1.2 (0.9-1.3); Prothrombin Time 13.4 SECONDS (10.1-12.7)
[2022-11-21 11:39] LABS: PTT Partial Thromboplastin Tim 30 SECONDS (26-36)
[2022-11-21] MEDS: SODIUM CHLORIDE 0.9% 1,000 ML 1000 ML IV (11:48)
[2022-11-21 11:51] LABS: Alanine Aminotransferase 24 IU/L (<35); Albumin 4.5 g/dL (3.5-5.0); Albumin Globulin Ratio 1.1 (1.0-2.8); Alkaline Phosphatase 116 U/L (38-126); Aspartate Aminotransferase 27 IU/L (14-36); BUN Creatinine Ratio 14.1 (6-22); Bilirubin Total 1.1 mg/dL (0.2-1.3); Blood Urea Nitrogen 11 mg/dL (7-17); Calcium 9.2 mg/dL (8.4-10.2); Carbon Dioxide 22 mmol/L (22-32); Chloride 101 mmol/L (98-107); Estimated Glomerular Filt Rate > 60 mL/min (>60); Globulin 4.2 g/dL (1.7-4.1); Glucose 142 mg/dL (80-110); HEMOLYSIS < 15 (0-50); Lipase 40 U/L (23-300); Potassium 4.1 mmol/L (3.4-5.1); Sodium 135 mmol/L (137-145); Total Protein 8.7 g/dL (6.3-8.2)
[2022-11-21 11:52] LABS: Lactate (Lactic Acid) 1.1 mmol/L (0.7-2.1)
[2022-11-21 12:07] LABS: Procalcitonin 0.07 ng/mL (<0.5)
--- NOTE | 2022-11-21 13:55 | ED.FEMALEGU ---
HPI - Female Genitourinary <Brian Boudreaux PA-C - Last Filed: 11/21/22 18:00> General Chief complaint: Urogenital-Female Stated complaint: severe bladder pain going to back/chills/fever T-1 Time Seen by Provider: 11/21/22 11:47 Source: patient Mode of arrival: Ambulatory History of Present Illness HPI Narrative: This is a 67-year-old female presents emergency department due to suprapubic abdominal pain onset 6:00 a.m. yesterday morning. She states that she is had other episodes of this in the past and told that it was ?just UTI?. Patient reports subjective fevers as well as chills that have somewhat improved. She describes the pain does ache in aching. Denies any challenges in bowel movements, nausea, vomiting. Denies any vaginal discharge or bleeding. Related Data Home Medications Medication Instructions Recorded Confirmed magnesium 250 mg tablet 500 mg PO DAILY 02/14/18 09/12/22 biotin 2,500 mcg capsule 5,000 mcg PO DAILY 10/29/21 09/12/22 omeprazole magnesium 20 mg 20 mg PO BID 12/04/21 09/12/22 tablet,delayed release (Prilosec OTC) Previous Rx's Medication Instructions Recorded albuterol sulfate 90 mcg/actuation 2 puff inhalation Q4HP PRN 04/12/20 aerosol inhaler (Ventolin HFA) shortness of breath or wheezing #1 ea lidocaine 5 % topical patch 1 patch topical DAILY PRN pain #15 12/24/20 ea fluticasone propionate 50 See Rx Instructions .Route 03/26/21 mcg/actuation nasal .COMPLEX #48 grams spray,suspension ondansetron 4 mg disintegrating 4 mg PO Q6H PRN nausea and 06/28/22 tablet vomiting #14 tabs hydrocodone 5 mg-acetaminophen 325 1 tab PO .COMPLEX PRN pain #20 tabs 07/10/22 mg tablet methocarbamol 500 mg tablet 500 mg PO QID PRN shoulder and 10/28/22 neck pain and spasms #60 tabs amoxicillin 875 mg-potassium 1 tab PO Q8H 10 days #30 tabs 11/21/22 clavulanate 125 mg tablet metronidazole 500 mg tablet 500 mg PO Q8H #30 tabs 11/21/22 Allergies Allergy/AdvReac Type Severity Reaction Status Date / Time codeine [CODEINE] Allergy Mild THROAT Verified 11/21/22 10:53 SWELLING naproxen [From ANAPROX] Allergy Mild HIVES Verified 11/21/22 10:53 amoxicillin [From Augmentin] AdvReac Mild Heartburn Verified 11/21/22 10:53 clavulanic acid AdvReac Mild Heartburn Verified 11/21/22 10:53 [From Augmentin] flurbiprofen [FLURBIPROFEN] AdvReac Mild GI UPSET Verified 11/21/22 10:53 Review of Systems <Brian Boudreaux PA-C - Last Filed: 11/21/22 18:00> Review of Systems Narrative: GENERAL: Reports chills and fevers, HEENT: Denies sinus pain, ear pain, sore throat, difficulty swallowing, dizziness. RESPIRATORY: Denies dyspnea, cough, wheezing, hemoptysis, sputum. CARDIOVASCULAR: Denies chest pain, palpitations, orthopnea, edema, GASTROINTESTINAL: Reports suprapubic abdominal pain, Denies nausea, vomiting, diarrhea, constipation, melena. : Denies dysuria, frequency, incontinence, hematuria, urinary retention. MUSCULOSKELETAL: denies weakness, joint pain, or bony pain SKIN: Denies rash, skin lesions, or other NEUROLOGIC: Denies weakness, headache, numbness, change in speech, confusion, seizures, incoordination. PSYCHIATRIC: No concerning psychosocial issues. 12 point review of systems is negative except for those stated above Patient History <Brian Boudreaux PA-C - Last Filed: 11/21/22 18:00> Medical History Anxiety Arthritis BCC (basal cell carcinoma), shoulder Compression fracture of thoracic vertebra Depression Fracture of rib of right side (2014) GERD (gastroesophageal reflux disease) Hemorrhoids History of ulcer disease Measles Migraine Psoriatic arthritis UTI (urinary tract infection) Surgical History History of cholecystectomy History of total hysterectomy History of tubal ligation Hx of sinus surgery Family History Father Alcoholism Mother Arthritis Cancer Brother Suicide Sister Alcoholism Arthritis Hepatitis C Son Seasonal allergies Daughter Hyperlipidemia Ulcer Daughter Genetic disease alcohol intake frequency: a few times a month Substance Use Type: does not use Exam <RYLEY Linares Last Filed: 11/21/22 18:00> Narrative Exam Narrative: GENERAL: Well-developed patient, in mild distress. HEAD: Atraumatic. Normocephalic. EYES: Pupils equal round and reactive. Extraocular motions intact. No scleral icterus. No injection or drainage. ENT: Nose without bleeding, purulent drainage. Throat without erythema, tonsillar hypertrophy or exudate. Airway patent. NECK: Trachea midline. Non tender CARDIOVASCULAR: Regular rate and rhythm without murmurs, gallops, or rubs. RESPIRATORY: Clear to auscultation. Breath sounds equal bilaterally. No wheezes, rales, or rhonchi. GASTROINTESTINAL: Abdomen soft, moderate diffuse suprapubic tenderness to palpation nondistended. EXTREMITIES: No edema or joint tenderness. BACK: Nontender without deformity or crepitance. No flank tenderness. NEURO: AOx3. SKIN: No rash or erythema of visible areas Initial Vital Signs Initial Vital Signs: Vital Signs Temperature 98.1 F 11/21/22 10:53 Pulse Rate 115 H 11/21/22 10:53 Respiratory Rate 18 11/21/22 10:53 Blood Pressure 133/89 11/21/22 10:53 Pulse Oximetry 98 11/21/22 10:53 Oxygen Delivery Method Room Air 11/21/22 10:53 <Farheen De Oliveira DO - Last Filed: 11/21/22 20:00> Initial Vital Signs Initial Vital Signs: Vital Signs Temperature 98.1 F 11/21/22 10:53 Pulse Rate 115 H 11/21/22 10:53 Respiratory Rate 18 11/21/22 10:53 Blood Pressure 133/89 11/21/22 10:53 Pulse Oximetry 98 11/21/22 10:53 Oxygen Delivery Method Room Air 11/21/22 10:53 Course <Brian Boudreaux PA-C - Last Filed: 11/21/22 18:00> Orders Ordered: ED Orders 11/21/22 11:15 Complete Blood Count AUTO DIFF Stat Comprehensive Metabolic Panel Stat Lactate (Lactic Acid) Stat Lipase Stat PTT Partial Thromboplastin Ap Stat Procalcitonin Stat Prothrombin Time INR Stat 11/21/22 11:27 Blood Culture Stat 11/21/22 11:29 EKG-12 Lead Stat 11/21/22 14:04 CT abdomen pelvis w con Stat Discontinued Medications Sodium Chloride (Normal Saline 0.9%) 1,000 mls @ 1,000 mls/hr IV BOLUS ONE Stop: 11/21/22 11:56 Last Infusion: 11/21/22 12:52 Dose: 0 mls/hr Documented By: Admin: 11/21/22 11:48 Dose: 1,000 mls/hr Documented By: AIDE Vital Signs Vital signs: Vital Signs - 8 hr 11/21/22 12:30 11/21/22 12:30 11/21/22 12:56 Pulse Rate 79 83 Respiratory Rate 16 Blood Pressure 135/70 Pulse Oximetry 97 97 11/21/22 12:56 11/21/22 12:59 11/21/22 12:59 Pulse Rate 82 Respiratory Rate Blood Pressure 138/81 133/69 Pulse Oximetry 98 11/21/22 13:00 11/21/22 13:00 11/21/22 13:15 Pulse Rate 81 82 Respiratory Rate 20 17 Blood Pressure 129/61 Pulse Oximetry 98 95 11/21/22 13:15 11/21/22 13:30 11/21/22 13:30 Pulse Rate 91 H Respiratory Rate 22 Blood Pressure 139/56 L 148/69 H Pulse Oximetry 97 11/21/22 13:45 11/21/22 13:45 11/21/22 14:00 Pulse Rate 81 83 Respiratory Rate 13 12 Blood Pressure 147/58 H Pulse Oximetry 96 96 11/21/22 14:21 11/21/22 14:21 11/21/22 14:30 Pulse Rate 83 Respiratory Rate 15 Blood Pressure 131/73 129/70 Pulse Oximetry 97 11/21/22 14:30 Pulse Rate 81 Respiratory Rate 14 Blood Pressure Pulse Oximetry 97 <Farheen De Oliveira, - Last Filed: 11/21/22 20:00> Orders Ordered: ED Orders 11/21/22 11:15 Complete Blood Count AUTO DIFF Stat Comprehensive Metabolic Panel Stat Lactate (Lactic Acid) Stat Lipase Stat PTT Partial Thromboplastin Ap Stat Procalcitonin Stat Prothrombin Time INR Stat 11/21/22 11:27 Blood Culture Stat 11/21/22 11:29 EKG-12 Lead Stat 11/21/22 14:04 CT abdomen pelvis w con Stat Discontinued Medications Sodium Chloride (Normal Saline 0.9%) 1,000 mls @ 1,000 mls/hr IV BOLUS ONE Stop: 11/21/22 11:56 Last Infusion: 11/21/22 12:52 Dose: 0 mls/hr Documented By: Admin: 11/21/22 11:48 Dose: 1,000 mls/hr Documented By: AIDE Vital Signs Vital signs: Vital Signs - 8 hr 11/21/22 12:30 11/21/22 12:30 11/21/22 12:56 Pulse Rate 79 83 Respiratory Rate 16 Blood Pressure 135/70 Pulse Oximetry 97 97 11/21/22 12:56 11/21/22 12:59 11/21/22 12:59 Pulse Rate 82 Respiratory Rate Blood Pressure 138/81 133/69 Pulse Oximetry 98 11/21/22 13:00 11/21/22 13:00 11/21/22 13:15 Pulse Rate 81 82 Respiratory Rate 20 17 Blood Pressure 129/61 Pulse Oximetry 98 95 11/21/22 13:15 11/21/22 13:30 11/21/22 13:30 Pulse Rate 91 H Respiratory Rate 22 Blood Pressure 139/56 L 148/69 H Pulse Oximetry 97 11/21/22 13:45 11/21/22 13:45 11/21/22 14:00 Pulse Rate 81 83 Respiratory Rate 13 12 Blood Pressure 147/58 H Pulse Oximetry 96 96 11/21/22 14:21 11/21/22 14:21 11/21/22 14:30 Pulse Rate 83 Respiratory Rate 15 Blood Pressure 131/73 129/70 Pulse Oximetry 97 11/21/22 14:30 Pulse Rate 81 Respiratory Rate 14 Blood Pressure Pulse Oximetry 97 MDM - Female Genitourinary <Brian Boudreaux PA-C - Last Filed: 11/21/22 18:00> Lab Data 11/21/22 11:15 11/21/22 11:15 Labs: Lab Results 11/21/22 11/21/22 11/21/22 Range/Units 11:00 11:15 11:15 WBC 19.6 H (4.5-11.0) X10^3/uL RBC 5.17 (4.0-5.2) X10^6/uL Hgb 14.7 (12.0-16.0) g/dL Hct 43.1 (36-46) % MCV 83.5 (80-100) fL MCH 28.4 (26-34) PG MCHC 34.0 (30-36) % RDW 13.7 (11.6-14.8) % Plt Count 383 (150-400) X10^3/uL Neut % (Auto) 77.6 H (50-75) % Lymph % (Auto) 14.1 L (25-40) % Dale % (Auto) 6.5 (3-14) % Eos % (Auto) 1.1 L (2-4) % Baso % (Auto) 0.7 (0-2) % Neut # (Auto) 30145 H (4970-5588) /uL Lymph # (Auto) 2800 (4408-7103) /uL Dale # (Auto) 1300 H (0-900) /uL Eos # (Auto) 200 (0-450) /uL Baso # (Auto) 100 (0-100) /uL PT 13.4 H (10.1-12.7) SECONDS INR 1.2 (0.9-1.3) APTT 30 (26-36) SECONDS Sodium (137-145) mmol/L Potassium (3.4-5.1) mmol/L Chloride (98-107) mmol/L Carbon Dioxide (22-32) mmol/L BUN (7-17) mg/dL Creatinine (0.52-1.04) mg/dL Estimated GFR (>60) mL/min BUN/Creatinine Ratio (6-22) Glucose (80-110) mg/dL Lactate (0.7-2.1) mmol/L Calcium (8.4-10.2) mg/dL Total Bilirubin (0.2-1.3) mg/dL AST (14-36) IU/L ALT (<35) IU/L Alkaline Phosphatase (38-126) U/L Total Protein (6.3-8.2) g/dL Albumin (3.5-5.0) g/dL Globulin (1.7-4.1) g/dL Albumin/Globulin Ratio (1.0-2.8) Lipase (23-300) U/L Procalcitonin (<0.5) ng/mL Urine RBC 1-5/hpf (0-5/HPF) Urine WBC 5-10/hpf H (0-5/HPF) Ur Squamous Epith Cells 10-30 /hpf H (0-5/HPF) Urine Bacteria Many (>30) H (None) Ur Culture Indicated? Specimen cultured 11/21/22 11/21/22 Range/Units 11:15 11:15 WBC (4.5-11.0) X10^3/uL RBC (4.0-5.2) X10^6/uL Hgb (12.0-16.0) g/dL Hct (36-46) % MCV (80-100) fL MCH (26-34) PG MCHC (30-36) % RDW (11.6-14.8) % Plt Count (150-400) X10^3/uL Neut % (Auto) (50-75) % Lymph % (Auto) (25-40) % Dale % (Auto) (3-14) % Eos % (Auto) (2-4) % Baso % (Auto) (0-2) % Neut # (Auto) (3813-0979) /uL Lymph # (Auto) (2610-1467) /uL Dale # (Auto) (0-900) /uL Eos # (Auto) (0-450) /uL Baso # (Auto) (0-100) /uL PT (10.1-12.7) SECONDS INR (0.9-1.3) APTT (26-36) SECONDS Sodium 135 L (137-145) mmol/L Potassium 4.1 (3.4-5.1) mmol/L Chloride 101 (98-107) mmol/L Carbon Dioxide 22 (22-32) mmol/L BUN 11 (7-17) mg/dL Creatinine 0.78 (0.52-1.04) mg/dL Estimated GFR > 60 (>60) mL/min BUN/Creatinine Ratio 14.1 (6-22) Glucose 142 H (80-110) mg/dL Lactate 1.1 (0.7-2.1) mmol/L Calcium 9.2 (8.4-10.2) mg/dL Total Bilirubin 1.1 (0.2-1.3) mg/dL AST 27 (14-36) IU/L ALT 24 (<35) IU/L Alkaline Phosphatase 116 (38-126) U/L Total Protein 8.7 H (6.3-8.2) g/dL Albumin 4.5 (3.5-5.0) g/dL Globulin 4.2 H (1.7-4.1) g/dL Albumin/Globulin Ratio 1.1 (1.0-2.8) Lipase 40 (23-300) U/L Procalcitonin 0.07 (<0.5) ng/mL Urine RBC (0-5/HPF) Urine WBC (0-5/HPF) Ur Squamous Epith Cells (0-5/HPF) Urine Bacteria (None) Ur Culture Indicated? Urine Dip Bedside Urine Glucose Negative Bedside Urine Bilirubin - Negative Bedside Urine Ketone - Negative Urine Specific [place] 1.020 Bedside Urine Occult Blood +/- Bedside Urine pH 6.0 Bedside Urine Protein + 30 Bedside Urine Urobilinogen - Negative Bedside Urine Nitrite - Negative Bedside Urine Leukocytes + [address] scan - abdomen/pelvis: Radiologist's Impression: [address] [address] [address] Scan Report Signed Patient: Katheryn Troncoso MR#: [id number] : 1955 Acct:[id number] Age/Sex: 67 / F Date of Service: 11/21/22 Loc: ED Accession Number: [id number] ?? Procedure: CT abdomen pelvis w con Ordering Provider: Brian Boudreaux P.A-C PROCEDURE:? CT ABDOMEN PELVIS W CON ? INDICATIONS:? Diffuse abdominal pain ? TECHNIQUE:? After the administration of intravenous contrast, axial sections acquired from the lung bases to the pubic symphysis.? Coronal and sagittal reformats were performed.? For radiation dose reduction, the following was used:? automated exposure control, adjustment of mA and/or kV according to patient size.? ? COMPARISON:? [facility], CT, CT ABDOMEN PELVIS W CON, 01/07/2018, 20:48. ? FINDINGS: Image quality:? Excellent.? ? Lung bases:? Lung bases are clear.? Heart size is normal.? Punctate granuloma in the left lung base. ? Solid organs:? Liver: The liver has no mass or intrahepatic biliary ductal dilatation. The portal vein and hepatic veins are patent. Biliary: Status post cholecystectomy. Pancreas: The pancreas has no mass or ductal dilatation. There is no surrounding inflammation. Spleen: Normal size. There are no masses. Adrenals: No hypertrophy or nodules. Kidneys: No obstructive calculus or hydronephrosis.? No solid mass. No cystic mass. ? Peritoneum and bowel:? Small hiatal hernia.? The distal esophagus and stomach are normal. ?The small bowel has a normal caliber and appearance. The terminal ileum is normal. The large bowel has diverticulosis with no evidence of diverticulitis.? No evidence of perforation or abscess.? The appendix is normal. No free fluid or air.? ? Nodes and vessels:? No retroperitoneal or mesenteric adenopathy by size criteria.? Aorta and inferior vena cava are normal in size.? ? Miscellaneous:? No abdominal wall mass or hernia. ? PELVIS:? Genitourinary:? The bladder has no wall thickening or mass. No bladder calcifications. ? Bones:? No suspicious bony lesions.? No acute vertebral body compression fractures.? Remote T11 compression fracture. ? IMPRESSION:? 1. Diverticulitis of the sigmoid colon without evidence of perforation or abscess. 2. Remote T11 compression fracture.? ? ? Dictated by: Mark Ferguson M.D. on 11/21/2022 at 14:29 ? ? Approved by: Mark Ferguson M.D. on 11/21/2022 at 14:33 ? Chest x-ray: Radiologist's Impression: [place] [address] XRay Report Signed Patient: Katheryn Troncoso MR#: [id number] : 1955 Acct:[id number] Age/Sex: 67 / F Date of Service: 11/21/22 Loc: ED Accession Number: [id number] ?? Procedure: XR chest 1V Ordering Provider: Farheen De Oliveira D.O. PROCEDURE:? XR CHEST 1V ? INDICATIONS:? suspected sepsis ? TECHNIQUE:? One view of the chest was acquired.? ? COMPARISON:? [facility], , XR CHEST 2V, 04/12/2020, 16:13. ? FINDINGS:? ? Surgical changes and devices:? None.? ? Lungs and pleura:? Lungs are clear.? No pleural effusions or pneumothorax.? ? Mediastinum:? Mediastinal contours appear normal.? Heart size is normal.? ? Bones and chest wall:? No suspicious bony lesions.? Overlying soft tissues appear unremarkable.? ? IMPRESSION:? No acute cardiopulmonary abnormality. ? ? ? Dictated by: Mark Ferguson M.D. on 11/21/2022 at 11:14 ? ? Approved by: Mark Ferguson M.D. on 11/21/2022 at 11:14 ? MDM Narrative Medical decision making narrative: MDM * differential diagnosis includes but not limited to diverticulitis, diverticulosis, appendicitis, ovarian torsion, UTI, pyelonephritis * Prior records reviewed:Patient was seen here about 5 months ago due to a right rib fracture. History ulcer disease and psoriatic arthritis and UTIs. History of cholecystectomy, total hysterectomy, tubal ligation. * My lab interpretation: Lab work remarkable for a white count of 19.6. Lactate within normal limits. * My imgaing interpretation: CT showed evidence of diverticulitis no evidence of any abscesses or perforations. Also showed a remote T11 compression fracture although patient did not recall any acute injury. * Clinical Decision Rules/Scores evaluated: None * Independent discussions with: None ED Course: This is a 67-year-old female presents emergency department with a repeat episode of suprapubic abdominal pain. CT was ordered which showed evidence of acute diverticulitis without any evidence of abscesses perforations. Chest x-ray unremarkable. Lab work was remarkable for a white count of 19.6 otherwise unremarkable. All vitals within normal limits and no sepsis criteria met. We will treat with oral antibiotics and recommended follow up with her primary care provider. Patient did not describe having any UTI symptoms. Shared Decision Making: Discussed plan patient who is comfortable with the plan. Social Considerations: None Disposition: Discharged to home <Farheen De Oliveira, DO - Last Filed: 11/21/22 20:00> Lab Data Labs: Lab Results 11/21/22 11/21/22 11/21/22 Range/Units 11:00 11:15 11:15 WBC 19.6 H (4.5-11.0) X10^3/uL RBC 5.17 (4.0-5.2) X10^6/uL Hgb 14.7 (12.0-16.0) g/dL Hct 43.1 (36-46) % MCV 83.5 (80-100) fL MCH 28.4 (26-34) PG MCHC 34.0 (30-36) % RDW 13.7 (11.6-14.8) % Plt Count 383 (150-400) X10^3/uL Neut % (Auto) 77.6 H (50-75) % Lymph % (Auto) 14.1 L (25-40) % Dale % (Auto) 6.5 (3-14) % Eos % (Auto) 1.1 L (2-4) % Baso % (Auto) 0.7 (0-2) % Neut # (Auto) 64761 H (8882-2084) /uL Lymph # (Auto) 2800 (2659-5244) /uL Dale # (Auto) 1300 H (0-900) /uL Eos # (Auto) 200 (0-450) /uL Baso # (Auto) 100 (0-100) /uL PT 13.4 H (10.1-12.7) SECONDS INR 1.2 (0.9-1.3) APTT 30 (26-36) SECONDS Sodium (137-145) mmol/L Potassium (3.4-5.1) mmol/L Chloride (98-107) mmol/L Carbon Dioxide (22-32) mmol/L BUN (7-17) mg/dL Creatinine (0.52-1.04) mg/dL Estimated GFR (>60) mL/min BUN/Creatinine Ratio (6-22) Glucose (80-110) mg/dL Lactate (0.7-2.1) mmol/L Calcium (8.4-10.2) mg/dL Total Bilirubin (0.2-1.3) mg/dL AST (14-36) IU/L ALT (<35) IU/L Alkaline Phosphatase (38-126) U/L Total Protein (6.3-8.2) g/dL Albumin (3.5-5.0) g/dL Globulin (1.7-4.1) g/dL Albumin/Globulin Ratio (1.0-2.8) Lipase (23-300) U/L Procalcitonin (<0.5) ng/mL Urine RBC 1-5/hpf (0-5/HPF) Urine WBC 5-10/hpf H (0-5/HPF) Ur Squamous Epith Cells 10-30 /hpf H (0-5/HPF) Urine Bacteria Many (>30) H (None) Ur Culture Indicated? Specimen cultured 11/21/22 11/21/22 Range/Units 11:15 11:15 WBC (4.5-11.0) X10^3/uL RBC (4.0-5.2) X10^6/uL Hgb (12.0-16.0) g/dL Hct (36-46) % MCV (80-100) fL MCH (26-34) PG MCHC (30-36) % RDW (11.6-14.8) % Plt Count (150-400) X10^3/uL Neut % (Auto) (50-75) % Lymph % (Auto) (25-40) % Dale % (Auto) (3-14) % Eos % (Auto) (2-4) % Baso % (Auto) (0-2) % Neut # (Auto) (9392-0930) /uL Lymph # (Auto) (4869-1543) /uL Dale # (Auto) (0-900) /uL Eos # (Auto) (0-450) /uL Baso # (Auto) (0-100) /uL PT (10.1-12.7) SECONDS INR (0.9-1.3) APTT (26-36) SECONDS Sodium 135 L (137-145) mmol/L Potassium 4.1 (3.4-5.1) mmol/L Chloride 101 (98-107) mmol/L Carbon Dioxide 22 (22-32) mmol/L BUN 11 (7-17) mg/dL Creatinine 0.78 (0.52-1.04) mg/dL Estimated GFR > 60 (>60) mL/min BUN/Creatinine Ratio 14.1 (6-22) Glucose 142 H (80-110) mg/dL Lactate 1.1 (0.7-2.1) mmol/L Calcium 9.2 (8.4-10.2) mg/dL Total Bilirubin 1.1 (0.2-1.3) mg/dL AST 27 (14-36) IU/L ALT 24 (<35) IU/L Alkaline Phosphatase 116 (38-126) U/L Total Protein 8.7 H (6.3-8.2) g/dL Albumin 4.5 (3.5-5.0) g/dL Globulin 4.2 H (1.7-4.1) g/dL Albumin/Globulin Ratio 1.1 (1.0-2.8) Lipase 40 (23-300) U/L Procalcitonin 0.07 (<0.5) ng/mL Urine RBC (0-5/HPF) Urine WBC (0-5/HPF) Ur Squamous Epith Cells (0-5/HPF) Urine Bacteria (None) Ur Culture Indicated? Urine Dip Bedside Urine Glucose Negative Bedside Urine Bilirubin - Negative Bedside Urine Ketone - Negative Urine Specific [place] 1.020 Bedside Urine Occult Blood +/- Bedside Urine pH 6.0 Bedside Urine Protein + 30 Bedside Urine Urobilinogen - Negative Bedside Urine Nitrite - Negative Bedside Urine Leukocytes + 70 Esterase Discharge Plan Departure Patient Disposition: Home Clinical Impression: Diverticulitis Instructions: DI for Diverticulitis Activity Restrictions/Additional Instructions: Thank you for coming to the [facility] Emergency Department today. Your CT scan shows something called diverticulitis. Please read the attached information for more information about this. Please take the oral antibiotics as prescribed and follow up with the primary care provider for further evaluation. I sent the antibiotics [facility] in [place]. I hope you feel better soon. Prescriptions: New amoxicillin-pot clavulanate 875-125 mg tablet 1 tab PO Q8H 10 Days Qty: 30 0RF metronidazole 500 mg tablet 500 mg PO Q8H Qty: 30 0RF No Action omeprazole magnesium [Prilosec OTC] 20 mg tablet,delayed release (DR/EC) 20 mg PO BID albuterol sulfate [Ventolin HFA] 90 mcg/actuation HFA aerosol inhaler 2 puff INHALATION Q4HP PRN (Reason: shortness of breath or wheezing) Qty: 1 0RF Patient Comments: Use spacer hydrocodone-acetaminophen 5-325 mg tablet 1 tab PO .COMPLEX PRN (Reason: pain) Qty: 20 0RF Rx Instructions: Take one tablet once or twice daily as needed for pain fluticasone propionate 50 mcg/actuation spray,suspension See Rx Instructions .ROUTE .COMPLEX Qty: 48 0RF Dose Instruction: USE 1 SPRAY NASALLY TWO TIMES DAILY Rx Instructions: USE 1 SPRAY NASALLY TWO TIMES DAILY biotin 2,500 mcg capsule 5,000 mcg PO DAILY methocarbamol 500 mg tablet 500 mg PO QID PRN (Reason: shoulder and neck pain and spasms) Qty: 60 1RF ondansetron 4 mg tablet,disintegrating 4 mg PO Q6H PRN (Reason: nausea and vomiting) Qty: 14 0RF magnesium 250 mg Tablet 500 mg PO DAILY lidocaine 5 % adhesive patch,medicated 1 patch topical DAILY PRN (Reason: pain) Qty: 15 0RF Rx Instructions: leave on most painful area for up to 12 hrs Referrals: Dulce Palencia MD [Primary Care Provider] - Stand Alone Forms: Patient Portal/API <Farheen De Oliveira DO - Last Filed: 11/21/22 20:00> Cosign ED Attending Coskrystynaature Attestation: I was immediately available in the department for consultation. Case was discussed.
--- NOTE | 2022-11-21 14:04 | DI.CT.S_ITS ---
PROCEDURE: CT ABDOMEN PELVIS W CON INDICATIONS: Diffuse abdominal pain TECHNIQUE: After the administration of intravenous contrast, axial sections acquired from the lung bases to the pubic symphysis. Coronal and sagittal reformats were performed. For radiation dose reduction, the following was used: automated exposure control, adjustment of mA and/or kV according to patient size. COMPARISON: [facility], CT, CT ABDOMEN PELVIS W CON, 01/07/2018, 20:48. FINDINGS: Image quality: Excellent. Lung bases: Lung bases are clear. Heart size is normal. Punctate granuloma in the left lung base. Solid organs: Liver: The liver has no mass or intrahepatic biliary ductal dilatation. The portal vein and hepatic veins are patent. Biliary: Status post cholecystectomy. Pancreas: The pancreas has no mass or ductal dilatation. There is no surrounding inflammation. Spleen: Normal size. There are no masses. Adrenals: No hypertrophy or nodules. Kidneys: No obstructive calculus or hydronephrosis. No solid mass. No cystic mass. Peritoneum and bowel: Small hiatal hernia. The distal esophagus and stomach are normal. The small bowel has a normal caliber and appearance. The terminal ileum is normal. The large bowel has diverticulosis with no evidence of diverticulitis. No evidence of perforation or abscess. The appendix is normal. No free fluid or air. Nodes and vessels: No retroperitoneal or mesenteric adenopathy by size criteria. Aorta and inferior vena cava are normal in size. Miscellaneous: No abdominal wall mass or hernia. PELVIS: Genitourinary: The bladder has no wall thickening or mass. No bladder calcifications. Bones: No suspicious bony lesions. No acute vertebral body compression fractures. Remote T11 compression fracture. IMPRESSION: 1. Diverticulitis of the sigmoid colon without evidence of perforation or abscess. 2. Remote T11 compression fracture. Dictated by: Mark Ferguson M.D. on 11/21/2022 at 14:29 Approved by: Mark Ferguson M.D. on 11/21/2022 at 14:33
== END 2022-11-21 15:24 | disposition home or self-care (01) ==
PROVIDERS: Emergency Medicine; Emergency Provider Physician Assistant Medical; Family Provider Family Medicine; PCP Family Medicine
DX: K57.92 Diverticulitis of intestine, part unspecified, without perforation or abscess without bleeding (principal); R50.9 Fever, unspecified; R79.89 Other specified abnormal findings of blood chemistry; R10.9 Unspecified abdominal pain
CPT/HCPCS: 36415; 71045; 74177; 80053; 81003; 81015; 83605; 83690; 84145; 85025; 85610; 85730; 87040; 87086; 93005; 93010; 99284; Q9967

== ENCOUNTER 2022-11-25 14:47 | Emergency (ER) | payer MEDICARE, MEDICAID, SELFPAY ==
[2022-11-25 15:12] VITALS: BP 129/72; PULSE 94; RESP 16; TEMP 36.6; O2SAT 97; BMI 32.8
--- NOTE | 2022-11-25 15:16 | DI.US.S_ITS ---
PROCEDURE: US PERIP VENOUS LOW EXTREM LT INDICATIONS: r/o DVT TECHNIQUE: Real-time imaging, as well as color and pulse Doppler interrogation, were performed of the lower extremity deep veins from the inguinal ligament to the popliteal fossa. COMPARISON: [facility], , [facility] VENOUS LOW EXTREM LT, 03/06/2019, 17:47. FINDINGS: The common femoral, femoral and popliteal veins are normally compressible, and free of intraluminal thrombus. Color and pulse Doppler demonstrate normal phasic intraluminal flow. There is normal augmentation response to distal compression maneuver. IMPRESSION: No evidence of left lower extremity deep venous thrombosis. Dictated by: Eddie Bynum M.D. on 11/25/2022 at 16:49 Approved by: Eddie Bynum M.D. on 11/25/2022 at 16:50
--- NOTE | 2022-11-25 18:11 | ED_ITS ---
HPI - Extremity Problem <Aiden Arroyo PA-C - Last Filed: 11/25/22 18:16> General Chief complaint: Extremity Problem,Nontraumatic Stated complaint: Left lower leg pain, Time Seen by Provider: 11/25/22 17:53 History of Present Illness HPI Narrative: 67-year-old female presents to the ED with 2 days of left calf and knee pain. Patient states the pain is on the backside of the knee and in the upper calf. Patient states she has been put up in bed and has been immobilized due to a recent diverticulitis diagnosis. Patient denies trauma, falls. Patient denies chest pain, shortness of breath, fever, chills. Patient denies numbness, tingling, weakness. Patient able to bear weight and walk normally. Related Data Home Medications Medication Instructions Recorded Confirmed magnesium 250 mg tablet 500 mg PO DAILY 02/14/18 09/12/22 biotin 2,500 mcg capsule 5,000 mcg PO DAILY 10/29/21 09/12/22 omeprazole magnesium 20 mg 20 mg PO BID 12/04/21 09/12/22 tablet,delayed release (Prilosec OTC) Previous Rx's Medication Instructions Recorded albuterol sulfate 90 mcg/actuation 2 puff inhalation Q4HP PRN 04/12/20 aerosol inhaler (Ventolin HFA) shortness of breath or wheezing #1 ea lidocaine 5 % topical patch 1 patch topical DAILY PRN pain #15 12/24/20 ea fluticasone propionate 50 See Rx Instructions .Route 03/26/21 mcg/actuation nasal .COMPLEX #48 grams spray,suspension ondansetron 4 mg disintegrating 4 mg PO Q6H PRN nausea and 06/28/22 tablet vomiting #14 tabs hydrocodone 5 mg-acetaminophen 325 1 tab PO .COMPLEX PRN pain #20 tabs 07/10/22 mg tablet methocarbamol 500 mg tablet 500 mg PO QID PRN shoulder and 10/28/22 neck pain and spasms #60 tabs amoxicillin 875 mg-potassium 1 tab PO Q8H 10 days #30 tabs 11/21/22 clavulanate 125 mg tablet metronidazole 500 mg tablet 500 mg PO Q8H #30 tabs 11/21/22 Allergies Allergy/AdvReac Type Severity Reaction Status Date / Time codeine [CODEINE] Allergy Mild THROAT Verified 11/21/22 10:53 SWELLING naproxen [From ANAPROX] Allergy Mild HIVES Verified 11/21/22 10:53 flurbiprofen [FLURBIPROFEN] AdvReac Mild GI UPSET Verified 11/21/22 10:53 Review of Systems <Aiden Arroyo PA-C - Last Filed: 11/25/22 18:16> Review of Systems ROS Unobtainable: All systems reviewed & are unremarkable except as noted in HPI and below Constitutional Constitutional: Denies chills, Denies fatigue, Denies fever(s), Denies frequent falls, Denies lethargy and Denies weakness Eyes Eyes: Denies change in vision, Denies eye discharge, Denies irritation and Denies loss of vision ENT Ears, Nose, Mouth, and Throat: Denies change in voice, Denies dizziness, Denies neck pain, Denies sore throat and Denies throat swelling Cardiovascular Cardiovascular: Denies chest pain, Denies irregular heart rhythm, Denies lightheadedness, Denies palpitations, Denies dyspnea, Denies dyspnea on exertion and Denies orthopnea Respiratory Respiratory: Denies cough, Denies dyspnea, Denies dyspnea on exertion and Denies wheezing Gastrointestinal Gastrointestinal: Denies abdominal pain, Denies change in bowel habits, Denies diarrhea, Denies nausea and Denies vomiting Genitourinary Genitourinary: Denies hematuria, Denies flank pain, Denies urinary incontinence and Denies urinary urgency Musculoskeletal Musculoskeletal: Denies back pain, Denies muscle weakness, Denies neck pain, Denies numbness and Denies tingling Comments: Left knee and calf pain Integumentary/Breasts Skin/Breast: Denies pruritus, Denies erythema, Denies rash and Denies wounds Neurologic Neurologic: Denies behavioral changes, Denies confusion, Denies dizziness, Denies frequent falls, Denies loss of vision, Denies numbness, Denies tingling and Denies weakness Psychiatric Psychiatric: Denies anxiety, Denies behavioral changes, Denies confusion, Denies depression, Denies homicidal ideation and Denies suicidal ideation Endocrine Endocrine: Denies fatigue, Denies flushing and Denies palpitations Hematologic/Lymphatic Hematologic/Lymphatic: Denies easy bruising Allergic/Immunologic Allergic/Immunologic: Denies urticaria, Denies throat swelling and Denies wheezing Patient History <Aiden Arroyo PA-C - Last Filed: 11/25/22 18:16> Medical History Anxiety Arthritis BCC (basal cell carcinoma), shoulder Compression fracture of thoracic vertebra Depression Fracture of rib of right side (2014) GERD (gastroesophageal reflux disease) Hemorrhoids History of ulcer disease Measles Migraine Psoriatic arthritis UTI (urinary tract infection) Surgical History History of cholecystectomy History of total hysterectomy History of tubal ligation Hx of sinus surgery Family History Father Alcoholism Mother Arthritis Cancer Brother Suicide Sister Alcoholism Arthritis Hepatitis C Son Seasonal allergies Daughter Hyperlipidemia Ulcer Daughter Genetic disease Social History marital status: unknown household members: none Smoking Status: Never smoker alcohol intake: current substance use type: does not use Smoking Status: Never smoker alcohol intake frequency: a few times a month Substance Use Type: does not use Exam <Aiden Arroyo PA-C - Last Filed: 11/25/22 18:16> Narrative Exam Narrative: Const General:?cooperative, healthy appearing and comfortable [facility] Head:?normal to inspection Ears:?hearing grossly normal bilaterally Nose:?external nose normal Face and sinus:?normal facial exam and sinuses nontender Mouth:?oral mucosae normal Throat:?posterior oropharynx normal Eyes General:?appearance normal, both eyes and all related structures Neck Neck:?normal visual inspection and no lymphadenopathy noted Resp Effort & Inspection:?normal respiratory effort Auscultation:?clear to auscultation bilaterally Cardio Rate:?regular rate Rhythm:?regular rhythm Musculoskeletal There is some tenderness to palpation of the medial, left upper calf. No tenderness to palpation of the knee. No palpable masses. No deformities or erythema. There is no swelling. There is full range of motion. Strength and sensation is intact. Patient is neurovascularly intact. Gait is normal. Neuro General:?patient alert, patient awake and patient oriented x3 Initial Vital Signs Initial Vital Signs: Vital Signs Temperature 97.8 F 11/25/22 15:12 Pulse Rate 94 H 11/25/22 15:12 Respiratory Rate 16 11/25/22 15:12 Blood Pressure 129/72 11/25/22 15:12 Pulse Oximetry 97 11/25/22 15:12 Oxygen Delivery Method Room Air 11/25/22 15:12 <Kelli Alexander DO - Last Filed: 11/28/22 02:30> Initial Vital Signs Initial Vital Signs: Vital Signs Temperature 97.8 F 11/25/22 15:12 Pulse Rate 94 H 11/25/22 15:12 Respiratory Rate 16 11/25/22 15:12 Blood Pressure 129/72 11/25/22 15:12 Pulse Oximetry 97 11/25/22 15:12 Oxygen Delivery Method Room Air 11/25/22 15:12 Course <Aiden Arroyo PA-C - Last Filed: 11/25/22 18:16> Orders Ordered: Discontinued Medications Lidocaine (Lidocaine Patch 1 Each Adh..Patch) 1 each TOP NOW ONE Stop: 11/25/22 18:07 Last Admin: 11/25/22 18:16 Dose: 1 each Documented By: CTS Vital Signs Vital signs: Vital Signs - 8 hr 11/25/22 15:12 Temperature 97.8 F Pulse Rate 94 H Respiratory Rate 16 Blood Pressure 129/72 Pulse Oximetry 97 Oxygen Delivery Method Room Air <Kelli Alexander DO - Last Filed: 11/28/22 02:30> Orders Ordered: Discontinued Medications Lidocaine (Lidocaine Patch 1 Each Adh..Patch) 1 each TOP NOW ONE Stop: 11/25/22 18:07 Last Admin: 11/25/22 18:16 Dose: 1 each Documented By: CTS Vital Signs Vital signs: Vital Signs - 8 hr 11/25/22 15:12 Temperature 97.8 F Pulse Rate 94 H Respiratory Rate 16 Blood Pressure 129/72 Pulse Oximetry 97 Oxygen Delivery Method Room Air MDM - Extremity (Nontraumatic) <RYLEY Perez Last Filed: 11/25/22 18:16> MDM Narrative Medical decision making narrative: 67-year-old female presents to the ED with 2 days of left calf and knee pain. DVT was ruled out with ultrasound. Physical exam reassuring for full range of motion, strength or sensation intact, gait normal. Patient's symptoms likely due to a musculoskeletal sprain/strain. Ordered a lidocaine patch for symptom relief. Recommend continued use of lidocaine patches, heating pads, ibuprofen, Tylenol. Patient has a PCP follow-up coming up later this week, patient agrees to follow-up about the leg pain during that visit. ED return precautions were discussed with patient. Patient verbalized understanding. Discharge Plan Departure Patient Disposition: Home Clinical Impression: Knee pain Instructions: DI for Knee Pain Activity Restrictions/Additional Instructions: Were evaluated in the ED today for left knee and calf pain. Your physical exam is reassuring for no deformities. Your ultrasound did not show any evidence of DVTs. Your symptoms are likely due to a musculoskeletal sprain/strain. You may take ibuprofen and Tylenol for your symptoms. You may also apply lidocaine patches and heat packs for relief. Please follow-up with your primary care doctor as you have scheduled for later this week. Return to the ED if you experience any weakness, trouble walking. Prescriptions: No Action omeprazole magnesium [Prilosec OTC] 20 mg tablet,delayed release (DR/EC) 20 mg PO BID albuterol sulfate [Ventolin HFA] 90 mcg/actuation HFA aerosol inhaler 2 puff INHALATION Q4HP PRN (Reason: shortness of breath or wheezing) Qty: 1 0RF Patient Comments: Use spacer hydrocodone-acetaminophen 5-325 mg tablet 1 tab PO .COMPLEX PRN (Reason: pain) Qty: 20 0RF Rx Instructions: Take one tablet once or twice daily as needed for pain fluticasone propionate 50 mcg/actuation spray,suspension See Rx Instructions .ROUTE .COMPLEX Qty: 48 0RF Dose Instruction: USE 1 SPRAY NASALLY TWO TIMES DAILY Rx Instructions: USE 1 SPRAY NASALLY TWO TIMES DAILY biotin 2,500 mcg capsule 5,000 mcg PO DAILY methocarbamol 500 mg tablet 500 mg PO QID PRN (Reason: shoulder and neck pain and spasms) Qty: 60 1RF ondansetron 4 mg tablet,disintegrating 4 mg PO Q6H PRN (Reason: nausea and vomiting) Qty: 14 0RF amoxicillin-pot clavulanate 875-125 mg tablet 1 tab PO Q8H 10 Days Qty: 30 0RF metronidazole 500 mg tablet 500 mg PO Q8H Qty: 30 0RF magnesium 250 mg Tablet 500 mg PO DAILY lidocaine 5 % adhesive patch,medicated 1 patch topical DAILY PRN (Reason: pain) Qty: 15 0RF Rx Instructions: leave on most painful area for up to 12 hrs Referrals: Dulce Palencia MD [Primary Care Provider] - Stand Alone Forms: Patient Portal/API <Kelli Alexander DO - Last Filed: 11/28/22 02:30> Cosign ED Attending Malikature Attestation: I was immediately available in the department for consultation. Documentation has been reviewed.
[2022-11-25 18:16] VITALS: BP 130/74; PULSE 82; RESP 16; O2SAT 97
[2022-11-25] MEDS: LIDOCAINE PATCH 1 EACH ADH..PATCH TOP (18:16)
== END 2022-11-25 18:17 | disposition home or self-care (01) ==
PROVIDERS: Emergency Provider Student in an Organized Health Care Education/Training Program; Family Provider Family Medicine; PCP Family Medicine
DX: M25.562 Pain in left knee (principal)
CPT/HCPCS: 93971; 99283

== ENCOUNTER 2023-01-05 15:07 | Emergency (ER) | payer MEDICARE, MEDICAID, SELFPAY ==
[2023-01-05 15:09] VITALS: BP 151/71; PULSE 90; RESP 19; TEMP 36.2; O2SAT 95; BMI 32.8
[2023-01-05 15:26] LABS: Appearance Urine UA CLEAR; Bilirubin Urine UA NEGATIVE (NEGATIVE); Color Urine UA YELLOW; Glucose Urine UA TRACE g/dL (Negative); Ketones Urine UA NEGATIVE (NEGATIVE); Leukocyte Esterase Urine UA 3+ (NEGATIVE); Nitrite Urine UA POSITIVE (Negative); Occult Blood Urine UA 3+ (Negative); Protein Urine UA 2+ (Negative)
[2023-01-05 15:37] LABS: Bacteria Urine Many (>30); RBC Urine 30-100/HPF (0-5/HPF); Squamous Epithelial Cell Urine 1-5 /HPF (0-5/HPF); WBC Urine >100/HPF (0-5/HPF); pH Urine UA 6.5 (4.5-8.0)
[2023-01-05 15:38] LABS: Add Manual Diff / Slide Review NO; Basophils Absolute Auto 100 /uL (0-100); Basophils Percent Auto 0.7 % (0-2); Eosinophils Absolute Auto 300 /uL (0-450); Eosinophils Percent Auto 1.8 % (2-4); Hematocrit 41.3 % (36-46); Hemoglobin 13.9 g/dL (12.0-16.0); Lymphocytes Absolute Auto 3300 /uL (1100-4500); Mean Corpuscular HGB Conc 33.6 % (30-36); Mean Corpuscular Hemoglobin 28.3 PG (26-34); Mean Corpuscular Volume 84.2 fL (80-100); Monocytes Absolute Auto 1300 /uL (0-900); Monocytes Percent Auto 7.7 % (3-14); Neutrophils Absolute Auto 12300 /uL (1500-7000); Neutrophils Percent Auto 70.8 % (50-75); Platelet Count 399 X10^3/uL (150-400); Red Cell Distribution Width 13.6 % (11.6-14.8); White Blood Cell Count 17.4 X10^3/uL (4.5-11.0)
[2023-01-05 15:38] LABS: Culture Indicated Urine Specimen Cultured
[2023-01-05 15:48] LABS: Alanine Aminotransferase 22 IU/L (<35); Albumin 4.2 g/dL (3.5-5.0); Alkaline Phosphatase 117 U/L (38-126); Aspartate Aminotransferase 23 IU/L (14-36); BUN Creatinine Ratio 16.4 (6-22); Bilirubin Total 0.6 mg/dL (0.2-1.3); Blood Urea Nitrogen 12 mg/dL (7-17); Calcium 8.9 mg/dL (8.4-10.2); Carbon Dioxide 25 mmol/L (22-32); Chloride 101 mmol/L (98-107); Estimated Glomerular Filt Rate > 60 mL/min (>60); Globulin 4.4 g/dL (1.7-4.1); Glucose 103 mg/dL (80-110); HEMOLYSIS < 15 (0-50); Lipase 63 U/L (23-300); Potassium 4.1 mmol/L (3.4-5.1); Sodium 135 mmol/L (137-145); Total Protein 8.6 g/dL (6.3-8.2)
[2023-01-05 16:59] VITALS: PULSE 91; O2SAT 98
[2023-01-05 17:00] VITALS: BP 144/88; PULSE 91; O2SAT 97
[2023-01-05] MEDS: cefTRIAXone 1,000 MG in SODIUM CHLORIDE 0.9% 100 ML 200 MG IV (17:03)
[2023-01-05 17:30] VITALS: BP 143/68; PULSE 81; O2SAT 98
--- NOTE | 2023-01-05 17:55 | ED.ABDPAIN ---
HPI - Abdominal Pain General Chief Complaint: Abdominal Pain Stated Complaint: Thinks diverticulitis Time Seen by Provider: 01/05/23 16:30 Source: patient Mode of arrival: Family Vehicle History of Present Illness HPI narrative: 67-year-old female nonsmoker with history of diverticulitis and prior urinary tract infections presents with a chief complaint of urinary frequency and lower abdominal discomfort. She states her symptoms started on Friday and have persisted. She has some nausea but denies any vomiting. She denies any fever or chills. She denies back pain. She is not dizzy nor weak or lightheaded. She had been seen and evaluated about 6 weeks ago under relatively similar circumstances and was found to have a mild case of diverticulitis and was prescribed Augmentin and Flagyl and had complete resolution Related Data Home Medications Medication Instructions Recorded Confirmed magnesium 250 mg tablet 500 mg PO DAILY 02/14/18 11/28/22 biotin 2,500 mcg capsule 5,000 mcg PO DAILY 10/29/21 11/28/22 omeprazole magnesium 20 mg 20 mg PO BID 12/04/21 11/28/22 tablet,delayed release (Prilosec OTC) Previous Rx's Medication Instructions Recorded albuterol sulfate 90 mcg/actuation 2 puff inhalation Q4HP PRN 04/12/20 aerosol inhaler (Ventolin HFA) shortness of breath or wheezing #1 ea lidocaine 5 % topical patch 1 patch topical DAILY PRN pain #15 12/24/20 ea ondansetron 4 mg disintegrating 4 mg PO Q6H PRN nausea and 06/28/22 tablet vomiting #14 tabs methocarbamol 500 mg tablet 500 mg PO QID PRN shoulder and 10/28/22 neck pain and spasms #60 tabs metronidazole 500 mg tablet 500 mg PO Q8H #30 tabs 11/21/22 ciprofloxacin HCl 500 mg tablet 500 mg PO BID #20 tabs 01/05/23 (Cipro) metronidazole 500 mg tablet 500 mg PO Q8H #30 tabs 01/05/23 Allergies Allergy/AdvReac Type Severity Reaction Status Date / Time codeine [CODEINE] Allergy Mild THROAT Verified 01/05/23 15:14 SWELLING naproxen [From ANAPROX] Allergy Mild HIVES Verified 01/05/23 15:14 flurbiprofen [FLURBIPROFEN] AdvReac Mild GI UPSET Verified 01/05/23 15:14 Review of Systems Review of Systems Narrative: GENERAL: See HPI. HEENT: Denies sinus pain, ear pain, sore throat, difficulty swallowing, dizziness. RESPIRATORY: Denies dyspnea, cough, wheezing, hemoptysis, sputum. CARDIOVASCULAR: Denies chest pain, palpitations, orthopnea, edema, GASTROINTESTINAL: See HPI : See HPI MUSCULOSKELETAL: denies weakness, joint pain, or bony pain SKIN: Denies rash, skin lesions, or other NEUROLOGIC: Denies weakness, headache, numbness, change in speech, confusion, seizures, incoordination. PSYCHIATRIC: No concerning psychosocial issues. 12 point review of systems is negative except for those stated above Patient History Medical History Anxiety Arthritis BCC (basal cell carcinoma), shoulder Compression fracture of thoracic vertebra Depression Diverticulitis Fracture of rib of right side (2014) GERD (gastroesophageal reflux disease) Hemorrhoids History of ulcer disease Measles Migraine Psoriatic arthritis UTI (urinary tract infection) Surgical History History of cholecystectomy History of total hysterectomy History of tubal ligation Hx of sinus surgery Family History Father Alcoholism Mother Arthritis Cancer Brother Suicide Sister Alcoholism Arthritis Hepatitis C Son Seasonal allergies Daughter Hyperlipidemia Ulcer Daughter Genetic disease Social History marital status: unknown household members: none Smoking Status: Never smoker alcohol intake: current substance use type: does not use Smoking Status: Never smoker alcohol intake frequency: a few times a month Substance Use Type: does not use Exam Narrative Exam Narrative: GENERAL: [67] year old patient appears stated age. Well-developed patient, in mild distress. HEAD: Atraumatic. Normocephalic. EYES: Pupils equal round and reactive. Extraocular motions intact. No scleral icterus. No injection or drainage. ENT: Nose without bleeding, purulent drainage. Throat without erythema, tonsillar hypertrophy or exudate. Airway patent. NECK: Trachea midline. Non tender CARDIOVASCULAR: Regular rate and rhythm without murmurs, gallops, or rubs. RESPIRATORY: Clear to auscultation. Breath sounds equal bilaterally. No wheezes, rales, or rhonchi. GASTROINTESTINAL: Abdomen soft, non-tender, nondistended. EXTREMITIES: No edema or joint tenderness. BACK: Nontender without deformity or crepitance. No flank tenderness. NEURO: AOx3. SKIN: No rash or erythema of visible areas Initial Vital Signs Initial Vital Signs: Vital Signs Temperature 97.1 F L 01/05/23 15:09 Pulse Rate 90 01/05/23 15:09 Respiratory Rate 19 01/05/23 15:09 Blood Pressure 151/71 H 01/05/23 15:09 Pulse Oximetry 95 01/05/23 15:09 Oxygen Delivery Method Room Air 01/05/23 15:09 Course Orders Ordered: Discontinued Medications Ceftriaxone Sodium 1,000 mg/ (Sodium Chloride) 100 mls @ 200 mls/hr IV NOW ONE Stop: 01/05/23 16:30 Last Infusion: 01/05/23 17:53 Dose: 0 mls/hr Documented By: Admin: 01/05/23 17:03 Dose: 200 mls/hr Documented By: DOV Ondansetron HCl (Ondansetron 4 Mg Odt) 4 mg PO NOW PRN PRN Reason: Nausea And Vomiting Ondansetron HCl (Ondansetron 4 Mg/2 Ml Inj) 4 mg IV NOW PRN PRN Reason: Nausea And Vomiting Vital Signs Vital signs: Vital Signs - 8 hr 01/05/23 18:22 01/05/23 18:22 Pulse Rate 93 H Blood Pressure 138/65 Pulse Oximetry 97 MDM - Abdominal Pain Lab Data 01/05/23 15:30 01/05/23 15:30 Labs: Lab Results 01/05/23 01/05/23 01/05/23 Range/Units 15:21 15:30 15:30 WBC 17.4 H (4.5-11.0) X10^3/uL RBC 4.90 (4.0-5.2) X10^6/uL Hgb 13.9 (12.0-16.0) g/dL Hct 41.3 (36-46) % MCV 84.2 (80-100) fL MCH 28.3 (26-34) PG MCHC 33.6 (30-36) % RDW 13.6 (11.6-14.8) % Plt Count 399 (150-400) X10^3/uL Neut % (Auto) 70.8 (50-75) % Lymph % (Auto) 19.0 L (25-40) % [place] % (Auto) 7.7 (3-14) % Eos % (Auto) 1.8 L (2-4) % Baso % (Auto) 0.7 (0-2) % Neut # (Auto) 86049 H (9070-4340) /uL Lymph # (Auto) 3300 (4747-4719) /uL [place] # (Auto) 1300 H (0-900) /uL Eos # (Auto) 300 (0-450) /uL Baso # (Auto) 100 (0-100) /uL Sodium 135 L (137-145) mmol/L Potassium 4.1 (3.4-5.1) mmol/L Chloride 101 (98-107) mmol/L Carbon Dioxide 25 (22-32) mmol/L BUN 12 (7-17) mg/dL Creatinine 0.73 (0.52-1.04) mg/dL Estimated GFR > 60 (>60) mL/min BUN/Creatinine Ratio 16.4 (6-22) Glucose 103 (80-110) mg/dL Calcium 8.9 (8.4-10.2) mg/dL Total Bilirubin 0.6 (0.2-1.3) mg/dL AST 23 (14-36) IU/L ALT 22 (<35) IU/L Alkaline Phosphatase 117 (38-126) U/L Total Protein 8.6 H (6.3-8.2) g/dL Albumin 4.2 (3.5-5.0) g/dL Globulin 4.4 H (1.7-4.1) g/dL Albumin/Globulin Ratio 1.0 (1.0-2.8) Lipase 63 (23-300) U/L Urine Color Yellow Urine Appearance Clear Urine pH 6.5 (4.5-8.0) Ur Specific [place] 1.010 (1.000-1.035) Urine Protein 2+ H (Negative) Urine Glucose (UA) Trace H (Negative) g/dL Urine Ketones Negative (NEGATIVE) Urine Occult Blood 3+ H (Negative) Urine Nitrate Positive H (Negative) Urine Bilirubin Negative (NEGATIVE) Urine Urobilinogen 2.0 H (0.2) E.U./dL Ur Leukocyte Esterase 3+ H (NEGATIVE) Urine RBC 30-100/hpf H (0-5/HPF) Urine WBC >100/hpf H (0-5/HPF) Ur Squamous Epith Cells 1-5 /hpf D (0-5/HPF) Urine Bacteria Many (>30) H (None) Ur Culture Indicated? Specimen cultured MDM Narrative Medical decision making narrative: [67] year old patient presents with urinary frequency and lower abdominal discomfort Multiple etiologies for patient's symptoms considered including, but not limited to: [UTI versus diverticulitis versus other] Prior Charts reviewed in our EMR Primary Historian: patient Labs reviewed and interpreted by myself: Elevated white blood cells with no signs of anemia, electrolytes within normal, urine very convincing for infectious process Patient's symptoms improved over duration of stay with above-stated therapies. Patient not septic, pain well controlled, she is tolerating orals. We did discuss the utility of performing a CT scan at this time but after lengthy discussion we elect to hold off for now. We did discuss that clinically she does potentially have diverticulitis and that the antibiotic regimen including Cipro and Flagyl that we would typically uses also appropriate for the treatment of urinary tract infection. Given her relatively benign abdominal exam we discussed that my suspicion for perforation or abscess is relatively low and that at this time the likelihood that a CT scan would change the course is also quite low. Findings and discharge diagnosis discussed with patient/family followed by verbalization of understanding Return precautions discussed with patient/family whom verbalize understanding of diagnosis and plan Discharge Plan Departure Patient Disposition: Home Clinical Impression: Acute UTI Instructions: DI for Urinary Tract Infection (UTI) Activity Restrictions/Additional Instructions: *You have been diagnosed with [abdominal pain due to urinary tract infection and possibly recurrence of diverticulitis. *What to do: *Please continue to take your regular medications as directed. [x ] New medication prescriptions sent to your pharmacy: [ [facility]] *Please follow up with your primary care provider in 2-3 days, call for an appointment. Let them know you were seen in the Emergency Department and that we ask that you be seen in follow up. We will electronically transmit a record of today's note if your PCP is in our system *Please consider a clear liquid diet for the next 24-48 hours and then slowly advance to regular as tolerated. Also, try to avoid alcohol, nicotine, caffeine, spicy, acidic or fatty foods as this may worsen your symptoms *If you do not have a primary care provider please contact the [facility] Resource line at [phone]. They will ask some questions about your medical history and help get you set up with a doctor in the community. *Return to Emergency Department if you should have any new, worsening or concerning symptoms, such as [fever greater than 101 F, shaking chills, worsening pain, persistent vomiting or other bothersome symptoms] Prescriptions: New ciprofloxacin HCl [Cipro] 500 mg tablet 500 mg PO BID Qty: 20 0RF metronidazole 500 mg tablet 500 mg PO Q8H Qty: 30 0RF No Action omeprazole magnesium [Prilosec OTC] 20 mg tablet,delayed release (DR/EC) 20 mg PO BID albuterol sulfate [Ventolin HFA] 90 mcg/actuation HFA aerosol inhaler 2 puff INHALATION Q4HP PRN (Reason: shortness of breath or wheezing) Qty: 1 0RF Patient Comments: Use spacer biotin 2,500 mcg capsule 5,000 mcg PO DAILY methocarbamol 500 mg tablet 500 mg PO QID PRN (Reason: shoulder and neck pain and spasms) Qty: 60 1RF ondansetron 4 mg tablet,disintegrating 4 mg PO Q6H PRN (Reason: nausea and vomiting) Qty: 14 0RF metronidazole 500 mg tablet 500 mg PO Q8H Qty: 30 0RF magnesium 250 mg Tablet 500 mg PO DAILY lidocaine 5 % adhesive patch,medicated 1 patch topical DAILY PRN (Reason: pain) Qty: 15 0RF Rx Instructions: leave on most painful area for up to 12 hrs Referrals: Dulce Palencia MD [Primary Care Provider] - Stand Alone Forms: Patient Portal/API
[2023-01-05 18:00] VITALS: BP 162/84; PULSE 90; O2SAT 96
[2023-01-05 18:22] VITALS: BP 138/65; PULSE 93; O2SAT 97
== END 2023-01-05 18:31 | disposition home or self-care (01) ==
PROVIDERS: Emergency Medicine; Emergency Provider Emergency Medicine; Family Provider Family Medicine; PCP Family Medicine
DX: N39.0 Urinary tract infection, site not specified (principal); R11.0 Nausea
CPT/HCPCS: 36415; 80053; 81001; 83690; 85025; 87077; 87086; 87186; 96365; 99284; J0696

== ENCOUNTER → 2023-02-07 07:46 | Outpatient (CLI) | payer MEDICARE, MEDICAID, SELFPAY ==
[2023-02-07 09:51] LABS: Add Manual Diff / Slide Review NO; Basophils Absolute Auto 100 /uL (0-100); Basophils Percent Auto 1.1 % (0-2); Eosinophils Absolute Auto 300 /uL (0-450); Eosinophils Percent Auto 3.6 % (2-4); Hematocrit 41.4 % (36-46); Lymphocytes Absolute Auto 2800 /uL (1100-4500); Lymphocytes Percent Auto 29.2 % (25-40); Mean Corpuscular HGB Conc 33.7 % (30-36); Mean Corpuscular Hemoglobin 28.8 PG (26-34); Mean Corpuscular Volume 85.5 fL (80-100); Monocytes Absolute Auto 700 /uL (0-900); Monocytes Percent Auto 7.6 % (3-14); Neutrophils Absolute Auto 5600 /uL (1500-7000); Neutrophils Percent Auto 58.5 % (50-75); Platelet Count 365 X10^3/uL (150-400); Red Blood Cell Count 4.85 X10^6/uL (4.0-5.2); White Blood Cell Count 9.5 X10^3/uL (4.5-11.0)
[2023-02-07 10:12] LABS: Alanine Aminotransferase 21 IU/L (<35); Alkaline Phosphatase 111 U/L (38-126); Aspartate Aminotransferase 25 IU/L (14-36); BUN Creatinine Ratio 17.6 (6-22); Bilirubin Total 0.6 mg/dL (0.2-1.3); Blood Urea Nitrogen 13 mg/dL (7-17); Calcium 9.1 mg/dL (8.4-10.2); Carbon Dioxide 28 mmol/L (22-32); Chloride 104 mmol/L (98-107); Cholesterol 202 mg/dL (140-199); Estimated Glomerular Filt Rate > 60 mL/min (>60); Glucose 118 mg/dL (80-110); HDL Cholesterol 39 mg/dL (40-60); HEMOLYSIS < 15 (0-50); LDL Cholesterol Calculated 130 mg/dL (<100); Potassium 4.6 mmol/L (3.4-5.1); Sodium 138 mmol/L (137-145); Triglycerides 166 mg/dL (35-150)
[2023-02-07 10:43] LABS: TSH w/ Reflex to FT4 1.11 uIU/mL (0.47-4.68)
== END ==
PROVIDERS: Family Provider Family Medicine; PCP Family Medicine; Referring Provider Physician Assistant; Visit Provider Physician Assistant
DX: E78.5 Hyperlipidemia, unspecified (principal); K21.9 Gastro-esophageal reflux disease without esophagitis; K57.30 Diverticulosis of large intestine without perforation or abscess without bleeding; L40.50 Arthropathic psoriasis, unspecified
CPT/HCPCS: 36415; 80053; 80061; 84443; 85025

== ENCOUNTER → 2023-04-03 10:30 | Outpatient (CLI) | payer MEDICARE, MEDICAID, SELFPAY | PROVIDERS: Family Provider Family Medicine; PCP Family Medicine; Visit Provider Nurse Practitioner Family | DX: R10.9 Unspecified abdominal pain (principal) | CPT/HCPCS: 87086 ==

== ENCOUNTER 2023-04-03 13:48 | Emergency (ER) | payer MEDICARE, MEDICAID, SELFPAY ==
[2023-04-03 13:52] VITALS: BP 116/74; PULSE 92; RESP 17; TEMP 36.3; O2SAT 96; BMI 32.4
--- NOTE | 2023-04-03 16:54 | ED_ITS ---
HPI - Back Pain/Injury <Mylene Reina PA-C - Last Filed: 04/03/23 17:07> General Chief Complaint: Back Pain/Injury Stated Complaint: Muscle spasms Time Seen by Provider: 04/03/23 16:38 Source: patient History of Present Illness HPI Narrative: Patient is a 68-year-old female who reports recently lifting a TV last week and having low back pain, then yesterday developing severe spasms on the left low back above the SI joint. She is a long history of back pain and back spasms. Pain has not responded to the Robaxin she had at home and she is allergic to NSAIDs. She went to the walk-in clinic this morning and was evaluated; a UA was negative for blood which would be concerning for kidney stones or for urinary tract infection. She was prescribed Flexeril and prednisone, but came to the emergency room because she was in so much pain and did not think her prescription would be filled in time to help her. She denies any loss of bowel or bladder control, pain radiating down her legs or numbness or tingling in her feet. She does not have any chest pain or shortness of breath. Related Data Home Medications Medication Instructions Recorded Confirmed magnesium 250 mg tablet 500 mg PO DAILY 02/14/18 04/03/23 biotin 2,500 mcg capsule 5,000 mcg PO DAILY 10/29/21 04/03/23 omeprazole magnesium 20 mg 20 mg PO BID 12/04/21 04/03/23 tablet,delayed release (Prilosec OTC) Previous Rx's Medication Instructions Recorded albuterol sulfate 90 mcg/actuation 2 puff inhalation Q4HP PRN 04/12/20 aerosol inhaler (Ventolin HFA) shortness of breath or wheezing #1 ea lidocaine 5 % topical patch 1 patch topical DAILY PRN pain #15 12/24/20 ea methocarbamol 500 mg tablet 500 mg PO QID PRN shoulder and 10/28/22 neck pain and spasms #60 tabs ondansetron 4 mg disintegrating 4 mg PO Q6H PRN nausea and 01/30/23 tablet vomiting #14 tabs cyclobenzaprine 5 mg tablet 5 mg PO TID PRN muscle spasm #20 04/03/23 tabs prednisone 20 mg tablet 40 mg PO DAILY #6 tabs 04/03/23 Allergies Allergy/AdvReac Type Severity Reaction Status Date / Time codeine [CODEINE] Allergy Mild THROAT Verified 04/03/23 13:52 SWELLING naproxen [From ANAPROX] Allergy Mild HIVES Verified 04/03/23 13:52 flurbiprofen [FLURBIPROFEN] AdvReac Mild GI UPSET Verified 04/03/23 13:52 Review of Systems <Mylene Reina PA-C - Last Filed: 04/03/23 17:07> Review of Systems ROS Unobtainable: All systems reviewed & are unremarkable except as noted in HPI and below Patient History <Mylene Reina PA-C - Last Filed: 04/03/23 17:07> Medical History Anxiety Arthritis BCC (basal cell carcinoma), shoulder Compression fracture of thoracic vertebra Depression Diverticulitis Fracture of rib of right side (2014) GERD (gastroesophageal reflux disease) Hemorrhoids History of ulcer disease Measles Migraine Psoriatic arthritis UTI (urinary tract infection) Surgical History History of cholecystectomy History of total hysterectomy History of tubal ligation Hx of sinus surgery Family History Father Alcoholism Mother Arthritis Cancer Brother Suicide Sister Alcoholism Arthritis Hepatitis C Son Seasonal allergies Daughter Hyperlipidemia Ulcer Daughter Genetic disease Social History marital status: unknown household members: none Smoking Status: Never smoker alcohol intake: current substance use type: does not use Smoking Status: Never smoker alcohol intake frequency: holidays/special occasions only Substance Use Type: does not use Exam <Mylene Reina PA-C - Last Filed: 04/03/23 17:07> Narrative Exam Narrative: GENERAL:68 year old patient appears stated age. Well-developed patient, in moderate distress. NEURO: AOx3. HEAD: Atraumatic. Normocephalic. EYES: Pupils equal round and reactive. Extraocular motions intact. No scleral icterus. No injection or drainage. ENT: Nose without bleeding or purulent drainage. RESPIRATORY: No distress Spine: No midline tenderness, focal point of pain is no left lumbar spine about 3 in above the SI joint. She reports mild pain with my deep palpation but it does not cause the spasming pain that is most problematic for her. There is no superficial skin rash concerning for zoster. There is no erythema, edema or w armth concerning for cellulitis. EXTREMITIES: No edema or joint tenderness. SKIN: No rash or erythema of visible areas Initial Vital Signs Initial Vital Signs: Vital Signs Temperature 97.4 F L 04/03/23 13:52 Pulse Rate 92 H 04/03/23 13:52 Respiratory Rate 17 04/03/23 13:52 Blood Pressure 116/74 04/03/23 13:52 Pulse Oximetry 96 04/03/23 13:52 Oxygen Delivery Method Room Air 04/03/23 13:52 <Eduardo Perez MD - Last Filed: 04/11/23 07:12> Initial Vital Signs Initial Vital Signs: Vital Signs Temperature 97.4 F L 04/03/23 13:52 Pulse Rate 92 H 04/03/23 13:52 Respiratory Rate 17 04/03/23 13:52 Blood Pressure 116/74 04/03/23 13:52 Pulse Oximetry 96 04/03/23 13:52 Oxygen Delivery Method Room Air 04/03/23 13:52 Course <Mylene Reina PA-C - Last Filed: 04/03/23 17:07> Orders Ordered: Discontinued Medications Diazepam (Diazepam 5 Mg Tablet) 5 mg PO NOW ONE Stop: 04/03/23 16:47 Last Admin: 04/03/23 16:55 Dose: 5 mg Documented By: HUBER Prednisone (Prednisone 20 Mg Tablet) 40 mg PO NOW ONE Stop: 04/03/23 16:47 Last Admin: 04/03/23 16:55 Dose: 40 mg Documented By: HUBER Vital Signs Vital signs: Vital Signs - 8 hr 04/03/23 13:52 Temperature 97.4 F L Pulse Rate 92 H Respiratory Rate 17 Blood Pressure 116/74 Pulse Oximetry 96 Oxygen Delivery Method Room Air <Eduardo Perez MD - Last Filed: 04/11/23 07:12> Orders Ordered: Discontinued Medications Diazepam (Diazepam 5 Mg Tablet) 5 mg PO NOW ONE Stop: 04/03/23 16:47 Last Admin: 04/03/23 16:55 Dose: 5 mg Documented By: HUBER Prednisone (Prednisone 20 Mg Tablet) 40 mg PO NOW ONE Stop: 04/03/23 16:47 Last Admin: 04/03/23 16:55 Dose: 40 mg Documented By: HUBER Vital Signs Vital signs: Vital Signs - 8 hr 04/03/23 13:52 Temperature 97.4 F L Pulse Rate 92 H Respiratory Rate 17 Blood Pressure 116/74 Pulse Oximetry 96 Oxygen Delivery Method Room Air MDM - Back Pain/Injury <Mylene Reina PA-C - Last Filed: 04/03/23 17:07> MDM Narrative Medical decision making narrative: Multiple etiologies for patient's symptoms considered including, but not limited to: Musculoskeletal back pain, skin rash, pyelonephritis, kidney stone. UA in walk-in clinic was unremarkable and patient has no evidence of rash or tissue infection. Suspect this is muscle spasm. Discussed that the medications given by walk-in clinic are probably appropriate but we can treat her in the emergency room since she is here now. She is a previous allergy to NSAIDs with a reaction of hives, does not know if she is ever had ketorolac, so we will not try it today. We will give 1st dose of prednisone and a dose of p.o. diazepam for muscle spasm. Very low suspicion for pathology of spinal canal requiring advanced imaging today. Patient's symptoms improved over duration of stay with above-stated therapies. Findings and discharge diagnosis discussed with patient/family followed by verbalization of understanding Return precautions discussed with patient/family whom verbalize understanding of diagnosis and plan Discharge Plan Departure Patient Disposition: Home Clinical Impression: Muscle spasm of back Instructions: DI for Low Back Pain, DI for Back Spasm Activity Restrictions/Additional Instructions: *You have been diagnosed with back spasm. We treated you with prednisone and diazepam in the emergency department. You already have a prescription for 3 days of prednisone and a muscle relaxer that was sent by walk-in clinic. Apply ice, continue gentle stretching and light activity as bed rest will aggravate back pain. Return to the emergency room if you develop loss of bowel or bladder control or are unable to walk because of weakness or heaviness sensation. *What to do: *Please continue to take your regular medications as directed. [ ] New medication prescriptions sent to your pharmacy: [ ] [ ] New medication written as a paper prescription [x] No new medications given *Please follow up with your primary care provider in 2-3 days, call for an appointment. Let them know you were seen in the Emergency Department and that we ask that you be seen in follow up. We will electronically transmit a record of today's note if your PCP is in our system *If you do not have a primary care provider please contact the [facility] Resource line at [phone]. They will ask some questions about your medical history and help get you set up with a doctor in the community. *Return to Emergency Department if you should have any new, worsening or concerning symptoms, such as [fever greater than 101 F, shaking chills, worsening pain, persistent vomiting or other concerning symptoms]. Prescriptions: No Action omeprazole magnesium [Prilosec OTC] 20 mg tablet,delayed release (DR/EC) 20 mg PO BID prednisone 20 mg tablet 40 mg PO DAILY Qty: 6 0RF cyclobenzaprine 5 mg tablet 5 mg PO TID PRN (Reason: muscle spasm) Qty: 20 0RF albuterol sulfate [Ventolin HFA] 90 mcg/actuation HFA aerosol inhaler 2 puff INHALATION Q4HP PRN (Reason: shortness of breath or wheezing) Qty: 1 0RF Patient Comments: Use spacer biotin 2,500 mcg capsule 5,000 mcg PO DAILY methocarbamol 500 mg tablet 500 mg PO QID PRN (Reason: shoulder and neck pain and spasms) Qty: 60 1RF ondansetron 4 mg tablet,disintegrating 4 mg PO Q6H PRN (Reason: nausea and vomiting) Qty: 14 0RF magnesium 250 mg Tablet 500 mg PO DAILY lidocaine 5 % adhesive patch,medicated 1 patch topical DAILY PRN (Reason: pain) Qty: 15 0RF Rx Instructions: leave on most painful area for up to 12 hrs Referrals: Dulce Palencia MD [Primary Care Provider] - Stand Alone Forms: Patient Portal/API <Eduardo Perez MD - Last Filed: 04/11/23 07:12> Cosign ED Attending Cosignature Attestation: I was immediately available in the department for consultation. ?This documentation has been reviewed and I agree with assessment and plan. Supervised by Eduardo Perez MD
[2023-04-03] MEDS: diazePAM 5 MG TABLET PO (16:55)
[2023-04-03] MEDS: predniSONE 20 MG TABLET 40 MG PO (16:55)
[2023-04-03 17:14] VITALS: BP 134/77; PULSE 84; RESP 18; O2SAT 97
== END 2023-04-03 17:15 | disposition home or self-care (01) ==
PROVIDERS: Emergency Provider Physician Assistant; Family Provider Family Medicine; PCP Family Medicine
DX: M62.830 Muscle spasm of back (principal); R10.9 Unspecified abdominal pain
CPT/HCPCS: 87086; 99283

== ENCOUNTER → 2023-04-21 11:58 | Outpatient (CLI) | payer MEDICARE, MEDICAID, SELFPAY ==
--- NOTE | 2023-04-21 12:00 | DI.RAD.S_ITS ---
PROCEDURE: XR RIBS RT MIN 3V W CXR 1V INDICATIONS: right lower anterior rib pain after chiropractor, hx rib fx TECHNIQUE: To views of the right ribs were acquired, along with a single view chest. COMPARISON: [facility], , XR RIBS RT MIN 3V W CXR 1V, 06/28/2022, 7:33. FINDINGS: Surgical changes and devices: None. Bones and chest wall: No fractures or dislocations. No suspicious bony lesions. Overlying soft tissues appear unremarkable. Lungs and pleura: No pleural effusions or pneumothorax. Lungs appear clear. Mediastinum: Mediastinal contours appear normal. Heart size is normal. IMPRESSION: No acute cardiopulmonary abnormality. No rib fracture. Dictated by: Mark Ferguson M.D. on 04/21/2023 at 13:00 Approved by: Mark Ferguson M.D. on 04/21/2023 at 13:02
== END ==
PROVIDERS: Family Provider Family Medicine; PCP Family Medicine; Referring Provider Physician Assistant; Visit Provider Physician Assistant
DX: R07.81 Pleurodynia (principal)
CPT/HCPCS: 71101

== ENCOUNTER → 2023-08-29 15:18 | Outpatient (CLI) | payer MEDICARE, MEDICAID, SELFPAY ==
--- NOTE | 2023-08-29 15:20 | DI.MG.S_ITS ---
BILATERAL DIGITAL SCREENING MAMMOGRAM 3D/2D WITH CAD: 08/29/2023 CLINICAL: Routine screening. Family history of breast cancer. Comparison is made to exams dated: 03/09/2021 mammogram, 04/08/2018 mammogram, and 03/27/2016 mammogram - [facility]. Both breasts are almost entirely fatty (category a/<25% glandular tissue). Current study was also evaluated with a Computer Aided Detection (CAD) system. No significant masses, calcifications, or other findings are seen in either breast. There has been no significant interval change. IMPRESSION: NEGATIVE There is no mammographic evidence of malignancy. A 1 year screening mammogram is recommended. Based on the Tyrer Cuzick model (a risk assessment model) the patient's lifetime risk is 4.3% and her 10 year risk is 2.4%. According to the ACR, ACS, and NCCN guidelines, an annual breast MRI exam along with mammogram is recommended if the patient's lifetime risk is 20% or greater. This exam was interpreted at Station ID: [id number]. NOTE: For mammograms, a report in lay terms will be sent to the patient. Approximately 15% of breast malignancies will not be visualized mammographically. In the management of a palpable breast mass, a negative mammogram must not discourage biopsy of a clinically suspicious lesion. Electronically Signed By: Avtar camilo/juan c:08/30/2023 08:43:12 letter sent: Normal Exam ACR BI-RADS Category 1: Negative [id number]
== END ==
PROVIDERS: Family Provider Family Medicine; PCP Family Medicine; Referring Provider Family Medicine; Visit Provider Family Medicine
DX: Z12.31 Encounter for screening mammogram for malignant neoplasm of breast (principal); Z80.3 Family history of malignant neoplasm of breast
CPT/HCPCS: 77063; 77067

== ENCOUNTER → 2023-10-02 07:08 | Outpatient (CLI) | payer MEDICARE, MEDICAID, SELFPAY ==
[2023-10-02 08:44] LABS: Hemoglobin A1C% w Est Avg Glu 5.9 % (4.0-6.0)
[2023-10-02 09:10] LABS: Cholesterol 229 mg/dL (140-199); HDL Cholesterol 42 mg/dL (40-60); LDL Cholesterol Calculated 147 mg/dL (<100); Triglycerides 198 mg/dL (35-150)
== END ==
LOC: LAB 07:09
PROVIDERS: Family Provider Family Medicine; PCP Family Medicine; Referring Provider Family Medicine; Visit Provider Family Medicine
DX: R73.9 Hyperglycemia, unspecified (principal); E78.5 Hyperlipidemia, unspecified
CPT/HCPCS: 36415; 80061; 83036

== ENCOUNTER 2024-03-15 10:36 | Emergency (ER) | payer MEDICARE, MEDICAID, SELFPAY ==
[2024-03-15 10:39] VITALS: BP 141/80; PULSE 70; RESP 14; TEMP 36.6; O2SAT 99; BMI 32.5
[2024-03-15] MEDS: ONDANSETRON 4 MG ODT PO (10:53)
[2024-03-15 11:08] LABS: COVID19 -Nasal RAPID Negative (Negative)
--- NOTE | 2024-03-15 11:29 | ED.RECABL ---
HPI - Recheck/Abnormal Lab/Rx <Aiden Arroyo PA-C - Last Filed: 03/15/24 11:56> General Chief Complaint: Recheck/Abnormal Lab/Rx Stated Complaint: hit head at home 3 weeks ago/covid exposure Time Seen by Provider: 03/15/24 11:28 Source: patient Mode of arrival: Ambulatory History of Present Illness HPI narrative: 69-year-old female with past medical history GERD, psoriatic arthritis, migraine, hyperlipidemia presents to the ED with 2 days of upper respiratory symptoms as well headaches from a head injury sustained 3 weeks ago. Patient states that she accidentally hit the top of her head on the corner of a dresser when she was going from a sitting to standing position. Denies loss of consciousness. Patient is not on blood thinners. Patient states that she did not think too much of it and did not seek evaluation. Patient states that however since the injury, patient endorses point tenderness at the site of the injury and some generalized left sided headaches that occur intermittently. Patient endorses some nausea, denies vomiting. Over the last 2 days, patient has experienced upper respiratory symptoms including chills, sore throat, mild cough. Patient denies diarrhea, fever, chest pain, shortness of breath, lightheadedness, dizziness, syncope. 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 Related Data Home Medications Medication Instructions Recorded Confirmed magnesium 250 mg tablet 500 mg PO DAILY 02/14/18 09/26/23 biotin 2,500 mcg capsule 5,000 mcg PO DAILY 10/29/21 09/26/23 omeprazole magnesium 20 mg 20 mg PO BID 12/04/21 09/26/23 tablet,delayed release (Prilosec OTC) Previous Rx's Medication Instructions Recorded albuterol sulfate 90 mcg/actuation 2 puff inhalation Q4HP PRN 04/12/20 aerosol inhaler (Ventolin HFA) shortness of breath or wheezing #1 ea lidocaine 5 % topical patch 1 patch topical DAILY PRN pain #15 12/24/20 ea ondansetron 4 mg disintegrating 4 mg PO Q6H PRN nausea and 01/30/23 tablet vomiting #14 tabs cyclobenzaprine 5 mg tablet 5 mg PO TID PRN muscle spasm #20 04/03/23 tabs prednisone 20 mg tablet 40 mg (2 x 20 mg) PO DAILY #6 tabs 04/03/23 atorvastatin 10 mg tablet 10 mg PO BEDTIME #90 tabs 10/22/23 methocarbamol 500 mg tablet 500 mg PO QID PRN shoulder and 12/02/23 neck pain and spasms #60 tabs ondansetron 4 mg disintegrating 4 mg PO Q8H PRN nausea and 03/15/24 tablet vomiting #14 tabs Allergies Allergy/AdvReac Type Severity Reaction Status Date / Time codeine [CODEINE] Allergy Mild THROAT Verified 03/15/24 10:43 SWELLING naproxen [From ANAPROX] Allergy Mild HIVES Verified 03/15/24 10:43 flurbiprofen [FLURBIPROFEN] AdvReac Mild GI UPSET Verified 03/15/24 10:43 Review of Systems <Aiden Arroyo PA-C - Last Filed: 03/15/24 11:56> Constitutional Constitutional: Reports chills, Reports fatigue, Denies fever(s), Denies frequent falls, Reports headache(s), Denies lethargy and Denies weakness Eyes Eyes: Denies change in vision, Denies eye discharge, Denies irritation and Denies loss of vision ENT Ears, Nose, Mouth, and Throat: Denies change in voice, Denies dizziness, Reports headache(s), Reports nasal discharge, Denies neck pain, Reports sore throat and Denies throat swelling Cardiovascular Cardiovascular: Denies chest pain, Denies irregular heart rhythm, Denies lightheadedness, Denies palpitations, Denies dyspnea, Denies dyspnea on exertion and Denies orthopnea Respiratory Respiratory: Reports cough, Denies dyspnea, Denies dyspnea on exertion and Denies wheezing Gastrointestinal Gastrointestinal: Denies abdominal pain, Denies change in bowel habits, Denies diarrhea, Reports nausea and Denies vomiting Musculoskeletal Musculoskeletal: Denies neck pain and Denies numbness Integumentary/Breasts Skin/Breast: Denies pruritus, Denies erythema, Denies rash and Denies wounds Neurologic Neurologic: Denies behavioral changes, Denies confusion, Denies dizziness, Denies frequent falls, Reports headache(s), Denies loss of vision, Denies numbness and Denies weakness Psychiatric Psychiatric: Denies anxiety, Denies behavioral changes, Denies confusion, Denies depression, Denies homicidal ideation and Denies suicidal ideation Endocrine Endocrine: Reports fatigue, Denies flushing and Denies palpitations Hematologic/Lymphatic Hematologic/Lymphatic: Denies easy bruising Allergic/Immunologic Allergic/Immunologic: Denies urticaria, Denies throat swelling and Denies wheezing Patient History <Aiden Arroyo PA-C - Last Filed: 03/15/24 11:56> Medical History Diverticulitis UTI (urinary tract infection) Hemorrhoids Anxiety Depression Measles History of ulcer disease Arthritis BCC (basal cell carcinoma), shoulder Compression fracture of thoracic vertebra Fracture of rib of right side (2014) Migraine Psoriatic arthritis GERD (gastroesophageal reflux disease) Surgical History Hx of sinus surgery History of tubal ligation History of cholecystectomy History of total hysterectomy Family History Father Alcoholism Mother Arthritis Cancer Brother Suicide Sister Alcoholism Arthritis Hepatitis C Son Seasonal allergies Daughter Hyperlipidemia Ulcer Daughter Genetic disease Social History marital status: unknown household members: none Smoking Status: Never smoker second hand exposure: No alcohol intake: current substance use type: does not use Smoking Status: Never smoker alcohol intake frequency: holidays/special occasions only Substance Use Type: does not use Exam <Adien Arroyo PA-C - Last Filed: 03/15/24 11:56> Narrative Exam Narrative: Const General:?cooperative, healthy appearing and comfortable [facility] Head:?normal to inspection; there is point tenderness to the top left side of the head. No skull depressions. No hematoma. Skin is intact. Ears:?hearing grossly normal bilaterally Nose:?external nose normal Face and sinus:?normal facial exam and sinuses nontender Mouth:?oral mucosae normal Throat:?posterior oropharynx normal Eyes General:?appearance normal, both eyes and all related structures Neck Neck:?normal visual inspection and no lymphadenopathy noted Resp Effort & Inspection:?normal respiratory effort Auscultation:?clear to auscultation bilaterally Cardio Rate:?regular rate Rhythm:?regular rhythm Neuro General:?patient alert, patient awake and patient oriented x3; PERRLA Initial Vital Signs Initial Vital Signs: Vital Signs Temperature 97.8 F 03/15/24 10:39 Pulse Rate 70 03/15/24 10:39 Respiratory Rate 14 03/15/24 10:39 Blood Pressure 141/80 H 03/15/24 10:39 Pulse Oximetry 99 03/15/24 10:39 Oxygen Delivery Method Room Air 03/15/24 10:39 <Kelli Alexander DO - Last Filed: 03/16/24 08:58> Initial Vital Signs Initial Vital Signs: Vital Signs Temperature 97.8 F 03/15/24 10:39 Pulse Rate 70 03/15/24 10:39 Respiratory Rate 14 03/15/24 10:39 Blood Pressure 141/80 H 03/15/24 10:39 Pulse Oximetry 99 03/15/24 10:39 Oxygen Delivery Method Room Air 03/15/24 10:39 Course <Aiden Arroyo PA-C - Last Filed: 03/15/24 11:56> Orders Ordered: Discontinued Medications Ondansetron HCl (Ondansetron 4 Mg Odt) 4 mg PO NOW ONE Stop: 03/15/24 10:46 Last Admin: 03/15/24 10:53 Dose: 4 mg Documented By: ADOLPH Vital Signs Vital signs: Vital Signs - 8 hr 03/15/24 10:39 Temperature 97.8 F Pulse Rate 70 Respiratory Rate 14 Blood Pressure 141/80 H Pulse Oximetry 99 Oxygen Delivery Method Room Air <Kelli Alexander DO - Last Filed: 03/16/24 08:58> Orders Ordered: Discontinued Medications Ondansetron HCl (Ondansetron 4 Mg Odt) 4 mg PO NOW ONE Stop: 03/15/24 10:46 Last Admin: 03/15/24 10:53 Dose: 4 mg Documented By: ADOLPH Vital Signs Vital signs: Vital Signs - 8 hr 03/15/24 10:39 Temperature 97.8 F Pulse Rate 70 Respiratory Rate 14 Blood Pressure 141/80 H Pulse Oximetry 99 Oxygen Delivery Method Room Air MDM - Recheck/Abnormal Lab/Rx <Aiden Arroyo PA-C - Last Filed: 03/15/24 11:56> Lab Data Labs: Lab Results 03/15/24 Range/Units 10:45 SARS-CoV-2 (PCR) Negative (Negative) MDM Narrative Medical decision making narrative: 69-year-old female with past medical history GERD, psoriatic arthritis, migraine, hyperlipidemia presents to the ED with 2 days of upper respiratory symptoms as well headaches from a head injury sustained 3 weeks ago. Concern for COVID-19 infection versus other viral URI versus concussion versus other. It has been 3 weeks since the head injury, physical exam is reassuring for no hematoma, skull depressions, lacerations. No imaging indicated at this time. COVID-19 test is negative. Patient's symptoms are most consistent with a concussion and viral upper respiratory infection. Zofran prescribed for nausea. A dose of Zofran was also given in the ED. recommend supportive care for URI. Counseled patient on postconcussive symptoms and importance of physical and cognitive rest. Recommend follow-up with PCP as soon as possible. ED return precautions were discussed with patient. Patient verbalized understanding. Medical records reviewed: Yes <Kelli Alexander DO - Last Filed: 03/16/24 08:58> Lab Data Labs: Lab Results 03/15/24 Range/Units 10:45 SARS-CoV-2 (PCR) Negative (Negative) Discharge Plan Departure Patient Disposition: Home Clinical Impression: Concussion Qualifiers: Encounter type: initial encounter Loss of consciousness presence/duration: without LOC Qualified Code(s): S06.0X0A - Concussion without loss of consciousness, initial encounter URI (upper respiratory infection) Qualifiers: URI type: unspecified viral URI Qualified Code(s): J06.9 - Acute upper respiratory infection, unspecified Instructions: DI for Concussion, DI for Viral Upper Respiratory Infection -- Adult Activity Restrictions/Additional Instructions: You were evaluated in the ED today for a head injury and upper respiratory symptoms. Your COVID-19 test was negative. It appears that you do have a viral upper respiratory infection. It is recommended to manage symptoms with [id number] cough and cold remedies as needed. The headaches and tenderness symptoms are most consistent with a concussion from the head injury that you sustained. We advice physical and cognitive rest for the next few days until you recover from the symptoms. You were also being prescribed medication for nausea which you can take as needed. Please continue to consume plenty of water. Return to the ED if you have worsening symptoms, persistent vomiting, chest pain, shortness of breath. Prescriptions: New ondansetron 4 mg tablet,disintegrating 4 mg PO Q8H PRN (Reason: nausea and vomiting) Qty: 14 0RF No Action omeprazole magnesium [Prilosec OTC] 20 mg tablet,delayed release (DR/EC) 20 mg PO BID prednisone 20 mg tablet 40 mg PO DAILY Qty: 6 0RF cyclobenzaprine 5 mg tablet 5 mg PO TID PRN (Reason: muscle spasm) Qty: 20 0RF albuterol sulfate [Ventolin HFA] 90 mcg/actuation HFA aerosol inhaler 2 puff INHALATION Q4HP PRN (Reason: shortness of breath or wheezing) Qty: 1 0RF Patient Comments: Use spacer biotin 2,500 mcg capsule 5,000 mcg PO DAILY ondansetron 4 mg tablet,disintegrating 4 mg PO Q6H PRN (Reason: nausea and vomiting) Qty: 14 0RF atorvastatin 10 mg tablet 10 mg PO BEDTIME Qty: 90 2RF methocarbamol 500 mg tablet 500 mg PO QID PRN (Reason: shoulder and neck pain and spasms) Qty: 60 1RF magnesium 250 mg Tablet 500 mg PO DAILY lidocaine 5 % adhesive patch,medicated 1 patch topical DAILY PRN (Reason: pain) Qty: 15 0RF Rx Instructions: leave on most painful area for up to 12 hrs Referrals: Dulce Palencia MD [Primary Care Provider] - Stand Alone Forms: Patient Portal/API ED Sign-out <Kelli Alexander DO - Last Filed: 03/16/24 08:58> Cosign ED Attending Cosignature Attestation: I was available for consultation.
[2024-03-15 11:52] VITALS: BP 123/71; PULSE 83; RESP 20; TEMP 36.6; O2SAT 98
== END 2024-03-15 11:53 | disposition home or self-care (01) ==
PROVIDERS: Emergency Medicine; Emergency Provider Student in an Organized Health Care Education/Training Program; Family Provider Family Medicine; PCP Family Medicine
DX: S06.0X0A Concussion without loss of consciousness, initial encounter (principal); J06.9 Acute upper respiratory infection, unspecified; Z11.52 Encounter for screening for COVID-19
CPT/HCPCS: 87635; 99283

== ENCOUNTER → 2025-01-26 08:05 | Outpatient (CLI) | payer MEDICARE, MEDICAID, SELFPAY ==
[2025-01-26 09:03] LABS: Influenza A - CEPHEID Flu A NEGATIVE (NEGATIVE); Influenza B - CEPHEID Flu B NEGATIVE (NEGATIVE); Respiratory Syncytial Virus Negative (Negative)
[2025-01-26 09:15] LABS: COVID-19 CEPHEID 4-PLEX PCR Negative (Negative)
== END ==
PROVIDERS: Family Provider Family Medicine; PCP Family Medicine; Visit Provider Chiropractor
DX: R05.1 Acute cough (principal); J02.9 Acute pharyngitis, unspecified
CPT/HCPCS: 0241U

== ENCOUNTER → 2025-06-29 08:07 | Outpatient (CLI) | payer MEDICARE, MEDICAID, SELFPAY ==
[2025-06-29 09:30] LABS: Add Manual Diff / Slide Review NO; Hematocrit 42.4 % (36-46); Hemoglobin 14.4 g/dL (12.0-16.0); Lymphocytes Absolute Auto 2700 /uL (1100-4500); Mean Corpuscular HGB Conc 34.0 % (30-36); Mean Corpuscular Hemoglobin 29.4 PG (26-34); Mean Corpuscular Volume 86.4 fL (80-100); Platelet Count 339 X10^3/uL (150-400)
[2025-06-29 09:36] LABS: Hemoglobin A1C% w Est Avg Glu 6.0 % (4.0-6.0)
[2025-06-29 09:50] LABS: Cholesterol 204 mg/dL (140-199); HDL Cholesterol 41 mg/dL (40-60); Triglycerides 203 mg/dL (35-150)
[2025-06-29 10:22] LABS: Thyroid Stimulating Hormone 1.85 uIU/mL (0.47-4.68)
[2025-06-29 10:54] LABS: Hep C Virus Ab w/Reflex Quant NEGATIVE s/c (NEGATIVE)
== END ==
PROVIDERS: Family Provider Family Medicine; PCP Family Medicine; Referring Provider Family Medicine; Visit Provider Family Medicine
DX: Z13.9 Encounter for screening, unspecified (principal); E66.9 Obesity, unspecified; R61 Generalized hyperhidrosis
CPT/HCPCS: 36415; 80061; 83036; 84443; 85025; 86803

== ENCOUNTER → 2025-07-12 12:35 | Outpatient (CLI) | payer MEDICARE, MEDICAID, SELFPAY ==
--- NOTE | 2025-07-12 12:36 | DI.MG.S_ITS ---
MM screening mammo BI: 07/12/2025. BI-RADS: 1 CLINICAL: 70-year old female for bilateral screening mammogram. Tyrer-Cuzick lifetime risk of 4.2%. No personal or first-degree family history of breast cancer. Current reported family history of breast cancer: maternal aunt, second maternal aunt, third maternal aunt, fourth maternal aunt and fifth maternal aunt. PRIOR EXAMS 08/29/2023, 03/09/2021, 04/08/2018, 03/27/2016. MAMMOGRAPHY TECHNIQUE: 2D and 3D (tomosynthesis) digital mammographic views obtained, with additional images as needed for full coverage. Current study was also evaluated with a Computer Aided Detection (CAD) system. DENSITY A. The breasts are almost entirely fatty. MAMMOGRAPHY FINDINGS Bilateral: No suspicious mass, asymmetry, microcalcification, or other abnormality seen. IMPRESSION: * No evidence of malignancy. RECOMMENDATIONS Bilateral * Annual screening mammography. OVERALL ASSESSMENT CATEGORY BI-RADS-1: Negative. [employer] recommends annual screening mammography beginning at age 40 for women with average risk of breast cancer. ELECTRONICALLY SIGNED: Danielle Ash M.D. on 07/12/2025 at 04:51:33 PM PT Interpreting Station ID: [id number]
== END ==
LOC: MAMMO 12:36
PROVIDERS: Family Provider Family Medicine; PCP Family Medicine; Referring Provider Family Medicine; Visit Provider Family Medicine
DX: Z12.31 Encounter for screening mammogram for malignant neoplasm of breast (principal); Z80.3 Family history of malignant neoplasm of breast; R92.313 Mammographic fatty tissue density, bilateral breasts
CPT/HCPCS: 77063; 77067